=== PATIENT | female | born 1950 | race Caucasian/White ===

== ENCOUNTER → 2020-02-18 10:36 | Outpatient (BNVA) | payer MEDICARE, SELFPAY | PROVIDERS: PCP Family Medicine; Visit Provider Surgery | DX: Z01.818 Encounter for other preprocedural examination (principal) | CPT/HCPCS: 99212 ==

== ENCOUNTER → 2020-02-25 10:04 | Outpatient (BNV) | payer MEDICARE, SELFPAY | PROVIDERS: PCP Family Medicine; Visit Provider Internal Medicine | DX: Z85.3 Personal history of malignant neoplasm of breast (principal); M81.0 Age-related osteoporosis without current pathological fracture; Z17.0 Estrogen receptor positive status [ER+]; Z79.811 Long term (current) use of aromatase inhibitors | CPT/HCPCS: 99213; 99214; 99215; G2211 ==

== ENCOUNTER 2020-02-25 11:00 | Outpatient (REF) | payer MEDICARE, SELFPAY ==
--- NOTE | 2020-02-25 | MM_ITS ---
EXAMINATION: MM DIAGNOSTIC DIGITAL BREAST TOMOSYNTHESIS, LEFT CLINICAL INFORMATION: Short interval six-month follow-up probable benign early dystrophic calcifications in lumpectomy scar posterior upper outer left breast. Prior left lumpectomy for invasive ductal cancer 08/14/2016. COMPARISON: Mammography: 10/02/2019 (diagnostic, BI-RADS 3), 06/21/2018, 06/19/2017 TECHNIQUE: Digital breast tomosynthesis is performed in both the craniocaudal and mediolateral oblique views along with computer-aided detection (CAD). Synthesized 2D images are generated from the tomosynthesis. Additional magnification CC and magnification ML views are obtained. FINDINGS: The breasts are heterogeneously dense, which may obscure small masses (ACR BI-RADS breast composition Category c). There is scarring again seen posterior upper outer left breast with central BioZorb device and some benign peripheral calcifications for follow-up, likely early dystrophic. They will be reassessed again at time of annual bilateral mammography, due in 6 months. The remainder left breast is unremarkable. Results are provided to the patient at time of visit by the technologist. MM/MM tomosynthesis diagnostic LT IMPRESSION: No significant changes from prior study. Probable benign early dystrophic calcifications at lumpectomy site. ASSESSMENT: BI-RADS 3: Probably Benign RECOMMENDATION: Diagnostic mammography at time of bilateral annual exam, due in 6 months. This patient's information was entered into a reminder system with a target due date for their next mammogram.
--- NOTE | 2020-02-25 08:51 | MM_ITS ---
EXAMINATION: BONE DENSITOMETRY CLINICAL INDICATION: Other specified disorders of bone density and structure. COMPARISON: Previous BD dated 01/16/2017 and baseline BD dated 03/09/2009. TECHNIQUE: Using a katena DXA System (software version: 13.1) manufactured by [employer], dual-energy x-ray absorptiometry was performed of the lumbar spine and left hip. The images are of good technical quality. Summary results are attached. FINDINGS: AP SPINE L1-L2 (excluding L3 and L4): The data of L1-L4 has been changed to exclude the L3 and L4 vertebral bodies, because at these levels may cause overestimation of lumbar spine density. Current: BMD 0.983 g/cm2, Z-score -0.1, T-score -1.5, osteopenia, 2.1% decrease from previous, 4.4% increase from baseline (<5% change is not significant). Prior: BMD 1.004 g/cm2. Baseline: BMD 0.942 g/cm2. LEFT FEMUR, NECK: Current: BMD 0.701 g/cm2, Z-score -0.9, T-score -2.4, osteopenia. Prior: BMD 0.726 g/cm2. Baseline: BMD 0.741 g/cm2. LEFT FEMUR, TOTAL: Current: BMD 0.780 g/cm2, Z-score -0.5, T-score -1.8, osteopenia, 3.0% decrease from previous, 4.9% decrease from baseline (<5% change is not significant). Prior: BMD 0.804 g/cm2. Baseline: BMD 0.820 g/cm2. IDENTIFIED RISK FACTORS: Menopause, hysterectomy, bilateral oophorectomy, family history (parental hip fracture). HISTORY OF FRACTURE: None listed. MEDICATIONS: Calcium supplements or multivitamin, vitamin D, Fosamax. MM/XR DEXA axial skeleton IMPRESSION: 1. DIAGNOSIS: Osteopenia based on the lowest T-score value of -2.4 in the femoral neck applying World Health Organization criteria. 2. 10-YEAR FRACTURE RISK PREDICTION, FRAX: Major osteoporotic fracture (clinical spine, forearm, hip or shoulder) 13.2%. Hip fracture 3.6%. 3. Treatment Recommendations: NOF guidelines recommend consideration for treatment in postmenopausal women and men age 50 and older presenting with the following: -A hip or vertebral (clinical or morphometric) fracture. -T-score less than or equal to -2.5 at the femoral neck or spine after appropriate evaluation to exclude secondary causes. -Low bone mass at the hip or spine and a 10-year fracture probability by FRAX of greater than or equal to 3% for hip fracture or greater than or equal to 20% for major osteoporotic fracture based on the [place] adapted WHO algorithm. 4. Other Recommendations: All treatment decisions require clinical judgment and consideration of individual patient factors, including patient preferences, comorbidities, previous drug use, risk factors not captured in the FRAX model (e.g. frailty, falls, vitamin D deficiency, increased bone turnover, interval significant decline in bone density) and possible under or overestimation of fracture risk by FRAX. Additional medical evaluation for secondary cause of low bone mineral density may be appropriate. FUTURE SCAN RECOMMENDATION: People with diagnosed cases of osteoporosis or at high risk for fracture should have regular bone mineral density tests. For patients eligible for Medicare, routine testing is allowed once every 2 years. The testing frequency can be increased to one year for patients who have rapidly progressing disease, those who are receiving or discontinuing medical therapy to restore bone mass, or have additional risk factors.
--- NOTE | 2020-02-25 10:46 | P.PNHO_ITS ---
Medical Summary - Medical Summary Chief complaint: Follow-up Medical Summary: Diagnosis: Left breast infiltrating ductal carcinoma July 2016. Patient went for routine screening mammography in July 2016, this was read as BI-RADS 0 incomplete, additional imaging with targeted ultrasound of the left breast and axilla was recommended because of a spiculated mass 1 cm posterior upper outer quadrant of the left breast. Ultrasound revealed a 1 cm hypoechoic mass in the left breast, upper-outer quadrant. This was biopsied, pathology revealed invasive ductal carcinoma, moderately differentiated, ER positive VT positive, HER-2 -1+ by IHC. Tumor measured 0.85 cm in greatest dimension. On August 14 she underwent needle localization lumpectomy which revealed invasive ductal carcinoma measuring 1.1 cm, overall grade 1, mitotic rate 1, focal DCIS, solid type, intermediate nuclear grade, closest margin was 0.1-0.2 cm from the anterior resection margin. No lymphovascular invasion, 2 benign sentinel lymph nodes. Pathological stage: pT1c pN0. There is no family history of breast cancer in the immediate or first-degree relative, genetic screening has not been recommended. Completed adjuvant radiation therapy in October 2016, started on tamoxifen 20 mg once daily on November 09, 2016. Interval History Interval history: Patient is here in follow-up. She has been doing quite well overall. She was started on gabapentin by her neurologist because of tremors in her left hand as well as head tremors. She underwent her mammogram just today. She reports no problems pertaining to her breasts. No palpable breast masses, tenderness, swelling or nipple discharge. She has chronic left knee pain but no significant arthralgias. She denies any vasomotor symptoms. She has to travel to [facility] this week because of a family emergency. She denies any fever, chills, cough, shortness of breath, abdominal pain or change in bowel habits. Review of Systems - Constitutional Reports as per HPI, Reports no additional constitutional complaints - Cardiovascular Reports no additional cardiovascular complaints - Respiratory Reports no additional respiratory complaints - Integumentary/Breasts Skin/Breast: Reports no additional skin complaints - Neurologic Reports other [facility] Medical History: Medical History (Last Updated 02/18/20 @ 10:56 by Allan Hong MD) Cataracts, bilateral Colon cancer screening History of breast cancer Hyperlipidemia Hypertension Family History: Family History (Last Reviewed 02/18/20 @ 10:55 by Allan Hong MD) Maternal Uncle History of prostate cancer Maternal Aunt History of colon cancer Brother History of prostate cancer Surgical History: Surgical History (Last Reviewed 02/18/20 @ 10:55 by Allan Hong MD) History of hemorrhoidectomy History of hysterectomy History of lumpectomy of left breast Oncology Screenings - ECOG Performance Status ECOG Performance Status: 1 Home Medications and Allergies Home Medications Medication Instructions Recorded Confirmed Type alendronate 70 mg tablet 70 mg PO QWEEK 02/18/20 02/25/20 History amlodipine 5 mg tablet 5 mg PO DAILY 02/18/20 02/25/20 History aspirin 81 mg chewable tablet 1 tab PO DAILY 02/18/20 02/25/20 History cholecalciferol (vitamin D3) 25 25 mcg PO DAILY 02/18/20 02/25/20 History mcg (1,000 unit) tablet fluticasone propionate 50 1 spray INTRANASAL DAILY 02/18/20 02/25/20 History mcg/actuation nasal spray,suspension gabapentin 100 mg capsule 100 mg PO DAILY 02/18/20 02/25/20 History letrozole 2.5 mg tablet 2.5 mg PO DAILY 02/18/20 02/25/20 History lisinopril 10 mg tablet 10 mg PO DAILY 02/18/20 02/25/20 History loratadine 10 mg tablet 10 mg PO DAILY 02/18/20 02/25/20 History pravastatin 80 mg tablet 80 mg PO DAILY 02/18/20 02/25/20 History Allergies Allergy/AdvReac Type Severity Reaction Status Date / Time No Known Allergies Allergy Verified 02/18/20 10:50 [No Known Allergies*] Exam - Constitutional Present: no acute distress - Routine HEENT Exam Head: Present: normal inspection Eye: Present: EOMI - Routine Neck Exam Present: normal inspection - Routine Chest/Breast/Axilla Exam Breast: Absent: induration, mass, swelling Axillae: Absent: lymphadenopathy Comments: Left lumpectomy scar well healed, minimal induration along the scar. - Routine Respiratory Exam Present: CTAB - Routine Cardiovascular Exam Cardiovascular: Present: S1, S2 - Routine Abdominal Exam Present: normal bowel sounds, soft - Routine Extremities Exam Present: full ROM. Absent: pedal edema Data - Labs Labs: 02/25/20 MM tomosynthesis diagnostic LT [MM] Routine Progress Note: A/P (1) Breast cancer, left Status: Acute Assessment and plan: 1. This is a 68-year-old postmenopausal female diagnosed with left breast invasive ductal carcinoma, moderately differentiated overall grade 1, pathological stage: pT1c pN0. This is ER +, VT + HER-2 negative by IHC. She had lumpectomy with sentinel node biopsy on August 14, 2016. Completed adjuvant radiation therapy between 09/27/16 to 10/2016. On tamoxifen from November 2016 to june 2017. Tamoxifen discontinued secondary to worsening cataracts/blurry vision. Started on letrozole 2.5 mg once daily from August 07, 2017. She will be due for next bilateral mammography in June 2019. Because of new calcifications, repeat diagnostic left mammography has been scheduled for fall. She is doing well on letrozole, reports no side effects. She has mild knee pain secondary to osteoarthritis. 2. Bone density in 2017 :Osteopenia, she is on fosamax, calcium and vitamin D supplementation. She was unable to go for her repeat bone density. - Time Spent With Patient Total time spent is greater than 50% in coordination of care (as documented) at patient's floor/unit and/or counseling patient:
== END 2020-02-25 11:01 | disposition home or self-care (01) ==
LOC: HO.MAMMO 11:00
PROVIDERS: PCP Family Medicine; Visit Provider Internal Medicine
DX: R92.1 Mammographic calcification found on diagnostic imaging of breast (principal); Z85.3 Personal history of malignant neoplasm of breast; Z13.820 Encounter for screening for osteoporosis; Z78.0 Asymptomatic menopausal state; M85.80 Other specified disorders of bone density and structure, unspecified site; Z90.710 Acquired absence of both cervix and uterus; Z90.722 Acquired absence of ovaries, bilateral
CPT/HCPCS: 77061; 77065; 77080

== ENCOUNTER 2020-05-04 06:12 | Day surgery (SDC) | payer MEDICARE, SELFPAY ==
[2020-04-28 11:03] VITALS: BMI 28.0
--- NOTE | 2020-05-03 09:14 | P.CONAN_ITS ---
Documented by User: Lluvia Lake 05/03/20 09:15 HPI - Anesthesia Eval Consult details Narrative: 69yo F for Colonoscopy PMFSH Past Medical History Medical History Colon cancer screening History of breast cancer Hyperlipidemia Hypertension Osteopenia Family History Family History Maternal Uncle History of prostate cancer Maternal Aunt History of colon cancer Brother History of prostate cancer Surgical History Surgical History (Updated 05/04/20 @ 07:36 by Talia Finley) History of hemorrhoidectomy History of hysterectomy History of lumpectomy of left breast Hx of bilateral cataract extraction Hx of colonoscopy Social History Social History Alcohol intake: never Smoking Status: Never smoker Use of substances other than those prescribed or required for medical reasons: No Advance Directives: No Advance Directives Information Provided: No Advance Directives on File: No Recently lost weight without trying: No Meds Allergies Allergy/AdvReac Type Severity Reaction Status Date / Time No Known Allergies Allergy Verified 04/28/20 10:59 [No Known Allergies*] Home Medications Medication Instructions Recorded Confirmed Type alendronate 70 mg tablet 70 mg PO QWEEK 02/18/20 04/28/20 History amlodipine 5 mg tablet 5 mg PO DAILY 02/18/20 04/28/20 History aspirin 81 mg chewable tablet 1 tab PO DAILY 02/18/20 04/28/20 History cholecalciferol (vitamin D3) 25 25 mcg PO DAILY 02/18/20 04/28/20 History mcg (1,000 unit) tablet fluticasone propionate 50 1 spray INTRANASAL DAILY 02/18/20 04/28/20 History mcg/actuation nasal spray,suspension gabapentin 100 mg capsule 100 mg PO BEDTIME 02/18/20 04/28/20 History letrozole 2.5 mg tablet 2.5 mg PO DAILY 02/18/20 04/28/20 History lisinopril 10 mg tablet 10 mg PO DAILY 02/18/20 04/28/20 History loratadine 10 mg tablet 10 mg PO DAILY 02/18/20 04/28/20 History pravastatin 80 mg tablet 80 mg PO DAILY 02/18/20 04/28/20 History Exam Exam Date and Time: May 03, 2020 0914 Height,Weight and Vital Signs: Height 5 ft 3 in Weight 71.668 kg Pertinent Lab Results Pertinent Lab Results: Laboratory Tests 02/25/20 02/25/20 10:22 10:22 WBC 5.9 Hgb 14.1 Hct 43.3 Plt Count 279 Sodium 140 Potassium 3.8 Chloride 106 Carbon Dioxide 28 BUN 19 H Creatinine 0.75 Assessment and Plan Assessment Anesthesia Assessment: Chart Reviewed Documented by User: Talia Finley 05/04/20 07:36 [facility] Past Medical History Medical History Colon cancer screening History of breast cancer Hyperlipidemia Hypertension Osteopenia Family History Family History Maternal Uncle History of prostate cancer Maternal Aunt History of colon cancer Brother History of prostate cancer Family history of problems with anesthesia: No Surgical History Surgical History (Updated 05/04/20 @ 07:36 by Talia Finley) History of hemorrhoidectomy History of hysterectomy History of lumpectomy of left breast Hx of bilateral cataract extraction Hx of colonoscopy History of Problems with Anesthesia: No Social History Social History Alcohol intake: never Smoking Status: Never smoker Use of substances other than those prescribed or required for medical reasons: No Advance Directives: No Advance Directives Information Provided: No Advance Directives on File: No Recently lost weight without trying: No Meds Allergies Allergy/AdvReac Type Severity Reaction Status Date / Time No Known Allergies Allergy Verified 04/28/20 10:59 [No Known Allergies*] Home Medications Medication Instructions Recorded Confirmed Type alendronate 70 mg tablet 70 mg PO QWEEK 02/18/20 04/28/20 History amlodipine 5 mg tablet 5 mg PO DAILY 02/18/20 04/28/20 History aspirin 81 mg chewable tablet 1 tab PO DAILY 02/18/20 04/28/20 History cholecalciferol (vitamin D3) 25 25 mcg PO DAILY 02/18/20 04/28/20 History mcg (1,000 unit) tablet fluticasone propionate 50 1 spray INTRANASAL DAILY 02/18/20 04/28/20 History mcg/actuation nasal spray,suspension gabapentin 100 mg capsule 100 mg PO BEDTIME 02/18/20 04/28/20 History letrozole 2.5 mg tablet 2.5 mg PO DAILY 02/18/20 04/28/20 History lisinopril 10 mg tablet 10 mg PO DAILY 02/18/20 04/28/20 History loratadine 10 mg tablet 10 mg PO DAILY 02/18/20 04/28/20 History pravastatin 80 mg tablet 80 mg PO DAILY 02/18/20 04/28/20 History Exam Height,Weight and Vital Signs: Vital Signs Temp Pulse Resp BP Pulse Ox 05/04/20 06:37 97 F 83 18 154/69 H 99 Airway Mallampati Class: II TM Dist: >3cm Neck ROM: Full Partial: Upper Heart: RRR Lungs: CTAB Assessment and Plan Assessment Anesthesia Assessment: Anesthesia Plan Discussed and Chart Reviewed Final Anesthetic Review NPO: Yes ASA Class: II Final Preanesthetic Review: No Changes in Pt Med Stat, Meds/Allgs Chart Revi ewed, Consent Obtained/Reviewed and Anes Risks/Benef Reviewed Patient Risk: Low Procedure Risk: Low Assessment/Block/Sedation in SS: Assess/Block/Sedation-SS Anesthetic Plan Anesthetic Plan: MAC: Disposition: Standard PACU
[2020-05-04 06:37] VITALS: BP 154/69; PULSE 83; RESP 18; TEMP 36.1; O2SAT 99
[2020-05-04] MEDS: Lactated Ringers 1,000 ML 100 ML IVCONT (06:54)
--- NOTE | 2020-05-04 07:18 | P.HPSUR_ITS ---
Pre-Procedural Eval Section B Chief Complaint: Screening Details of Present Illness: for screening colonoscopy - no GI complaints Relevant Social History: None Present Medications: see Short Stay Collaborative assessment Medical History: Significant History (HTN, hyperlipidemia, hx of breast ca) History of Previous Operations: No relevant previous surgery Allergies: Allergies Allergy/AdvReac Type Severity Reaction Status Date / Time No Known Allergies Allergy Verified 04/28/20 10:59 [No Known Allergies*] Review of Systems Sugical H&P ROS: Negative: Constitution, Cardiovascular, Respiratory, Neurological, Psychiatric, Hem-Onc, Allergic/Immunologic, Gastrointestinal, Gen itourinary, Musculoskeletal, Integumentary, Endocrine and Eyes/Ears/Nose/Throat Exam Surgical H&P Exam: Normal: HEENT, Normal: Heart, Normal: Lungs, Normal: Extremities, Normal: Abdomen, Normal: Skin and Normal: Neurological Plan Diagnosis/Plan: Unchanged I have reviewed the history and physical and performed a pertinent physical examination on my patient. No changes have occurred unless specified.
--- NOTE | 2020-05-04 08:02 | PM.OP ---
Brief Operative Note Date of Service: 05/04/20 Pre-op diagnosis: colon ca screen Post-op diagnosis: other (normal findings) Procedure: colonoscopy Surgeon: Allan Hong MD Anesthesia: MAC Estimated blood loss (mL): 0 Pathology: none sent Condition: stable Disposition: PACU
[2020-05-04 08:03] VITALS: BP 79/56; PULSE 61; RESP 12; TEMP 36.6; O2SAT 96
[2020-05-04 08:10] VITALS: BP 94/44; PULSE 62; RESP 16; O2SAT 99
[2020-05-04 08:18] VITALS: BP 117/58; PULSE 66; RESP 18; O2SAT 97
--- NOTE | 2020-05-04 08:23 | OP_ITS ---
SURGEON: Allan Hong MD INDICATIONS: The patient is a 69-year-old female, referred for screening colonoscopy. She understood the technique of procedure. She was aware of the risks, benefits, and alternatives. PREOPERATIVE DIAGNOSIS: Colon cancer screening. POSTOPERATIVE DIAGNOSIS: Normal colonoscopy findings. PROCEDURE PERFORMED: Colonoscopy. ESTIMATED BLOOD LOSS: COMPLICATIONS: ANESTHESIA: ASSISTANTS: SPECIMENS: DESCRIPTION OF PROCEDURE: She was brought to the operating room, placed in left lateral decubitus position under monitored anesthesia care. A full digital rectal exam was done. There were no palpable anal canal lesions. The tip of the Olympus colonoscope was introduced gently through the anal orifice and advanced with insufflation all the way to the cecum. The cecum was intubated. The cecum was identified by visualization of the cecal valve as well as the appendiceal orifice. The cecal mucosa was unremarkable. The scope was gradually withdrawn with careful examination of the entire colonic mucosa being done with scope withdrawal. The patient had good bowel prep, so it was unlikely that any lesion might have been missed. The rectum was reached, and there were no lesions seen. The anal canal was unremarkable. The scope was then withdrawn completely with de-sufflation. The patient tolerated the procedure well. There were no complications noted. She falls at average risk for colon cancer. Her next colonoscopy may be in the next 10 years. MD ROXIE Vincent/RAGHU / [id number] MTDD
--- NOTE | 2020-05-04 08:45 | HO.POSTANES ---
Post Anesthesia Evaluation Post Anesthesia Evaluation Vital Signs: Vital Signs Temp Pulse Resp BP Pulse Ox 05/04/20 08:18 97.8 F 66 18 117/58 L 97 05/04/20 08:10 62 16 94/44 L 99 05/04/20 08:03 97.8 F 61 12 79/56 L 96 05/04/20 06:37 97 F 83 18 154/69 H 99 Anesthesia: Monitored Mental Status: Awake Pain Control: Satisfactory Nausea/Vomiting: None Hydration: Adequate Anesthesia-Related Issues: No Anes. Related Issues
== END 2020-05-04 09:05 ==
LOC: HO.SSS 06:15
PROVIDERS: PCP Family Medicine; Visit Provider Surgery
PROC: 0DJD8ZZ Inspection of Lower Intestinal Tract, Via Natural or Artificial Opening Endoscopic (ICD-10-PCS; CPT 45378; principal; 2020-05-04 07:30)
DX: Z12.11 Encounter for screening for malignant neoplasm of colon (principal); C50.912 Malignant neoplasm of unspecified site of left female breast; Z79.811 Long term (current) use of aromatase inhibitors; I10 Essential (primary) hypertension; M85.80 Other specified disorders of bone density and structure, unspecified site; E78.5 Hyperlipidemia, unspecified; Z79.82 Long term (current) use of aspirin; Z79.899 Other long term (current) drug therapy
CPT/HCPCS: G0121

== ENCOUNTER → 2020-05-07 08:39 | Outpatient (BNVA) | payer MEDICARE, SELFPAY | PROVIDERS: PCP Family Medicine; Visit Provider Surgery | DX: C50.912 Malignant neoplasm of unspecified site of left female breast (principal) | CPT/HCPCS: 99202 ==

== ENCOUNTER → 2020-05-17 08:36 | Outpatient (BNVA) | payer MEDICARE, SELFPAY | PROVIDERS: PCP Family Medicine; Visit Provider Surgery | DX: Z12.11 Encounter for screening for malignant neoplasm of colon (principal) | CPT/HCPCS: 99212 ==

== ENCOUNTER 2020-06-30 12:08 | Outpatient (REF) | payer MEDICARE, SELFPAY | END 2020-06-30 12:09 | disposition home or self-care (01) | LOC: HO.LAB 12:08 | PROVIDERS: Visit Provider Internal Medicine | DX: Z20.822 Contact with and (suspected) exposure to COVID-19 (principal) | CPT/HCPCS: 36415; C9803; U0003; U0005 ==

== ENCOUNTER 2020-08-24 12:22 | Outpatient (REF) | payer MEDICARE, SELFPAY ==
--- NOTE | ~2020-08-24 | MM_ITS ---
EXAMINATION: MM DIAGNOSTIC DIGITAL BREAST TOMOSYNTHESIS, BILATERAL CLINICAL INFORMATION: Due for yearly. Prior left lumpectomy for invasive ductal cancer 08/14/2016. Also follow-up probable benign relatively dystrophic calcifications in the lumpectomy scar. COMPARISON: Mammography: 02/25/2020, 10/02/2019 (diagnostic, BI-RADS 3), 06/21/2018, 06/19/2017, 07/19/2016, 07/11/2016. TECHNIQUE: Digital breast tomosynthesis is performed in both the craniocaudal and mediolateral oblique views along with computer-aided detection (CAD). Synthesized 2D images are generated from the tomosynthesis. Additional magnification left CC and magnification left ML views are obtained. FINDINGS: The breasts are heterogeneously dense, which may obscure small masses (ACR BI-RADS breast composition Category c). Parenchymal pattern is similar to prior exam. There is no interval mass or architectural abnormality or developing density. Right breast is unremarkable. The left breast has post therapy changes with left axillary clips, scar and BioZorb device posterior upper outer quadrant. There are some calcifications in the scar, likely early dystrophic. The original lesion in this area prior to surgery represented a mass rather than calcifications. Left calcifications in scar will be reassessed again at next bilateral annual mammography, due in 12 months. Results are provided to the patient at time of visit by the technologist. MM/MM tomosynthesis diagnostic BI IMPRESSION: 1. Left: Post therapy changes. Probable early dystrophic calcifications in the lumpectomy scar. 2. Right: No mammographic evidence of malignancy. ASSESSMENT: BI-RADS 3: Probably Benign RECOMMENDATION: Diagnostic mammography at time of next annual exam, due in 12 months. This patient's information was entered into a reminder system with a target due date for their next mammogram.
== END 2020-08-24 12:23 | disposition home or self-care (01) ==
LOC: HO.MAMMO 12:22
PROVIDERS: Visit Provider Internal Medicine
DX: Z85.3 Personal history of malignant neoplasm of breast (principal); Z98.890 Other specified postprocedural states
CPT/HCPCS: 77062; 77066

== ENCOUNTER 2020-09-02 15:06 | Outpatient (REF) | payer MEDICARE, SELFPAY ==
[2020-09-02 16:46] LABS: Blood Urea Nitrogen 17 mg/dL (9-16); Estimated Glomerular Filt Rate > 60
== END 2020-09-02 15:07 | disposition home or self-care (01) ==
LOC: HO.LAB 15:06
PROVIDERS: PCP Internal Medicine; Visit Provider Surgery
DX: G89.29 Other chronic pain (principal); R10.31 Right lower quadrant pain
CPT/HCPCS: 36415; 82565; 84520; 99212

== ENCOUNTER → 2020-09-13 14:15 | Outpatient (BNVA) | payer MEDICARE, SELFPAY | PROVIDERS: PCP Family Medicine; Visit Provider Internal Medicine Cardiovascular Disease | DX: R06.00 Dyspnea, unspecified (principal); R00.2 Palpitations; R94.31 Abnormal electrocardiogram [ECG] [EKG]; I10 Essential (primary) hypertension | CPT/HCPCS: 93005; 99202 ==

== ENCOUNTER 2020-09-29 09:23 | Outpatient (REF) | payer MEDICARE, SELFPAY ==
--- NOTE | ~2020-09-29 | CT_ITS ---
EXAMINATION: CT ABDOMEN AND PELVIS WITH CONTRAST CLINICAL INFORMATION: Right lower quadrant pain COMPARISON: None TECHNIQUE: Multidetector volumetric images were obtained from the superior aspect of the liver through the pubic symphysis following administration 85 mL of Omnipaque 350 intravenous contrast. Sagittal and coronal reformatted images were obtained on the technologist's workstation. Oral contrast: Yes This CT examination was performed using dose optimization techniques as appropriate, variously including the following: *Automated exposure control *Adjustment of mA and/or kV according to patient size (this includes techniques or standardized protocols for targeted exams where dose is matched to indication/reason for exam; i.e. extremities or head) *Use of iterative reconstruction technique DLP: 438 mGy-cm FINDINGS: LUNG BASES: The visualized lung bases are unremarkable. LIVER, GALLBLADDER, AND BILIARY TREE: There is a small calcification in the high right lobe of the liver axial image 14 series 8. The liver is slightly enlarged and low in attenuation suggestive of fatty infiltration.No gallstones are seen. The gallbladder is normal in size. The gallbladder wall appears upper normal in thickness measuring 3 mm. There is question of gallbladder wall enhancement. There is no biliary duct dilatation. PANCREAS: Unremarkable. SPLEEN: Unremarkable. ADRENAL GLANDS: Unremarkable. KIDNEYS AND URETERS: There are bilateral renal cysts, left greater than right. Largest cyst measures 3 x 3.8 cm in the left kidney. BLADDER: Not optimally distended. GASTROINTESTINAL TRACT: The small and large bowel are unremarkable. The appendix is unremarkable. The stomach is unremarkable. ABDOMINAL WALL: There are small bilateral inguinal hernias containing fat. LYMPH NODES: Normal. VASCULAR: Unremarkable. PELVIC VISCERA: Uterus appears to have been removed. No pelvic mass is seen. OSSEOUS STRUCTURES: Unremarkable. CT/CT abdomen pelvis w con IMPRESSION: Enlarged fatty liver. Question enhancing gallbladder wall. No gallstones seen. This could be further evaluated with ultrasound. Bilateral renal cysts. Normal appendix. Small bilateral inguinal hernias containing fat.
[2020-09-29] MEDS: iohexoL 350 MG/ML 100 ML INFUS..BTL IV (11:11)
== END 2020-09-29 09:24 | disposition home or self-care (01) ==
LOC: HO.CT 09:23
PROVIDERS: PCP Family Medicine; Visit Provider Surgery
DX: R10.31 Right lower quadrant pain (principal); G89.29 Other chronic pain
CPT/HCPCS: 74177; Q9967

== ENCOUNTER → 2020-10-04 10:08 | Outpatient (BNVA) | payer MEDICARE, SELFPAY | PROVIDERS: PCP Family Medicine; Referring Provider Family Medicine; Visit Provider Surgery | DX: R10.13 Epigastric pain (principal); G89.29 Other chronic pain | CPT/HCPCS: 99212 ==

== ENCOUNTER 2020-10-06 22:57 | Emergency (ER) | payer MEDICARE, SELFPAY ==
--- NOTE | ~2020-10-06 | XR_ITS ---
EXAMINATION: XR CHEST CLINICAL INFORMATION: Cough. COMPARISON: Chest x-ray July 24, 2017 TECHNIQUE: Frontal view of the chest was obtained. 12:11 AM FINDINGS: No significant abnormality is noted involving the heart, lungs, mediastinum, bony thorax or soft tissues. XR/XR chest 1V IMPRESSION: Unremarkable examination.
[2020-10-06 23:12] VITALS: BP 180/81; PULSE 92; RESP 16; TEMP 36.6; O2SAT 97; BMI 28.0
--- NOTE | 2020-10-06 23:17 | ECG_ITS ---
Test Reason : CHEST PAIN Blood Pressure : / mmHG Vent. Rate : 073 BPM Atrial Rate : 073 BPM P-R Int : 158 ms QRS Dur : 118 ms QT Int : 434 ms P-R-T Axes : 040 -15 -18 degrees QTc Int : 478 ms Poor data quality, interpretation may be adversely affected Normal sinus rhythm Left ventricular hypertrophy with Right bundle branch block QRS morphology Abnormal ECG When compared with ECG of 02-AUG-2016 10:38, Borderline criteria for Anterior infarct are no longer Present Borderline criteria for Anterolateral infarct are no longer Present Referred By: Generic ED Physician Electronically Signed By:BJORN SIMMONS MD
[2020-10-07] VITALS: BP 142/73; PULSE 74; RESP 16; TEMP 36.8; O2SAT 99
--- NOTE | 2020-10-07 00:19 | ED.GENADULT ---
HPI - General Adult General Chief complaint: General Medical Stated complaint: HBP Time Seen by Provider: 10/07/20 00:11 Source: patient and language interpreter Mode of arrival: ambulatory History of Present Illness HPI narrative: This is a 69-year-old female who presents with self endorsed preoccupation regarding the personal life of her son and concerns that she has regarding his new marriage as well as concerns regarding her upcoming Holter monitor for reported palpitations. She states that this evening she took her medication as scheduled at approximately 9:[address] and then on her way to her room she did not feel well . She states that she had some chest discomfort but denies any speech / visual/ auditory or unilateral weakness / numbness / tingling. She states she then took her blood pressure and noted that it was elevated and called her son to bring her into the emergency room. She otherwise denies any fever, chills, sore throat, cough, GI symptoms, or symptoms. Related Data Home Medications Medication Instructions Recorded Confirmed alendronate 70 mg tablet 70 mg PO QWEEK 02/18/20 10/04/20 amlodipine 5 mg tablet 5 mg PO DAILY 02/18/20 10/04/20 aspirin 81 mg chewable tablet 1 tab PO DAILY 02/18/20 10/04/20 cholecalciferol (vitamin D3) 25 25 mcg PO DAILY 02/18/20 10/04/20 mcg (1,000 unit) tablet fluticasone propionate 50 1 spray INTRANASAL DAILY 02/18/20 10/04/20 mcg/actuation nasal spray,suspension gabapentin 100 mg capsule 100 mg PO BEDTIME 02/18/20 10/04/20 letrozole 2.5 mg tablet 2.5 mg PO DAILY 02/18/20 10/04/20 lisinopril 10 mg tablet 10 mg PO DAILY 02/18/20 10/04/20 loratadine 10 mg tablet 10 mg PO DAILY 02/18/20 10/04/20 pravastatin 80 mg tablet 80 mg PO DAILY 02/18/20 10/04/20 Allergies Allergy/AdvReac Type Severity Reaction Status Date / Time No Known Allergies Allergy Verified 10/06/20 23:12 [No Known Allergies*] Review of Systems Review of Systems: Pertinent positives and negatives as stated in HPI 10 point review of systems is otherwise negative. FORMERLY [facility] Past Medical History Source: nursing notes reviewed Medical History Chronic RLQ pain Colon cancer screening History of breast cancer Hx of echocardiogram Hyperlipidemia Hypertension Osteopenia Surgical History History of hemorrhoidectomy History of hysterectomy History of lumpectomy of left breast Hx of bilateral cataract extraction Hx of colonoscopy Family History Family History Maternal Uncle History of prostate cancer Maternal Aunt History of colon cancer Brother History of prostate cancer Social History Social History Alcohol intake: former Advance Directives: No Advance Directives Information Provided: No Physical Exam Vital Signs: Vital Signs: Last Vital Signs Temp 98.2 F 10/07/20 00:00 Pulse 74 10/07/20 00:00 Resp 16 10/07/20 00:00 BP 142/73 H 10/07/20 00:00 Pulse Ox 99 10/07/20 00:00 Body Mass Index 28.0 VITAL SIGNS: Reviewed. GENERAL: Well developed, well nourished, in no acute distress. HEAD: Normocephalic/atraumatic, EYES: PERRLA, EOMI intact without pain, no nystagmus EARS: Ext canals without abnormality NOSE: Nares patent bilateral OROPHARYNX: no oral lesions noted, posterior pharynx clear NECK: Supple, no adenopathy LUNGS: Normal breath sounds. No adventitious sounds or accessory muscle use. SpO2<99> CARDIOVASCULAR: Regular rate and rhythm without noted murmurs, no JVD or lower extremity edema. ABDOMEN: Soft, non-tender, non-distended with bowel sounds. MUSCULOSKELETAL: No tenderness, deformities, or effusions noted on gross inspection. EXTREMITIES: No cyanosis, clubbing or edema. SKIN: Inspection of the skin reveals no rashes NEUROLOGIC: Alert and oriented x 4. Strength and sensation to light touch were grossly intact x 4 , no facial asymmetry, no pronator drift. Course Course Course Narrative: 69-year-old female with history and clinical presentation most consistent with stress and anxiety, but will rule out cardiopulmonary /infectious etiologies for patient's presenting symptoms. HEART Score: 4 review of all investigations negative for any acute findings, especially review of high sensitivity troponin that although is detectable is not elevated and there are no acute changes on review of the EKG. The history is inconsistent with ischemia and although patient does have a heart score of 4 this is primarily weighted towards patient's age and chronic EKG findings. She was informed of all results and discharged home in stable condition. Medical Decision Making Lab Data Result diagrams: 10/07/20 00:51 10/07/20 00:51 Labs: Lab Results 10/07/20 10/07/20 10/07/20 Range/Units 00:51 00:51 00:51 WBC 6.3 (4.8-10.8) X10*3/uL RBC 4.46 (4.20-5.50) X10*6/uL Hgb 14.0 (12.0-16.0) g/dl Hct 41.6 (37-47) % MCV 93.3 (80-98) fL MCH 31.4 (27.0-33.0) pg MCHC 33.7 (31.0-35.0) g/dl RDW 13.0 (11.0-16.0) % Plt Count 257 (160-400) X10*3/uL MPV 9.9 (9.4-12.3) fL Immature Gran % (Auto) 0.2 (0.0-0.4) % Neut % (Auto) 61.9 (45-73) % Lymph % (Auto) 25.1 (20-40) % [place] % (Auto) 8.8 (2-11) % Eos % (Auto) 3.4 (0-4) % Baso % (Auto) 0.6 (0-2) % Lymph # (Auto) 1.6 (1.2-4.9) X10*3/uL [place] # (Auto) 0.6 (0.1-1.2) X10*3/uL Eos # (Auto) 0.2 (0.0-0.4) X10*3/uL Baso # (Auto) 0.0 (0.0-0.2) X10*3/uL Abs Immat Gran (auto) 0.01 (0.00-0.03) X10*3/uL Absolute Neuts (auto) 3.9 (2.0-8.3) X10*3/uL Absolute Nucleated RBC 0.000 (0.0-0.012) X10*3/uL Nucleated RBC % (auto) 0.0 (0.0-0.2) /100WBC PT 11.6 (10.8-13.0) SEC INR 1.0 (0.9-1.1) Sodium 141 (135-145) mmol/L Potassium 4.1 (3.3-5.1) mmol/L Chloride 109 H (96-108) mmol/L Carbon Dioxide 24 (22-29) mmol/L Anion Gap 12 (12-20) BUN 23 H (9-16) mg/dL Creatinine 0.85 (0.5-1.4) mg/dL Estim Creat Clear Calc 59.3 Estimated GFR > 60 Random Glucose 109 (60-115) mg/dL Calcium 9.4 (8.4-10.2) mg/dL Total Bilirubin 0.2 (0.0-1.0) mg/dL AST 16 (5-31) U/L ALT 16 (0-31) U/L Alkaline Phosphatase 88 (39-117) U/L Troponin I High Sens (<3.5-17.0) ng/L Total Protein 6.9 (6.5-8.0) g/dL Albumin 4.3 (3.5-5.0) g/dL Urine Color Urine Appearance Urine pH (5.0-8.0) Ur Specific [place] (1.005-1.025) Urine Protein (NEG-TRACE) MG/DL Urine Glucose (UA) (NEG) MG/DL Urine Ketones (NEG) MG/DL Urine Blood (NEG) Urine Nitrite (NEG) Ur Leukocyte Esterase (NEG) Urine RBC (0) /HPF Urine WBC (0-4) /HPF Ur Squamous Epith Cells /LPF Urine Bacteria /LPF 10/07/20 10/07/20 Range/Units 00:51 03:08 WBC (4.8-10.8) X10*3/uL RBC (4.20-5.50) X10*6/uL Hgb (12.0-16.0) g/dl Hct (37-47) % MCV (80-98) fL MCH (27.0-33.0) pg MCHC (31.0-35.0) g/dl RDW (11.0-16.0) % Plt Count (160-400) X10*3/uL MPV (9.4-12.3) fL Immature Gran % (Auto) (0.0-0.4) % Neut % (Auto) (45-73) % Lymph % (Auto) (20-40) % [place] % (Auto) (2-11) % Eos % (Auto) (0-4) % Baso % (Auto) (0-2) % Lymph # (Auto) (1.2-4.9) X10*3/uL [place] # (Auto) (0.1-1.2) X10*3/uL Eos # (Auto) (0.0-0.4) X10*3/uL Baso # (Auto) (0.0-0.2) X10*3/uL Abs Immat Gran (auto) (0.00-0.03) X10*3/uL Absolute Neuts (auto) (2.0-8.3) X10*3/uL Absolute Nucleated RBC (0.0-0.012) X10*3/uL Nucleated RBC % (auto) (0.0-0.2) /100WBC PT (10.8-13.0) SEC INR (0.9-1.1) Sodium (135-145) mmol/L Potassium (3.3-5.1) mmol/L Chloride (96-108) mmol/L Carbon Dioxide (22-29) mmol/L Anion Gap (12-20) BUN (9-16) mg/dL Creatinine (0.5-1.4) mg/dL Estim Creat Clear Calc Estimated GFR Random Glucose (60-115) mg/dL Calcium (8.4-10.2) mg/dL Total Bilirubin (0.0-1.0) mg/dL AST (5-31) U/L ALT (0-31) U/L Alkaline Phosphatase (39-117) U/L Troponin I High Sens 3.7 (<3.5-17.0) ng/L Total Protein (6.5-8.0) g/dL Albumin (3.5-5.0) g/dL Urine Color YELLOW Urine Appearance CLEAR Urine pH 7.5 (5.0-8.0) Ur Specific [place] 1.020 (1.005-1.025) Urine Protein NEG (NEG-TRACE) MG/DL Urine Glucose (UA) NEG (NEG) MG/DL Urine Ketones NEG (NEG) MG/DL Urine Blood TRACE (NEG) Urine Nitrite NEG (NEG) Ur Leukocyte Esterase NEG (NEG) Urine RBC 5-9 H (0) /HPF Urine WBC 0-2 (0-4) /HPF Ur Squamous Epith Cells 1+ /LPF Urine Bacteria 1+ /LPF ECG Data Attestation: I personally reviewed and interpreted this ECG as follows: Prior ECG tracings: available for review ( 08/02/2016 no acute changes on comparison) Interpretation: normal sinus rhythm, HR - 73, no evidence of acute ischemia, LVH present, WV /QTC are within normal limits. Discharge Plan Discharge Clinical Impression: Atypical chest pain, Anxiety Patient Disposition: Home, Self-Care Instructions: Chest Pain (ED), Anxiety (ED) Additional Instructions: 1. Reanude todos los medicamentos caseros seg?n lo recetado. 2. Mike un seguimiento con welch proveedor de atenci?n primaria por la ma?jaden para casa reevaluaci?n y un tratamiento ambulatorio adicional. Regrese a la lisa de emergencias si sita s?ntomas empeoran de manera aguda. Prescriptions: No Action gabapentin 100 mg capsule 100 mg PO BEDTIME RF: 0 cholecalciferol (vitamin D3) 25 mcg (1,000 unit) tablet 25 mcg PO DAILY RF: 0 loratadine 10 mg tablet 10 mg PO DAILY RF: 0 letrozole 2.5 mg tablet 2.5 mg PO DAILY RF: 0 aspirin 81 mg tablet,chewable 1 tab PO DAILY RF: 0 lisinopril 10 mg tablet 10 mg PO DAILY RF: 0 pravastatin 80 mg tablet 80 mg PO DAILY RF: 0 amlodipine 5 mg tablet 5 mg PO DAILY RF: 0 fluticasone propionate 50 mcg/actuation spray,suspension 1 spray intranasal DAILY RF: 0 alendronate 70 mg tablet 70 mg PO QWEEK RF: 0 Referrals: Physician,Unknown [Primary Care Provider] - 2 days Print Language: Italian
[2020-10-07 00:55] LABS: MANUAL DIFF FLAG NO
[2020-10-07 00:56] LABS: Basophils Percent Auto 0.6 % (0-2); Eosinophils Absolute Auto 0.2 X10*3/uL (0.0-0.4); Eosinophils Percent Auto 3.4 % (0-4); Hematocrit 41.6 % (37-47); Imm Gran Abs Auto 0.01 X10*3/uL (0.00-0.03); Imm Gran Pct Auto 0.2 % (0.0-0.4); Lymphocytes Absolute Auto 1.6 X10*3/uL (1.2-4.9); Lymphocytes Percent Auto 25.1 % (20-40); Mean Corpuscular HGB Conc 33.7 g/dl (31.0-35.0); Mean Corpuscular Hemoglobin 31.4 pg (27.0-33.0); Mean Corpuscular Volume 93.3 fL (80-98); Mean Platelet Volume 9.9 fL (9.4-12.3); Monocytes Absolute Auto 0.6 X10*3/uL (0.1-1.2); Monocytes Percent Auto 8.8 % (2-11); Neutrophils Absolute Auto 3.9 X10*3/uL (2.0-8.3); Neutrophils Percent Auto 61.9 % (45-73); Platelet Count 257 X10*3/uL (160-400); Red Blood Count 4.46 X10*6/uL (4.20-5.50); White Blood Count 6.3 X10*3/uL (4.8-10.8)
[2020-10-07 01:03] LABS: Prothrombin Time 11.6 SEC (10.8-13.0)
[2020-10-07 01:20] LABS: Troponin-I High Sensitivity 3.7 ng/L (<3.5-17.0)
[2020-10-07 01:22] LABS: Alanine Aminotransferase 16 U/L (0-31); Albumin Level 4.3 g/dL (3.5-5.0); Alkaline Phosphatase 88 U/L (39-117); Anion Gap 12 (12-20); Aspartate Amino Transferase 16 U/L (5-31); Bilirubin Total 0.2 mg/dL (0.0-1.0); Blood Urea Nitrogen 23 mg/dL (9-16); Calcium 9.4 mg/dL (8.4-10.2); Carbon Dioxide 24 mmol/L (22-29); Chloride 109 mmol/L (96-108); Creatinine Clr Calc Pharmacy 59.3; Estimated Glomerular Filt Rate > 60; Glucose Random 109 mg/dL (60-115); Potassium 4.1 mmol/L (3.3-5.1); Sodium 141 mmol/L (135-145); Total Protein 6.9 g/dL (6.5-8.0)
[2020-10-07 03:13] LABS: Glucose Urine UA NEG (NEG); Leukocyte Esterase Urine NEG (NEG); Nitrite Urine NEG (NEG); PH 7.5 (5.0-8.0); Urine Blood TRACE (NEG); Urine Ketones NEG (NEG); Urine Protein NEG (NEG-TRACE)
[2020-10-07 03:14] LABS: Appearance Urine CLEAR; Color Urine YELLOW
[2020-10-07 03:19] LABS: Bacteria Urine 1+ /LPF; Squamous Epithelial Cell Urine 1+ /LPF; WBC Urine 0-2 /HPF (0-4)
== END 2020-10-07 03:58 | disposition home or self-care (01) ==
PROVIDERS: Emergency Provider Student in an Organized Health Care Education/Training Program
DX: F41.9 Anxiety disorder, unspecified (principal); R07.89 Other chest pain; I10 Essential (primary) hypertension; Z79.899 Other long term (current) drug therapy
CPT/HCPCS: 36415; 71045; 80053; 81001; 84484; 85025; 85610; 93005; 99283; 99284

== ENCOUNTER → 2020-10-22 09:13 | Outpatient (BNVA) | payer MEDICARE, SELFPAY | PROVIDERS: Visit Provider Surgery | DX: C50.912 Malignant neoplasm of unspecified site of left female breast (principal) | CPT/HCPCS: 99212 ==

== ENCOUNTER 2020-11-23 22:07 | Emergency (ER) | payer MEDICARE, SELFPAY ==
--- NOTE | ~2020-11-23 | XR_ITS ---
EXAMINATION: XR CHEST CLINICAL INFORMATION: Chest pain COMPARISON: 10/07/2020 TECHNIQUE: Frontal view of the chest was obtained. FINDINGS: The heart and pulmonary vessels appear normal. There is no evidence of CHF. The aorta is unfolded. No infiltrates, effusions or lung masses are seen. Surgical clips and calcifications noted in the axilla/left breast. XR/XR chest 1V IMPRESSION: No acute intrathoracic disease.
--- NOTE | 2020-11-23 22:13 | ECG_ITS ---
Test Reason : CHEST PAIN Blood Pressure : / mmHG Vent. Rate : 090 BPM Atrial Rate : 090 BPM P-R Int : 158 ms QRS Dur : 114 ms QT Int : 380 ms P-R-T Axes : 044 -15 -26 degrees QTc Int : 464 ms Normal sinus rhythm Incomplete right bundle branch block Minimal voltage criteria for LVH, may be normal variant Cannot rule out Anterior infarct , age undetermined Abnormal ECG When compared with ECG of 07-OCT-2020 00:10, Minimal criteria for Anterior infarct are now Present Referred By: Generic ED Physician Electronically Signed By:MURRAY MCKEE
[2020-11-23 23:01] VITALS: BP 147/78; PULSE 86; RESP 18; TEMP 37; O2SAT 100; BMI 28.3
[2020-11-23 23:38] LABS: MANUAL DIFF FLAG NO
[2020-11-23 23:45] LABS: Basophils Percent Auto 0.5 % (0-2); Eosinophils Absolute Auto 0.2 X10*3/uL (0.0-0.4); Eosinophils Percent Auto 2.8 % (0-4); Hematocrit 39.5 % (37-47); Hemoglobin 12.8 g/dl (12.0-16.0); Imm Gran Abs Auto 0.02 X10*3/uL (0.00-0.03); Imm Gran Pct Auto 0.3 % (0.0-0.4); Lymphocytes Absolute Auto 1.6 X10*3/uL (1.2-4.9); Lymphocytes Percent Auto 22.2 % (20-40); Mean Corpuscular HGB Conc 32.4 g/dl (31.0-35.0); Mean Corpuscular Hemoglobin 30.5 pg (27.0-33.0); Mean Corpuscular Volume 94.3 fL (80-98); Mean Platelet Volume 10.3 fL (9.4-12.3); Monocytes Absolute Auto 0.7 X10*3/uL (0.1-1.2); Monocytes Percent Auto 8.8 % (2-11); Neutrophils Absolute Auto 4.8 X10*3/uL (2.0-8.3); Neutrophils Percent Auto 65.4 % (45-73); Platelet Count 294 X10*3/uL (160-400); Red Blood Count 4.19 X10*6/uL (4.20-5.50); Red Cell Distribution Width 13.3 % (11.0-16.0); White Blood Count 7.4 X10*3/uL (4.8-10.8)
[2020-11-24 00:01] LABS: Anion Gap 13 (12-20); Blood Urea Nitrogen 16 mg/dL (9-16); Carbon Dioxide 23 mmol/L (22-29); Chloride 108 mmol/L (96-108); Creatinine Clr Calc Pharmacy 57.4; Estimated Glomerular Filt Rate > 60; Glucose Random 110 mg/dL (60-115); Sodium 140 mmol/L (135-145)
[2020-11-24 00:09] LABS: Troponin-I High Sensitivity 4.6 ng/L (<3.5-17.0)
[2020-11-24 00:25] LABS: Influenza A PCR NEGATIVE (Negative); Influenza B PCR NEGATIVE (Negative); Resp Syncy Virus RNA Qual PCR NEGATIVE (Negative); SARS COV2 PCR INHOUSE NEGATIVE (Negative)
--- NOTE | 2020-11-24 05:03 | ED_ITS ---
HPI - General Adult General Chief complaint: Dyspnea Stated complaint: CP Time Seen by Provider: 11/24/20 05:02 Source: patient and freelance interpreter/translator Mode of arrival: ambulatory History of Present Illness HPI narrative: This is a 70-year-old female who presents stating that after eating dinner she became bloated and had a lot of burping and that the bloating was pushing up onto her chest causing her to become short of breath. Patient states that she is mildly nauseous but has not vomited and is not having diarrhea. She states that Dr. Hong has been following her for these bloating like symptoms but told her that there were no acute findings and that she should take gas x. Patient states that this is not helped. She then describes left lower chest wall discomfort on palpation that she has had since she fell on October 26 and injured her left arm. Otherwise she denies any urinary symptoms or abdominal pain. Patient states she has had difficulty with having bowel movements since being discharged from the hospital. Related Data Home Medications Medication Instructions Recorded Confirmed alendronate 70 mg tablet 70 mg PO QWEEK 02/18/20 10/04/20 amlodipine 5 mg tablet 5 mg PO DAILY 02/18/20 10/04/20 aspirin 81 mg chewable tablet 1 tab PO DAILY 02/18/20 10/04/20 cholecalciferol (vitamin D3) 25 25 mcg PO DAILY 02/18/20 10/04/20 mcg (1,000 unit) tablet fluticasone propionate 50 1 spray INTRANASAL DAILY 02/18/20 10/04/20 mcg/actuation nasal spray,suspension gabapentin 100 mg capsule 100 mg PO BEDTIME 02/18/20 10/04/20 letrozole 2.5 mg tablet 2.5 mg PO DAILY 02/18/20 10/04/20 lisinopril 10 mg tablet 10 mg PO DAILY 02/18/20 10/04/20 loratadine 10 mg tablet 10 mg PO DAILY 02/18/20 10/04/20 pravastatin 80 mg tablet 80 mg PO DAILY 02/18/20 10/04/20 Allergies Allergy/AdvReac Type Severity Reaction Status Date / Time No Known Allergies Allergy Verified 11/23/20 23:01 [No Known Allergies*] Review of Systems Review of Systems: Pertinent positives and negatives as stated HPI 10 point review of systems is otherwise negative. PMFSH Past Medical History Source: nursing notes reviewed Medical History Chronic RLQ pain Colon cancer screening History of breast cancer Hx of echocardiogram Hyperlipidemia Hypertension Osteopenia Surgical History History of hemorrhoidectomy History of hysterectomy History of lumpectomy of left breast Hx of bilateral cataract extraction Hx of colonoscopy Family History Family History Maternal Uncle History of prostate cancer Maternal Aunt History of colon cancer Brother History of prostate cancer Social History Social History Alcohol intake: former Advance Directives: No Advance Directives Information Provided: No Physical Exam Vital Signs: Vital Signs: Last Vital Signs Temp 98.6 F 11/23/20 23:01 Pulse 79 11/24/20 05:09 Resp 16 11/24/20 05:09 BP 136/58 L 11/24/20 05:09 Pulse Ox 98 11/24/20 05:09 Body Mass Index 28.3 VITAL SIGNS: Reviewed. GENERAL: Well developed, well nourished, in no acute distress. HEAD: Normocephalic/atraumatic EYES: PERRLA, EOMI OROPHARYNX: no oral lesions noted, posterior pharynx clear LUNGS: Normal breath sounds. No adventitious sounds or accessory muscle use. SpO2<98> CARDIOVASCULAR: Regular rate and rhythm without noted murmurs, no JVD or lower extremity edema. ABDOMEN: Soft, non-tender, non-distended with bowel sounds. LEFT UPPER EXTREMITY: Well-healing incision with Steri-Strips in place, p alpable pulses, capillary refill less than 3 seconds, hand is warm and sensation is intact. SKIN: Inspection of the skin reveals no rashes, ulcerations, jaundice, pallor, or petechiae. NEUROLOGIC: Alert and oriented x 4. Strength and sensation to light touch were grossly intact x 4. Course Course Course Narrative: This is a 70-year-old female with history and clinical presentation most consistent with dyspepsia as well as some costochondritis/contusion symptoms the patient has had since her fall. Review of all investigations negative for acute findings which were discussed with her at bedside. Patient was provided with a lidocaine patch to the chest wall tenderness that she was experiencing and on re-evaluation states that she has had improvement of her symptoms. In addition, patient is clearly struggling with some constipation and will be given a bowel regimen. Medical Decision Making Lab Data Result diagrams: 11/23/20 22:59 11/23/20 22:59 Labs: Lab Results 11/23/20 11/23/20 11/23/20 Range/Units 22:59 22:59 22:59 WBC 7.4 (4.8-10.8) X10*3/uL RBC 4.19 L (4.20-5.50) X10*6/uL Hgb 12.8 (12.0-16.0) g/dl Hct 39.5 (37-47) % MCV 94.3 (80-98) fL MCH 30.5 (27.0-33.0) pg MCHC 32.4 (31.0-35.0) g/dl RDW 13.3 (11.0-16.0) % Plt Count 294 (160-400) X10*3/uL MPV 10.3 (9.4-12.3) fL Immature Gran % (Auto) 0.3 (0.0-0.4) % Neut % (Auto) 65.4 (45-73) % Lymph % (Auto) 22.2 (20-40) % [place] % (Auto) 8.8 (2-11) % Eos % (Auto) 2.8 (0-4) % Baso % (Auto) 0.5 (0-2) % Lymph # (Auto) 1.6 (1.2-4.9) X10*3/uL [place] # (Auto) 0.7 (0.1-1.2) X10*3/uL Eos # (Auto) 0.2 (0.0-0.4) X10*3/uL Baso # (Auto) 0.0 (0.0-0.2) X10*3/uL Abs Immat Gran (auto) 0.02 (0.00-0.03) X10*3/uL Absolute Neuts (auto) 4.8 (2.0-8.3) X10*3/uL Absolute Nucleated RBC 0.000 (0.0-0.012) X10*3/uL Nucleated RBC % (auto) 0.0 (0.0-0.2) /100WBC Sodium 140 (135-145) mmol/L Potassium 4.0 (3.3-5.1) mmol/L Chloride 108 (96-108) mmol/L Carbon Dioxide 23 (22-29) mmol/L Anion Gap 13 (12-20) BUN 16 (9-16) mg/dL Creatinine 0.87 (0.5-1.4) mg/dL Estim Creat Clear Calc 57.4 Estimated GFR > 60 Random Glucose 110 (60-115) mg/dL Calcium 9.0 (8.4-10.2) mg/dL Troponin I High Sens 4.6 (<3.5-17.0) ng/L Urine Color Urine Appearance Urine pH (5.0-8.0) Ur Specific [place] (1.005-1.025) Urine Protein (NEG-TRACE) MG/DL Urine Glucose (UA) (NEG) MG/DL Urine Ketones (NEG) MG/DL Urine Blood (NEG) Urine Nitrite (NEG) Ur Leukocyte Esterase (NEG) Urine RBC (0) /HPF Urine WBC (0-4) /HPF Ur Squamous Epith Cells /LPF Urine Bacteria /LPF Urine Mucus /LPF Coronavirus (PCR) (Negative) Influenza Type A (PCR) (Negative) Influenza Type B (PCR) (Negative) RSV RNA Qual (PCR) (Negative) 11/23/20 11/24/20 11/24/20 Range/Units 23:02 05:15 05:15 WBC (4.8-10.8) X10*3/uL RBC (4.20-5.50) X10*6/uL Hgb (12.0-16.0) g/dl Hct (37-47) % MCV (80-98) fL MCH (27.0-33.0) pg MCHC (31.0-35.0) g/dl RDW (11.0-16.0) % Plt Count (160-400) X10*3/uL MPV (9.4-12.3) fL Immature Gran % (Auto) (0.0-0.4) % Neut % (Auto) (45-73) % Lymph % (Auto) (20-40) % [place] % (Auto) (2-11) % Eos % (Auto) (0-4) % Baso % (Auto) (0-2) % Lymph # (Auto) (1.2-4.9) X10*3/uL [place] # (Auto) (0.1-1.2) X10*3/uL Eos # (Auto) (0.0-0.4) X10*3/uL Baso # (Auto) (0.0-0.2) X10*3/uL Abs Immat Gran (auto) (0.00-0.03) X10*3/uL Absolute Neuts (auto) (2.0-8.3) X10*3/uL Absolute Nucleated RBC (0.0-0.012) X10*3/uL Nucleated RBC % (auto) (0.0-0.2) /100WBC Sodium (135-145) mmol/L Potassium (3.3-5.1) mmol/L Chloride (96-108) mmol/L Carbon Dioxide (22-29) mmol/L Anion Gap (12-20) BUN (9-16) mg/dL Creatinine (0.5-1.4) mg/dL Estim Creat Clear Calc Estimated GFR Random Glucose (60-115) mg/dL Calcium (8.4-10.2) mg/dL Troponin I High Sens 4.5 (<3.5-17.0) ng/L Urine Color YELLOW Urine Appearance CLEAR Urine pH 6.0 (5.0-8.0) Ur Specific [place] 1.020 (1.005-1.025) Urine Protein NEG (NEG-TRACE) MG/DL Urine Glucose (UA) NEG (NEG) MG/DL Urine Ketones NEG (NEG) MG/DL Urine Blood 1+ H (NEG) Urine Nitrite NEG (NEG) Ur Leukocyte Esterase NEG (NEG) Urine RBC 5-9 H (0) /HPF Urine WBC 1-4 (0-4) /HPF Ur Squamous Epith Cells 1+ /LPF Urine Bacteria 2+ /LPF Urine Mucus 2+ /LPF Coronavirus (PCR) NEGATIVE (Negative) Influenza Type A (PCR) NEGATIVE (Negative) Influenza Type B (PCR) NEGATIVE (Negative) RSV RNA Qual (PCR) NEGATIVE (Negative) Discharge Plan Discharge Clinical Impression: Constipation, Anterior chest wall pain Patient Disposition: Home, Self-Care Instructions: Constipation (ED), High Fiber Diet (ED), Gas and Bloating (ED), Chest Wall Pain (ED) Additional Instructions: 1. Reanude todos los medicamentos caseros seg?n lo prescrito. 2. Tylenol 1000 mg, por v?a oral, cada 6 horas seg?n sea necesario para contr olar el dolor. No exceda los 4000 mg en 24 horas. 3. Parche de lidoca?na, estos est?n disponibles sin receta y deben aplicarse en el ?shasta de m?xima sensibilidad jacki se indica en el empaque exterior. 3. Mike un seguimiento con welch proveedor de atenci?n primaria esta ma?jaden para casa reevaluaci?n y un tratamiento ambulatorio adicional. 4. Recomiende comenzar a ammon Mira[employer] de venta agus todos los d?as, as? jacki aumentar la ingesta de agua para ayudar a mejorar sita evacuaciones intestinales. Regrese a la lisa de emergencias si sita s?ntomas empeoran de manera aguda. Prescriptions: No Action gabapentin 100 mg capsule 100 mg PO BEDTIME RF: 0 cholecalciferol (vitamin D3) 25 mcg (1,000 unit) tablet 25 mcg PO DAILY RF: 0 loratadine 10 mg tablet 10 mg PO DAILY RF: 0 letrozole 2.5 mg tablet 2.5 mg PO DAILY RF: 0 aspirin 81 mg tablet,chewable 1 tab PO DAILY RF: 0 lisinopril 10 mg tablet 10 mg PO DAILY RF: 0 pravastatin 80 mg tablet 80 mg PO DAILY RF: 0 amlodipine 5 mg tablet 5 mg PO DAILY RF: 0 fluticasone propionate 50 mcg/actuation spray,suspension 1 spray intranasal DAILY RF: 0 alendronate 70 mg tablet 70 mg PO QWEEK RF: 0 Referrals: Krysten Rose MD [Primary Care Provider] - 2 days Print Language: Sammarinese
[2020-11-24 05:09] VITALS: BP 136/58; PULSE 79; RESP 16; O2SAT 98
[2020-11-24 05:22] LABS: Glucose Urine UA NEG (NEG); Leukocyte Esterase Urine NEG (NEG); Nitrite Urine NEG (NEG); UACC Culture Trigger NO; Urine Blood 1+ (NEG); Urine Ketones NEG (NEG); Urine Protein NEG (NEG-TRACE)
[2020-11-24 05:28] LABS: Appearance Urine CLEAR; Color Urine YELLOW
[2020-11-24 05:36] LABS: Bacteria Urine 2+ /LPF; Mucus Urine 2+ /LPF; Squamous Epithelial Cell Urine 1+ /LPF
[2020-11-24 06:07] LABS: Troponin-I High Sensitivity 4.5 ng/L (<3.5-17.0)
[2020-11-24 06:36] VITALS: BP 111/56; PULSE 66; RESP 16; TEMP 36.4; O2SAT 99
[2020-11-24] MEDS: Lidocaine 4 % Patch ADH..PATCH 1 PATCH TRANSDERMA (06:40)
== END 2020-11-24 07:00 | disposition home or self-care (01) ==
PROVIDERS: Emergency Provider Student in an Organized Health Care Education/Training Program; PCP Family Medicine
DX: K59.00 Constipation, unspecified (principal); R07.89 Other chest pain; Z20.822 Contact with and (suspected) exposure to COVID-19; I10 Essential (primary) hypertension; E78.5 Hyperlipidemia, unspecified; Z85.3 Personal history of malignant neoplasm of breast
CPT/HCPCS: 0241U; 36415; 71045; 80048; 81001; 84484; 85025; 93005; 99284

== ENCOUNTER 2021-01-12 09:27 | Outpatient (REF) | payer MEDICARE, SELFPAY ==
--- NOTE | ~2021-01-12 | US_ITS ---
EXAMINATION: US THYROID CLINICAL INFORMATION: Left thyroid nodule. COMPARISON: None TECHNIQUE: Linear transducer grayscale and color Doppler examination with attention to the region of the thyroid. FINDINGS: SIZE: Measurements of the thyroid lobes and nodules are given in sagittal, anteroposterior and transverse dimensions respectively. Right Thyroid Lobe: 4.4 x 1.7 x 1.8 cm, volume 7.2 mL. Parenchyma: The gland echotexture is homogeneous. Thyroid vascularity is normal. Left Thyroid Lobe: 4.1 x 1.6 x 1.2 cm, volume 4.2 mL. Parenchyma: The gland echotexture is homogeneous. Thyroid vascularity is normal. Isthmus: 0.6 cm in maximum AP dimension. Estimated total number of nodules greater than or equal to 1 cm: 3. Cyber Engineer nodules are described as follows: 1. Location: Right mid pole. Size: 1.1 x 0.8 x 1.2 cm, volume 0.5 mL. Nodule characteristics: Composition: Solid/almost completely solid (2). Echogenicity: Isoechoic (1). Shape: Not taller than wide (0). Margins: Smooth (0). Echogenic Foci: None (0). ACR TI-RADS total points: 3 ACR TI-RADS category: 3 2. Location: Right mid pole. Size: 0.7 x 0.4 x 0.5 cm, volume 0.08 mL. Nodule characteristics: Composition: Solid/almost completely solid (2). Echogenicity: Isoechoic (1). Shape: Not taller than wide (0). Margins: Smooth (0). Echogenic Foci: None (0). ACR TI-RADS total points: 3 ACR TI-RADS category: 3 3. Location: Right lower pole. Size: 1.2 x 1.2 x 1.4 cm, volume 1.0 mL. Nodule characteristics: Composition: Solid (2). Echogenicity: Hypoechoic (2). Shape: Not taller than wide (0). Margins: Smooth (0). Echogenic Foci: None (0). ACR TI-RADS total points: 4 ACR TI-RADS category: 4 4. Location: Left mid pole. Size: 0.6 x 0.5 x 0.8 cm, volume 0.1 mL. Nodule characteristics: Composition: Solid (2). Echogenicity: Hyperechoic (1). Shape: Not taller than wide (0). Margins: Smooth (0). Echogenic Foci: None (0). ACR TI-RADS total points: 3 ACR TI-RADS category: 3 5. Location: Left lower pole. Size: 1.1 x 0.8 x 1.0 cm, volume 0.5 mL. Nodule characteristics: Composition: Solid (2). Echogenicity: Hyperechoic (1). Shape: Not taller than wide (0). Margins: Smooth (0). Echogenic Foci: None (0). ACR TI-RADS total points: 3 ACR TI-RADS category: 3 NODES: No lymphadenopathy is seen in the tissue surrounding the thyroid gland. US/US thyroid IMPRESSION: Bilateral thyroid nodules. Ultrasound follow-up 1, 2, 3 and 5 years as described below recommended. ACR TI-RADS RECOMMENDATION REFERENCE: Ultrasound-guided fine-needle aspiration, followup ultrasound, no further follow up. * TR1 (0 point) and TR 2 (2 points): No FNA or follow up * TR3 (3 points): FNA if more than or equal to 2.5 cm in maximum dimension, followup ultrasound in 1, 3 and 5 years if 1.5 to 2.4 cm in maximum dimension. * TR4 (4-6 points): FNA if more than or equal to 1.5 cm in maximum dimension, followup ultrasound in 1, 2, 3 and 5 years if 1 to 1.4 cm in maximum dimension. * TR5 (more than or equal to 7 points): FNA if more than or equal to 1 cm in maximum dimension, followup ultrasound every year for 5 years if 0.5 to 0.9 cm in maximum dimension. * TR3, TR4 or TR5 nodules that are below the size threshold for follow up receive no follow up.
== END 2021-01-12 09:28 | disposition home or self-care (01) ==
LOC: HO.US 09:27
PROVIDERS: PCP Family Medicine; Visit Provider Family Medicine
DX: E04.1 Nontoxic single thyroid nodule (principal); Z85.3 Personal history of malignant neoplasm of breast
CPT/HCPCS: 76536

== ENCOUNTER → 2021-04-26 09:16 | Outpatient (BNVA) | payer MEDICARE, SELFPAY | PROVIDERS: PCP Family Medicine; Referring Provider Family Medicine; Visit Provider Surgery | DX: C50.912 Malignant neoplasm of unspecified site of left female breast (principal); Z79.811 Long term (current) use of aromatase inhibitors; Z17.0 Estrogen receptor positive status [ER+] | CPT/HCPCS: 99212 ==

== ENCOUNTER → 2021-07-20 10:02 | Outpatient (BNVA) | payer MEDICARE, SELFPAY | PROVIDERS: PCP Family Medicine; Referring Provider Family Medicine; Visit Provider Internal Medicine Cardiovascular Disease | DX: Z01.810 Encounter for preprocedural cardiovascular examination (principal); R06.02 Shortness of breath; R94.31 Abnormal electrocardiogram [ECG] [EKG] | CPT/HCPCS: 99212 ==

== ENCOUNTER → 2021-07-22 13:40 | Outpatient (REF) | payer OTHER, SELFPAY ==
--- NOTE | 2021-07-22 13:46 | CA_ITS ---
Transthoracic Echocardiogram Patient (Last, First, Middle): Charlene Zamora M Gender: Female Date of : 1950 Age: 70 Procedure Date: 07/22/2021 Procedure Type: Transthoracic Echocardiogram Location: OP Height: 170.18 cm Weight: 77.11 kg BSA: 1.89 m2 Heart Rate: bpm BP: 116 / 60 mmHg Actuarial Director: Referring MD: Graham Mathews MD Symptoms: Z01.810 - Encounter for preprocedural cardiovascular exam... Study Quality: Fair ECG Rhythm: Sinus Conclusions: - Normal left ventricular size and systolic function. There is mildly increased left ventricular wall thickness. The visually estimated ejection fraction is between 55-60%. - Normal right ventricular cavity size and systolic function. - There is mild to moderate aortic valve regurgitation. Findings Left Ventricle Normal left ventricular size and systolic function. There is mildly increased left ventricular wall thickness. The visually estimated ejection fraction is between 55-60%. There is no evidence of regional wall motion abnormalities. Abnormal diastolic function is noted. Spectral Doppler is indicative of an impaired relaxation filling pattern. E/E prime ratio is between 8 and 15 consistent with indeterminate filling pressures. Right Ventricle Normal right ventricular cavity size and systolic function. Atria The left atrium is normal in size. Aortic Valve There is a normal trileaflet aortic valve. There is no aortic valve stenosis. There is mild to moderate aortic valve regurgitation. Mitral Valve The mitral valve appears normal. There is trace mitral valve regurgitation. There is no mitral valve stenosis. Pulmonic Valve The pulmonic valve is likely normal. Tricuspid Valve Normal tricuspid valve structure and function. There is trace tricuspid valve regurgitation. Normal right atrial pressure. There is no evidence of pulmonary hypertension. Great Vessels All visible segments of the aorta are normal in size. The visualized portions of the pulmonary artery and branches are normal. Venous The inferior vena cava is normal in size and collapses greater than 50% with inspiration. Pericardium/Pleural There is no evidence of pericardial effusion. Prior Study Comparison No prior study available for comparison. Measurements 2D Linear Measurements IVSd: 1.25 0.6-0.9/0.6-1.0 cm LVIDd: 4.51 3.9-5.3/4.2-5.9 cm LVIDd Index: 2.39 2.4-3.2/2.2-3.1 cm/m2 LVIDs: 2.96 2.0-3.6 cm LVPWd: 1.23 0.7-1.1 cm Ao Root: 2.90 2.1-3.5 cm LA Diam: 3.40 2.7-3.8/3.0-4.0 cm LAIDs Index: 1.80 1.5-2.3 cm/m2 LV Mass: 259.79 67-162/88-224 g LV Mass Index: 137.46 43-95/49-115 g/m2 LVOT Diam: 2.00 3.0+(-)1.3 cm Mitral Valve MV Pk E: 0.50 MV PK A: 0.78 MV Decel Time: 220.00 E/A: 0.60 E'Lateral: 5.22 E'Medial: 5.22 E/E' Med: 9.60 E/E' Lat: 9.60 PHT: 64.00 MVA PHT: 3.44 Decel [place]: 2.28 Aortic Valve AoV Pk Toni: 1.56 AoV Mn Toni: 1.11 AoV VTI: 0.40 AoV Pk Grad: 10.00 Aov Mn Grad: 6.00 ANTWAN Cont.VTI: 1.66 AI Pk Toni: 4.48 AI [place]: 2.91 LVOT LVOT Pk Toni: 0.93 LVOT Mn Toni: 0.58 LVOT VTI: 0.21 LVOT Pk Grad: 3.00 LVOT Mn Grad: 2.00 LVOT Diam: 2.00 LVOT Area: 3.14 Diastolic Function MV Pk E: 0.50 MV Pk A: 0.78 E/A: 0.60 E'Medial: 5.22 E/E' Med: 9.60 E' Laterial: 5.22 E/E' Lat: 9.60 Right Ventricle TAPSE (mm): 23.00 TVS' Toni: 12.00 Tricuspid Valve TR Pk Toni: 2.14 TR Pk Grad: 18.00 RA Press: 3.00 RVSP: 21.00 Great Vessels Aorta Ao Root-2D: 2.90 2.0-3.7 cm Ao Asc: 3.10 2.1-3.4 cm Pulmonary Valve PV Pk Toni: 0.73 Peak PV Grad: 2.00 Updated in Other Vendor System with Status of Final Michael Faustin MD electronically signed on 07/24/2021 12:57:34 PM with status of Final
== END ==
LOC: HO.CARD 13:40
PROVIDERS: PCP Family Medicine; Visit Provider Internal Medicine Cardiovascular Disease
DX: Z01.810 Encounter for preprocedural cardiovascular examination (principal)
CPT/HCPCS: 93306

== ENCOUNTER → 2021-08-01 07:47 | Outpatient (REF) | payer MEDICARE, SELFPAY ==
--- NOTE | ~2021-08-01 | NM_ITS ---
Myocardial perfusion study Indication: Chest pain to evaluate for myocardial ischemia Technique: The patient was brought in for a Lexiscan perfusion study on 08/01/2021. Patient performed low-level exercise and was injected 0.4 mg of Lexiscan intravenously. Within a minute of injection, 25 mCi of sestamibi was given intravenously. Images were obtained using the SPECT gamma camera interlaced with the gating device. Images were obtained in supine position. Resting perfusion study was performed on 08/02/2021. Patient was administered 25 mCi of sestamibi intravenously at rest. Images were then obtained in supine position. Images obtained with and without CT attenuation. Total DLP 122 mGy-cm. Images were processed with the software and compared side to side in short axis, horizontal long axis and vertical long axis views. Findings: The stress perfusion study showed non attenuated images show small area of apex of the LV myocardium. Remainder of the LV myocardium is normally perfused. Attenuation corrected images show mildly reduced uptake in the distal anterior and apex of the LV myocardium. Remainder of the LV myocardium is normally perfused. The gated study shows normal LV systolic function with calculated LVEF of 71%. LV cavity is normal in size. The gated study shows normal systolic wall thickening and contraction of segments. Resting study shows no change in perfusion pattern compared to stress perfusion study. Gating at rest reveals normal systolic wall motion with ejection fraction at 72%. The findings are consistent with no reversible defect suggestive of ischemia. Fixed apical defect with normal wall motion most consistent with soft tissue artifact. NM/NM cardiolite stress test Impression: 1. Myocardial perfusion imaging study shows likely normal myocardial perfusion 2. Gated LVEF is 71% 3. Transient ischemic dilatation not present EKG is nondiagnostic for ischemia
--- NOTE | 2021-08-01 07:53 | CA_ITS ---
Acquisition Time: 2021-08-01 08:41:26 Total Exercise Time: 00:02:00 Test Indications: Dyspnea Medications: SEE H Protocol: LEXISCAN Max HR: 098 BPM 65% of Pred: 150 BPM Max BP: 126/070 mmHG Max Work Load: 1.0 METS Pharmacological stress test with Lexiscan injection, while sitting and kicking her legs, with report of chest tightness post injection which resolved quickly, without arrythmia, with normotensive response to injection, with nondiagnostic EKG for ischemia. Nuclear images pending. Test reviewed with Dr Garzon. Referred By: Graham Mathews Overread By: VIKA EVANS
== END ==
LOC: HO.CARD 07:47
PROVIDERS: PCP Family Medicine; Visit Provider Internal Medicine Cardiovascular Disease
DX: Z01.810 Encounter for preprocedural cardiovascular examination (principal); R07.9 Chest pain, unspecified; R06.00 Dyspnea, unspecified
CPT/HCPCS: 78452; 93017; A9500; J0280; J2785

== ENCOUNTER 2021-08-17 12:09 | Outpatient (REF) | payer OTHER, SELFPAY ==
--- NOTE | ~2021-08-17 | MM_ITS ---
EXAMINATION: MM DIAGNOSTIC DIGITAL BREAST TOMOSYNTHESIS, BILATERAL CLINICAL INFORMATION: Due for yearly. Left lumpectomy for invasive ductal cancer 08/14/2016. Follow-up probable benign dystrophic calcifications in the lumpectomy scar (original lesion mass rather than calcification). COMPARISON: Mammography: 08/24/2020, 02/25/2020, 10/02/2019 (BI-RADS 3), 06/21/2018 (BI-RADS 2), 06/19/2017. TECHNIQUE: Digital breast tomosynthesis is performed in both the craniocaudal and mediolateral oblique views along with computer-aided detection (CAD). Synthesized 2D images are generated from the tomosynthesis. Additional magnification left CC and magnification left ML views are provided. FINDINGS: The breasts are heterogeneously dense, which may obscure small masses (ACR BI-RADS breast composition Category c). Post therapy changes left breast are again seen with mild reduced breast size, stable scarring posterior upper outer quadrant, BioZorb device, and axillary clips. The calcifications in the biopsy cavity are stable from prior diagnostic studies and now considered to be benign. The remainder of the breasts show no significant changes from prior exams. There is no interval mass or developing density or architectural abnormality. No abnormal calcifications. Skin contours are smooth. MM/MM tomosynthesis diagnostic BI IMPRESSION: -No mammographic evidence of malignancy. -Post therapy changes left breast. Calcifications lumpectomy site are now considered to be benign. ASSESSMENT: BI-RADS 2: Benign RECOMMENDATION: Routine annual mammography screening. This patient's information was entered into a reminder system with a target due date for their next mammogram.
== END 2021-08-17 12:10 | disposition home or self-care (01) ==
LOC: HO.MAMMO 12:09
PROVIDERS: PCP Family Medicine; Visit Provider Internal Medicine
DX: R92.1 Mammographic calcification found on diagnostic imaging of breast (principal); Z85.3 Personal history of malignant neoplasm of breast
CPT/HCPCS: 77062; 77066

== ENCOUNTER → 2021-12-01 12:28 | Outpatient (BNVA) | payer OTHER, SELFPAY | PROVIDERS: PCP Family Medicine; Visit Provider Surgery | DX: Z85.3 Personal history of malignant neoplasm of breast (principal); Z92.3 Personal history of irradiation | CPT/HCPCS: 99212 ==

== ENCOUNTER → 2022-03-22 08:36 | Outpatient (BNVA) | payer OTHER, SELFPAY | PROVIDERS: PCP Family Medicine; Referring Provider Family Medicine; Visit Provider Internal Medicine Cardiovascular Disease | DX: I11.9 Hypertensive heart disease without heart failure (principal) | CPT/HCPCS: 99212 ==

== ENCOUNTER 2022-06-23 09:58 | Outpatient (REF) | payer OTHER, SELFPAY ==
--- NOTE | ~2022-06-23 | MM_ITS ---
EXAMINATION: BONE DENSITOMETRY CLINICAL INDICATION: Osteopenia. COMPARISON: Previous BD dated 01/25/2020 and baseline BD dated 03/09/2009. TECHNIQUE: Using a [employer] DXA System (software version: 13.1) manufactured by [employer], dual-energy x-ray absorptiometry was performed of the lumbar spine and left hip. The images are of good technical quality. Summary results are attached. FINDINGS: AP SPINE L1-L2 (excluding L3 and L4): The data of L1-L4 has been changed to exclude the L3 and L4 vertebral bodies, because degenerative sclerosis at these levels may cause overestimation of lumbar spine density. Current: BMD 0.965 g/cm2, Z-score 0.0, T-score -1.7, osteopenia, 1.8% decrease from previous, 2.4% increase from baseline (<5% change is not significant). Prior: BMD 0.983 g/cm2. Baseline: BMD 0.942 g/cm2. LEFT FEMUR, NECK: Current: BMD 0.692 g/cm2, Z-score -0.7, T-score -2.5, osteoporosis. Prior: BMD 0.701 g/cm2. Baseline: BMD 0.741 g/cm2. LEFT FEMUR, TOTAL: Current: BMD 0.755 g/cm2, Z-score -0.5, T-score -2.0, osteopenia, 3.2% decrease from previous, 7.9% decrease from baseline (<5% change is not significant). Prior: BMD 0.780 g/cm2. Baseline: BMD 0.820 g/cm2. IDENTIFIED RISK FACTORS: Menopause, hysterectomy, family history (parent hip fracture), bilateral oophorectomy. HISTORY OF FRACTURE: Elbow. MEDICATIONS: Calcium, vitamin D, bisphosphonate. MM/XR DEXA axial skeleton IMPRESSION: 1. DIAGNOSIS: Osteoporosis based on the lowest T-score value of -2.5 in the femoral neck applying World Health Organization criteria. 2. 10-YEAR FRACTURE RISK PREDICTION, FRAX: According to the guidelines, FRAX calculation should only be performed on patients in the osteopenia bone density category. Therefore, FRAX was not performed on this patient. 3. Treatment Recommendations: NOF guidelines recommend consideration for treatment in postmenopausal women and men age 50 and older presenting with the following: -A hip or vertebral (clinical or morphometric) fracture. -T-score less than or equal to -2.5 at the femoral neck or spine after appropriate evaluation to exclude secondary causes. -Low bone mass at the hip or spine and a 10-year fracture probability by FRAX of greater than or equal to 3% for hip fracture or greater than or equal to 20% for major osteoporotic fracture based on the [place] adapted WHO algorithm. 4. Other Recommendations: All treatment decisions require clinical judgment and consideration of individual patient factors, including patient preferences, comorbidities, previous drug use, risk factors not captured in the FRAX model (e.g. frailty, falls, vitamin D deficiency, increased bone turnover, interval significant decline in bone density) and possible under or overestimation of fracture risk by FRAX. Additional medical evaluation for secondary cause of low bone mineral density may be appropriate. FUTURE SCAN RECOMMENDATION: People with diagnosed cases of osteoporosis or at high risk for fracture should have regular bone mineral density tests. For patients eligible for Medicare, routine testing is allowed once every 2 years. The testing frequency can be increased to one year for patients who have rapidly progressing disease, those who are receiving or discontinuing medical therapy to restore bone mass, or have additional risk factors.
== END 2022-06-23 09:59 | disposition home or self-care (01) ==
LOC: HO.MAMMO 09:58
PROVIDERS: PCP Family Medicine; Visit Provider Internal Medicine
DX: Z13.820 Encounter for screening for osteoporosis (principal); M85.80 Other specified disorders of bone density and structure, unspecified site; Z78.0 Asymptomatic menopausal state
CPT/HCPCS: 77080

== ENCOUNTER 2022-07-03 12:37 | Emergency (ER) | payer OTHER, SELFPAY ==
--- NOTE | 2022-07-03 | ECG_ITS ---
Test Reason : CHEST PRESSURE Blood Pressure : / mmHG Vent. Rate : 092 BPM Atrial Rate : 092 BPM P-R Int : 154 ms QRS Dur : 108 ms QT Int : 372 ms P-R-T Axes : 038 -25 -18 degrees QTc Int : 460 ms Normal sinus rhythm Incomplete right bundle branch block Minimal voltage criteria for LVH, may be normal variant ( R in aVL ) Possible Lateral infarct (cited on or before 02-AUG-2016) Abnormal ECG When compared with ECG of 23-NOV-2020 22:27, Questionable change in initial forces of Anterolateral leads Referred By: Malika Fernandez Electronically Signed By:UBALDO ZAMARRIPA
--- NOTE | ~2022-07-03 | XR_ITS ---
EXAMINATION: XR CHEST CLINICAL INFORMATION: Chest pain COMPARISON: 11/23/2020 TECHNIQUE: 2 views of the chest were obtained. FINDINGS: Lungs are well expanded. Chronic linear opacity of minimal scar in lateral right upper lobe. No acute pulmonary findings. No edema, pleural effusion or pneumothorax. Cardiac silhouette is normal in size. There is tortuosity of the descending thoracic aorta. Surgical clips in left axillary region. Bones appear to be diffusely osteopenic. Mild discovertebral degenerative changes of the thoracic spine. XR/XR chest 2V IMPRESSION: No acute pulmonary disease.
[2022-07-03 12:52] VITALS: BP 104/76; BP 126/64; PULSE 97; RESP 13; TEMP 36.8; O2SAT 98; BMI 27.8
[2022-07-03 13:19] LABS: MANUAL DIFF FLAG NO
[2022-07-03 13:21] LABS: Basophils Absolute Auto 0.1 X10*3/uL (0.0-0.2); Basophils Percent Auto 0.8 % (0-2); Eosinophils Absolute Auto 0.1 X10*3/uL (0.0-0.4); Eosinophils Percent Auto 1.1 % (0-4); Hematocrit 44.1 % (37.0-47.0); Hemoglobin 14.9 g/dl (12.0-16.0); Imm Gran Abs Auto 0.02 X10*3/uL (0.00-0.03); Imm Gran Pct Auto 0.3 % (0.0-0.4); Lymphocytes Absolute Auto 1.1 X10*3/uL (1.2-4.9); Lymphocytes Percent Auto 15.5 % (20-40); Mean Corpuscular HGB Conc 33.8 g/dl (31.0-35.0); Mean Corpuscular Hemoglobin 30.5 pg (27.0-33.0); Mean Corpuscular Volume 90.4 fL (80.0-98.0); Mean Platelet Volume 9.7 fL (9.4-12.3); Monocytes Absolute Auto 0.6 X10*3/uL (0.1-1.2); Monocytes Percent Auto 7.8 % (2-11); Neutrophils Absolute Auto 5.4 x10*3/uL (2.0-8.3); Neutrophils Percent Auto 74.5 % (45-73); Platelet Count 247 X10*3/uL (160-400); Red Blood Count 4.88 X10*6/uL (4.20-5.50); Red Cell Distribution Width 12.8 % (11.0-16.0); White Blood Count 7.3 X10*3/uL (4.8-10.8)
--- NOTE | 2022-07-03 13:33 | ED.CHESTPAIN ---
HPI - Chest Pain General Chief Complaint: Chest Pain Stated Complaint: CHEST PAIN FROM MD OFFICE Time Seen by Provider: 07/03/22 12:55 Source: patient and vision mixer Mode of arrival: EMS History of Present Illness HPI narrative: 71-year-old female who reports having left-sided chest discomfort upon awakening this morning that worsen with deep inspiration as well as movement. She denies any associated nausea, diaphoresis, dizziness, or shortness of breath. She denies any recent sore throat or new cough. Patient denies any change with position and states that the pain has completely resolved at the time of my interview. Related Data Home Medications Medication Instructions Recorded Confirmed alendronate 70 mg tablet 70 mg PO QWEEK 02/18/20 06/19/22 cholecalciferol (vitamin D3) 25 25 mcg PO DAILY 02/18/20 06/19/22 mcg (1,000 unit) tablet fluticasone propionate 50 1 spray intranasal DAILY 02/18/20 06/19/22 mcg/actuation nasal spray,suspension gabapentin 100 mg capsule 200 mg PO BEDTIME 02/18/20 06/19/22 lisinopril 10 mg tablet 10 mg PO DAILY 02/18/20 06/19/22 loratadine 10 mg tablet 10 mg PO DAILY 02/18/20 06/19/22 pravastatin 80 mg tablet 80 mg PO DAILY 02/18/20 06/19/22 aspirin 81 mg chewable tablet 81 mg PO DAILY 03/22/22 06/19/22 vitamin B12 500 mcg-folic acid 400 1 tab PO DAILY 03/22/22 06/19/22 mcg tablet Previous Rx's Medication Instructions Recorded letrozole 2.5 mg tablet 2.5 mg PO DAILY #90 tabs 08/24/21 amlodipine 10 mg tablet 10 mg PO DAILY #30 tabs 03/22/22 Allergies Allergy/AdvReac Type Severity Reaction Status Date / Time No Known Allergies Allergy Verified 07/03/22 13:08 [No Known Allergies*] Review of Systems Review of Systems: Pertinent positives and negatives as stated in HPI PMFSH Past Medical History Source: nursing notes reviewed Medical History Arm fracture, left Chronic RLQ pain Colon cancer screening History of breast cancer History of left tennis elbow Hx of echocardiogram Hyperlipidemia Hypertension Osteopenia Surgical History History of hemorrhoidectomy History of hysterectomy History of lumpectomy of left breast Hx of bilateral cataract extraction Hx of colonoscopy Family History Family History Maternal Uncle History of prostate cancer Maternal Aunt History of colon cancer Brother History of prostate cancer Social History Social History Household Members: Family and Children Housing: House Are you a primary ambulatory care nurse to a significant other at home: No Do you presently have visiting nurse or other home services: Yes Alcohol intake: former Patient Tobacco Use Status: Never used Tobacco Advance Directives: No Advance Directives Information Provided: Yes service: No Current occupational status: disabled Physical Exam Vital Signs: Vital Signs: Last Vital Signs Temp 98.2 F 07/03/22 12:52 Pulse 97 07/03/22 12:52 Resp 13 07/03/22 12:52 BP 126/64 07/03/22 12:52 Pulse Ox 98 07/03/22 12:52 O2 Del Method Room Air 07/03/22 12:52 BMI result Body Mass Index 27.8 VITAL SIGNS: Reviewed. GENERAL: Well developed, well nourished, in no acute distress. HEAD: Normocephalic/atraumatic EYES: PERRLA, EOMI EARS: Ext canals without abnormality OROPHARYNX: no oral lesions noted, posterior pharynx clear and non-erythematous without noted tonsillar enlargement/erythema/exudates NECK: Supple, no adenopathy LUNGS: Normal breath sounds. No adventitious sounds or accessory muscle use. SpO2<98> CARDIOVASCULAR: Regular rate and rhythm without noted murmurs, no JVD or lower extremity edema. ABDOMEN: Soft, non-tender, non-distended with bowel sounds. MUSCULOSKELETAL: No tenderness, deformities, or effusions noted on gross inspection. EXTREMITIES: No cyanosis, clubbing or edema. SKIN: Inspection of the skin reveals no rashes NEUROLOGIC: Alert and oriented x 4. Strength and sensation to light touch were grossly intact x 4. Medical Decision Making Medical Decision Making MDM Narrative: 71-year-old female with atypical chest pain similarly respiratory and movement associated. Low clinical suspicion for cardiopulmonary disease. I reviewed all investigations to my interpretation is this patient has atypical chest pain most likely attributable to being COVID-19 positive. All results and findings were discussed with her and her family at bedside. Differential Diagnosis Please see the discussion above Lab Data Please see the discussion above 07/03/22 13:14 07/03/22 13:14 Labs: Lab Results 07/03/22 07/03/22 07/03/22 Range/Units 13:14 13:14 13:14 WBC 7.3 (4.8-10.8) X10*3/uL RBC 4.88 (4.20-5.50) X10*6/uL Hgb 14.9 (12.0-16.0) g/dl Hct 44.1 (37.0-47.0) % MCV 90.4 (80.0-98.0) fL MCH 30.5 (27.0-33.0) pg MCHC 33.8 (31.0-35.0) g/dl RDW 12.8 (11.0-16.0) % Plt Count 247 (160-400) X10*3/uL MPV 9.7 (9.4-12.3) fL Immature Gran % (Auto) 0.3 (0.0-0.4) % Neut % (Auto) 74.5 H (45-73) % Lymph % (Auto) 15.5 L (20-40) % [place] % (Auto) 7.8 (2-11) % Eos % (Auto) 1.1 (0-4) % Baso % (Auto) 0.8 (0-2) % Lymph # (Auto) 1.1 L (1.2-4.9) X10*3/uL [place] # (Auto) 0.6 (0.1-1.2) X10*3/uL Eos # (Auto) 0.1 (0.0-0.4) X10*3/uL Baso # (Auto) 0.1 (0.0-0.2) X10*3/uL Abs Immat Gran (auto) 0.02 (0.00-0.03) X10*3/uL Absolute Neuts (auto) 5.4 (2.0-8.3) x10*3/uL Absolute Nucleated RBC 0.000 (0.0-0.012) X10*3/uL Nucleated RBC % (auto) 0.0 (0.0-0.2) /100WBC PT 11.0 (10.0-13.1) SEC INR 1.0 (0.9-1.1) Sodium 141 (135-145) mmol/L Potassium 4.1 (3.3-5.1) mmol/L Chloride 106 (96-108) mmol/L Carbon Dioxide 26 (22-29) mmol/L Anion Gap 13 (12-20) BUN 17 H (9-16) mg/dL Creatinine 0.78 (0.5-1.4) mg/dL Estim Creat Clear Calc 60.2 Estimated GFR > 60 Random Glucose 101 (60-115) mg/dL Calcium 9.6 (8.4-10.2) mg/dL Total Bilirubin 0.4 (0.0-1.0) mg/dL AST 24 (5-31) U/L ALT 21 (0-31) U/L Alkaline Phosphatase 66 (39-117) U/L Troponin I High Sens (<3.5-17.0) ng/L Total Protein 6.9 (6.5-8.0) g/dL Albumin 4.3 (3.5-5.0) g/dL COVID-19 ([facility]) (Negative) COVID-19 Clin Com 07/03/22 07/03/22 Range/Units 13:14 13:14 WBC (4.8-10.8) X10*3/uL RBC (4.20-5.50) X10*6/uL Hgb (12.0-16.0) g/dl Hct (37.0-47.0) % MCV (80.0-98.0) fL MCH (27.0-33.0) pg MCHC (31.0-35.0) g/dl RDW (11.0-16.0) % Plt Count (160-400) X10*3/uL MPV (9.4-12.3) fL Immature Gran % (Auto) (0.0-0.4) % Neut % (Auto) (45-73) % Lymph % (Auto) (20-40) % [place] % (Auto) (2-11) % Eos % (Auto) (0-4) % Baso % (Auto) (0-2) % Lymph # (Auto) (1.2-4.9) X10*3/uL [place] # (Auto) (0.1-1.2) X10*3/uL Eos # (Auto) (0.0-0.4) X10*3/uL Baso # (Auto) (0.0-0.2) X10*3/uL Abs Immat Gran (auto) (0.00-0.03) X10*3/uL Absolute Neuts (auto) (2.0-8.3) x10*3/uL Absolute Nucleated RBC (0.0-0.012) X10*3/uL Nucleated RBC % (auto) (0.0-0.2) /100WBC PT (10.0-13.1) SEC INR (0.9-1.1) Sodium (135-145) mmol/L Potassium (3.3-5.1) mmol/L Chloride (96-108) mmol/L Carbon Dioxide (22-29) mmol/L Anion Gap (12-20) BUN (9-16) mg/dL Creatinine (0.5-1.4) mg/dL Estim Creat Clear Calc Estimated GFR Random Glucose (60-115) mg/dL Calcium (8.4-10.2) mg/dL Total Bilirubin (0.0-1.0) mg/dL AST (5-31) U/L ALT (0-31) U/L Alkaline Phosphatase (39-117) U/L Troponin I High Sens < 3.5 (<3.5-17.0) ng/L Total Protein (6.5-8.0) g/dL Albumin (3.5-5.0) g/dL COVID-19 ([facility]) Positive A (Negative) COVID-19 Clin Com See Note Independent Interpretation I performed an independent interpretation of an: EKG Interpretation: Normal sinus rhythm, HR-92, incomplete right bundle branch block (at baseline), no STEMI, CT/QTC are within normal limits. Radiology Impression Radiologist Impression: My interpretation is in agreement with radiology's impression of the imaging study. External Record Review External record reviewed: Prior outpatient labs Chronic Conditions Patient?s care impacted by: Hypertension Discharge Plan Discharge Clinical Impression: Atypical chest pain, Lab test positive for detection of COVID-19 virus, Viral syndrome Patient Disposition: Home, Self-Care Instructions: Viral Syndrome (ED), COVID-19 (Coronavirus Disease 2019) (ED), Chest Pain (ED) Additional Instructions: 1. Reanudar todos los medicamentos caseros seg?n lo prescrito. 2. Le colindres diagnosticado COVID-19 y debe aislarse paige los pr?ximos 5 d?as. 3. Recomendar Tylenol/ibuprofen de venta agus seg?n sea necesario para los s?ntomas que incluyen temperatura superior a 100.4. 4. Recomendar el seguimiento con welch proveedor de atenci?n primaria a citlalli?s de casa jonn de telemedicina en los pr?ximos 1 o 2 d?as. Regrese a la lisa de emergencias si los s?ntomas empeoran. 1. Resume all home medications as prescribed. 2. You have been diagnosed with COVID-19 and must isolate for the next 5 days. 3. Recommend [id number] Tylenol/ibuprofen as needed for symptoms to include temperature greater than 100.4. 4. Recommend follow-up with your primary care provider via telemedicine appointment in the next 1-2 days. Return to the ER for any worsening symptoms. Prescriptions: No Action letrozole 2.5 mg Tablet 2.5 mg PO DAILY Qty: 90 4RF vitamin [id number] acid 500-400 mcg tablet 1 tab PO DAILY Rx Instructions: administer with a meal gabapentin 100 mg capsule 200 mg PO BEDTIME cholecalciferol (vitamin D3) 25 mcg (1,000 unit) tablet 25 mcg PO DAILY loratadine 10 mg tablet 10 mg PO DAILY lisinopril 10 mg tablet 10 mg PO DAILY pravastatin 80 mg tablet 80 mg PO DAILY fluticasone propionate 50 mcg/actuation spray,suspension 1 spray intranasal DAILY alendronate 70 mg tablet 70 mg PO QWEEK aspirin 81 mg tablet,chewable 81 mg PO DAILY amlodipine 10 mg tablet 10 mg PO DAILY Qty: 30 5RF Referrals: Krysten Rose MD [Primary Care Provider] - Print Language: Irish
[2022-07-03 13:45] LABS: Alanine Aminotransferase 21 U/L (0-31); Albumin Level 4.3 g/dL (3.5-5.0); Alkaline Phosphatase 66 U/L (39-117); Anion Gap 13 (12-20); Aspartate Amino Transferase 24 U/L (5-31); Bilirubin Total 0.4 mg/dL (0.0-1.0); Blood Urea Nitrogen 17 mg/dL (9-16); Calcium 9.6 mg/dL (8.4-10.2); Carbon Dioxide 26 mmol/L (22-29); Chloride 106 mmol/L (96-108); Creatinine Clr Calc Pharmacy 60.2; Estimated Glomerular Filt Rate > 60; Glucose Random 101 mg/dL (60-115); Potassium 4.1 mmol/L (3.3-5.1); Sodium 141 mmol/L (135-145); Total Protein 6.9 g/dL (6.5-8.0)
[2022-07-03 13:49] LABS: Troponin-I High Sensitivity < 3.5 ng/L (<3.5-17.0)
[2022-07-03 13:53] LABS: COVID-19 Test Positive (Negative); IDNOW Serial# BCCEAD1C
--- NOTE | 2022-07-03 14:51 | PC.NURSE ---
patient resting comfortably. denies CP at this time. call randolph within reach. will CTM
[2022-07-03 15:38] VITALS: PULSE 73; RESP 15; O2SAT 96
== END 2022-07-03 15:56 | disposition home or self-care (01) ==
PROVIDERS: Emergency Provider Student in an Organized Health Care Education/Training Program; PCP Family Medicine
DX: U07.1 COVID-19 (principal); R07.89 Other chest pain; Z79.899 Other long term (current) drug therapy
CPT/HCPCS: 71046; 80053; 84484; 85025; 85610; 87635; 93005; 99283; 99284

== ENCOUNTER 2022-07-04 20:42 | Emergency (ER) | payer OTHER, SELFPAY ==
--- NOTE | ~2022-07-04 | XR_ITS ---
EXAMINATION: XR SOFT TISSUE NECK CLINICAL INDICATION: Throat pain feeling like there is FB COMPARISON: None available. TECHNIQUE: 2 views of the soft tissue neck were obtained. FINDINGS: Soft tissue films of the neck demonstrate a normal larynx, pharynx and upper trachea. No soft tissue swelling or opaque foreign body is demonstrated. Degenerative change of the cervical spine with multilevel facet joint arthrosis. Lung apices are normally aerated. XR/XR soft tissue neck IMPRESSION: Unremarkable examination.
[2022-07-04 20:47] VITALS: PULSE 92; RESP 18; TEMP 37.5; O2SAT 98; BMI 29.5
--- NOTE | 2022-07-04 20:49 | ED.URI ---
HPI - URI/Sore Throat General Chief Complaint: General Medical <MICHEAL Quinn - Last Filed: 07/04/22 20:51> Stated Complaint: has covid/ cant swallow <MICHEAL Quinn - Last Filed: 07/04/22 20:51> Time Seen by Provider: 07/05/22 00:29 <MICHEAL Quinn Last Filed: 07/04/22 20:51> Source: patient and family <MICHEAL Grier Last Filed: 07/05/22 00:58> Mode of arrival: ambulatory <MICHEAL Grier Last Filed: 07/05/22 00:58> Limitations: no limitations <MICHEAL Grier Last Filed: 07/05/22 00:58> History of Present Illness HPI Narrative: 71-year-old female presents for evaluation of sore throat, patient is known COVID positive since yesterday. Patient tells me that today she felt like she had something in her throat and had difficulty swallowing, this lasted a few hours and then resolved, patient says she is feeling better now however wanted to be evaluated. She tells me she does not know if she is just anxious but she felt like she was having difficulty swallowing. She tells me she feels much better now however wanted to get evaluated. Denies fevers, chills, chest pain, shortness of breath, nausea, vomiting, headache, vision changes, dizziness and weakness. <MICHEAL Grier Last Filed: 07/05/22 00:58> Related Data Home Medications: Home Medications Medication Instructions Recorded Confirmed alendronate 70 mg tablet 70 mg PO QWEEK 02/18/20 06/19/22 cholecalciferol (vitamin D3) 25 25 mcg PO DAILY 02/18/20 06/19/22 mcg (1,000 unit) tablet fluticasone propionate 50 1 spray intranasal DAILY 02/18/20 06/19/22 mcg/actuation nasal spray,suspension gabapentin 100 mg capsule 200 mg PO BEDTIME 02/18/20 06/19/22 lisinopril 10 mg tablet 10 mg PO DAILY 02/18/20 06/19/22 loratadine 10 mg tablet 10 mg PO DAILY 02/18/20 06/19/22 pravastatin 80 mg tablet 80 mg PO DAILY 02/18/20 06/19/22 aspirin 81 mg chewable tablet 81 mg PO DAILY 03/22/22 06/19/22 vitamin B12 500 mcg-folic acid 400 1 tab PO DAILY 03/22/22 06/19/22 mcg tablet Previous Rx's Medication Instructions Recorded letrozole 2.5 mg tablet 2.5 mg PO DAILY #90 tabs 08/24/21 amlodipine 10 mg tablet 10 mg PO DAILY #30 tabs 03/22/22 prednisone 20 mg tablet 40 mg PO DAILY 5 days #10 tabs 07/05/22 <MICHEAL Quinn - Last Filed: 07/04/22 20:51> Allergies/Adverse Reactions: Allergies Allergy/AdvReac Type Severity Reaction Status Date / Time No Known Allergies Allergy Verified 07/03/22 13:08 [No Known Allergies*] <MICHEAL Quinn Last Filed: 07/04/22 20:51> Review of Systems Review of Systems: Constitutional : No Weight loss, No Fever, No Chills, No Fatigue, No Malaise ENT/Mouth : + sore throat, No Rhinorrhea Eyes: No Eye Pain, No Swelling, No Redness Cardiovascular : No Chest Pain, No SOB, No Dyspnea on Exertion, No Orthopnea, No Edema, No Palpitations Respiratory : No Cough, No Sputum, No Wheezing Gastrointestinal : No Nausea, No Vomiting, No Diarrhea, No Constipation, No abdominal Pain, No Hematochezia, No Melena Genitourinary : No Dysuria, No Urinary Frequency, No Hematuria, Musculoskeletal : No joint pain, No Myalgias, No Joint Swelling Skin : No Skin Lesions, No rash Neuro : No Weakness, No Numbness, No Dizziness, No Headache Psych : No Anxiety/Panic, No Depression All other systems reviewed and are negative <MICHEAL Grier Last Filed: 07/05/22 00:58> Yes all other systems are reviewed and are negative <MICHEAL Grier Last Filed: 07/05/22 00:58> [facility] Past Medical History Attestation statement: The following information was validated with the patient. <MICHEAL Grier Last Filed: 07/05/22 00:58> Source: old records reviewed and nursing notes reviewed <MICHEAL Grier - Last Filed: 07/05/22 00:58> Medical History: Medical History Arm fracture, left Chronic RLQ pain Colon cancer screening History of breast cancer History of left tennis elbow Hx of echocardiogram Hyperlipidemia Hypertension Osteopenia <MICHEAL Quinn - Last Filed: 07/04/22 20:51> Surgical History: Surgical History History of hemorrhoidectomy History of hysterectomy History of lumpectomy of left breast Hx of bilateral cataract extraction Hx of colonoscopy <MICHEAL Quinn - Last Filed: 07/04/22 20:51> Family History Family History: Family History Maternal Uncle History of prostate cancer Maternal Aunt History of colon cancer Brother History of prostate cancer <MICHEAL Quinn - Last Filed: 07/04/22 20:51> Social History Social History: Social History Household Members: Family and Children Housing: House Are you a primary customer care voice consultant to a significant other at home: No Do you presently have visiting nurse or other home services: Yes Alcohol intake: former Patient Tobacco Use Status: Never used Tobacco Advance Directives: No Advance Directives Information Provided: No service: No Current occupational status: disabled <MICHEAL Quinn - Last Filed: 07/04/22 20:51> Physical Exam Vital Signs: Vital Signs: Last Vital Signs Temp 99.5 F 07/04/22 20:47 Pulse 92 07/04/22 20:47 Resp 18 07/04/22 20:47 Pulse Ox 98 07/04/22 20:47 O2 Del Method Room Air 07/04/22 20:47 BMI result Body Mass Index 29.5 <MICHEAL Quinn - Last Filed: 07/04/22 20:51> Vital Signs: Last Vital Signs Temp 99.5 F 07/04/22 20:47 Pulse 92 07/04/22 20:47 Resp 18 07/04/22 20:47 Pulse Ox 98 07/04/22 20:47 O2 Del Method Room Air 07/04/22 20:47 BMI result Body Mass Index 29.5 vss <MICHEAL Grier - Last Filed: 07/05/22 00:58> Appearance: Alert.? Oriented X3.? No acute distress.? Head: Normocephalic, atraumatic, no step-offs or deformities Eyes: Pupils equal, round and reactive to light.? ENT: Pharynx with erythema to posterior pharynx, no abscess visualized, no exudates, uvula midline. Patient is speaking in full sentences controlling secretions well no palpable lymphadenopathy..? Neck: Normal inspection.? Neck supple.? CVS: Normal heart rate and rhythm.? Pulses normal.? Respiratory: No respiratory distress.? Breath sounds normal.? Abdomen: Soft and nontender.? Skin: Skin warm and dry.? Normal skin color.? Normal skin turgor.? Extremities: No lower extremity edema.? No calf ttp. 5/5 strength to bilateral upper and lower extremities Neuro: Oriented X 3.? No motor deficit.? No sensory deficit. CN 2-12 intact <MICHEAL Grier - Last Filed: 07/05/22 00:58> Course Course Course Narrative: RME-20:50pm - 71yoF who is Lao-speaking who has a past medical history of chronic right lower quadrant abdominal pain, hyperlipidemia, hypertension osteopenia who is presenting to the ER with complaints of throat pain to the right side of the throat that started a few hours prior to arrival feels like she can not swallow properly. Reports that she was seen here yesterday and diagnosed with COVID. Denies any other symptoms related to this. Plan: Will obtain rapid strep swab and soft tissue neck x-ray ordered at this time patient to be seen in [facility]. <MICHEAL Quinn - Last Filed: 07/04/22 20:51> Medical Decision Making Medical Decision Making [facility] Narrative: 0055 71-year-old female presents with sore throat known COVID positive tested positive yesterday, she got anxious today because she had difficulty swallowing however that has resolved she just wanted to get checked out. Physical exam with slight erythema to posterior pharynx. No exudates or abscesses. Speaking in full sentences controlling secretions well. 98% on room air. Comfortable appearing. Likely sore throat secondary to viral illness. I do not suspect bacterial pharyngitis, peritonsillar abscess, epiglottitis. Plan x-rays and viral testing ordered from triage. <MICHEAL Grier - Last Filed: 07/05/22 00:58> Differential Diagnosis Differential Diagnoses: The differential diagnosis associated with the presentation includes <MICHEAL Grier - Last Filed: 07/05/22 00:58> Likely sore throat secondary to viral illness. I do not suspect bacterial pharyngitis, peritonsillar abscess, epiglottitis. <MICHEAL Grier - Last Filed: 07/05/22 00:58> Admission/Observation Consideration of admission/observation: Escalation of care including admission/observation considered <MICHEAL Grier - Last Filed: 07/05/22 00:58> Not indicated <MICHEAL Grier - Last Filed: 07/05/22 00:58> Lab Data MDM Lab Attestation statement: I reviewed the patient's lab results. <MICHEAL Grier - Last Filed: 07/05/22 00:58> Labs: Lab Results 07/04/22 Range/Units 20:53 S. pyogenes GrpA HUMZA Negative (Negative) <MICHEAL Quinn - Last Filed: 07/04/22 20:51> Lab Results 07/04/22 Range/Units 20:53 S. pyogenes GrpA HUMZA Negative (Negative) <MICHEAL Grier - Last Filed: 07/05/22 00:58> Independent Interpretation I performed an independent interpretation of an: Plain X-Ray (XR/XR soft tissue neck IMPRESSION: Unremarkable examination.) <MICHEAL Grier - Last Filed: 07/05/22 00:58> Radiology Impression Discussion of test interpretation with radiology: I have reviewed the radiologist's reading. <MICHEAL Grier - Last Filed: 07/05/22 00:58> Core Measures AMI core measures followed: Yes <MICHEAL Grier - Last Filed: 07/05/22 00:58> Measure exclusions: not indicated <MICHEAL Grier - Last Filed: 07/05/22 00:58> Critical Care Time Critical Care Time Critical Care Time: No <MICHEAL Grier Last Filed: 07/05/22 00:58> Discharge Plan Discharge Clinical Impression: COVID-19, Sore throat <MICHEAL Quinn Last Filed: 07/04/22 20:51> Patient Disposition: Home, Self-Care <MICHEAL Quinn Last Filed: 07/04/22 20:51> Instructions: Pharyngitis (ED) <MICHEAL Quinn Last Filed: 07/04/22 20:51> Additional Instructions: Take your medications as prescribed. If you were prescribed antibiotics today, it is important that you take your medication to their entirety, do not skip any doses, do not finish them early. Follow-up with your primary care provider this week. Return to the emergency department with new or worsening symptoms. Such as fevers, chills, chest pain, shortness of breath, nausea, vomiting, dizziness, headache, vision changes, lethargy In case of emergency call 911 <MICHEAL Quinn Last Filed: 07/04/22 20:51> Prescriptions: New prednisone 20 mg tablet 40 mg PO DAILY 5 Days Qty: 10 0RF No Action letrozole 2.5 mg Tablet 2.5 mg PO DAILY Qty: 90 4RF vitamin [id number] acid 500-400 mcg tablet 1 tab PO DAILY Rx Instructions: administer with a meal gabapentin 100 mg capsule 200 mg PO BEDTIME cholecalciferol (vitamin D3) 25 mcg (1,000 unit) tablet 25 mcg PO DAILY loratadine 10 mg tablet 10 mg PO DAILY lisinopril 10 mg tablet 10 mg PO DAILY pravastatin 80 mg tablet 80 mg PO DAILY fluticasone propionate 50 mcg/actuation spray,suspension 1 spray intranasal DAILY alendronate 70 mg tablet 70 mg PO QWEEK aspirin 81 mg tablet,chewable 81 mg PO DAILY amlodipine 10 mg tablet 10 mg PO DAILY Qty: 30 5RF <MICHEAL Quinn Last Filed: 07/04/22 20:51> Referrals: Krysten Rose MD [Primary Care Provider] - 2 days <MICHEAL Quinn Last Filed: 07/04/22 20:51>
[2022-07-04 21:10] LABS: IDNOW Serial# 08D9AD1C; Strep A Nucleic Acid Negative (Negative)
[2022-07-05] MEDS: predniSONE 20 MG TABLET PO (01:19)
== END 2022-07-05 01:41 | disposition home or self-care (01) ==
PROVIDERS: Physician Assistant Medical; Emergency Provider Internal Medicine; PCP Family Medicine
DX: U07.1 COVID-19 (principal); J02.9 Acute pharyngitis, unspecified; I10 Essential (primary) hypertension; E78.5 Hyperlipidemia, unspecified; F41.9 Anxiety disorder, unspecified; Z79.82 Long term (current) use of aspirin; Z79.899 Other long term (current) drug therapy; Z79.02 Long term (current) use of antithrombotics/antiplatelets
CPT/HCPCS: 36415; 70360; 87651; 99282; 99283

== ENCOUNTER 2022-08-22 19:30 | Emergency (ER) | payer OTHER, SELFPAY ==
[2022-08-22 20:02] VITALS: BP 142/81; PULSE 103; RESP 18; TEMP 36.9; O2SAT 98; BMI 25.2
--- NOTE | 2022-08-22 20:04 | ED.GENADULT ---
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 Patient states that she was sweeping pollen off of her deck on sunday and noticed her eyes were itchy. Denies any eyeball pain or vision changes. She was seen by her primary care physician who prescribed her dry eye drops which she has been using without relief. Admits to having some crusting and some discharge to her bilateral eyes. She is prescribed flonase but has not been taking this. No fevers or chills. Otherwise is feeling well. MD complaint: BL eye redness, itchiness. Onset (ago): day(s) Quality: burning Pain Consistency: constant Relieving factors: none Exacerbating factors: none Associated symptoms: denies other symptoms Treatments prior to arrival: none Related Data Home Medications Medication Instructions Recorded Confirmed alendronate 70 mg tablet 70 mg PO QWEEK 02/18/20 06/19/22 cholecalciferol (vitamin D3) 25 25 mcg PO DAILY 02/18/20 06/19/22 mcg (1,000 unit) tablet fluticasone propionate 50 1 spray intranasal DAILY 02/18/20 06/19/22 mcg/actuation nasal spray,suspension gabapentin 100 mg capsule 200 mg PO BEDTIME 02/18/20 06/19/22 lisinopril 10 mg tablet 10 mg PO DAILY 02/18/20 06/19/22 loratadine 10 mg tablet 10 mg PO DAILY 02/18/20 06/19/22 pravastatin 80 mg tablet 80 mg PO DAILY 02/18/20 06/19/22 aspirin 81 mg chewable tablet 81 mg PO DAILY 03/22/22 06/19/22 vitamin B12 500 mcg-folic acid 400 1 tab PO DAILY 03/22/22 06/19/22 mcg tablet Previous Rx's Medication Instructions Recorded letrozole 2.5 mg tablet 2.5 mg PO DAILY #90 tabs 08/24/21 amlodipine 10 mg tablet 10 mg PO DAILY #30 tabs 03/22/22 prednisone 20 mg tablet 40 mg PO DAILY 5 days #10 tabs 07/05/22 fluticasone propionate 50 1 spray intranasal DAILY #16 grams 08/22/22 mcg/actuation nasal spray,suspension loratadine 10 mg tablet (Claritin) 10 mg PO DAILY #60 tabs 08/22/22 olopatadine 0.2 % eye drops 1 drp ophthalmic (eye) DAILY #2.5 08/22/22 mL Allergies Allergy/AdvReac Type Severity Reaction Status Date / Time No Known Allergies Allergy Verified 07/03/22 13:08 [No Known Allergies*] Review of Systems Review of Systems: Constitutional: No Weight loss, No Fever, No Chills ENT/Mouth: No Ear Pain, No Nasal Congestion, No Sinus Pain, No Hoarseness, No sore throat, No Rhinorrhea, No Swallowing Difficulty Cardiovascular: No Chest Pain, No SOB Respiratory: No Cough, No Sputum, No Wheezing Gastrointestinal: No Nausea, No Vomiting, No Diarrhea, No Constipation, No Abdominal pain Genitourinary: No Dysuria, No Urinary Frequency, No Hematuria, No Urinary Incontinence/retention, No Urgency, No Flank Pain Musculoskeletal: No joint pain, No Myalgias, No Joint Swelling Skin: No Skin Lesions, No rash Neuro: No Weakness, No Numbness, No Paresthesias Yes all other systems are reviewed and are negative Constitutional: Constitutional: Reports as per [facility] Past Medical History Attestation statement: The following information was validated with the patient. Medical History Arm fracture, left Chronic RLQ pain Colon cancer screening History of breast cancer History of left tennis elbow Hx of echocardiogram Hyperlipidemia Hypertension Osteopenia Surgical History History of hemorrhoidectomy History of hysterectomy History of lumpectomy of left breast Hx of bilateral cataract extraction Hx of colonoscopy Family History Family History Maternal Uncle History of prostate cancer Maternal Aunt History of colon cancer Brother History of prostate cancer Social History Social History Household Members: Family and Children Housing: House Are you a primary care coordination manager to a significant other at home: No Do you presently have visiting nurse or other home services: Yes Alcohol intake: former Patient Tobacco Use Status: Never used Tobacco service: No Current occupational status: disabled Physical Exam ED Vital Signs: Vital Signs - 24 hr 08/22/22 20:02 Temperature 98.4 F Pulse Rate 103 H Respiratory Rate 18 Blood Pressure 142/81 H Pulse Oximetry 98 Oxygen Delivery Method Room Air BMI result Body Mass Index 25.2 Const General: cooperative, comfortable and no acute distress Orientation/consciousness: patient oriented x3 Limitations: no limitations HENMT Head: Yes normal to inspection, Yes normocephalic and Yes atraumatic Ears: hearing grossly normal bilaterally and TM's normal bilaterally General nose exam: Normal external nose present Face and sinus: Yes normal facial exam Mouth: Normal oral and palatal mucosa present, oropharynx normal and moist mucous membranes Throat: Yes posterior oropharynx normal Eyes Other: Bilateral conjunctiva injection noted bilaterally with no crusting or eye discharge. No eyelid edema. General: appearance normal, both eyes and all related structures Eyelids: Yes eyelids normal Sclerae: sclerae normal Pupils: Equal, round and reactive pupils present EOM: EOMs intact bilaterally Neck Neck: Yes normal visual inspection, Yes full ROM and Yes no lymphadenopathy Lymphatic: no lymphadenopathy noted Chest Chest palpation & inspection: normal inspection of the chest Resp Effort & Inspection: normal respiratory effort and able to speak in complete sentences Cardio Rate: regular rate Rhythm: regular rhythm GI Inspection: Yes normal to inspection Skin General skin exam: no rashes or lesions noted Trauma: no lacerations or abrasions Wounds: no wounds Neuro General: patient oriented x3 and moves all extremities Cranial nerves: Yes Equal, round and reactive pupils present Extrem General: Yes normal to inspection Right upper extremity: normal to inspection Left upper extremity: normal to inspection Right lower extremity: normal to inspection Left lower extremity: normal to inspection Course Course Course Narrative: This is an RME: Additional HPI, ROS, PE not included below will be deferred to primary provider. [id number]-female, hx of HLD and HTN presenting to the emergency department with complaints of ?pink eye in BL eyes. Reports burning sensation in her eyes. Medical Decision Making Medical Decision Making MDM Narrative: 71-year-old Amharic-speaking female presenting for evaluation of bilateral, itchiness and burning since after sweeping pollen after deck. she was seen by her primary care lubricating eyedrops which she has been using without relief. She is prescribed Flonase but has not taking this. On examination patient's conjunctiva is injected. crusting or discharge from the eye, eyelids are normal. no changes in vision. Vital signs within normal limits. Patient's symptoms likely due to allergic conjunctivitis. patient stable for discharge. Differential Diagnosis Differential Diagnoses: The differential diagnosis associated with the presentation includes Bacterial conjunctivitis, allergic conjunctivitis, Allergic rhinitis periorbital cellulitis -less likely. Admission/Observation Consideration of admission/observation: Escalation of care including admission/observation considered External Record Review External record reviewed: Inpatient record, Office record, Outpatient record, Prior outpatient labs, Prior outpatient radiology, Primary care record and Outside ED record Discharge Plan Discharge Clinical Impression: Acute allergic conjunctivitis of both eyes Patient Disposition: Home, Self-Care Instructions: Allergies (ED) Additional Instructions: Your symptoms are all due to allergies. Please use all prescribed medications as directed. If any new or worsening symptoms occur, including changes in vision, please return for re-evaluation. Follow up with your primary care physician. Todos sita s?ntomas se deben a alergias. Utilice todos los medicamentos recetados seg?n las indicaciones. Si se presentan s?ntomas nuevos o que empeoran, incluidos cambios en la visi?n, regrese para casa nueva evaluaci?n. Prescriptions: New olopatadine 0.2 % drops 1 drp ophthalmic (eye) DAILY Qty: 2.5 0RF fluticasone propionate 50 mcg/actuation spray,suspension 1 spray intranasal DAILY Qty: 16 0RF Rx Instructions: administer into each nostril loratadine [Claritin] 10 mg tablet 10 mg PO DAILY Qty: 60 0RF No Action letrozole 2.5 mg Tablet 2.5 mg PO DAILY Qty: 90 4RF vitamin [id number] acid 500-400 mcg tablet 1 tab PO DAILY Rx Instructions: administer with a meal prednisone 20 mg tablet 40 mg PO DAILY 5 Days Qty: 10 0RF gabapentin 100 mg capsule 200 mg PO BEDTIME cholecalciferol (vitamin D3) 25 mcg (1,000 unit) tablet 25 mcg PO DAILY loratadine 10 mg tablet 10 mg PO DAILY lisinopril 10 mg tablet 10 mg PO DAILY pravastatin 80 mg tablet 80 mg PO DAILY fluticasone propionate 50 mcg/actuation spray,suspension 1 spray intranasal DAILY alendronate 70 mg tablet 70 mg PO QWEEK aspirin 81 mg tablet,chewable 81 mg PO DAILY amlodipine 10 mg tablet 10 mg PO DAILY Qty: 30 5RF
== END 2022-08-22 20:39 | disposition home or self-care (01) ==
PROVIDERS: Emergency Provider Emergency Medicine; PCP Family Medicine
DX: H10.13 Acute atopic conjunctivitis, bilateral (principal); I10 Essential (primary) hypertension; E78.5 Hyperlipidemia, unspecified; Z79.02 Long term (current) use of antithrombotics/antiplatelets; Z79.82 Long term (current) use of aspirin; Z79.899 Other long term (current) drug therapy
CPT/HCPCS: 99282; 99283

== ENCOUNTER 2022-08-31 11:20 | Outpatient (REF) | payer OTHER, SELFPAY ==
--- NOTE | ~2022-08-31 | MM_ITS ---
EXAMINATION: MM SCREENING DIGITAL BREAST TOMOSYNTHESIS, BILATERAL CLINICAL INFORMATION: Due for yearly. Left IDC status post lumpectomy 08/14/2016. COMPARISON: Mammography: 08/17/2021, 08/24/2020, 02/25/2020, 10/02/2019, 06/21/2018, 06/19/2017, 07/11/2016, 06/08/2015. TECHNIQUE: Digital breast tomosynthesis is performed in both the craniocaudal and mediolateral oblique views along with computer-aided detection (CAD). Synthesized 2D images are generated from the tomosynthesis. Additional bilateral MLO views after washing axilla are provided. FINDINGS: The breasts are heterogeneously dense, which may obscure small masses (ACR BI-RADS breast composition Category c). The left breast has post therapy changes with old scarring and collapsed BioZorb device with benign dystrophic calcifications in the scar. Neither breast shows interval mass or architectural abnormality or developing density. No abnormal calcifications. There deodorant artifact bilateral axilla, substantially reduced on the repeat views after washing. No significant changes. MM/MM tomosynthesis screening BI IMPRESSION: No mammographic evidence of malignancy. ASSESSMENT: BI-RADS 2: Benign RECOMMENDATION: Routine annual mammography screening. This patient's information was entered into a reminder system with a target due date for their next mammogram.
== END 2022-08-31 11:21 | disposition home or self-care (01) ==
LOC: HO.MAMMO 11:20
PROVIDERS: PCP Family Medicine; Visit Provider Family Medicine
DX: Z12.31 Encounter for screening mammogram for malignant neoplasm of breast (principal)
CPT/HCPCS: 77063; 77067

== ENCOUNTER 2022-11-27 08:12 | Outpatient (REF) | payer OTHER, SELFPAY ==
[2022-11-27 11:38] LABS: MANUAL DIFF FLAG NO
[2022-11-27 12:06] LABS: Basophils Absolute Auto 0.1 X10*3/uL (0.0-0.2); Eosinophils Absolute Auto 0.2 X10*3/uL (0.0-0.4); Eosinophils Percent Auto 4.4 % (0-4); Hematocrit 44.8 % (37.0-47.0); Hemoglobin 14.7 g/dl (12.0-16.0); Lymphocytes Absolute Auto 1.8 X10*3/uL (1.2-4.9); Lymphocytes Percent Auto 35.2 % (20-40); Mean Corpuscular HGB Conc 32.8 g/dl (31.0-35.0); Mean Corpuscular Hemoglobin 30.5 pg (27.0-33.0); Mean Corpuscular Volume 92.9 fL (80.0-98.0); Mean Platelet Volume 10.5 fL (9.4-12.3); Monocytes Absolute Auto 0.5 X10*3/uL (0.1-1.2); Neutrophils Absolute Auto 2.5 x10*3/uL (2.0-8.3); Neutrophils Percent Auto 50.4 % (45-73); Platelet Count 287 X10*3/uL (160-400); Red Blood Count 4.82 X10*6/uL (4.20-5.50); Red Cell Distribution Width 13.4 % (11.0-16.0)
[2022-11-27 12:35] LABS: Alanine Aminotransferase 17 U/L (0-31); Albumin Level 4.3 g/dL (3.5-5.0); Alkaline Phosphatase 69 U/L (39-117); Anion Gap 11 (12-20); Aspartate Amino Transferase 18 U/L (5-31); Bilirubin Total 0.4 mg/dL (0.0-1.0); Blood Urea Nitrogen 14 mg/dL (9-16); Calcium 9.5 mg/dL (8.4-10.2); Carbon Dioxide 24 mmol/L (22-29); Chloride 110 mmol/L (96-108); Estimated Glomerular Filt Rate > 60; Glucose Random 76 mg/dL (60-115); Potassium 3.7 mmol/L (3.3-5.1); Sodium 141 mmol/L (135-145); TSH reflex Free T4 2.11 uIU/mL (0.32-4.0); Total Protein 7.2 g/dL (6.5-8.0)
== END 2022-11-27 08:13 | disposition home or self-care (01) ==
LOC: HO.HHCL 08:12
PROVIDERS: Visit Provider Family Medicine
DX: R63.4 Abnormal weight loss (principal)
CPT/HCPCS: 36415; 80053; 84134; 84443; 85025

== ENCOUNTER 2022-11-28 13:34 | Outpatient (REF) | payer OTHER, SELFPAY ==
--- NOTE | ~2022-11-28 | XR_ITS ---
EXAMINATION: XR KNEE, LEFT CLINICAL INFORMATION: Left knee pain for 6 months patient states she feels a popping when she is walking COMPARISON: None available. TECHNIQUE: AP, AP axial, lateral and 2 sunrise views of the left knee. FINDINGS: Moderate joint effusion. Mild medial joint space narrowing. Minimal marginal osteophytes. XR/XR knee LT 4V IMPRESSION: Mild degenerative changes.
== END 2022-11-28 13:35 | disposition home or self-care (01) ==
LOC: HO.HHCX 13:34
PROVIDERS: Visit Provider Family Medicine
DX: M25.562 Pain in left knee (principal)
CPT/HCPCS: 73564

== ENCOUNTER 2022-11-29 11:25 | Outpatient (REF) | payer OTHER, SELFPAY | END 2022-11-29 11:26 | disposition home or self-care (01) | LOC: HO.HHCLNP 11:25 | PROVIDERS: Visit Provider Family Medicine | DX: R63.4 Abnormal weight loss (principal) | CPT/HCPCS: 87338 ==

== ENCOUNTER 2022-11-30 09:58 | Outpatient (AMB) | payer OTHER, SELFPAY ==
--- NOTE | 2022-11-30 10:09 | A.OFFVIS_ITS ---
Intake Vital Signs 11/30/22 10:19 Height 5 ft 3 in Weight 140 lb BMI 24.8 BP 170/78 H Blood Pressure Location Lt brachial Position Sitting Intake Visit Reasons: yearly breast exam Intake Note: Patient is seen in office for yearly breast exam. Patient c/o: denies any concerns at the time of visit Energy Systems Laboratory Director Required: Yes Energy Systems Laboratory Director Language: Chief Projectionist Name: Jane MOORE Information Interpreted: non-clinical & clinical Javascript Front End Developer: Javascript Front End Developer Present Allergies No Known Allergies [No Known Allergies*] Allergy (Verified 11/30/22 10:19) Medication List - Last Reconciled 11/30/22 by Getachew Aguayo MD alendronate 70 mg PO QWEEK amlodipine 10 mg PO DAILY 90 days aspirin 81 mg PO DAILY cholecalciferol (vitamin D3) 25 mcg PO DAILY fluticasone propionate 50 mcg/actuation 1 spray intranasal DAILY fluticasone propionate 50 mcg/actuation 1 spray intranasal DAILY lisinopril 10 mg PO DAILY loratadine (Claritin) 10 mg PO DAILY loratadine 10 mg PO DAILY olopatadine 0.2% 1 drp ophthalmic (eye) DAILY pravastatin 80 mg PO DAILY prednisone 40 mg (2 x 20 mg) PO DAILY 5 days vitamin G80-sxumv acid 500-400 mcg 1 tab PO DAILY HPI HPI Comments History of Present Illness Details Charlene Zamora is a 72-year-old female patient of Dr. Augustin, and previous patient of Dr. Sanchez, noted to have a spiculated mass measuring 1 cm in the posterior upper outer quadrant left breast noted on a screening digital mammogram on 07/11/16. She underwent a core biopsy, followed by a left partial mastectomy with left sentinel node biopsy on 08/14/16. 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 Margins were clear of invasive carcinoma as well as DCIS. Lymphovascular invasion was not identified. 2 sentinel nodes were benign. Patient completed adjuvant radiation therapy between 09/27/16-10/26/16 (Dr. Ko, [facility]). [place] [facility] [place] reports the tamoxifen led to worsening cataracts, therefore she was switched to letrozole. She subsequently underwent bilateral cataract surgery. She denies any new symptoms. She reports problems with high blood pressure. Her last mammogram on 08/31/2022 no mammographic evidence of malignancy, post therapy changes of the left breast. Annual screening mammography is recommended (BI-RADS 2). She denies any new breast symptoms or new concerns. [facility] Medical History Arm fracture, left Chronic RLQ pain Colon cancer screening History of breast cancer History of left tennis elbow Hx of echocardiogram Hyperlipidemia Hypertension Osteopenia Surgical History History of hemorrhoidectomy History of hysterectomy History of lumpectomy of left breast Hx of bilateral cataract extraction Hx of colonoscopy Family History Maternal Uncle History of prostate cancer Maternal Aunt History of colon cancer Brother History of prostate cancer Social History Household Members: Family and Children Housing: House Are you a primary care process manager to a significant other at home: No Do you presently have visiting nurse or other home services: Yes Alcohol intake: former Patient Tobacco Use Status: Never used Tobacco service: No Current occupational status: disabled Review of Systems Const Denies anorexia, Denies malaise, Denies night sweats and Denies poor appetite Card Denies chest pain, Denies irregular heart rhythm and Denies dyspnea Resp Denies hemoptysis, Denies excessive phlegm production and Denies dyspnea GI Denies abdominal pain, Denies hematochezia, Denies GI cramping and Denies heartburn Denies nipple discharge Skin/Breast Denies breast skin changes, Denies breast pain, Denies breast mass, Denies change in breast shape, Denies change in pigmentation and Denies nipple discharge Psych Reports no additional complaints Physical Exam Const General: cooperative, healthy appearing, comfortable and no acute distress HEENT Head: Yes normocephalic and Yes atraumatic Ears: hearing grossly normal bilaterally Neck Neck: Yes normal visual inspection and Yes no JVD Chest Other: Well-healed incision in the upper outer quadrant of the left breast with no palpable mass, skin change, nipple discharge, nipple retraction, enlarged lymph node, or tenderness. Right breast reveals soft breast tissue with no skin change, nipple discharge, palpable mass, or enlarged lymph nodes. Chest/axillae images: 1. Incision left breast upper outer quadrant Resp Effort & Inspection: normal respiratory effort Skin Other: Warm and dry, no rash Extrem General: Yes no clubbing, cyanosis or edema Assessment & Plan Assessment & Plan (1) Breast cancer, left: Code(s): C50.912 - Malignant neoplasm of unspecified site of left female breast Plan: Patient returns for follow-up examination following left breast invasive ductal carcinoma nearly 5 years post treatment. Patient is doing well with no evidence of recurrence disease. Her most recent mammogram dated 08/31/2022 revealed post therapy changes in the left breast. No mammographic evidence of malignancy (BI- RADS 2: Benign). Routine annual mammography was recommended. Patient may return in 1 year for follow-up examination if she desires to continue surgical follow-up. Coding Level of Care Code Est Pt Level 3 (63547) Diagnoses Breast cancer, left C50.912
[2022-11-30 10:19] VITALS: BP 170/78; BMI 24.8
== END 2022-11-30 10:27 | disposition home or self-care (01) ==
PROVIDERS: Visit Provider Surgery
DX: Z85.3 Personal history of malignant neoplasm of breast (principal)
CPT/HCPCS: 99213

== ENCOUNTER → 2022-11-30 09:58 | Outpatient (BNVA) | payer OTHER, SELFPAY | PROVIDERS: Visit Provider Surgery | DX: Z85.3 Personal history of malignant neoplasm of breast (principal) | CPT/HCPCS: 99212 ==

== ENCOUNTER 2023-01-26 10:00 | Outpatient (RCR) | payer OTHER, SELFPAY | END 2023-02-02 16:06 | disposition home or self-care (01) | LOC: HO.PT 10:00 | PROVIDERS: PCP Family Medicine; Visit Provider Family Medicine | DX: M25.561 Pain in right knee (principal); M25.562 Pain in left knee; G89.29 Other chronic pain | CPT/HCPCS: 97110; 97140; 97161; 97530 ==

== ENCOUNTER 2023-02-23 09:51 | Outpatient (AMB) | payer OTHER, SELFPAY ==
[2023-02-23 10:05] VITALS: BP 136/78; PULSE 95; BMI 25.0
--- NOTE | 2023-02-23 10:05 | MHC.OFFVIS ---
Intake Vital Signs 02/23/23 10:05 Height 5 ft 3 in Weight 141 lb 1.533 oz BMI 25.0 BP 136/78 Blood Pressure Location Lt brachial Position Sitting Pulse 95 Intake Visit Reasons: 1 year followup Intake Note: 1 year follow-up with ekg feeling good Surgical Instruments Inspector Required: Yes Surgical Instruments Inspector Name: Bryan hall Allergies No Known Allergies [No Known Allergies*] Allergy (Verified 11/30/22 10:19) Medication List - Last Reconciled 02/23/23 by Graham Mathews MD alendronate 70 mg PO QWEEK amlodipine 10 mg PO DAILY 90 days aspirin 81 mg PO DAILY cholecalciferol (vitamin D3) 25 mcg PO DAILY fluticasone propionate 50 mcg/actuation 1 spray intranasal DAILY lisinopril 10 mg PO DAILY loratadine (Claritin) 10 mg PO DAILY olopatadine 0.2% 1 drp ophthalmic (eye) DAILY pravastatin 80 mg PO DAILY vitamin G62-dhals acid 500-400 mcg 1 tab PO DAILY HPI HPI Comments History of Present Illness Details Charlene comes for follow-up. She has no new cardiac symptoms to report. Goals for walk. History was obtained with help of reverberatory furnace operator. She says she has and a intense blood pressure monitoring program with her primary care physician. Recently amlodipine was increased to 10 mg because of elevated blood pressure. Today the blood pressure is well optimized. She denies any worsening shortness of breath, orthopnea, PND. No lightheadedness, syncope. No exertional chest pain. [facility] Medical History History of left tennis elbow Arm fracture, left Chronic RLQ pain Hx of echocardiogram Osteopenia Colon cancer screening Hyperlipidemia Hypertension History of breast cancer Surgical History Hx of colonoscopy Hx of bilateral cataract extraction History of hemorrhoidectomy History of hysterectomy History of lumpectomy of left breast Family History Maternal Uncle History of prostate cancer Maternal Aunt History of colon cancer Brother History of prostate cancer Social History Household Members: Family and Children Housing: House Are you a primary customer care specialist to a significant other at home: No Do you presently have visiting nurse or other home services: Yes Alcohol intake: former Patient Tobacco Use Status: Never used Tobacco service: No Current occupational status: disabled Review of Systems Const Denies chills, Denies fatigue, Denies fever(s), Denies frequent falls, Denies weakness, Denies weight gain and Denies weight loss ENT Denies dizziness Card Denies chest pain, Denies leg edema, Denies lightheadedness, Denies palpitations, Denies dyspnea, Denies dyspnea on exertion, Denies orthopnea and Denies other (loss of consciousness) Resp Denies cough, Denies dyspnea and Denies dyspnea on exertion GI Denies hematochezia and Denies change in stool character Musc Denies abnormal gait, Denies muscle weakness, Denies numbness, Denies radiating pain into limb and Denies tingling Neuro Denies Abnormal speech present, Denies abnormal gait, Denies dizziness, Denies frequent falls, Denies numbness, Denies tingling and Denies weakness Endo Denies fatigue and Denies palpitations Physical Exam Vital Signs: Last Vital Signs Pulse 95 02/23/23 10:05 BP 136/78 02/23/23 10:05 BMI result Body Mass Index 25.0 Const General: cooperative, comfortable, no acute distress, alert, awake and anxious Nutritional Appearance: overweight Orientation/consciousness: patient oriented x3 Limitations: no limitations Neck Neck: Yes trachea midline, Yes supple and Yes no JVD Resp Effort & Inspection: normal respiratory effort Auscultation: clear to auscultation bilaterally Cardio Jugular venous distension: no JVD Palpation: normal PMI Rate: regular rate Rhythm: regular rhythm Heart sounds: S1 normal heart sound present and S2 normal heart sound present GI Auscultation: normal bowel sounds Skin General skin exam: no rashes or lesions noted Neuro General: patient oriented x3 and no focal motor deficits Speech: No Abnormal speech present Extrem General: Yes no clubbing, cyanosis or edema Psych Appearance: grossly normal Office Procedures EKG Details: EKG shows normal sinus rhythm with left axis deviation with voltage criteria for LVH with nonspecific ST T wave changes [id number], Complete Assessment & Plan Assessment & Plan (1) Hypertensive heart disease: Code(s): I11.9 - Hypertensive heart disease without heart failure Plan: Hypertensive heart disease with well-controlled blood pressure on current medications. Discussed with help of reverberatory furnace operator the importance of blood pressure monitoring to treat and prevent further LV remodeling and avoid development of heart failure. Blood pressure is well optimized. Low-salt diet was discussed. Advised to continue monitor blood pressure at home maintain a log. Goal blood pressure less than 130/84. Encouraged to continue to participate in physical activity as tolerated. Will follow up in the clinic in 1 year's time on patient's request. Coding Level of Care Code Est Pt Level 3 (68167) Diagnoses Hypertensive heart disease I11.9 CPT Codes EKG - CPT: 12181-[id number], Complete ([id number])
== END 2023-02-23 10:25 | disposition home or self-care (01) ==
PROVIDERS: PCP Family Medicine; Visit Provider Internal Medicine Cardiovascular Disease
DX: I11.9 Hypertensive heart disease without heart failure (principal)
CPT/HCPCS: 93010; 99213

== ENCOUNTER → 2023-02-23 09:51 | Outpatient (BNVA) | payer OTHER, SELFPAY | PROVIDERS: PCP Family Medicine; Visit Provider Internal Medicine Cardiovascular Disease | DX: I11.9 Hypertensive heart disease without heart failure (principal) | CPT/HCPCS: 93005; 99212 ==

== ENCOUNTER 2023-03-07 09:23 | Outpatient (REF) | payer OTHER, SELFPAY ==
[2023-03-07 11:54] LABS: Estimated Average Glucose 103 mg/dL; Hemoglobin A1c % 5.2 % (<6.0)
[2023-03-07 12:08] LABS: Cholesterol 168 mg/dL (<200); HDL Cholesterol 58 mg/dL (>40); LDL Cholesterol Calculated 90 mg/dL (<100); Triglycerides 104 mg/dL (<150)
[2023-03-07 12:15] LABS: Alanine Aminotransferase 13 U/L (0-31); Albumin Level 4.4 g/dL (3.5-5.0); Alkaline Phosphatase 69 U/L (39-117); Anion Gap 11 (12-20); Aspartate Amino Transferase 20 U/L (5-31); Bilirubin Total 0.5 mg/dL (0.0-1.0); Blood Urea Nitrogen 16 mg/dL (9-16); Calcium 9.1 mg/dL (8.4-10.2); Carbon Dioxide 25 mmol/L (22-29); Chloride 107 mmol/L (96-108); Estimated Glomerular Filt Rate > 60; Glucose Random 90 mg/dL (60-115); Potassium 3.5 mmol/L (3.3-5.1); Sodium 139 mmol/L (135-145); Total Protein 7.5 g/dL (6.5-8.0)
[2023-03-07 13:38] LABS: Reflex LDLD? No
== END 2023-03-07 09:24 | disposition home or self-care (01) ==
LOC: HO.HHCL 09:23
PROVIDERS: Visit Provider Family Medicine
DX: I10 Essential (primary) hypertension (principal); R73.01 Impaired fasting glucose
CPT/HCPCS: 36415; 80053; 80061; 83036

== ENCOUNTER 2023-06-14 14:27 | Outpatient (AMB) | payer OTHER, SELFPAY ==
[2023-06-14 14:45] VITALS: BP 120/60; BMI 23.9
--- NOTE | 2023-06-14 14:45 | A.OFFVIS_ITS ---
Intake Vital Signs 06/14/23 14:45 Height 5 ft 3 in Weight 134 lb 14.766 oz BMI 23.9 BP 120/60 Blood Pressure Location Lt brachial Position Sitting Intake Visit Reasons: Follow up/Abnormal EKG(NS) Natural Resource Officer Required: Yes Natural Resource Officer Language: Analog Design Engineer Name: isabel taylor [id number] Allergies No Known Allergies [No Known Allergies*] Allergy (Verified 06/14/23 14:48) Medication List - Last Reconciled 06/14/23 by Lynn Cid NP-C amlodipine 10 mg PO DAILY 90 days aspirin 81 mg PO DAILY cholecalciferol (vitamin D3) 25 mcg PO DAILY fluticasone propionate 50 mcg/actuation 1 spray intranasal DAILY lisinopril 10 mg PO DAILY loratadine (Claritin) 10 mg PO DAILY olopatadine 0.2% 1 drp ophthalmic (eye) DAILY pravastatin 80 mg PO DAILY vitamin B67-xkfgc acid 500-400 mcg 1 tab PO DAILY HPI Follow up/Abnormal EKG(NS) HPI Details Charlene is a 72-year-old female with past medical history of hypertension, hyperlipidemia who was recently [place] vacation [place] a [place] and developed abdominal discomfort, acute cholecystitis requiring laparoscopic cholecystectomy. EKG at that time shows T-wave inversions across precordium which is different from prior EKGs. Today she reports that during her hospital admission she does not know of any cardiac complications. The records we have received are in [place]. She denies having issues with chest discomfort at rest or with activity. No shortness of breath, heart palpitations, lightheadedness, presyncope, syncope, PND, orthopnea or edema. She says she is still recovering from the abdominal surgery and has been doing only light activities. She takes her medications as directed. Certified home performance laborer used. [facility] Medical History History of left tennis elbow Arm fracture, left Chronic RLQ pain Hx of echocardiogram Osteopenia Colon cancer screening Hyperlipidemia Hypertension History of breast cancer Surgical History Hx of colonoscopy Hx of bilateral cataract extraction History of hemorrhoidectomy History of hysterectomy History of lumpectomy of left breast Family History Maternal Uncle History of prostate cancer Maternal Aunt History of colon cancer Brother History of prostate cancer Social History Household Members: Family and Children Housing: House Are you a primary spiritual care coordinator to a significant other at home: No Do you presently have visiting nurse or other home services: Yes Alcohol intake: former Patient Tobacco Use Status: Never used Tobacco service: No Current occupational status: disabled Review of Systems Const All systems reviewed & are unremarkable except as noted in HPI and below ENT Reports dizziness Card Denies chest pain, Denies chest pain at rest, Denies chest pain with activity, Reports rapid heart rate, Denies pedal edema, Denies edema, Denies leg edema, Denies lightheadedness, Denies palpitations, Denies dyspnea, Denies dyspnea on exertion and Denies orthopnea Resp Denies cough, Denies dyspnea and Denies dyspnea on exertion GI Denies hematochezia and Denies change in stool character Musc Denies abnormal gait, Denies limited range of motion, Denies muscle cramps, Denies muscle weakness, Denies numbness, Denies radiating pain into limb, Denies stiffness and Denies tingling Neuro Denies abnormal gait, Reports dizziness, Denies numbness and Denies tingling Endo Denies palpitations Physical Exam Vital Signs: Last Vital Signs BP 120/60 06/14/23 14:45 BMI result Body Mass Index 23.9 Const General: cooperative, healthy appearing, comfortable and no acute distress Orientation/consciousness: patient oriented x3 Neck Neck: Yes normal visual inspection Resp Effort & Inspection: normal respiratory effort Auscultation: clear to auscultation bilaterally, no crackles, no rales, no rhonchi and no wheezes Cardio Jugular venous distension: no JVD Rate: regular rate Rhythm: regular rhythm Heart sounds: S1 normal heart sound present, S2 normal heart sound present, no murmurs and no rubs Neuro General: patient oriented x3 Extrem General: Yes normal to inspection, No no pedal edema and No calf tenderness Psych Appearance: grossly normal Mental Status: mental status grossly normal Speech and movement: Normal speech and movement present Office Procedures EKG Details: Today, read by me, normal sinus rhythm, voltage criteria for LVH, low-voltage QRS precordial leads, ST abnormality lead 3 and AVF, QTC 441 milliseconds, rate 77 [id number], Complete Assessment & Plan Assessment & Plan (1) Abnormal EKG: Code(s): R94.31 - Abnormal electrocardiogram [ECG] [EKG] Plan: No known history of CAD. Cardiac risk factors of hypertension, hyperlipidemia. Recent hospitalization and surgery, laparoscopic cholecystectomy while on vacation. ? [facility]. EKG included in her records shows T-wave inversions across precordium, different from prior EKG. She denies any known cardiac complications during her hospital admission. She has no chest discomfort. She has been doing only light physical activity. EKG done today showing sinus rhythm, incomplete right bundle branch block, low-voltage QRS, nonspecific T- wave abnormalities, rate 77. This EKG showing T-wave inversions requires further evaluation. Will order nuclear stress test for further evaluation of ischemia. A prior nuclear stress test 08/02/2021 was normal. Last echo in our system 09/21/2021 showed EF 55-60%, [id number] AR. Signs and symptoms of angina reviewed with her. Cardiology follow-up 2 months, sooner if needed. (2) Hypertension: Code(s): I10 - Essential (primary) hypertension Plan: Well controlled at this time. No med changes made. Continue amlodipine, lisinopril. (3) Hyperlipidemia: Code(s): E78.5 - Hyperlipidemia, unspecified Plan: [place] LDL goal less than 100 and patient with no known CAD or diabetes. Labs done 03/07/2023 shows LDL 90. Continue pravastatin 80 mg daily Plan Time spent on chart review, documentation, interview and assessment Orders: Orders CA lexiscan stress w monique Today E78.5 - Hyperlipidemia, unspecified, I10 - Essential (primary) hypertension, R94.31 - Abnormal electrocardiogram [ECG] [EKG] NM cardiolite stress test Today E78.5 - Hyperlipidemia, unspecified, I10 - Essential (primary) hypertension, R94.31 - Abnormal electrocardiogram [ECG] [ EKG] Coding Level of Care Code Est Pt Level 4 (20101) Diagnoses Abnormal EKG R94.31 Hypertension I10 Hyperlipidemia E78.5 CPT Codes EKG - CPT: [id number], Complete ([id number]) Time Spent (min) 28
== END 2023-06-14 15:33 | disposition home or self-care (01) ==
PROVIDERS: PCP Family Medicine; Visit Provider Nurse Practitioner Family
DX: R94.31 Abnormal electrocardiogram [ECG] [EKG] (principal); I10 Essential (primary) hypertension; E78.5 Hyperlipidemia, unspecified
CPT/HCPCS: 93010; 99214

== ENCOUNTER → 2023-06-14 14:27 | Outpatient (BNVA) | payer OTHER, SELFPAY | PROVIDERS: PCP Family Medicine; Visit Provider Nurse Practitioner Family | DX: R94.31 Abnormal electrocardiogram [ECG] [EKG] (principal); I10 Essential (primary) hypertension; E78.5 Hyperlipidemia, unspecified | CPT/HCPCS: 93005; 99212 ==

== ENCOUNTER 2023-06-22 09:41 | Outpatient (AMB) | payer OTHER, SELFPAY ==
--- NOTE | 2023-06-22 09:59 | MHC.OFFVIS ---
Intake Vital Signs 06/22/23 10:01 Height 5 ft 3 in Weight 132 lb 11.492 oz BMI 23.5 BP 124/59 L Blood Pressure Location Rt brachial Position Sitting Pulse 81 Intake Visit Reasons: dysphagia Intake Note: New patient in office today for evaluation and management of dysphagia. CC: Patient c/o feeling something in her throat and chocking sometimes with foods. Onset about one year ago per PT. She states she once went to the ER because she was feeling her throat swelling and closing up. Patient reports she underwent cholecystectomy in April 17 in [facility]. She reports having nausea sometimes and feeling that everything she eats has the same taste. [employer] Required: Yes [employer] Name: curly Allergies No Known Allergies [No Known Allergies*] Allergy (Verified 06/22/23 10:02) HPI dysphagia HPI Details 72-year-old female here for initial evaluation dysphagia. She is referred by Alessia Porter of [facility]. PMX Hypertension High cholesterol Right bundle branch block Impaired fasting glucose Essential tremor Osteoporosis Chronic pain in the left knee History of fracture of the left elbow History of breast cancer Bilateral cataracts Chronic right lower quadrant pain * SURGICAL HISTORY Breast lumpectomy -left Cholecystectomy Colonoscopy-2009 Hysterectomy Hemorrhoidectomy * ALLERGIES: NKDA * [facility] LABS: Laboratory Tests 02/26/23 02/26/23 03/07/23 09:53 09:53 09:25 WBC 4.7 L Hgb 14.9 Hct 44.7 Plt Count 281 Estimated GFR > 60 Total Bilirubin 0.5 AST 20 ALT 13 Alkaline Phosphata se 69 TODAY'S VISIT Malagasy #Grdtr translates per pt request. Onset of 1 year ago with a feeling like her throat was closing. This coincided with a dx of COVID. She says that this is not as frequent but still happens occasionally. She indicates that she has trouble in the lingual phase very early in the throat and it happens with both liquids and solids. NO globus sensation, but she even has trouble swallowing her saliva. She will occasionally choke. No other relevant sx including no regurgitation or HB. She has intermittent nausea, no CIC or diarrhea. ROV after barium swallow The only major event around the time of the onset of the sx was emergency cholecystectomy in [facility] [place]. 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 However, will start with a barium swallow and progress to EGD just in case she has silent regurg causing a globus sensation. This is possible she could have developed bile reflux after her cholecystectomy. I would like her to start a trial of famotidine to see if this helps the symptoms at all. She denies any respiratory disease and she is hypertensive heart disease that she says is well controlled. There are no prior problems with anesthesia or sedation. There are no infectious disease problems. There is no known family history of esophageal or stomach cancer. Return office visit after the barium swallow as this is most likely going to occur 1st but of course I will also see her after the endoscopy. [facility] Medical History Preoperative cardiovascular examination Abnormal EKG Colon cancer screening History of breast cancer History of left tennis elbow Arm fracture, left Chronic RLQ pain Hx of echocardiogram Osteopenia Hyperlipidemia Hypertension Surgical History Hx of colonoscopy Hx of bilateral cataract extraction History of hemorrhoidectomy History of hysterectomy History of lumpectomy of left breast Family History Maternal Uncle History of prostate cancer Maternal Aunt History of colon cancer Brother History of prostate cancer Social History Household Members: Family and Children Housing: House Are you a primary memory care director to a significant other at home: No Do you presently have visiting nurse or other home services: Yes Alcohol intake: former Patient Tobacco Use Status: Never used Tobacco service: No Current occupational status: disabled Review of Systems Const Denies fatigue, Denies fever(s), Denies night sweats, Denies poor appetite and Denies weight loss ENT Reports Normal hearing present, Denies dental pain, Reports dysphagia, Denies hearing loss, Denies mouth pain, Denies odynophagia, Denies throat swelling, Denies tongue swelling and Reports other (Dentition adequate) Card Reports no additional complaints Resp Reports no additional complaints GI Details: Denies abdominal pain, Denies melena, Denies bloating, Denies hematochezia, Denies constipation, Denies GI cramping, Reports dysphagia, Denies excessive flatus, Denies early satiety, Denies heartburn, Denies diarrhea, Reports nausea, Denies odynophagia, Denies vomiting and Denies hematemesis Skin/Breast Denies pruritus, Denies lesions, Denies rash and Denies jaundice Neuro Reports Normal hearing present and Denies Abnormal speech present Endo Denies fatigue Aller/Immun Denies throat swelling and Denies tongue swelling Physical Exam Vital Signs: Last Vital Signs Pulse 81 06/22/23 10:01 BP 124/59 L 06/22/23 10:01 BMI result Body Mass Index 23.5 Const General: cooperative, no acute distress, well developed and well groomed Nutritional Appearance: average body habitus and well nourished Orientation/consciousness: oriented to person, oriented to place and oriented to time Limitations: language barrier HEENT Head: Yes normocephalic and Yes atraumatic Eyes General: appearance normal, both eyes and all related structures Pupils: Equal, round and reactive pupils present Neck Neck: Yes normal visual inspection and Yes no lymphadenopathy Thyroid: Thyroid normal Resp Effort & Inspection: normal respiratory effort and able to speak in complete sentences Auscultation: clear to auscultation bilaterally Cardio Rate: regular rate Rhythm: regular rhythm Heart sounds: Normal, physiologic split S2 sound present Peripheral pulses: radial pulses present and posterior tibial pulses present GI Inspection: No distended and No Abdominal panniculus present Palpation (GI): Soft to palpation, nontender, no guarding, not rigid and No hepatosplenomegaly present Percussion: Yes normal to percussion Auscultation: normal bowel sounds Rectal Exam - Female: deferred Abdomen image: 1. surgical scars Skin General skin exam: no rashes or lesions noted, turgor normal, skin not dry, no jaundice, No spider nevi and no striae Rashes: no rashes Nails: normal Neuro General: oriented to person, oriented to place and oriented to time Cranial nerves: Yes Equal, round and reactive pupils present and Yes Normal hearing present Speech: No Abnormal speech present Extrem General: Yes normal to inspection, No clubbing, No cyanosis and No edema Psych Appearance: grossly normal and well kempt Mental Status: mental status grossly normal Speech and movement: Normal speech and movement present Affect: normal affect Attitude: cooperative Thought process: Normal thought process present and not confabulating Thought content: Normal thought content present Insight: Limited insight present (Psych) Judgement: Limited judgement present (Psych) Assessment & Plan Assessment & Plan (1) Oropharyngeal dysphagia: Code(s): R13.12 - Dysphagia, oropharyngeal phase Plan Malagasy #Grdtr translates per pt request. Onset of 1 year ago with a feeling like her throat was closing. This coincided with a dx of COVID. She says that this is not as frequent but still happens occasionally. She indicates that she has trouble in the lingual phase very early in the throat and it happens with both liquids and solids. NO globus sensation, but she even has trouble swallowing her saliva. She will occasionally choke. No other relevant sx including no regurgitation or HB. She has intermittent nausea, no CIC or diarrhea. ROV after barium swallow The only major event around the time of the onset of the sx was emergency cholecystectomy in [facility] [place]. 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 However, will start with a barium swallow and progress to EGD just in case she has silent regurg causing a globus sensation. This is possible she could have developed bile reflux after her cholecystectomy. I would like her to start a trial of famotidine to see if this helps the symptoms at all. She denies any respiratory disease and she is hypertensive heart disease that she says is well controlled. There are no prior problems with anesthesia or sedation. There are no infectious disease problems. There is no known family history of esophageal or stomach cancer. Return office visit after the barium swallow as this is most likely going to occur 1st but of course I will also see her after the endoscopy. Orders: Orders FL barium swallow modified 06/22/23 R13.12 - Dysphagia, oropharyngeal phase EGD with Evans - GI Use Only 06/22/23 Medications: New famotidine (Pepcid) 40 mg PO BEDTIME 30 tabs 6RF R13.12 - Dysphagia, oropharyngeal phase Coding Level of Care Code New Pt Level 3 (52918) Diagnoses Oropharyngeal dysphagia R13.12
[2023-06-22 10:01] VITALS: BP 124/59; PULSE 81; BMI 23.5
== END 2023-06-22 10:50 | disposition home or self-care (01) ==
PROVIDERS: PCP Family Medicine; Visit Provider Nurse Practitioner
DX: R13.12 Dysphagia, oropharyngeal phase (principal)
CPT/HCPCS: 99203

== ENCOUNTER → 2023-06-22 09:41 | Outpatient (BNVA) | payer OTHER, SELFPAY | PROVIDERS: PCP Family Medicine; Visit Provider Nurse Practitioner | DX: R13.12 Dysphagia, oropharyngeal phase (principal) | CPT/HCPCS: 99202 ==

== ENCOUNTER → 2023-08-07 08:41 | Outpatient (REF) | payer OTHER, SELFPAY ==
--- NOTE | ~2023-08-07 | NM_ITS ---
Myocardial perfusion study Indication: Abnormal EKG to evaluate for myocardial ischemia Technique: The patient was brought in for a Lexiscan perfusion study on 08/07/2023. Patient performed low-level exercise and was injected 0.4 mg of Lexiscan intravenously. Within a minute of injection, 25 mCi of sestamibi was given intravenously. Images were obtained using the SPECT gamma camera interlaced with the gating device. Images were obtained in supine position. Resting perfusion study was performed on 08/08/2019. Patient was administered 25 mCi of sestamibi intravenously at rest. Images were then obtained in supine position. Images obtained with and without CT attenuation. Total DLP 87 mGy-cm. Images were processed with the software and compared side to side in short axis, horizontal long axis and vertical long axis views. Findings: The stress perfusion study showed non attenuated images show moderately reduced uptake in the apex of the LV myocardium,. Remainder of the LV myocardium shows normal uptake. Attenuated corrected images show mildly reduced uptake in the mid distal anterior lateral and apical wall of the LV myocardium.. The gated study shows normal LV systolic function with calculated LVEF of 70%. LV cavity is normal in size. The gated study shows normal systolic wall thickening and contraction of segments. Resting study shows nontender images show normal uptake of radiotracer in all segments of LV myocardium. Attenuation corrected normal uptake of radiotracer myocardium. Gating at rest reveals normal systolic wall motion with ejection fraction at 64%. The findings are consistent with mild intensity reversible defect in the mid anterior, apical anterior, apical and anterolateral wall suggestive wall ischemia in the LAD territory. NM/NM cardiolite stress test Impression: 1. Myocardial perfusion imaging study shows mild intensity moderate-sized defect in the mid to distal anterior, anterolateral and apical wall suggestive of ischemia in LAD territory. 2. Gated LVEF is 70% 3. Transient ischemic dilatation not present EKG is nondiagnostic for ischemia
--- NOTE | 2023-08-07 08:44 | CA_ITS ---
Acquisition Time: 2023-08-07 09:00:06 Total Exercise Time: 00:02:00 Test Indications: Abnormal ECG Medications: AMLODIPINE ASA FLONASE LISINIPRIL LORATADINE PRAVASTATIN Protocol: LEXISCAN Max HR: 093 BPM 62% of Pred: 148 BPM Max BP: 120/070 mmHG Max Work Load: 1.0 METS Pharmacological stress test with Lexiscan injection while sitting and kicking her legs, without anginal symptoms, without arrhythmias, with normotensive response to injection, with nondiagnoisitic EKGs. Nuclear images pending. Test reviewed with Dr. Garzon. Referred By: Lynn Cid Overread By: Loida Zaragoza
== END ==
LOC: HO.CARD 08:41
PROVIDERS: PCP Family Medicine; Visit Provider Nurse Practitioner Family
DX: R94.31 Abnormal electrocardiogram [ECG] [EKG] (principal); I10 Essential (primary) hypertension; E78.5 Hyperlipidemia, unspecified
CPT/HCPCS: 78452; 93017; A9500; J2785

== ENCOUNTER → 2023-08-07 08:44 | Outpatient (BNV) | payer OTHER, SELFPAY | PROVIDERS: PCP Family Medicine; Visit Provider Nurse Practitioner | DX: R94.31 Abnormal electrocardiogram [ECG] [EKG] (principal) | CPT/HCPCS: 78452; 93016; 93018 ==

== ENCOUNTER 2023-08-13 09:32 | Outpatient (AMB) | payer OTHER, SELFPAY ==
[2023-08-13 09:58] VITALS: BP 120/60; PULSE 67; BMI 24.1
--- NOTE | 2023-08-13 09:58 | MHC.OFFVIS ---
Vital Signs 08/13/23 09:58 Height 5 ft 3 in Weight 136 lb 3.931 oz BMI 24.1 BP 120/60 Blood Pressure Location Rt brachial Position Sitting Pulse 67 Pulse Source Pulse Oximeter Intake Visit Reasons: f/up stress test Plumbing Service Technician Required: No Quality Lab Technician: Quality Lab Technician Present Allergies No Known Allergies [No Known Allergies*] Allergy (Verified 08/13/23 10:02) Medication List - Last Reconciled 08/13/23 by JESSY Cuevas amlodipine 10 mg PO DAILY 90 days aspirin 81 mg PO DAILY cholecalciferol (vitamin D3) 25 mcg PO DAILY cyanocobalamin (vitamin B-12) 1,000 mcg PO DAILY famotidine (Pepcid) 40 mg PO BEDTIME fluticasone propionate 50 mcg/actuation 1 spray intranasal DAILY lisinopril 10 mg PO DAILY loratadine (Claritin) 10 mg PO DAILY PRN olopatadine 0.2% 1 drp ophthalmic (eye) DAILY pravastatin 80 mg PO DAILY HPI HPI f/up stress test: Details: Charlene is a 72-year-old female with past medical history of hypertension, hyperlipidemia who was recently on vacation in [facility], last April, and developed abdominal discomfort, acute cholecystitis requiring laparoscopic cholecystectomy. EKG at that time shows T-wave inversions across precordium which is different from prior EKGs. On last visit nuclear stress test was ordered and she now presents for follow-up Today she reports that she has been doing well since her last visit. She did take another trip to [facility] with a friend and tolerated it well. During her vacation she did lots of walking with no anginal sounding symptoms. She has not had any chest discomfort at rest or with activities. No shortness of breath, palpitations, lightheadedness, presyncope, syncope, PND, orthopnea or edema. She takes her medications as directed. Granddaughter assisting with translation at their request. Permit signed. [facility] Medical History Preoperative cardiovascular examination Abnormal EKG Colon cancer screening History of breast cancer History of left tennis elbow Arm fracture, left Chronic RLQ pain Hx of echocardiogram Osteopenia Hyperlipidemia Hypertension Surgical History Hx of colonoscopy Hx of bilateral cataract extraction History of hemorrhoidectomy History of hysterectomy History of lumpectomy of left breast Family History Maternal Uncle History of prostate cancer Maternal Aunt History of colon cancer Brother History of prostate cancer Social History Household Members: Family and Children Housing: House Are you a primary home care coordinator to a significant other at home: No Do you presently have visiting nurse or other home services: Yes Alcohol intake: former Patient Tobacco Use Status: Never used Tobacco service: No Current occupational status: disabled Review of Systems Const All systems reviewed & are unremarkable except as noted in HPI and below ENT Denies dizziness Card Denies chest pain, Denies chest pain at rest, Denies chest pain with activity, Denies rapid heart rate, Denies pedal edema, Denies edema, Denies leg edema, Denies lightheadedness, Denies palpitations, Denies dyspnea, Denies dyspnea on exertion and Denies orthopnea Resp Denies cough, Denies dyspnea and Denies dyspnea on exertion GI Denies hematochezia and Denies change in stool character Musc Denies abnormal gait, Denies limited range of motion, Denies muscle cramps, Denies muscle weakness, Denies numbness, Denies radiating pain into limb, Denies stiffness and Denies tingling Neuro Denies abnormal gait, Denies dizziness, Denies numbness and Denies tingling Endo Denies palpitations Physical Exam Vital Signs: Last Vital Signs Pulse 67 08/13/23 09:58 BP 120/60 08/13/23 09:58 BMI result Body Mass Index 24.1 Const General: cooperative, healthy appearing, comfortable and no acute distress Orientation/consciousness: patient oriented x3 Neck Neck: Yes normal visual inspection and Yes no JVD Resp Effort & Inspection: normal respiratory effort Auscultation: clear to auscultation bilaterally, no crackles, no rales, no rhonchi and no wheezes Cardio Jugular venous distension: no JVD Rate: regular rate Rhythm: regular rhythm Heart sounds: S1 normal heart sound present, S2 normal heart sound present, no murmurs and no rubs Neuro General: patient oriented x3 Extrem General: Yes normal to inspection and No no pedal edema Psych Appearance: grossly normal Mental Status: mental status grossly normal Speech and movement: Normal speech and movement present Assessment & Plan Assessment & Plan (1) Abnormal EKG: Code(s): R94.31 - Abnormal electrocardiogram [ECG] [EKG] Category: Medical Plan: Patient had abdominal surgery in [facility] April 2023. EKG at that time showed T-wave inversions across the precordium which is different from prior EKG. An echocardiogram done there does show EF 68%. This patient has no known history of CAD. Cardiac risk factors of hypertension, hyperlipidemia. On last visit her EKG showed sinus rhythm, incomplete right bundle branch block, low-voltage QRS, nonspecific T-wave abnormalities, rate 77. A nuclear stress test was done here on 08/08/2023 showing mild intensity, moderate size defect in the mid to distal anterior and anterior lateral and apical wall, LAD territory. She denies any anginal sounding symptoms and reports good activity tolerance. She recently traveled back to [facility] and did lots of walking which she says she tolerated well. Since she has no symptoms, Will order a CTA of the coronary arteries for further evaluation. She develops chest discomfort then she will require cardiac catheterization. This was reviewed with her in detail. Will have her continue on aspirin, pravastatin, amlodipine, lisinopril. Blood pressure currently well controlled. Signs and symptoms of angina reviewed with her. Cardiology follow-up once CTA results are available, sooner if needed. (2) Hypertension: Code(s): I10 - Essential (primary) hypertension Category: Medical Plan: Well controlled at this time. No med changes made. Continue amlodipine, lisinopril. (3) Hyperlipidemia: Code(s): E78.5 - Hyperlipidemia, unspecified Category: Medical Plan: [facility] LDL goal less than 100 and patient with no known CAD or diabetes. Labs done 03/07/2023 shows LDL 90. Updated lipid profile should be done.- labs normally followed by her PCP. Continue pravastatin 80 mg daily (4) Abnormal nuclear stress test: Code(s): R94.39 - Abnormal result of other cardiovascular function study Category: Medical Plan: As above Plan Time spent on chart review, documentation, interview and assessment Orders: Orders CT Cardiac Coronary Angio Today E78.5 - Hyperlipidemia, unspecified, I10 - Essential (primary) hypertension, I45.10 - Unspecified right bundle-branch block, R94.39 - Abnormal result of other cardiovascular function study Basic Metabolic Panel Today R94.39 - Abnormal result of other cardiovascular function study Coding Level of Care Code Est Pt Level 3 (92349) Diagnoses Abnormal EKG R94.31 Hypertension I10 Hyperlipidemia E78.5 Abnormal nuclear stress test R94.39 Time Spent (min) 24
== END 2023-08-13 10:32 | disposition home or self-care (01) ==
PROVIDERS: PCP Family Medicine; Visit Provider Nurse Practitioner Family
DX: R94.31 Abnormal electrocardiogram [ECG] [EKG] (principal); I10 Essential (primary) hypertension; E78.5 Hyperlipidemia, unspecified; R94.39 Abnormal result of other cardiovascular function study
CPT/HCPCS: 99213

== ENCOUNTER → 2023-08-13 09:32 | Outpatient (BNVA) | payer OTHER, SELFPAY | PROVIDERS: PCP Family Medicine; Visit Provider Nurse Practitioner Family | DX: R94.31 Abnormal electrocardiogram [ECG] [EKG] (principal); R94.39 Abnormal result of other cardiovascular function study; I10 Essential (primary) hypertension; E78.5 Hyperlipidemia, unspecified | CPT/HCPCS: 99212 ==

== ENCOUNTER 2023-08-14 15:06 | Outpatient (REF) | payer OTHER, SELFPAY ==
[2023-08-14 16:46] LABS: Estimated Average Glucose 103 mg/dL; Hemoglobin A1c % 5.2 % (<6.0)
[2023-08-14 17:24] LABS: Alanine Aminotransferase 19 U/L (0-31); Albumin Level 4.5 g/dL (3.5-5.0); Alkaline Phosphatase 65 U/L (39-117); Anion Gap 13 (12-20); Aspartate Amino Transferase 15 U/L (5-31); Bilirubin Total 0.3 mg/dL (0.0-1.0); Blood Urea Nitrogen 16 mg/dL (9-16); Calcium 9.9 mg/dL (8.4-10.2); Carbon Dioxide 23 mmol/L (22-29); Chloride 107 mmol/L (96-108); Cholesterol 183 mg/dL (<200); Estimated Glomerular Filt Rate > 60; Glucose Random 92 mg/dL (60-115); HDL Cholesterol 55 mg/dL (>40); LDL Cholesterol Calculated 89 mg/dL (<100); Potassium 4.2 mmol/L (3.3-5.1); Sodium 139 mmol/L (135-145); Total Protein 7.5 g/dL (6.5-8.0); Triglycerides 197 mg/dL (<150)
[2023-08-14 17:41] LABS: TSH reflex Free T4 1.45 uIU/mL (0.32-4.0)
[2023-08-14 19:44] LABS: Reflex LDLD? No
== END 2023-08-14 15:07 | disposition home or self-care (01) ==
LOC: HO.HHCL 15:06
PROVIDERS: Visit Provider Family Medicine
DX: R63.4 Abnormal weight loss (principal); I10 Essential (primary) hypertension; R94.31 Abnormal electrocardiogram [ECG] [EKG]
CPT/HCPCS: 36415; 80053; 80061; 83036; 84443

== ENCOUNTER 2023-09-07 10:36 | Outpatient (REF) | payer OTHER, SELFPAY ==
--- NOTE | ~2023-09-07 | MM_ITS ---
EXAMINATION: MM SCREENING DIGITAL BREAST TOMOSYNTHESIS, BILATERAL CLINICAL INFORMATION: Screening. Asymptomatic. The patient has a history of prior left breast cancer surgery in the upper outer quadrant. COMPARISON: Mammography: This study is compared with prior exams dating back to 2019. TECHNIQUE: Digital breast tomosynthesis is performed in both the craniocaudal and mediolateral oblique views along with computer-aided detection (CAD). Synthesized 2D images are generated from the tomosynthesis. FINDINGS: The breasts are heterogeneously dense, which may obscure small masses (ACR BI-RADS breast composition Category c). There are no significant masses, abnormal calcifications, or other abnormalities. There are postsurgical changes in the upper-outer quadrant of the left breast. There is also some mild postsurgical change in the left axilla. MM/MM tomosynthesis screening BI IMPRESSION: No mammographic evidence of malignancy. ASSESSMENT: BI-RADS BI-RADS 2 - Benign Findings RECOMMENDATION: Routine annual mammography screening. 1 year F/U This examination should not preclude the clinical evaluation of a suspicious palpable abnormality. This patient's information was entered into a reminder system with a target due date for their next mammogram.
== END 2023-09-07 10:37 | disposition home or self-care (01) ==
LOC: HO.MAMMO 10:36
PROVIDERS: PCP Family Medicine; Visit Provider Family Medicine
DX: Z12.31 Encounter for screening mammogram for malignant neoplasm of breast (principal)
CPT/HCPCS: 77063; 77067

== ENCOUNTER → 2023-09-07 10:45 | Outpatient (BNV) | payer OTHER, SELFPAY | PROVIDERS: PCP Family Medicine; Visit Provider Radiology Diagnostic Radiology | DX: Z12.31 Encounter for screening mammogram for malignant neoplasm of breast (principal) | CPT/HCPCS: 77063; 77067 ==

== ENCOUNTER 2023-10-19 10:10 | Outpatient (AMB) | payer OTHER, SELFPAY ==
--- NOTE | 2023-10-19 10:32 | A.OFFVIS_ITS ---
Vital Signs 10/19/23 10:33 Height 5 ft 3 in Weight 132 lb 4.438 oz BMI 23.4 BP 130/72 Blood Pressure Location Lt brachial Position Sitting Pulse 85 Intake Visit Reasons: f/up Intake Note: Follow-up CTA results states very nervous Manager Corporate Communications Required: Yes Manager Corporate Communications Name: [facility] [place] Allergies No Known Allergies [No Known Allergies*] Allergy (Verified 09/05/23 09:06) Medication List - Last Reconciled 10/19/23 by Graham Mathews MD amlodipine 10 mg PO DAILY 90 days aspirin 81 mg PO DAILY cholecalciferol (vitamin D3) 25 mcg PO DAILY cyanocobalamin (vitamin B-12) 1,000 mcg PO DAILY famotidine (Pepcid) 40 mg PO BEDTIME fluticasone propionate 50 mcg/actuation 1 spray intranasal DAILY lisinopril 10 mg PO DAILY loratadine (Claritin) 10 mg PO DAILY PRN olopatadine 0.2% 1 drp ophthalmic (eye) DAILY HPI Comments Details: Charlene comes for follow-up. As you aware she recently underwent coronary CTA for abnormal myocardial perfusion imaging which showed nonobstructive lesion in the LAD at 25% plaque. She is still very concerned about it. History was obtained with help of manager of regulatory affairs. Patient says that she gets still palpitations intermittently and then she gets anxious and a blood pressure is high. She also has other noncardiac complaints. She is taking all her medications. [facility] Medical History Preoperative cardiovascular examination Abnormal EKG Colon cancer screening History of breast cancer History of left tennis elbow Arm fracture, left Chronic RLQ pain Hx of echocardiogram Osteopenia Hyperlipidemia Hypertension Surgical History Hx of colonoscopy Hx of bilateral cataract extraction History of hemorrhoidectomy History of hysterectomy History of lumpectomy of left breast Family History Maternal Uncle History of prostate cancer Maternal Aunt History of colon cancer Brother History of prostate cancer Social History Household Members: Family and Children Housing: House Are you a primary career portals teacher to a significant other at home: No Do you presently have visiting nurse or other home services: Yes Alcohol intake: former Patient Tobacco Use Status: Never used Tobacco service: No Current occupational status: disabled Review of Systems Const Denies chills, Denies fatigue, Denies fever(s), Denies frequent falls, Denies weakness, Denies weight gain and Denies weight loss ENT Denies dizziness Card Denies chest pain, Denies leg edema, Denies lightheadedness, Denies pal pitations, Denies dyspnea, Denies dyspnea on exertion, Denies orthopnea and Denies other (loss of consciousness) Resp Denies cough, Denies dyspnea and Denies dyspnea on exertion GI Denies hematochezia and Denies change in stool character Musc Denies abnormal gait, Denies muscle weakness, Denies numbness, Denies radiating pain into limb and Denies tingling Neuro Denies abnormal gait, Denies dizziness, Denies frequent falls, Denies numbness, Denies tingling and Denies weakness Endo Denies fatigue and Denies palpitations Physical Exam Vital Signs: Last Vital Signs Pulse 85 10/19/23 10:33 BP 130/72 10/19/23 10:33 BMI result Body Mass Index 23.4 Const General: cooperative, healthy appearing, comfortable and no acute distress Orientation/consciousness: patient oriented x3 Neck Neck: Yes normal visual inspection and Yes no JVD Resp Effort & Inspection: normal respiratory effort Auscultation: clear to auscultation bilaterally, no crackles, no rales, no rhonchi and no wheezes Cardio Jugular venous distension: no JVD Rate: regular rate Rhythm: regular rhythm Heart sounds: S1 normal heart sound present, S2 normal heart sound present, no murmurs and no rubs Neuro General: patient oriented x3 Extrem General: Yes normal to inspection and No no pedal edema Psych Appearance: grossly normal Mental Status: mental status grossly normal Speech and movement: Normal speech and movement present Assessment & Plan Assessment & Plan (1) CAD (coronary artery disease): Code(s): I25.10 - Atherosclerotic heart disease of [place] coronary artery without angina pectoris Plan: Coronary artery disease which is mild with nonobstructive plaque in the LAD, consistent with false-positive myocardial perfusion imaging. This is not a cause of her chest pain. Other cause of chest pain need to be ruled out. Her main issue right now with significant anxiety. This needs to be treated and I have directed her to you for further treatment options. Continue aspirin therapy. Continue aggressive blood pressure control which is currently well optimized. Consider statin therapy to target goal LDL less than 70 mg/dL. No further cardiac workup is indicated. Stress mitigation strategies was discussed. Will follow up in the clinic if need be. Thank you for allowing me to partake in the care Coding Level of Care Code Est Pt Level 3 (00937) Diagnoses CAD (coronary artery disease) I25.10
[2023-10-19 10:33] VITALS: BP 130/72; PULSE 85; BMI 23.4
== END 2023-10-19 10:58 | disposition home or self-care (01) ==
PROVIDERS: PCP Registered Nurse; Visit Provider Internal Medicine Cardiovascular Disease
DX: I25.10 Atherosclerotic heart disease of native coronary artery without angina pectoris (principal)
CPT/HCPCS: 99213

== ENCOUNTER → 2023-10-19 10:10 | Outpatient (BNVA) | payer OTHER, SELFPAY | PROVIDERS: PCP Registered Nurse; Visit Provider Internal Medicine Cardiovascular Disease | DX: I25.10 Atherosclerotic heart disease of native coronary artery without angina pectoris (principal) | CPT/HCPCS: 99212 ==

== ENCOUNTER 2023-11-07 14:22 | Outpatient (REF) | payer OTHER, SELFPAY ==
--- NOTE | ~2023-11-07 | FL_ITS ---
EXAMINATION: Modified Barium Swallows CLINICAL INFORMATION: Dysphagia. COMPARISON: None. TECHNIQUE: Modified barium swallow was performed under lateral fluoroscopy with patient in standing position. Barium mixed with solids and liquids of different consistencies was administered by the speech pathologist. Examination was recorded in the fluoroscopy suite. FINDINGS: No laryngeal penetration or aspiration was observed during this examination. FLUOROSCOPY TIME: 1.0 minutes Number of Spot Images: N/A DOSE AREA PRODUCT: 464.8 uGy-m2 (microgray-meter squared) FL/FL barium swallow modified IMPRESSION: No laryngeal penetration or aspiration was observed during this examination. Refer to the speech therapy report for further clarification This procedure was performed by Marcus Fontana PA-C, and supervised by Dr. Zaragoza
--- NOTE | 2023-11-12 15:33 | MHC.SL.IMP ---
Date of Plan of Treatment: 11/07/23 Onset of Symptoms/Illness: 06/22/23 Date Treatment Started: 11/07/23 Admitting Diagnosis: Dysphagia Primary Speech & Language Diagnosis: R13.12 Oropharyngeal Phase Dysphagia Reason for Today's Visit: 82087 Modified Barium Swallow Study Pre-evaluation Dietary Consistencies: Regular Pre-evaluation Liquid Consistency: Thin Pre-evaluation Medication Administration: Whole with Liquid Medical History: Modified Barium Swallow Study Fluoroscopic Evaluation of Swallowing Function CPT Code 87109 Evaluation Year: 2023 Reason for Study: Pt reporting difficulty swallowing. Referring Physician: Dipika WILHELM Evaluating Clinician: Loni Burnham MA, CCC-AUTOMATIC VULCANIZING LEAD OPERATOR Study Number: 1 Patient Name: Charlene Zamora Status: Outpatient, Ambulatory Age: 73 Gender: Female Medical History Medical History Preoperative cardiovascular examination Abnormal EKG Colon cancer screening History of breast cancer History of left tennis elbow Arm fracture, left Chronic RLQ pain Hx of echocardiogram Osteopenia Hyperlipidemia Hypertension Surgical History Hx of colonoscopy Hx of bilateral cataract extraction History of hemorrhoidectomy History of hysterectomy History of lumpectomy of left breast Current (pre-evaluation) Intake/Diet: Route: PO Diet Grade: Regular Liquid Consistencies: Thin Pre-Study Functional Oral Intake Scale (FOIS): 7- Total oral intake with no restrictions Pain: None reported at time of study SUBJECTIVE: Patient is a 73 year old female with history of breast cancer, osteopenia, hyperlipidemia, and hypertension. Patient was referred by the Gastroenterology office for a modified barium swallow study (MBSS) to evaluate for dysphagia. Patient reports feeling like her throat is ?closing? or like there is in an obstruction in her throat when she swallows. She also reports having reflux at night when laying down, coughing on liquids, and not being able to taste many foods. Patient says she has an easier time swallowing softer foods. She denies odynophagia. Oral Motor Exam Facial Symmetry: Symmetrical Mouth Occlusion: Normal Oral-Facial Teeth Characteristics: Dental Appliance Tongue Size: Normal Is patient able to manage secretions?: Yes Food and Liquid Trials: Oral Impairment: Lip Closure: 0=No labial escape Oral Impairment: Tongue Control During Bolus Hold: Did not test Oral Impairment: Bolus Preparation/Mastication: 0=Timely and efficient chewing and mashing Oral Impairment: Bolus Transport/Lingual Motion: 0=Brisk tongue motion Oral Impairment: Oral Residue: 1=Trace residue lining oral structures Oral Impairment:Initiation of Pharyngeal Swallow: 0=Bolus head at posterior angle of ramus (first hyoid excursion) Pharyngeal Impairment: Soft Palate Elevation: 0=No bolus between soft palate (SP)/pharyngeal wall (PW) Pharyngeal Impairment: Laryngeal Elevation: 0=Complete superior movement of thyroid cartilage (see description) Pharyngeal Impairment: Anterior Hyoid Excursion: 0=Complete anterior movement Pharyngeal Impairment: Epiglottic Movement: 0=Complete inversion Pharyngeal Impairment: Laryngeal Vestibular Closure:: 0=Complete: no air/contrast in laryngeal vestibule Pharyngeal Impairment: Pharyngeal Stripping Wave: 0=Present: complete Pharyngeal Impairment: Pharyngeal Contraction: Did not test Pharyngeal Impairment: Pharyngoesophageal Segment Openin=Complete distension and complete duration: no obstruction of flow Pharyngeal Impairment: Tongue Base (TB) Retraction: 1=Trace column of contrast/air between TB and posterior PW Pharyngeal Impairment: Pharyngeal Residue: 1=Trace residue within or on pharyngeal structures Pharyngeal Impairment: Esophageal Clearance Upright Position: Did not test Impressions and Recommendations Clinical Observations: OBJECTIVE: Time-out: performed at 15:00 Evaluation Start: 14:30; Stop: 14:35 Patient Positioning: Standing Viewing Planes: LATERAL ONLY Contrast: MBSImP? Standardized Protocol using commercially prepared, standardized Barium viscosities, including: Varibar? THIN LIQUID (40% w/v, <15 cps) , 1/2 Shortbread Cookie (1 x1 x.25 ) MBSImP ID: [id number] MBSImP Results: Lip closure for intraoral bolus containment resulted in no labial escape. Tongue control during bolus hold could not be assessed due to logistical reasons not related to physiologic impairment. Bolus preparation and mastication resulted in timely and efficient chewing and mashing. Bolus transport/lingual motion was with brisk tongue motion. Oral residue was a trace, lining oral structures. Initiation of the pharyngeal swallow occurred as the bolus head reached the posterior angle of the mandibular ramus. Soft palate elevation resulted in no bolus between the soft palate and the pharyngeal wall. Laryngeal elevation demonstrated complete superior movement of the thyroid cartilage with complete approximation of the arytenoids to the epiglottic petiole. Anterior hyoid excursion demonstrated complete anterior movement. Epiglottic movement resulted in complete inversion. Laryngeal vestibular closure was complete, as indicated by no air or contrast within the laryngeal vestibule at the height of the swallow. Pharyngeal stripping wave was present and complete. Pharyngeal contraction could not be determined due to logistical reasons not related to physiologic impairment. Pharyngoesophageal segment opening was completely distended for complete duration with no obstruction of bolus flow. Tongue base retraction allowed a trace column of contrast or air between the retracted tongue base and the posterior pharyngeal wall. Pharyngeal residue was a trace within or on pharyngeal structures. Esophageal clearance in the upright position could not be assessed due to logistical reasons not related to physiologic impairment. Oral Impairment Score: 0 (absence of score, component 2) Pharyngeal Impairment Score: 0 (absence of score, component 13) Esophageal Impairment Score: --- (absence of score, component 17) Laryngeal Penetration and Aspiration: Neither penetration nor aspiration was observed in today's study with Cookie, Thin. ASSESSMENT: Clinician Assessment: This exam was conducted by the radiologist and the speech pathologist. Patient was standing for lateral view and was able to feed herself without difficulty. She consumed puree (applesauce), regular solid (Rody Doone), and thin consistencies (via cup sips). Patient maintained good lip closure with no anterior loss of bolus. Mastication was timely and efficient. Brisk lingual transport. Timely swallow trigger. No evidence of nasopharyngeal reflux. Complete laryngeal elevation and complete epiglottic inversion. No evidence of aspiration or penetration during this exam. Trace lingual residue and vallecular pooling cleared with subsequent swallows. Liquid Intake Recommendation: Thin Liquid Intake Strategies: Unrestricted Dietary Recommendations: Regular Medication Administration: Whole with Liquid Please contact the pharmacy regarding appropriate crushable or liquid drug formulations that are available whenever modified delivery is recommended. Compensatory Strategies Recommended: Sitting Upright (90 deg), Alternate Liquids/Solids, Rate of Ingestion Change Supervision during eating and or drinking: None Needed Recommendation for Speech Therapy: NA:Typical Evaluation Text Comment: Intake Recommendations: Route: PO Diet Grade: Regular Liquid Consistencies: Thin Post-Study Functional Oral Intake Scale (FOIS): 7- Total oral intake with no restrictions Good oral and pharyngeal clearance. No evidence of aspiration or penetration during this exam. Further ST intervention is not warranted at this time, as patient?s exam was unremarkable, with no difficulties noted in the oral and pharyngeal stages of swallow. Suggested Referrals: The patient might benefit from a referral to: Gastroenterology Indication for Referral: Recommend continue workup with G.I. Therapy Recommendations: Therapy will be discontinued Clinician - Supplemental, Miscellaneous Communication: It is important to note MBSS objective studies are snapshots in time and Patient function might vary with factors such as time of day or concomitant medical conditions. For this reason, the final treatment plan for this patient should rest with their medical care team. Additional recommendations should be considered with the totality of the Patient in mind. Thank for the opportunity to participate in the care of this patient. If you have any questions about the content of this report, please contact the [facility] at [facility]. Education: Education regarding findings from today's study and plans for therapy were provided to Patient only through Verbal Instruction. Understanding was expressed by the Patient only. Application Development Director Clinician/Clinical Fellow: No Supervisory Statement: N/A Speech Language Pathologist: Loni Burnham M.A., CCC-AUTOMATIC VULCANIZING LEAD OPERATOR
== END 2023-11-07 14:23 | disposition home or self-care (01) ==
LOC: HO.XRAY 14:22
PROVIDERS: PCP Registered Nurse; Visit Provider Nurse Practitioner
DX: R13.12 Dysphagia, oropharyngeal phase (principal)
CPT/HCPCS: 74230; 92611

== ENCOUNTER → 2023-11-07 14:30 | Outpatient (BNV) | payer OTHER, SELFPAY | PROVIDERS: PCP Registered Nurse; Visit Provider Physician Assistant Surgical | DX: R13.12 Dysphagia, oropharyngeal phase (principal) | CPT/HCPCS: 74230 ==

== ENCOUNTER 2023-11-29 13:01 | Outpatient (AMB) | payer OTHER, SELFPAY ==
--- NOTE | 2023-11-29 13:26 | A.OFFVIS_ITS ---
Vital Signs 11/29/23 13:36 Height 5 ft 3 in Weight 135 lb BMI 23.9 BP 152/72 H Blood Pressure Location Rt brachial Position Sitting Pulse 89 Intake Visit Reasons: Barium Swallow Follow up Intake Note: Charlene presents to in office visit today in follow up of barium swallow. CC: Patient c/o of walking up very early in the morning with a very dry mouth and acid reflux. She states that she began to take Ensure because she was not eating well. She is unsure if this is related to a rash she is having with itching all over her body. Patient reports that sometimes she gets nauseous and vomiting. She recently had Covid and still does not have taste. Service Dispatcher Required: Yes Accompanied by: Self / Same As Patient Allergies No Known Allergies [No Known Allergies*] Allergy (Verified 12/13/23 14:05) HPI HPI Barium Swallow Follow up: Details: Assessment & Plan (1) Oropharyngeal dysphagia: Code(s): R13.12 - Dysphagia, oropharyngeal phase Plan Czech #Grdtr translates per pt request. Onset of 1 year ago with a feeling like her throat was closing. This coincided with a dx of COVID. She says that this is not as frequent but still happens occasionally. She indicates that she has trouble in the lingual phase very early in the throat and it happens with both liquids and solids. NO globus sensation, but she even has trouble swallowing her saliva. She will occasionally choke. No other relevant sx including no regurgitation or HB. She has intermittent nausea, no CIC or diarrhea. ROV after barium swallow The only major event around the time of the onset of the sx was emergency cholecystectomy in [facility]. 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 However, will start with a barium swallow and progress to EGD just in case she has silent regurg causing a globus sensation. This is possible she could have developed bile reflux after her cholecystectomy. I would like her to start a trial of famotidine to see if this helps the symptoms at all. She denies any respiratory disease and she is hypertensive heart disease that she says is well controlled. There are no prior problems with anesthesia or sedation. There are no infectious disease problems. There is no known family history of esophageal or stomach cancer. Return office visit after the barium swallow as this is most likely going to occur 1st but of course I will also see her after the endoscopy. Orders: Orders FL barium swallow modified 06/22/23 R13.12 - Dysphagia, oropharyngeal phase EGD with [facility] - GI Use Only 06/22/23 Medications: New famotidine (Pepcid) 40 mg PO BEDTIME 30 tabs 6RF R13.12 - Dysphagia, or opharyngeal phase MODIFIED BARIUM SWALLOW 11/12/23 FINDINGS: No laryngeal penetration or aspiration was observed during this examination. FLUOROSCOPY TIME: 1.0 minutes Number of Spot Images: N/A DOSE AREA PRODUCT: 464.8 uGy-m2 (microgray-meter squared) FL/FL barium swallow modified IMPRESSION: No laryngeal penetration or aspiration was observed during this examination. SPEECH THERAPY REPORT ASSESSMENT: Clinician Assessment: This exam was conducted by the radiologist and the speech pathologist. Patient was standing for lateral view and was able to feed herself without difficulty. She consumed puree (applesauce), regular solid (Rody Doone), and thin consistencies (via cup sips). Patient maintained good lip closure with no anterior loss of bolus. Mastication was timely and efficient. Brisk lingual transport. Timely swallow trigger. No evidence of nasopharyngeal reflux. Complete laryngeal elevation and complete epiglottic inversion. No evidence of aspiration or penetration during this exam. Trace lingual residue and vallecular pooling cleared with subsequent swallows. Liquid Intake Recommendation: Thin Liquid Intake Strategies: Unrestricted Dietary Recommendations: Regular Medication Administration: Whole with Liquid Please contact the pharmacy regarding appropriate crushable or liquid drug formulations that are available whenever modified delivery is recommended. Compensatory Strategies Recommended: Sitting Upright (90 deg), Alternate Liquid s/Solids, Rate of Ingestion Change Supervision during eating and or drinking: None Needed Recommendation for Speech Therapy: NA:Typical EvaluationText Comment: Intake Recommendations: Route: PO Diet Grade: Regular Liquid Consistencies: Thin Post-Study Functional Oral Intake Scale (FOIS): 7- Total oral intake with no restrictions Good oral and pharyngeal clearance. No evidence of aspiration or penetration during this exam. Further ST intervention is not warranted at this time, as patient?s exam was unremarkable, with no difficulties noted in the oral and pharyngeal stages of swallow. EGD Not yet scheduled BIOPSY TODAY'S VISIT Czech #Kimbrely Moran she is noting that she feels stomach contents regurg when she sleeps, and this will make her mouth dry and she will wake up because it scares me. We discuss putting blocks under the HOB to prevent aspiration. We review the Mod barium swallow and there was no cause found for her reported early phase dysphagia with solids and liquids. She still has the EGD upcoming. She has also noted that she has no sense of taste recently, and since all of this seems to have happened since she had COVID, this may be part of this syndrome and may take time to come back - of course, there is much about post covid problems we still do not know about. She says she is losing weight r/t her lack of appetite. We discuss using and eating schedule or even something like Ensure to offset this since she can not depend on her appetite to drive her. She says she was using Ensure, but then she started developing rashes and she thought that it was r/t the Ensure. She has discreet raised itchy spots around her lower waist area. We discuss possible latex allergy since this seems to run in the area the waist band would follow and no where else on the body. She could try changing to something like Boost. Also, she could ask her PCP to refer her to an health concierge for further testing. ROV after EGD. [facility] Medical History COVID-19 Preoperative cardiovascular examination Abnormal EKG Colon cancer screening History of breast cancer History of left tennis elbow Arm fracture, left Chronic RLQ pain Hx of echocardiogram Osteopenia Hyperlipidemia Hypertension Surgical History Hx of colonoscopy Hx of bilateral cataract extraction History of hemorrhoidectomy History of hysterectomy History of lumpectomy of left breast Family History Maternal Uncle History of prostate cancer Maternal Aunt History of colon cancer Brother History of prostate cancer Social History Household Members: Family and Children Housing: House Are you a primary caregiver services home to a significant other at home: No Do you presently have visiting nurse or other home services: Yes Alcohol intake: former Patient Tobacco Use Status: Never used Tobacco service: No Current occupational status: disabled Review of Systems Const Denies fatigue, Denies fever(s), Denies night sweats, Denies poor appetite and Denies weight loss ENT Reports Normal hearing present, Denies dental pain, Reports dysphagia, Denies hearing loss, Denies mouth pain, Denies odynophagia, Denies throat swelling, Denies tongue swelling and Reports other (Dentition adequate) Card Reports no additional complaints Resp Reports no additional complaints GI Details: Regurgitation of stomach contents Denies abdominal pain, Denies melena, Denies bloating, Denies hematochezia, Denies constipation, Denies GI cramping, Reports dysphagia, Denies excessive flatus, Denies early satiety, Denies heartburn, Denies diarrhea, Denies nausea, Denies odynophagia, Denies vomiting and Denies hematemesis Skin/Breast Denies pruritus, Denies lesions, Denies rash and Denies jaundice Neuro Reports Normal hearing present and Denies Abnormal speech present Endo Denies fatigue Aller/Immun Denies throat swelling and Denies tongue swelling Physical Exam Vital Signs: Last Vital Signs Pulse 89 11/29/23 13:36 BP 152/72 H 11/29/23 13:36 BMI result Body Mass Index 23.9 Const General: cooperative, no acute distress, well developed and well groomed Nutritional Appearance: average body habitus and well nourished Orientation/consciousness: oriented to person, oriented to place and oriented to time Limitations: language barrier HEENT Head: Yes normocephalic and Yes atraumatic Eyes General: appearance normal, both eyes and all related structures Pupils: Equal, round and reactive pupils present Neck Neck: Yes normal visual inspection and Yes no lymphadenopathy Thyroid: Thyroid normal Resp Effort & Inspection: normal respiratory effort and able to speak in complete sentences Auscultation: clear to auscultation bilaterally Cardio Rate: regular rate Rhythm: regular rhythm Heart sounds: Normal, physiologic split S2 sound present Peripheral pulses: radial pulses present and posterior tibial pulses present GI Inspection: No distended and No Abdominal panniculus present Palpation (GI): Soft to palpation, nontender, no guarding, not rigid and No hepatosplenomegaly present Percussion: Yes normal to percussion Auscultation: normal bowel sounds Rectal Exam - Female: deferred Skin General skin exam: turgor normal, skin not dry, no jaundice, No spider nevi and no striae Rashes: rashes noted (very discreet raised red bumps about 12 apart around waist - itchty) Nails: normal Neuro General: oriented to person, oriented to place and oriented to time Cranial nerves: Yes Equal, round and reactive pupils present and Yes Normal hearing present Speech: No Abnormal speech present Extrem General: Yes normal to inspection, No clubbing, No cyanosis and No edema Psych Appearance: grossly normal and well kempt Mental Status: mental status grossly normal Speech and movement: Normal speech and movement present Affect: normal affect Attitude: cooperative Thought process: Normal thought process present and not confabulating Thought content: Normal thought content present Insight: Limited insight present (Psych) Judgement: Limited judgement present (Psych) Assessment & Plan Assessment & Plan (1) Oropharyngeal dysphagia: Code(s): R13.12 - Dysphagia, oropharyngeal phase Category: Medical (2) GERD (gastroesophageal reflux disease): Code(s): K21.9 - Gastro-esophageal reflux disease without esophagitis Category: Medical Plan Czech #Kimberly Live she is noting that she feels stomach contents regurg when she sleeps, and this will make her mouth dry and she will wake up because it scares me. We discuss putting blocks under the HOB to prevent aspiration. We review the Mod barium swallow and there was no cause found for her reported early phase dysphagia with solids and liquids. She still has the EGD upcoming. She has also noted that she has no sense of taste recently, and since all of this seems to have happened since she had COVID, this may be part of this syndrome and may take time to come back - of course, there is much about post covid problems we still do not know about. She says she is losing weight r/t her lack of appetite. We discuss using and eating schedule or even something like Ensure to offset this since she can not depend on her appetite to drive her. She says she was using Ensure, but then she started developing rashes and she thought that it was r/t the Ensure. She has discreet raised itchy spots around her lower waist area. We discuss possible latex allergy since this seems to run in the area the waist band would follow and no where else on the body. She could try changing to something like Boost. Also, she could ask her PCP to refer her to an health concierge for further testing. ROV after EGD. Coding Level of Care Code Est Pt Level 3 (10701) Diagnoses Oropharyngeal dysphagia R13.12 GERD (gastroesophageal reflux disease) K21.9
[2023-11-29 13:36] VITALS: BP 152/72; PULSE 89; BMI 23.9
== END 2023-11-29 14:38 | disposition home or self-care (01) ==
PROVIDERS: PCP Registered Nurse; Visit Provider Nurse Practitioner
DX: R13.12 Dysphagia, oropharyngeal phase (principal); K21.9 Gastro-esophageal reflux disease without esophagitis
CPT/HCPCS: 99213

== ENCOUNTER → 2023-11-29 13:01 | Outpatient (BNVA) | payer OTHER, SELFPAY | PROVIDERS: PCP Registered Nurse; Visit Provider Nurse Practitioner | DX: K21.9 Gastro-esophageal reflux disease without esophagitis (principal); R13.12 Dysphagia, oropharyngeal phase | CPT/HCPCS: 99212 ==

== ENCOUNTER 2023-12-13 14:00 | Outpatient (AMB) | payer OTHER, SELFPAY ==
--- NOTE | 2023-12-13 14:04 | A.OFFVIS_ITS ---
Vital Signs 3 12/13/23 14:12 Height 5 ft 3 in Weight 133 lb BMI 23.6 BP 149/80 H Blood Pressure Location Lt brachial Position Sitting Pulse 114 H Intake Visit Reasons: yearly breast exam Intake Note: Patient is seen in office for yearly breast exam. Patient c/o: no concerns or changes mm:09/07/23 Director Of Restaurants Required: No Accompanied by: Self / Same As Patient Allergies No Known Allergies [No Known Allergies*] Allergy (Verified 12/13/23 14:05) HPI Comments Details: Charlene Zamora is a 73-year-old female patient of Dr. Augustin, and previous patient of Dr. Sanchez, noted to have a spiculated mass measuring 1 cm in the posterior upper outer quadrant left breast noted on a screening digital mammogram on 07/11/16. She underwent a core biopsy, followed by a left partial mastectomy with left sentinel node biopsy on 08/14/16. 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 Margins were clear of invasive carcinoma as well as DCIS. Lymphovascular invasion was not identified. 2 sentinel nodes were benign. Patient completed adjuvant radiation therapy between 09/27/16-10/26/16 (Dr. Ko, [facility]). Patient was [place] [facility] [place] She reports the tamoxifen led to worsening cataracts, therefore she was switched to letrozole. She subsequently underwent bilateral cataract surgery. She denies any new symptoms. She reports problems with high blood pressure. Her last mammogram on no mammographic evidence of malignancy, post therapy changes of the left breast. Annual screening mammography is recommended (BI-RADS 2). She denies any new breast symptoms or new concerns. [facility] Medical History COVID-19 Preoperative cardiovascular examination Abnormal EKG Colon cancer screening History of breast cancer History of left tennis elbow Arm fracture, left Chronic RLQ pain Hx of echocardiogram Osteopenia Hyperlipidemia Hypertension Surgical History Hx of colonoscopy Hx of bilateral cataract extraction History of hemorrhoidectomy History of hysterectomy History of lumpectomy of left breast Family History Maternal Uncle History of prostate cancer Maternal Aunt History of colon cancer Brother History of prostate cancer Social History Household Members: Family and Children Housing: House Are you a primary home care administrator to a significant other at home: No Do you presently have visiting nurse or other home services: Yes Alcohol intake: former Patient Tobacco Use Status: Never used Tobacco service: No Current occupational status: disabled Review of Systems Const Denies anorexia, Denies malaise, Denies night sweats and Denies poor appetite Card Denies chest pain, Denies irregular heart rhythm and Denies dyspnea Resp Denies hemoptysis, Denies excessive phlegm production and Denies dyspnea GI Denies abdominal pain, Denies hematochezia, Denies GI cramping and Denies heartburn Denies nipple discharge Skin/Breast Denies breast skin changes, Denies breast pain, Denies breast mass, Denies change in breast shape, Denies change in pigmentation and Denies nipple discharge Psych Reports no additional complaints Physical Exam Const General: cooperative, healthy appearing, comfortable and no acute distress HEENT Head: Yes normocephalic and Yes atraumatic Ears: hearing grossly normal bilaterally Neck Neck: Yes normal visual inspection and Yes no JVD Chest Other: Well-healed incision in the upper outer quadrant of the left breast with no palpable mass, skin change, nipple discharge, nipple retraction, enlarged lymph node, or tenderness. Right breast reveals soft breast tissue with no skin change, nipple discharge, palpable mass, or enlarged lymph nodes. Resp Effort & Inspection: normal respiratory effort Skin Other: Warm and dry, no rash Extrem General: Yes no clubbing, cyanosis or edema Assessment & Plan Assessment & Plan (1) Breast cancer, left: Code(s): C50.912 - Malignant neoplasm of unspecified site of left female breast Category: Medical Qualifiers: Breast location: upper outer quadrant of breast Patient sex: female Plan: Patient returns for follow-up examination following left breast invasive ductal carcinoma nearly 5 years post treatment. Patient is doing well with no evidence of recurrence disease. Her most recent mammogram dated 09/07/2023 revealed post therapy changes in the left breast. No mammographic evidence of malignancy (BI- RADS 2: Benign). Routine annual mammography was recommended. Patient may return in 1 year for follow-up examination if she desires to continue surgical follow-up. Coding Level of Care Code Est Pt Level 3 (36038) Diagnoses Breast cancer, left C50.912 Breast location: upper outer quadrant of breast Patient sex: female
[2023-12-13 14:12] VITALS: BP 149/80; PULSE 114; BMI 23.6
== END 2023-12-13 14:21 | disposition home or self-care (01) ==
PROVIDERS: PCP Registered Nurse; Visit Provider Surgery
DX: C50.912 Malignant neoplasm of unspecified site of left female breast (principal)
CPT/HCPCS: 99213

== ENCOUNTER → 2023-12-13 14:00 | Outpatient (BNVA) | payer OTHER, SELFPAY | PROVIDERS: PCP Registered Nurse; Visit Provider Surgery | DX: C50.412 Malignant neoplasm of upper-outer quadrant of left female breast (principal); Z90.12 Acquired absence of left breast and nipple; Z17.0 Estrogen receptor positive status [ER+]; Z92.3 Personal history of irradiation | CPT/HCPCS: 99212 ==

== ENCOUNTER 2024-02-20 12:15 | Outpatient (AMB) | payer OTHER, SELFPAY ==
--- NOTE | 2024-02-20 12:45 | A.OFFVIS_ITS ---
Vital Signs 02/20/24 12:46 Height 5 ft 3 in Weight 138 lb 14.259 oz BMI 24.6 BP 134/86 Blood Pressure Location Lt brachial Position Sitting Intake Visit Reasons: r/s 02/21/24 1 yr followup w/ekg Intake Note: 1 year follow-up with ekg feeling good Drive In Theater Attendant Required: Yes Drive In Theater Attendant Services: Drive In Theater Attendant Present Drive In Theater Attendant Name: kalpana Rivera Allergies No Known Allergies [No Known Allergies*] Allergy (Verified 12/13/23 14:05) Medication List - Last Reconciled 02/20/24 by Graham Mathews MD amlodipine 10 mg PO DAILY 90 days aspirin 81 mg PO DAILY benzonatate 200 mg PO TID PRN cholecalciferol (vitamin D3) 25 mcg PO DAILY cyanocobalamin (vitamin B-12) 1,000 mcg PO DAILY famotidine 40 mg PO BEDTIME fluticasone propionate 50 mcg/actuation 1 spray intranasal DAILY hydrocortisone 2.5% appl topical lisinopril 10 mg PO DAILY loratadine (Claritin) 10 mg PO DAILY PRN olopatadine 0.2% 1 drp ophthalmic (eye) DAILY rosuvastatin 20 mg PO BEDTIME HPI Comments Details: Charlene comes for follow-up. History was obtained with help of painter helper spray. She underwent a cardiac catheterization which showed mild CAD. She has no exertional chest pain or shortness of breath taking all her medications. She occasionally has symptoms of palpitations. Workup in the past has shown no significant arrhythmias. [facility] Medical History COVID-19 Preoperative cardiovascular examination Abnormal EKG Colon cancer screening History of breast cancer History of left tennis elbow Arm fracture, left Chronic RLQ pain Hx of echocardiogram Osteopenia Hyperlipidemia Hypertension Surgical History Hx of colonoscopy Hx of bilateral cataract extraction History of hemorrhoidectomy History of hysterectomy History of lumpectomy of left breast Family History Maternal Uncle History of prostate cancer Maternal Aunt History of colon cancer Brother History of prostate cancer Social History Household Members: Family and Children Housing: House Are you a primary childcare teacher to a significant other at home: No Do you presently have visiting nurse or other home services: Yes Alcohol intake: former Patient Tobacco Use Status: Never used Tobacco service: No Current occupational status: disabled Review of Systems Const Denies chills, Denies fatigue, Denies fever(s), Denies frequent falls, Denies weakness, Denies weight gain and Denies weight loss ENT Denies dizziness Card Denies chest pain, Denies leg edema, Denies lightheadedness, Denies palpitations, Denies dyspnea, Denies dyspnea on exertion, Denies orthopnea and Denies other (loss of consciousness) Resp Denies cough, Denies dyspnea and Denies dyspnea on exertion GI Denies hematochezia and Denies change in stool character Musc Denies abnormal gait, Denies muscle weakness, Denies numbness, Denies radiating pain into limb and Denies tingling Neuro Denies abnormal gait, Denies dizziness, Denies frequent falls, Denies numbness, Denies tingling and Denies weakness Endo Denies fatigue and Denies palpitations Physical Exam Vital Signs: Last Vital Signs BP 134/86 02/20/24 12:46 BMI result Body Mass Index 24.6 Const General: cooperative, healthy appearing, comfortable and no acute distress Orientation/consciousness: patient oriented x3 Neck Neck: Yes normal visual inspection and Yes no JVD Resp Effort & Inspection: normal respiratory effort Auscultation: clear to auscultation bilaterally, no crackles, no rales, no rhonchi and no wheezes Cardio Jugular venous distension: no JVD Rate: regular rate Rhythm: regular rhythm Heart sounds: S1 normal heart sound present, S2 normal heart sound present, no murmurs and no rubs Neuro General: patient oriented x3 Extrem General: Yes normal to inspection and No no pedal edema Psych Appearance: grossly normal Mental Status: mental status grossly normal Speech and movement: Normal speech and movement present Assessment & Plan Assessment & Plan (1) CAD (coronary artery disease): Code(s): I25.10 - Atherosclerotic heart disease of [place] coronary artery without angina pectoris Plan: Nonobstructive CAD in this elderly woman by recent cardiac catheterization. Continue aggressive medical therapy. Low-dose aspirin therapy recommended. Continue aggressive blood pressure control which is currently well optimized. Continue statin therapy. Target goal LDL less than 70 mg/dL. No further card iac workup is indicated at this point time. Follow-up through your office. Importance of aggressive blood pressure control was discussed. Target goal blood pressure less than 130/84. Encouraged to increase activity level as tolerated. (2) Palpitations: Code(s): R00.2 - Palpitations Category: Medical Plan: Palpitation with prior workup is in normal limits. Recommend her to have a smart phone based EKG sensor that can detect any arrhythmias on her own. This was discussed with her. She will look into it. Avoidance of stimulants was discussed. Stress mitigation strategies were discussed. Follow up in the clinic if need be. Thank you for allowing me to partake in his care Coding Level of Care Code Est Pt Level 3 (84399) Complex EM visit Add On G2211 Diagnoses CAD (coronary artery disease) I25.10 Palpitations R00.2
[2024-02-20 12:46] VITALS: BP 134/86; BMI 24.6
== END 2024-02-20 13:21 | disposition home or self-care (01) ==
PROVIDERS: PCP Registered Nurse; Visit Provider Internal Medicine Cardiovascular Disease
DX: I25.10 Atherosclerotic heart disease of native coronary artery without angina pectoris (principal); R00.2 Palpitations
CPT/HCPCS: 99213; G2211

== ENCOUNTER → 2024-02-20 12:15 | Outpatient (BNVA) | payer OTHER, SELFPAY | PROVIDERS: PCP Registered Nurse; Visit Provider Internal Medicine Cardiovascular Disease | DX: I25.10 Atherosclerotic heart disease of native coronary artery without angina pectoris (principal); R00.2 Palpitations | CPT/HCPCS: 99212 ==

== ENCOUNTER 2024-04-07 12:37 | Outpatient (REF) | payer OTHER, SELFPAY ==
[2024-04-07 13:16] LABS: MANUAL DIFF FLAG NO
[2024-04-07 13:23] LABS: Basophils Absolute Auto 0.1 X10*3/uL (0.0-0.2); Basophils Percent Auto 0.8 % (0-2); Eosinophils Absolute Auto 0.2 X10*3/uL (0.0-0.4); Eosinophils Percent Auto 2.3 % (0-4); Hemoglobin 14.4 g/dl (12.0-16.0); Imm Gran Abs Auto 0.01 X10*3/uL (0.00-0.03); Imm Gran Pct Auto 0.2 % (0.0-0.4); Lymphocytes Absolute Auto 1.3 X10*3/uL (1.2-4.9); Lymphocytes Percent Auto 19.3 % (20-40); Mean Corpuscular HGB Conc 33.5 g/dl (31.0-35.0); Mean Corpuscular Volume 92.5 fL (80.0-98.0); Mean Platelet Volume 10.4 fL (9.4-12.3); Monocytes Absolute Auto 0.5 X10*3/uL (0.1-1.2); Monocytes Percent Auto 7.1 % (2-11); Neutrophils Absolute Auto 4.6 x10*3/uL (2.0-8.3); Neutrophils Percent Auto 70.3 % (45-73); Platelet Count 247 X10*3/uL (160-400); Red Blood Count 4.65 X10*6/uL (4.20-5.50); Red Cell Distribution Width 12.4 % (11.0-16.0); White Blood Count 6.6 X10*3/uL (4.8-10.8)
[2024-04-07 13:41] LABS: Rheumatoid Factor < 13.0 IU/mL (<15.0)
[2024-04-07 13:51] LABS: Alanine Aminotransferase 20 U/L (0-31); Albumin Level 4.3 g/dL (3.5-5.0); Alkaline Phosphatase 50 U/L (39-117); Anion Gap 11 (12-20); Aspartate Amino Transferase 23 U/L (5-31); Bilirubin Total 0.3 mg/dL (0.0-1.0); Blood Urea Nitrogen 15 mg/dL (9-16); C Reactive Protein < 0.10 mg/dL (< or = 0.50); Calcium 9.9 mg/dL (8.4-10.2); Carbon Dioxide 26 mmol/L (22-29); Chloride 110 mmol/L (96-108); Estimated Glomerular Filt Rate > 60; Glucose Random 92 mg/dL (60-115); Potassium 3.8 mmol/L (3.3-5.1); Sodium 143 mmol/L (135-145); Total Protein 7.1 g/dL (6.5-8.0)
[2024-04-07 14:00] LABS: Erythrocyte Sedimentation Rate 4 MM/HR (0-20)
[2024-04-10 12:13] LABS: Anti Nuclear Antibody Screen NEGATIVE (NEGATIVE)
[2024-04-10 20:33] LABS: Antibody to SS-A Antigen <1.0 NEG AI (<1.0 NEG); Antibody to SS-B Antigen <1.0 NEG AI (<1.0 NEG)
== END 2024-04-07 12:38 | disposition home or self-care (01) ==
LOC: HO.HHCL 12:37
PROVIDERS: Visit Provider Family Medicine
DX: K14.8 Other diseases of tongue (principal); L85.3 Xerosis cutis; R68.2 Dry mouth, unspecified
CPT/HCPCS: 36415; 80053; 85025; 85652; 86038; 86140; 86235; 86431

== ENCOUNTER 2024-04-28 11:15 | Day surgery (SDC) | payer OTHER, SELFPAY ==
--- NOTE | 2024-04-28 12:28 | MHC.SHP ---
Pre-Procedural Eval Section A - 24 Hr Update-Section A only Date of Service: 04/28/24 The patient is an INPATIENT: No The patient has been examined within 24 hours of the surgical procedure. The History & Physical has been completed within 30 days and I have reviewed it.: No Section B - Complete if H&P > 30 days Chief Complaint: Dysphagia, oropharyngeal phase,gerd, Relevant Family History (Specify if Yes): Yes Relevant Social History: None Present Medications: see Short Stay Collaborative assessment Medical History: Significant History (Colon cancer screening History of breast cancer History of left tennis elbow Arm fracture, left Chronic RLQ pain Hx of echocardiogram Osteopenia Hyperlipidemia Hypertension) History of Previous Operations: Relevant previous surgery/procedure and date(s) (Hx of colonoscopy Hx of bilateral cataract extraction History of hemorrhoidectomy History of hysterectomy History of lumpectomy of left breas) Allergies: Allergies Allergy/AdvReac Type Severity Reaction Status Date / Time No Known Allergies Allergy Verified 04/28/24 12:16 [No Known Allergies*] Review of Systems Sugical H&P ROS: Negative: Constitution, Cardiovascular and Respiratory and Yes, Specify: Gastrointestinal (dysphagia) Exam Surgical H&P Exam: Normal: Heart, Normal: Lungs, Normal: Extremities and Normal: Abdomen Plan Diagnosis/Plan: Unchanged I have reviewed the history and physical and performed a pertinent physical examination on my patient. No changes have occurred unless specified. Time Spent With Patient Time: Total time managing care of this patient today ____ minutes.
[2024-04-28 12:34] VITALS: BP 136/66; PULSE 76; RESP 15; TEMP 36.5; O2SAT 100; BMI 24.3
--- NOTE | 2024-04-28 12:44 | HO.ANESPROP2 ---
HPI - Anesthesia Eval Consult details Narrative: [facility] Active Problems Active Problems: All Active Problems GERD (gastroesophageal reflux disease) (Acute) Abnormal nuclear stress test (Acute) Oropharyngeal dysphagia (Acute) Chronic pain of left knee (Acute) Osteoporosis (Acute) Essential tremor (Acute) Impaired fasting glucose (Acute) Right bundle branch block (Acute) Hypertensive heart disease (Acute) Palpitations (Acute) Exertional dyspnea (Acute) Breast cancer, left (Chronic) Cataracts, bilateral (Acute) Chronic RLQ pain (Acute) Hyperlipidemia (Acute) Hypertension (Acute) Past Medical History Medical History (Updated 04/28/24 @ 12:30 by Makayal Glynn, RN) CAD (coronary artery disease) GERD (gastroesophageal reflux disease) COVID-19 History of left tennis elbow Preoperative cardiovascular examination Arm fracture, left Abnormal EKG Chronic RLQ pain Hx of echocardiogram Osteopenia Colon cancer screening Hyperlipidemia Hypertension History of breast cancer Family History Family History Maternal Uncle History of prostate cancer Maternal Aunt History of colon cancer Brother History of prostate cancer Family history of problems with anesthesia: No Surgical History Surgical History Hx of colonoscopy Hx of bilateral cataract extraction History of hemorrhoidectomy History of hysterectomy History of lumpectomy of left breast History of Problems with Anesthesia: No Social History Social History Household Members: Family and Children Housing: House Are you a primary patient care associate to a significant other at home: No Do you presently have visiting nurse or other home services: Yes Alcohol intake: former Patient Tobacco Use Status: Never used Tobacco Use of substances other than those prescribed or required for medical reasons: No Are you DNR?: No Advance Directives: No Advance Directives Information Provided: Yes service: No Current occupational status: disabled Meds Allergies Allergy/AdvReac Type Severity Reaction Status Date / Time No Known Allergies Allergy Verified 04/28/24 12:16 [No Known Allergies*] Home Medications ?Medication ?Instructions ?Recorded ?Confirmed ?Last Taken ?Type cholecalciferol (vitamin D3) 25 25 mcg PO DAILY 02/18/20 04/28/24 Unknown History mcg (1,000 unit) tablet lisinopril 10 mg tablet 10 mg PO DAILY 02/18/20 04/28/24 05/04/20 History aspirin 81 mg chewable tablet 81 mg PO DAILY 03/22/22 04/28/24 Unknown History cyanocobalamin (vitamin B-12) 1,000 mcg PO DAILY 06/22/23 04/28/24 Unknown History 1,000 mcg tablet benzonatate 200 mg capsule 200 mg PO TID PRN cough 11/29/23 04/28/24 Unknown History hydrocortisone 2.5 % topical cream 2.5 appl topical DAILY 11/29/23 04/28/24 Unknown History rosuvastatin 20 mg tablet 20 mg PO BEDTIME 11/29/23 04/28/24 Unknown History Exam Height,Weight and Vital Signs: Height 5 ft 3 in Weight 62.142 kg Last Vital Signs Temp 97.7 F 04/28/24 12:34 Pulse 76 04/28/24 12:34 Resp 15 04/28/24 12:34 BP 136/66 04/28/24 12:34 Pulse Ox 100 04/28/24 12:34 O2 Del Method Room Air 04/28/24 12:34 Airway Mallampati Class: II TM Dist: <=3cm Neck ROM: Full Loose/Missing/Broken Teeth: Yes and Lower Heart: see above. echo OK. Cardiolite perfusion suggested LAD region ischemia Lungs: ok Assessment and Plan Assessment Anesthesia Assessment: Anesthesia Plan Discussed and Chart Reviewed Final Anesthetic Review Family History of Problems with Anesthesia: No History of Problems with Anesthesia: No NPO: Yes ASA Class: III and IV Final Preanesthetic Review: No Changes in Pt Med Stat, Meds/Allgs Chart Reviewed, Consent Obtained/Reviewed and Anes Risks/Benef Reviewed Patient Risk: High Procedure Risk: Intermediate Anesthetic Plan Anesthetic Plan: Agree w/ Assess. and Plan and TIVA Disposition: Standard PACU
[2024-04-28] MEDS: Lactated Ringers 1,000 ML 50 ML IVCONT (12:52)
--- NOTE | 2024-04-28 13:36 | W.PM.OPN ---
Operative Note Operative Note Date of Service: 04/28/24 Narrative: FLEXIBLE TRANSORAL UPPER GASTROINTESTINAL ENDOSCOPY WITH BIOPSIES AND ESOPHAGEAL BALLOON DILATION Pre-op diagnosis: GERD, Dysphagia Post-op diagnosis: GERD, dysphagia, Gastritis, Endoscopist:? Antoinette Bryant MD Anesthesia:?MAC UPPER ENDOSCOPY Consent: Indications for the procedure and potential complications of bleeding, perforation, reaction to medications and missed diagnosis were discussed with the patient and informed consent was obtained. Instrument: Olympus GIF H 190 mid size upper endoscope Monitoring: Vital signs and clinical assessment, continuous EKG monitoring, Pulse oximetry, Carbon Dioxide monitoring and blood pressure monitoring were done throughout the procedure. Procedure: The patient was placed in the left lateral decubitis position and pre-procedure medications were administered and a bite block was placed. The endoscope was inserted into the mouth and advanced under direct vision to the third part of duodenum. A careful inspection was made as the upper endoscope was withdrawn including a retroflexed examination of the proximal stomach; Findings and interventions are described below. Findings: Larynx: Normal Esophagus: GE junction at 35 cms. Mildly tortuous esophagus without stricture or ring. Empiric balloon dilation of UES was performed with an 18 mm (54 F0 CRE balloon x 60 seconds and balloon dilation of the lower esophageal sphincter was performed with a 20 mm (60 F) CRE balloon x 60 seconds No heme was noted post dilation. Stomach: Moderate diffuse gastric erythema - biopsies were obtained from the antrum. Grade 2 flap valve on retroflexed examination of the cardia. Duodenum: Normal bulb and descending duodenum Intervention: Biopsies as noted above Impression and Post Procedure Diagnosis: Endoscopy Findings: ESOPHAGUS: Mildly tortuous esophagus without stricture or ring. Empiric balloon dilation of upper and lower esophageal sphincters was performed. STOMACH: Diffuse gastritis DUODENUM: Normal Plan: Pt has a FU appointment on 05/08/24 with Dipika Lozada NP. Above findings were reviewed with the patient and relevant handouts were given and the discharge area. BIOPSIES SHOWED: Stomach, antrum, biopsy: Antral-type mucosa with mild chronic inactive inflammation; no Helicobacter organisms seen
[2024-04-28 13:38] VITALS: BP 85/42; PULSE 70; RESP 17; TEMP 36.3; O2SAT 94
[2024-04-28 13:53] VITALS: BP 118/51; PULSE 69; RESP 16; O2SAT 96
[2024-04-28 14:09] VITALS: BP 119/56; PULSE 63; RESP 16; TEMP 36.3; O2SAT 97
== END 2024-04-28 14:25 | disposition home or self-care (01) ==
PROVIDERS: PCP Family Medicine; Visit Provider Internal Medicine Gastroenterology
PROC: 0DJ08ZZ Inspection of Upper Intestinal Tract, Via Natural or Artificial Opening Endoscopic (ICD-10-PCS; CPT 43235; principal; 2024-04-28 13:00)
DX: R13.12 Dysphagia, oropharyngeal phase (principal); K21.9 Gastro-esophageal reflux disease without esophagitis; K22.89 Other specified disease of esophagus; R10.31 Right lower quadrant pain; K29.50 Unspecified chronic gastritis without bleeding; I25.10 Atherosclerotic heart disease of native coronary artery without angina pectoris; I10 Essential (primary) hypertension; E78.5 Hyperlipidemia, unspecified; Z85.3 Personal history of malignant neoplasm of breast; M85.80 Other specified disorders of bone density and structure, unspecified site; Z79.82 Long term (current) use of aspirin; Z79.899 Other long term (current) drug therapy; Z98.890 Other specified postprocedural states
CPT/HCPCS: 43249; 43239; 88305; 88313; 88342; C1726; J2003; J2704; J3010

== ENCOUNTER → 2024-04-28 11:15 | Outpatient (BNV) | payer OTHER, SELFPAY | PROVIDERS: PCP Family Medicine; Visit Provider Internal Medicine Gastroenterology | DX: K21.9 Gastro-esophageal reflux disease without esophagitis (principal); R13.10 Dysphagia, unspecified; K29.70 Gastritis, unspecified, without bleeding | CPT/HCPCS: 43239; 43249 ==

== ENCOUNTER → 2024-05-02 13:24 | Outpatient (BNVA) | payer OTHER, SELFPAY | PROVIDERS: PCP Family Medicine; Visit Provider Nurse Practitioner Family | DX: K21.9 Gastro-esophageal reflux disease without esophagitis (principal); R10.31 Right lower quadrant pain; R14.0 Abdominal distension (gaseous); G89.29 Other chronic pain | CPT/HCPCS: 99212 ==

== ENCOUNTER 2024-05-14 11:02 | Outpatient (REF) | payer OTHER, SELFPAY ==
[2024-05-14 11:21] LABS: Appearance Urine Clear; Color Urine Yellow; Glucose Urine UA Negative (Negative); Leukocyte Esterase Urine Large (3+) (Negative); Nitrite Urine Negative (Negative); Specific Gravity - Urine <= 1.005 (1.005-1.025); UMIC TRIGGER UACC YES; Urine Blood Moderate (2+) (Negative); Urine Ketones Negative (Negative); Urine Protein Negative (Neg-Trace)
[2024-05-14 11:40] LABS: Bacteria Urine None Seen (None Seen); Hyaline Casts Urine 0-2 /LPF (0-2); RBC Urine 0-2 /HPF (0-2); Squamous Epithelial Cell Urine 0-2 /HPF (0-2); UACC Culture Trigger YES
--- OUTSIDE RECORDS SUMMARY | 2024-05-14 12:22 | XMS_ITS | Encounter Summary ---
Author Organization [employer] Address [address] [facility] [address] [place] [address] Care Team Providers Care Hair Colorist Name Role Phone Krysten Rose MD Primary Care Provider Rolly Mosley PharmD Unavailable [phone] Getachew Aguayo MD Unavailable [phone] Tatiana Pineda MD Unavailable [phone] July Unavailable Graham Mathews MD Unavailable Encounter Details Date Type Department Care Team (Late st Contact Info) Description 04/04/2022 Abstract [facility] [address] [place], [place] [phone] Krysten Rose MD [address] [place], [place] [phone] Social History Tobacco Use Types Packs/Day Years Used Date Smoking Tobacco: Never Assessed Comments Unknown Sex and Gender Information Value Date Recorded Sex Assigned at Female 02/06/2022 10:20 AM EDT Legal Sex Female 10:20 AM EDT Gender Identity Female 02/06/2022 10:20 AM EDT Sexual Orientation Straight 02/06/2022 10 :20 AM EDT documented as of this encounter Miscellaneous Notes * Assessment & Plan Note - Krysten Rose MD - 04/04/2022 6:39 AM ESTAssociated Problem(s): Thyroid nodule -incidental finding on CT scan -Thyroid US on 01/12/21 showed bilateral thyroid nodules. Largest nodule on the right side was 1.4 cm. -No further follow-up is indicated per guideline * Assessment & Plan Note - Kyrsten Rose MD - 04/04/2022 6:34 AM ESTAssociated Problem(s): Essential tremor Dx Benign essential tremor with titubation. Seen by [facility] neurologist, last visit on 08/10/20 Continue Gabapentin 100mg QHS * Assessment & Plan Note - Krysten Rose MD - 04/04/2022 6:32 AM ESTAssociated Problem(s): Breast cancer (CMS/HCC) - Current breast surgeon: Dr. Aguayo, seen on 10/22/20 - Previous breast surgeon: Dr. Andrade - Oncologist: [facility] Dr. Pineda and Dr. Ochoa, last seen on 02/15/21 - Plan was to treat with tamoxifen 2 years, followed by 5 years of aromatase inhibitor. - Tamoxifen was discontinued because it can worsen cataract. She started letrozole since July 2017. Continue current treatment plan. - On 06/25/17 she was seen by radiation oncologist, Dr. Garcia. She was recommended to apply cornstarch at the irritated / inflamed area. - s/p lumpectomy and sentinel node biopsy on 08/14/16 - s/p radiation therapy in September and October 2016. - Unilateral diagnostic mammo of L breast completed on 03/26/20 that showed BI- RADS 3. She is recommended to have 6 month follow up mammo and she is due for bilateral diagnostic mammography in August 2020 documented in this encounter Plan of Treatment Upcoming Encounters Date Type Department Care Team (Late st Contact Info) Description 06/23/2024 11:00 AM EDT Office Visit [facility] [address] [place] [address] Krysten Rose MD [address] [place], [place] [phone] 08/22/2024 3:00 PM EDT Office Visit [facility] [address] [place] [address] Gabriela Elliott [address] [place] [address] documented as of this encounter Visit Diagnoses Not on filedocumented in this encounter Care Teams Hair Colorist Relationship Specialty Start Date End Date Krysten Rose MD [address] [place] [address] PCP - General Family Medicine 02/16/11 Rolly Mosley, EusebioD [address] [place] [address] Pharmacist Internal Medicine 08/11/22 Getachew Aguayo MD [address] [place] [address] General Surgery 04/06/24 Tatiana Pineda MD [address] [place] [address] Hematology and Oncology 04/06/[address] [place] [address] Gastroenterology 04/06/24 Graham Mathews MD [address] [place] [address] Cardiology 04/06/24 documented as of this encounter
--- OUTSIDE RECORDS SUMMARY | 2024-05-14 12:22 | XMS_ITS | Encounter Summary ---
Author Organization [employer] Address [address] [facility] 7[address] [place] [address] Care Team Providers Care Multicultural Internship Name Role Phone Krysten Rose MD Primary Care Provider [phone] Rolly Mosley PharmD Unavailable [phone] Getachew Aguayo MD Unavailable [phone] Tatiana Pineda MD Unavailable [phone] July Unavailable Graham Mathews MD Unavailable Reason for Visit * Reason Comments UTI Encounter Details Date Type Department Care Team (Late st Contact Info) Description 05/13/2024 3:00 PM EST Office Visit [facility] [address] [place], [place] [phone] Kimberly Cali MD [address] [place], [place] [phone] UTI symptoms Social History Tobacco Use Types Packs/Day Years Used Date Smoking Tobacco: Never Passive Smoke Exposure: Never Smokeless Tobacco: Never Alcohol Use Standard Drinks/Week Comments Never 0 (1 standard drink = 0.6 oz pur e alcohol) Depression Answer Date Recorded Patient Health Questionnaire-9 Score 24 11/24/2023 Patient Health Questionnaire-9 Score 24 11/24/2023 Last PHQ-9: Questionnaire Data Not on file 0 11/24/2023 Housing Stability Answer Date Recorded What is your housing situation today? I have erin hill 08/06/[address] you li ve. Do you have problems with any of the following? Water leaks 08/06/2023 Food Insecurity Answer Date Recorded Within the past 12 months, y ou worried that your food would run out before you got money to buy more: Never True 02/01/2023 Within the past 12 months,th e food you bought just didn't last and you didn't have enough money to get more: Never True Transportation Answer Date Recorded In the past 12 months, has l ack of transportation kept you from medical appts, meetings, work or from getting things needed for daily living? No 02/01/2023 Utilities Answer Date Recorded In the past 12 months, has t he [employer], gas, oil or water company threatened to shut off services in your home? No 02/01/2023 Depression Answer Date Recorded Patient Health Questionnaire-2 Score 6 11/24/2023 Comments Unknown Sex and Gender Information Value Date Recorded Sex Assigned at Female 02/06/2022 10:20 AM EDT Legal Sex Female 10:20 AM EDT Gender Identity Female 02/06/2022 10:20 AM EDT Sexual Orientation Straight 02/06/2022 10 :20 AM EDT documented as of this encounter Last Filed Vital Signs Vital Sign Reading Time Taken Comments Blood Pressure 142/83 05/13/2024 3:31 PM EST Pulse 97 05/13/2024 3:31 PM EST Temperature 36.6 ??C (97.9 ??F) 05/13/2024 3:31 PM ES T Respiratory Rate 16 05/13/2024 3:31 PM EST Oxygen Saturation 98% 05/13/2024 3:31 PM EST Inhaled Oxygen Concentration - - Weight 63.5 kg (140 lb) 05/13/2024 3:31 PM EST Height - - Body Mass Index 25.22 08/24/2023 9:11 AM EDT documented in this encounter Progress Notes * Kimberly Cali MD - 05/13/2024 3:00 PM EST Subjective Charlene Zamora is a 73 y.o. female here for evaluation of dysuria and frequency beginning 1 day ago. Other associated symptoms include: none. Fever has been absent. Symptoms which are not present include: abdominal pain, back pain, chills, hematuria, vaginal discharge, and vaginal itching. UTI history: none. Antibiotic use within past three months: .SJBABXUSE: none The following portions of the chart were reviewed this encounter and updated as appropriate: Review of Systems Pertinent items are noted in HPI Objective BP (!) 142/83 (BP Location: Left arm, Patient Position: Sitting, BP Cuff Size: Adult) Pulse 97 Temp 97.9 ??F (36.6 ??C) (Temporal) Resp 16 Wt 140 lb (63.5 kg) SpO2 98% BMI 25.22 kg/m?? Physical Exam Constitutional: Appearance: Normal appearance. Cardiovascular: Rate and Rhythm: Normal rate and regular rhythm. Heart sounds: Normal heart sounds. Pulmonary: Effort: Pulmonary effort is normal. Breath sounds: Normal breath sounds. Abdominal: Tenderness: There is no abdominal tenderness. Comments: No CVA tenderness No suprapubic pain Musculoskeletal: Cervical back: Normal range of motion and neck supple. Neurological: General: No focal deficit present. Mental Status: She is alert. Psychiatric: Behavior: Behavior normal. Office Visit on 05/13/2024 Component Date Value Color, UA 05/13/2024 Yellow Clarity, UA 05/13/2024 Clear Glucose, UA 05/13/2024 Negative Bilirubin, UA 05/13/2024 Negative Ketones, UA 05/13/2024 Negative Spec Grav, UA 05/13/2024 1.010 Blood, UA 05/13/2024 Positive (A) pH, UA 05/13/2024 6.0 Protein, UA 05/13/2024 Negative Urobilinogen, UA 05/13/2024 0.2 Leukocytes, UA 05/13/2024 Moderate (A) Nitrite, UA 05/13/2024 Negative Appearance, UA 05/13/2024 kelley Chang was seen today for uti. Diagnoses and all orders for this visit: UTI symptoms - POCT urinalysis dipstick manually resulted - sulfamethoxazole-trimethoprim (Bactrim DS) 800-160 MG tablet; Take 1 tablet by mouth 2 times daily for 3 days. - Urinalysis, Complete, with Reflex to Culture; Future Problem List Items Addressed This Visit UTI symptoms -Urinalysis and urine culture sent to the lab -Empiric antibiotics started : Bactrum BID x 3 days started 05/13/24 -Potential adverse effects of the medication reviewed -Discussed strategies to prevent future infections: Increase fluids. Urinate after sex. Avoid bladder irritants. -Report fever, chills, worsening symptoms or abdominal/flank pain -Advised to seek medical attention if no improvement or worsening of symptoms -ER precautions reviewed. Relevant Medications sulfamethoxazole-trimethoprim (Bactrim DS) 800-160 MG tablet Other Relevant Orders POCT urinalysis dipstick manually resulted (Completed) Urinalysis, Complete, with Reflex to Culture Likely acute UTI based on history, exam and urine dip. No clinical evidence of acute abdomen or pyelonephritis. Denies antibiotic use in the past 90 days. Allergies reviewed. -Urinalysis and urine culture sent to the lab -Empiric antibiotics started -Potential adverse effects of the medication reviewed -Discussed strategies to prevent future infections: Increase fluids. Urinate after sex. Avoid bladder irritants. -Report fever, chills, worsening symptoms or abdominal/flank pain -Advised to seek medical attention if no improvement or worsening of symptoms -ER precautions reviewed. documented in this encounter Miscellaneous Notes * Assessment & Plan Note - Kimberly Cali MD - 05/13/2024 3:46 PM EST Associated Problem(s): UTI symptoms -Urinalysis and urine culture sent to the lab -Empiric antibiotics started : Bactrum BID x 3 days started 05/13/24 -Potential adverse effects of the medication reviewed -Discussed strategies to prevent future infections: Increase fluids. Urinate after sex. Avoid bladder irritants. -Report fever, chills, worsening symptoms or abdominal/flank pain -Advised to seek medical attention if no improvement or worsening of symptoms -ER precautions reviewed. documented in this encounter Plan of Treatment Upcoming Encounters Date Type Department Care Team (Late st Contact Info) Description 06/23/2024 11:00 AM EDT Office Visit [facility] [address] [place] [address] Krysten Rose MD [address] [place] [address] 08/22/2024 3:00 PM EDT Office Visit [facility] [address] [place] [address] [place] [address] documented as of this encounter Goals Goal Patient Goal Type Associated Problems Recent Progress Patient-Stated? Author Blood Pressure < 150/90 Blood Pressure 142/83(2024 3:31 PM EST) Rolly Sol, PharmD Note: Per JNC-8 Age greater than 60 y/o without CKD or DM documented as of this encounter Procedures Procedure Name Priority Date/Time Associated Diagnosis Comments URINALYSIS, COMPLETE, WITH REFLEX TO CULTURE Routine 05/14/2024 12:00 AM EST UTI symptoms POCT URINALYSIS DIPSTICK Routine 05/13/2024 3:37 PM EST UTI symptoms documented in this encounter Results * (ABNORMAL) Urinalysis, Complete, with Reflex to Culture (05/14/2024 12:00 AM EST) Color Urine Yellow [facility] Appearance Urine Clear [facility] PH 6.0 5.0 - 9.0 [facility] Glucose Urine UA Negative Negative mg/dL [facility] Urine Blood Moderate (2+)(A) Negative [facility] Specific [place] - Urine <=1.005 1.005 - 1.025 [facility] Urine Protein Negative Neg-Trace mg/dL [facility] Urine Ketones Negative Negative mg/dL [facility] Nitrite Urine Negative Negative [facility] Leukocyte Esterase Urine Large (3+)(A) Negative [facility] RBC Urine 0-2 0 - 2 /HPF [facility] Urine WBC 6-10 0 - 5 /HPF [facility] Urine Squamous Epithelial Cell 0-2 0 - 2 /HPF [facility] Urine Bacteria None Seen None Seen [facility] Hyaline Casts, Urine 0-2 0 - 2 /LPF [facility] Urine 05/14/2024 05/14/2024 Narrative [facility] - 05/14/2024 11:41 AM EST Urine, Clean Catch Kimberly Cali MD LAB URINE ORDERABLES Final Result [facility] [address] [place] [address] [phone] * (ABNORMAL) POCT urinalysis dipstick manually resulted (05/13/2024 3:37 PM EST) Color, UA Yellow Clarity, UA Clear Glucose, UA Negative Bilirubin, UA Negative Ketones, UA Negative Spec Grav, UA 1.010 Blood, UA Positive(A) Negative, None Detected pH, UA 6.0 Protein, UA Negative Urobilinogen, UA 0.2 Leukocytes, UA Moderate(A) Negative, Rare, Trace Nitrite, UA Negative Negative, None Detected Appearance, UA ok Urine 05/13/2024 3:37 PM EST Kimberly Cali MD POINT OF CARE TEST ENTER/E DIT ORDERABLES Final Result documented in this encounter Visit Diagnoses Diagnosis UTI symptoms documented in this encounter Additional Health Concerns Assessment Noted Time PHQ-9 Depression Total Score: 24 024 6:22 PM EDT documented as of this encounter Care Teams Multicultural Internship Relationship Specialty Start Date End Date Krysten Rose MD [address] [place] [address] PCP - General Family Medicine 02/16/11 Rolly Mosley, EusebioD [address] [place] [address] Pharmacist Internal Medicine 08/11/22 Getachew Aguayo MD [address] [place] [address] Drive 3rd [place] [address] General Surgery 04/06/24 Tatiana Pineda MD [address] [place] [address] Hematology and Oncology 04/06/24LozadaJuly [address] [place] [address] Gastroenterology 04/06/24 Graham Mathews MD [address] [place] [address] Cardiology 04/06/24 documented as of this encounter
--- OUTSIDE RECORDS SUMMARY | 2024-05-14 12:22 | XMS_ITS | Encounter Summary ---
Author Organization [employer] Address [address] [facility] 7t [place] [address] Care Team Providers Care Email Marketing Specialist Name Role Phone Krysten Rose MD Primary Care Provider [phone] Rolly Mosley PharmD Unavailable [phone] Getachew Aguayo MD Unavailable [phone] Tatiana Pineda MD Unavailable [phone] July Unavailable Graham Mathews MD Unavailable Encounter Details Date Type Department Care Team (Late st Contact Info) Description 02/27/[address] [facility] [address] [place], [place] [phone] Krysten Rose MD [address] [place], [place] [phone] Social History Tobacco Use Types Packs/Day Years Used Date Smoking Tobacco: Never Passive Smoke Exposure: Never Smokeless Tobacco: Never Alcohol Use Standard Drinks/Week Comments Never 0 (1 standard drink = 0.6 oz pur e alcohol) Depression Answer Date Recorded Patient Health Questionnaire-9 Score 5 07/17/2022 Housing Stability Answer Date Recorded What is your housing situation today? I have erin hill 02/01/[address] you li ve. Do you have problems with any of the following? None of the above 02/01/2023 Food Insecurity Answer Date Recorded Within the [...] the past 12 months, has t he electric, gas, oil or water company threatened to shut off services in your home? No 02/01/2023 Depression Answer Date Recorded Patient Health Questionnaire-2 Score 1 07/17/2022 Comments Unknown Sex and Gender Information Value Date Recorded Sex Assigned at Female 02/06/2022 10:20 AM EDT Legal Sex Female 10:20 AM EDT Gender Identity Female 02/06/2022 10:20 AM EDT Sexual Orientation Straight 02/06/2022 10 :20 AM EDT documented as of this encounter Plan of Treatment Upcoming Encounters Date Type Department Care Team (Late st Contact Info) Description 06/23/2024 11:00 AM EDT Office Visit [facility] [address] [place] [address] Krysten Rose MD [address] [place] [address] 08/22/2024 3:00 PM EDT Office Visit [facility] [address] [place] [address] Earl, Gabriela [address] [place] [address] documented as of this encounter Goals Goal Patient Goal Type Associated Problems Recent Progress Patient-Stated? Author Blood Pressure < 150/90 Blood Pressure 142/83(2024 3:31 PM EST) Rolly Sol, PharmD Note: Per JNC-8 Age greater than 60 y/o without CKD or DM documented as of this encounter Procedures Procedure Name Priority Date/Time Associated Diagnosis Comments COLONOSCOPY Routine 05/04/2020 documented in this encounter Results * Colonoscopy (05/04/2020) Colonoscopy Normal Normal Allan Hong MD HEALTH MAINTENANCE Final Res ult documented in this encounter Visit Diagnoses Not on filedocumented in this encounter Additional Health Concerns Assessment Noted Time PHQ-9 Depression Total Score: 5 07/18/19 23 10:12 AM EDT documented as of this encounter Care Teams Email Marketing Specialist Relationship Specialty Start Date End Date Krysten Rose MD [address] [place] [address] PCP - General Family Medicine 02/16/11 Rolly Mosley, EusebioD [address] [place] [address] Pharmacist Internal Medicine 08/11/22 Getachew Aguayo MD [address] [place] [address] General Surgery 04/06/24 Tatiana Pineda MD [address] [place] [address] Hematology and Oncology 04/06/24July [address] [place] [address] Gastroenterology 04/06/24 Graham Mathews MD [address] [place] [address] Cardiology 04/06/24 documented as of this encounter
--- OUTSIDE RECORDS SUMMARY | 2024-05-14 12:22 | XMS_ITS | Encounter Summary ---
Author Organization [employer] Address [address] [facility] 7t [place] [address] Care Team Providers Care Door To Door Salesperson Name Role Phone Krysten Rose MD Primary Care Provider [phone] Rolly Mosley PharmD Unavailable [phone] Getachew Aguayo MD Unavailable [phone] Tatiana Pineda MD Unavailable [phone] July Unavailable Graham Mathews MD Unavailable Encounter Details Date Type Department Care Team (Late st Contact Info) Description 10/03/2022 Abstract [facility] ADULT D[facility]AL [address] [place], [place] [phone] Bruno Sam, CORRINE [address] [place], [place] [phone] Social History Tobacco Use Types Packs/Day Years Used Date Smoking Tobacco: Never Passive Smoke Exposure: Never Smokeless Tobacco: Never Alcohol Use Standard Drinks/Week Comments Never 0 (1 standard drink = 0.6 oz pur e alcohol) Depression Answer Date Recorded Patient Health Questionnaire-9 Score 5 07/17/2022 Depression Answer Date Recorded Patient Health Questionnaire-2 Score 1 07/17/2022 Comments Unknown Sex and Gender Information Value Date Recorded Sex Assigned at Female 02/06/2022 10:20 AM EDT Legal Sex Female 10:20 AM EDT Gender Identity Female 02/06/2022 10:20 AM EDT Sexual Orientation Straight 02/06/2022 10 :20 AM EDT COVID-19 Exposure Response Date Recorded In the last 10 days, have yo u been in contact with someone who was confirmed or suspected to have Coronavirus/COVID-19? No / Unsure 10/02/2022 1:10 PM EDT documented as of this encounter Plan of Treatment Upcoming Encounters Date Type Department Care Team (Late st Contact Info) Description 06/23/2024 11:00 AM EDT Office Visit [facility] [address] [place] [address] Krysten Rose MD [address] [place] [address] 08/22/2024 3:00 PM EDT Office Visit [facility] [address] [place] [address] Cezar Elliottaris [address] [place] [address] documented as of this encounter Goals Goal Patient Goal Type Associated Problems Recent Progress Patient-Stated? Author Blood Pressure < 150/90 Blood Pressure 142/83(2024 3:31 PM EST) No Rolly Mosley, PharmD Note: Per JNC-8 Age greater than 60 y/o without CKD or DM documented as of this encounter Visit Diagnoses Not on filedocumented in this encounter Additional Health Concerns Assessment Noted Time PHQ-9 Depression Total Score: 5 07/18/19 23 10:12 AM EDT documented as of this encounter Care Teams Door To Door Salesperson Relationship Specialty Start Date End Date Krysten Rose MD [address] [place] [address] PCP - General Family Medicine 02/16/11 Rolly Mosley, PharmD [address] [place] [address] Pharmacist Internal Medicine 08/11/22 Getachew Aguayo MD [address] [place] [address] Drive 3rd [place] [address] General Surgery 04/06/24 Tatiana Pineda MD [address] [place] [address] Hematology and Oncology 04/06/24July [address] [place] [address] Gastroenterology 04/06/24 Graham Mathews MD [address] [place] [address] Cardiology 04/06/24 documented as of this encounter
--- OUTSIDE RECORDS SUMMARY | 2024-05-14 12:22 | XMS_ITS | Encounter Summary ---
Author Organization [employer] Address [address] [facility] 7t [place] [address] Care Team Providers Care Filament Shaper Name Role Phone Krysten Rose MD Primary Care Provider [phone] Rolly Mosley PharmD Unavailable [phone] Getachew Aguayo MD Unavailable [phone] Tatiana Pineda MD Unavailable [phone] July Unavailable Graham Mathews MD Unavailable Reason for Visit * Reason Comments Scaling And Root Planing SRP UR, LR quad Encounter Details Date Type Department Care Team (Late st Contact Info) Description 05/02/2024 11:00 AM EST Office Visit [facility] ADULT D[facility]AL [address] [place], [place] [phone] Cezar Elliottaris [address] [place], [place] [phone] Dental calculus (Primary Dx); Periodontal disease Social History Tobacco Use Types Packs/Day Years [...] your housing situation today? I have erin sing 08/06/[address] you li [...] the past 12 months, has t he [employer], gas, oil or water [employer] threatened to shut off services in your [...] Sign Reading Time Taken Comments Blood Pressure 126/68 05/02/2024 11:02 AM EST Pulse - - Temperature - - Respiratory Rate - - Oxygen Saturation - - Inhaled Oxygen Concentration - - Weight - - Height - - Body Mass Index - - documented in this encounter Progress Notes * Gabriela Elliott - 05/02/2024 11:00 AM EST Patient ID: Charlene Zamora is a 73 y.o. female. Time Out: Timeout Date: 05/02/24, Timeout Time: 1104 (SRP UR, LR quads) Location: [facility] Tooth: UR and LR Procedure: Scaling and Root Planing and Polished all teeth Verified the above with patient, senior court office assistant, and provider. Confirmed via patient's chart, intraorally and by radiographs. Stand Up Forklift Operator: not applicable Medical Hx: Vitals: Blood pressure 126/68. Medications, Med Hx reviewed with patient and updated in chart. Treatment Provided Dental procedures in this visit D4342 - PERIODONTAL SCALING AND ROOT PLANING - 1 TO 3 TEETH PER QUADRANT UR (Completed) Service provider: Gabriela Elliott Billing provider: Bruno Sam DMD D4342 - PERIODONTAL SCALING AND ROOT PLANING - 1 TO 3 TEETH PER QUADRANT LR (Completed) Service provider: Gabriela Elliott Billing provider: Bruno Sam DMD D1330 - ORAL HYGIENE INSTRUCTIONS (Completed) Service provider: Gabriela Elliott Billing provider: Bruno Sam DMD D9450 - ADJUNCTIVE GENERAL SERVICES - PROFESSIONAL VISITS - CASE PRESENTATION, SUBSEQUENT TO DETAILED AND EXTENSIVE TREATMENT PLANNING (Completed) Service provider: Gabriela Elliott Billing provider: Bruno Sam DMD Topical: 20% Benzocaine per Pt's request. Pt tolerated procedure with topical anesthesia. Oral Cancer Screening: geographic tongue Head/Neck Exam: No Lesions Instruments Used: Ultrasonic Scalers, Hand Scalers, and Prophy angle Fluoride: N/A Calculus: Light, Moderate, and Subgingival Plaque: Light, Moderate, and Generalized Stain: discolored on mandibular teeth Bleeding: Light and Moderate Gingiva: pink [place]: Good Oral hygiene instructions provided to patient including brushing technique and flossing. Recommendations: Eighty Eight two times daily, modified lobato technique, Floss daily, Electric toothbrush, Soft bristle toothbrush, Eighty Eight Tongue, Anti-sensitivity toothpaste Recall Frequency:in August 2024 [place]: August 2024 for P. Exam [place], x-rays and Perio chart, fluoride [place]. Hygienist: Gabriela Elliott RDH documented in this encounter Plan of Treatment Upcoming Encounters Date Type Department Care Team (Late st Contact Info) Description 06/23/2024 11:00 AM EDT Office Visit [facility] MEDICINE [address] [place] [address] Krysten Rose MD [address] [place] [address] 08/22/2024 3:00 PM EDT Office Visit [facility] ADULT DENTAL [address] [place] [address] Gabriela Elliott [address] [place] [address] Scheduled Orders Name Type Priority Associated Diagnoses Orde r Schedule INTRAORAL - PERIAPICAL EACH ADDITIONAL RADIOGRAPHIC IMAGE Dental Routine 1 Occurrences starting 05/02/2024 INTRAORAL - PERIAPICAL EACH ADDITIONAL RADIOGRAPHIC IMAGE Dental Routine 1 Occurrences starting 05/02/2024 PROPHYLAXIS - ADULT Dental Routine 1 Occ urrences starting 05/02/2024 ADJUNCTIVE GENERAL SERVICES - PROFESSIONAL VISITS - CASE PRESENTATION, SUBSEQUENT TO DETAILED AND EXTENSIVE TREATMENT PLANNING Dental Routine 1 Occurrence s starting 05/02/2024 ORAL HYGIENE INSTRUCTIONS Dental Routine 1 Occurrences starting 05/02/2024 TOPICAL APPLICATION OF FLUORIDE VARNISH Dental Routine 1 Occurrences s tarting 05/02/2024 documented as of this encounter Goals Goal Patient Goal Type Associated Problems Recent Progress Patient-Stated? Author Blood Pressure < 150/90 Blood Pressure 142/83(2024 3:31 PM EST) No Rolly Mosley, PharmD Note: Per JNC-8 Age greater than 60 y/o without CKD or DM documented as of this encounter Procedures Procedure Name Priority Date/Time Associated Diagnosis Comments LR PERIODONTAL SCALING AND ROOT PLANING - 1 TO 3 TEETH PER QUADRANT Routine 05/02/2024 11:00 AM EST Dental calculus Periodontal disease UR PERIODONTAL SCALING AND ROOT PLANING - 1 TO 3 TEETH PER QUADRANT Routine 05/02/2024 11:00 AM EST Dental calculus Periodontal disease ORAL HYGIENE INSTRUCTIONS Routine 05/02/2024 11:00 AM EST Dental calculus Periodontal disease ADJUNCTIVE GENERAL SERVICES - PROFESSIONAL VISITS - CASE PRESENTATION, SUBSEQUENT TO DETAILED AND EXTENSIVE TREATMENT PLANNING Routine 05/02/2024 11:00 AM EST Dental calculus Periodontal disease documented in this encounter Visit Diagnoses Diagnosis Dental calculus- Primary Accretions on teeth Periodontal disease Unspecified gingival and periodontal disease documented in this encounter Additional Health Concerns Assessment Noted Time PHQ-9 Depression Total Score: 24 11/23/ 024 6:22 PM EDT documented as of this encounter Care Teams Filament Shaper Relationship Specialty Start Date End Date Krysten Rose MD [address] [place] [address] PCP - General Family Medicine 02/16/11 Rolly Mosley, PharmD [address] [place] [address] Pharmacist Internal Medicine 08/11/22 eGtachew Aguayo MD [address] [place] [address] General Surgery 04/06/24 Tatiana Pineda MD [address] [place] [address] Hematology and Oncology 04/06/24July [address] [place] [address] Gastroenterology 04/06/24 Graham Mathews MD [address] [place] [address] Cardiology 04/06/24 documented as of this encounter
--- OUTSIDE RECORDS SUMMARY | 2024-05-14 12:22 | XMS_ITS | Encounter Summary ---
Author Organization [employer] Address [address] [facility] 7t [place] [address] Care Team Providers Care Steam Crane Operator Name Role Phone Krysten Rose MD Primary Care Provider [phone] Rolly Mosley PharmD Unavailable [phone] Getachew Aguayo MD Unavailable [phone] Tatiana Pineda MD Unavailable [phone] July Unavailable Graham Mathews MD Unavailable Encounter Details Date Type Department Care Team (Late st Contact Info) Description 04/14/2024 Telephone [facility] MEDICINE [address] [place], [place] [phone] Krysten Rose MD [address] [place], [place] [phone] Social History Tobacco Use Types Packs/Day Years [...] as of this encounter Miscellaneous Notes * Telephone Encounter - Melba Hayden - 04/14/2024 10:35 AM EST Normal stable lab letter sent on 04/14/2024 documented in this encounter Plan of Treatment Upcoming Encounters Date Type Department Care Team (Late st Contact Info) Description 06/23/2024 11:00 AM EDT Office Visit [facility] MEDICINE [address] [place] [address] Krysten Rose MD [address] [place] [address] 08/22/2024 3:00 PM EDT Office Visit [facility] ADULT DENTAL [address] [place], [place] [phone] Gabriela Elliott [address] [place] [address] documented as of this encounter Goals Goal [...] documented as of this encounter Care Teams Steam Crane Operator Relationship Specialty Start Date End Date Krysten Rose MD [address] [place] [address] PCP - General Family Medicine 02/16/11 Rolly Mosley, PharmD [address] [place] [address] Pharmacist Internal Medicine 08/11/22 Getachew Aguayo MD [address] [place] [address] General Surgery 04/06/24 Tatiana Pineda MD [address] [place] [address] Hematology and Oncology 04/06/[address] [place] [address] Gastroenterology 04/06/24 Graham Mathews MD [address] [place] [address] Cardiology 04/06/24 documented as of this encounter
--- OUTSIDE RECORDS SUMMARY | 2024-05-14 12:22 | XMS_ITS | Encounter Summary ---
Author Organization [employer] Address [address] [facility] 7t [place] [address] Care Team Providers Care Retail Business Development Manager Name Role Phone Krysten Rose MD Primary Care Provider [phone] Rolly Mosley PharmD Unavailable [phone] Getachew Aguayo MD Unavailable [phone] Tatiana Pineda MD Unavailable [phone] July Unavailable Graham Mathews MD Unavailable Encounter Details Date Type Department Care Team (Late st Contact Info) Description 06/07/2023 Orders Only [facility] MEDICINE [address] [place], [place] [phone] Krysten Rose MD [address] [place], [place] [phone] Abnormal EKG (Primary Dx) Social History Tobacco Use Types Packs/Day Years [...] Description 06/23/2024 11:00 AM EDT Office Visit [facility] MEDICINE [address] [place] [address] Krysten Rose MD [address] [place] [address] 08/22/2024 3:00 PM EDT Office Visit [facility] ADULT DENTAL [address] [place] [address] Gabriela Elliott [address] [place] [address] Scheduled Orders Name Type Priority Associated Diagnoses Orde r Schedule ECG 12 lead ECG Routine Abnormal EKG Ordered: 06/07/2023 documented as of this encounter Goals Goal Patient Goal Type Associated Problems Recent Progress Patient-Stated? Author Blood Pressure < 150/90 Blood Pressure 142/83(2024 3:31 PM EST) Rolly Sol, PharmD Note: Per JNC-8 Age greater than 60 y/o without CKD or DM documented as of this encounter Visit Diagnoses Diagnosis Abnormal EKG- Primary Nonspecific abnormal electrocardiogram (ECG) (EKG) documented in this encounter Additional Health Concerns Assessment Noted Time PHQ-9 Depression Total Score: 5 07/18/19 10:12 AM EDT documented as of this encounter Care Teams Retail Business Development Manager Relationship Specialty Start Date End Date Krysten Rose MD [address] [place] [address] PCP - General Family Medicine 02/16/11 Rolly Mosley, EusebioD [address] [place] [address] Pharmacist Internal Medicine 08/11/22 Getachew Aguayo MD [address] [place] [address] General Surgery 04/06/24 Tatiana Pineda MD [address] [place] [address] Hematology and Oncology 04/06/24 Neville Dipika [address] [place] [address] Gastroenterology 04/06/24 Graham Mathews MD [address] [place] [address] Cardiology 04/06/24 documented as of this encounter
--- OUTSIDE RECORDS SUMMARY | 2024-05-14 12:22 | XMS_ITS | Encounter Summary ---
Author Organization [employer] Address [address] [facility] 7t [place] [address] Care Team Providers Care Internet Designer Name Role Phone Krysten Rose MD Primary Care Provider [phone] Rolly Mosley PharmD Unavailable [phone] Getachew Aguayo MD Unavailable [phone] Tatiana Pineda MD Unavailable [phone] July Unavailable Graham Mathews MD Unavailable Encounter Details Date Type Department Care Team (Latest Contact Info) Description 12/03/2020 Abstract [facility] Dental, Provider, DDS Social History Tobacco Use Types Packs/Day Years [...] Description 06/23/2024 11:00 AM EDT Office Visit [facility] MED[facility] [address] [place], [place] [phone] Krysten Rose MD [address] [place], [place] [phone] 08/22/2024 3:00 PM EDT Office Visit [facility] ADULT DENTAL [address] [place], [place] [phone] Gabriela Elliott [address] [place] [address] documented as of this encounter Visit Diagnoses Not on filedocumented in this encounter Care Teams Internet Designer Relationship Specialty Start Date End Date Krysten Rose MD [address] [place] [address] PCP - General Family Medicine 02/16/11 Rolly Mosley, EusebioD [address] [place] [address] Pharmacist Internal Medicine 08/11/22 Getachew Aguayo MD [address] [place] [address] General Surgery 04/06/24 Tatiana Pineda MD [address] [place] [address] Hematology and Oncology 04/06/24LozadaJuly [address] [place] [address] Gastroenterology 04/06/24 Graham Mathews MD [address] [place] [address] Cardiology 04/06/24 documented as of this encounter
--- OUTSIDE RECORDS SUMMARY | 2024-05-14 12:22 | XMS_ITS | Clinical Summary ---
Author Organization [employer] Address [address] [facility] [facility] [address] [place] [address] Care Team Providers Care Bingo Clerk Name Role Phone Krysten Rose MD Primary Care Provider [phone] Rolly Mosley PharmD Unavailable [phone] Getachew Aguayo MD Unavailable [phone] Tatiana Pineda MD Unavailable [phone] July Unavailable Graham Mathews MD Unavailable Allergies No known active allergies Medications biotin 5 MG capsule Buys OTC Active omega-3 (fish oil) 300 MG capsule Buys OTC Active Blood Pressure Monitor kit Check blood pressure once daily and as needed 1 kit 3 Active fluticasone (Flonase) 50 MCG/ACT nasal spray spray 1 spray by intranasal route every day in each nostril 48 g 3 3 Active cyanocobalamin (Vitamin B-12) 1000 MCG tablet TAKE 1 TABLET BY MOUTH EVERY DAY ON AN EMPTY STOMACH 3 Active amLODIPine (Norvasc) 10 MG tablet TAKE 1 TABLET BY MOUTH EVERY DAY 3 Active rosuvastatin (Crestor) 20 MG tablet Take 1 tablet (20 mg) by mouth Once per day. 90 tablet 3 4 Active lisinopril 10 MG tablet TAKE 1 TABLET BY MOUTH EVERY MORNING 90 tablet 3 4 Active Aspirin Low Dose 81 MG chewable tablet TAKE 1 TABLET BY MOUTH EVERY MORNING (masticar) 90 tablet 3 4 Active Vitamin D High Potency 25 MCG (1000 UT) capsule TAKE 1 CAPSULE BY MOUTH EVERY MORNING 90 capsule 3 4 Active azelaic acid (Finacea) 15 % gel Apply topically to face daily at bedtime 4 Active famotidine (Pepcid) 40 MG tablet Take 40 mg by mouth at bedtime. 4 Active loratadine (Claritin) 10 MG tablet TAKE 1 TABLET BY MOUTH EVERY DAY 90 tablet 3 4 Active hydrocortisone 2.5 % cream Apply topically 2 times daily. 28 g 4 Active Acetaminophen Extra Strength 500 MG tablet TAKE 1 TO 2 TABLETS BY MOUTH EVERY 8 HOURS NEEDED FOR PAIN OR FEVER 90 tablet 4 Active omeprazole (PriLOSEC) [address] capsule Take 1 capsule (20 mg) by mouth before breakfast. Do not crush or chew. 30 capsule 11 4 04/07/20 25 Active ipratropium (Atrovent) 0.06 % nasal spray Administer 1 spray into each nostril if needed in the morning and at bedtime for rhinitis. 15 mL 12 4 Active Multiple Vitamin (Multi-Vitamin) tablet Take 1 tablet by mouth Once per day. 90 tablet 3 5 Active sulfamethoxazol e-trimethoprim (Bactrim DS) 800-160 MG tabletIndicatio ns:Urinary Tract Infection Take 1 tablet by mouth 2 times daily for 3 days. 6 tablet 5 05/16/19 25 Active Active Problems Problem Noted Date Diagnosed Date UTI symptoms 05/13/2024 Assessment & Plan (05/13/2024 3:46 PM EST): -Urinalysis and urine culture sent to the lab -Empiric antibiotics started : Bactrum BID x 3 days started 05/13/24 -Potential adverse effects of the medication reviewed -Discussed strategies to prevent future infections: Increase fluids. Urinate after sex. Avoid bladder irritants. -Report fever, chills, worsening symptoms or abdominal/flank pain -Advised to seek medical attention if no improvement or worsening of symptoms -ER precautions reviewed. Dry mouth 04/07/2024 Assessment & Plan (04/07/2024 2:36 PM EST): - Pt reports waking up with dry mouth CAD (coronary artery disease) 04/06/2024 Dental calculus 02/21/2024 Periodontal disease 02/21/2024 Gingival bleeding 02/21/2024 Anxiety 11/20/2023 Assessment & Plan (04/07/2024 2:36 PM EST): - Pt went to [facility] recently to relieve some stress Assessment & Plan (11/20/2023 12:42 PM EDT): - GAD7: 21 - patient states that she has therapist, patient was advised to continue - patient is not interested in medication at this time Long COVID 11/20/2023 Assessment & Plan (11/20/2023 1:14 PM EDT): - possible diagnosis - patient had atypical chest pain, cough, neurological abnormality, and loss of taste and smell - will monitor at this time - consider further evaluation by natural resource economist - recommended to discuss with her sprigger for eye twitching GERD (gastroesophageal reflux disease) Assessment & Plan (11/20/2023 12:48 PM EDT): - following with [facility] - continue famotidine - will check with GI for next appt Weight loss 11/20/2023 Assessment & Plan (04/07/2024 2:33 PM EST): - encouraged to increase caloric intake Assessment & Plan (11/20/2023 1:16 PM EDT): - encouraged to increase caloric intake Poor appetite 11/20/2023 Assessment & Plan (04/07/2024 2:34 PM EST): - pt contributes her lack of appetite to her loss of taste - will check if she can have nutritional supplements Assessment & Plan (11/20/2023 1:16 PM EDT): - most likely due to anxiety - will check if she can have nutritional supplements Rash 11/20/2023 Assessment & Plan (04/07/2024 2:35 PM EST): - Developed a rash after taking Ensure which resolved upon discontinuation. Assessment & Plan (11/20/2023 1:15 PM EDT): - most likely an insect bite - avoid irritation - apply topical steroid cream Cough 11/20/2023 Assessment & Plan (11/20/2023 1:10 PM EDT): - possibly due to long COVID - lung exam was benign - will prescribe benzonatate Abnormal nuclear stress test 08/15/2023 Assessment & Plan (10/09/2023 11:58 AM EDT): - Following with [facility], last seen on 08/13/23 - Nuclear stress test on 08/07/2023 demonstrated mild intensity, moderate size defect in the mid to distal anterior and anterior lateral and apical wall, LAD territory. - Given fairly good exercise tolerance, CTA was ordered and completed on 09/12/23. Coronary angio demonstrated scattered mild calcifications in the proximal segment of LAD, less than 25% stenosis - If symptomatic, plan for cardiac cath. Pt was sent from [facility] to [facility] ED on 08/24/23 due to cardiac symptoms for consideration of cardiac cath, but was not deemed necessary at that time. Pt experiencing stress/anxiety as cardiac cath has not yet been completed, and would like assistance with scheduling. RN left message for [facility] regarding timeline above, plan for them to call us back or give call directly to pt to schedule. - Strict ED precautions reviewed - Plan to continue amlodipine, lisinopril, aspirin, and pravastatin. Assessment & Plan (08/15/2023 7:12 PM EDT): - Following with [facility], last seen on 08/13/23 - Asymptomatic, but ordered due to abnormal EKG - Nuclear stress test on 08/08/2023 showed mild intensity, moderate size defect in the mid to distal anterior and anterior lateral and apical wall, LAD territory. - Since patient is asymptomatic, a CTA was ordered. If she becomes symptomatic, then she will require cardiac catheterization. She was recommended to continue amlodipine, lisinopril, aspirin, and pravastatin. Facial rash 08/15/2023 Assessment & Plan (08/15/2023 7:15 PM EDT): - likely rosacea - following with director transition; will obtain records Hx of cholecystectomy 05/10/2023 Assessment & Plan (05/10/2023 6:46 PM EST): Pt s/p cholecystectomy , w no complications Feeling well Abnormal EKG 05/10/2023 Assessment & Plan (08/15/2023 7:14 PM EDT): - incidental finding while undergoing pre-op for lap cholecystectomy in [facility] in April 2023 - EKG showed T-wave inversions across the precordium in [facility] in April 2023, an incidental finding while undergoing pre-op for laparoscopic cholecystectomy, which is different from prior EKG - EKG at [facility] office in June 2023 showed sinus rhythm, incomplete right bundle branch block, low-voltage QRS, nonspecific T-wave abnormalities, rate 77 - patient was further evaluated by a nuclear stress test on 08/08/23 Assessment & Plan (05/10/2023 6:50 PM EST): As part of preop workup had EKG reported as abnormal.Pt had TTE showing aortic insufficiency grade 1,valvular sclerosis LVH ,EF 68% ,diastolic dysf grade 1 Pt is asymptomatic Tried to do today EKG to compare w recent EKG obtained from cardiology office done at her last apt but not able to perform -tried MA multiple times to do but not reading -Cards records today -last seen 02/2023 seen for HTN w no changes and EKG done then NSR,left axis deviation,LVH criteria ,non specific TW abnormalities -advised pt to f up w her catalyst manufacturing operator ot will need to return to clinic to repeat EKG --pt states will see her catalyst manufacturing operator -alarm signs and symptoms discussed Oropharyngeal dysphagia 05/10/2023 Assessment & Plan (10/09/2023 11:58 AM EDT): - Pt evaluated by [facility] in June 2023 - Plan for barium swallow proceeded by EGD. Pt reports she has not been contacted to schedule either from [facility], and having difficulties communicating with office. - RN contacted [facility] office and LVM to help coordinate care Assessment & Plan (05/10/2023 6:52 PM EST): -Pt reports 4 weeks of difficulty swallowing no odinophagia juts at beginning of swallowing for solids and liquids for the past 4 weeks,denies any mass sensation ,normal neck exam -referred to GI today for EGD History of COVID-19 12/23/2022 Assessment & Plan (12/23/2022 4:27 PM EDT): - June 2022 - did not receive Paxlovid Chronic pain of left knee 12/23/2022 Assessment & Plan (03/23/2023 1:04 PM EST): - X-ray in Nov 2021 showed mild degenerative change - pt completed PT - APAP prn Assessment & Plan (12/23/2022 4:48 PM EDT): - likely OA - check X-ray - refer to PT - APAP prn Allergic conjunctivitis of both eyes 08/21/2022 Assessment & Plan (08/21/2022 1:38 PM EDT): Wash and clean eyes with baby shampoo, use ketotifen eye drops X 1w + Loratadine x 7d. If sxs do not improve, can us benadryl 25 mg at bedtime for severe itchiness. Call her ophtalmology clinic for an urgent visit if sxs do not improve within 3d, for further evaluation Dental plaque 08/10/2022 Atypical chest pain 07/31/2022 Assessment & Plan (07/31/2022 5:05 AM EDT): - Evaluated by [facility] service in Mar 2021 and 2021 -[facility]UNTER in 2014 showed occasional PAC -EKG showed intraventricular conduction delay / RBBB in the past -Normal TTE and stress test in July 2021 -Given reassurance -ASA was discontinued -lifestyle modifications -optimize risk factor management Osteoporosis 07/17/2022 Assessment & Plan (04/06/2024 12:15 PM EST): - 06/23/22 DEXA -2.5 in femoral neck - alendronate since 2009, interruption while she was recovering from left arm fracture in 8556-0041, then restarted and discontinued in Feb 2023 due to no improvement in T-score on DEXA in 2022 - Oncologist, Dr. Pineda started her on RANKL inhibitor with denosumab (Prolia) 60 mg every 6 month. She has on this medication since March 2023. Last administration on 03/05/24 Assessment & Plan (11/20/2023 12:40 PM EDT): - 06/23/22 DEXA -2.5 in femoral neck - alendronate since 2009, interruption while she was recovering from left arm fracture in 8427-2011, then restarted - Oncologist, Dr. Pineda started her on RANKL inhibitor with denosumab/Prolia 60 mg every 6 month. She is on this medication since March 2023. Assessment & Plan (08/14/2023 2:41 PM EDT): - 06/23/22 DEXA -2.5 in femoral neck - alendronate since 2009, interruption while she was recovering from left arm fracture in 1662-8701, then restarted - OncologistDr. Pineda will start her on RANKL inhibitor with denosumab/Prolia 60 mg every 6 month. Assessment & Plan (03/23/2023 1:03 PM EST): - 06/23/22 DEXA -2.5 in femoral neck - alendronate since 2009, interruption while she was recovering from left arm fracture in 7844-3584, then restarted - OncologistDr. Pineda will start her on RANKL inhibitor with denosumab/Prolia 60 mg every 6 month. Assessment & Plan (12/23/2022 4:45 PM EDT): - 06/23/22 DEXA -2.5 in femoral neck - currently on alendronate - oncologist is planning to change to another medication Assessment & Plan (07/31/2022 4:55 AM EDT): - 06/23/22 DEXA -2.5 in femoral neck - currently on Fosamax - oncologist is planning to change to another medication Essential tremor 04/04/2022 Assessment & Plan (04/07/2024 2:32 PM EST): - Dx Benign essential tremor with titubation. - Seen by [facility] neurologist, last visit in August 2022 - Previously tried gabapentin, but pt developed leg swelling after increasing its dose. Gabapentin was discontinued - Pt was safely discharged from neurology clinic Assessment & Plan (11/20/2023 12:36 PM EDT): - Dx Benign essential tremor with titubation. - Seen by [facility] neurologist, last visit in August 2022 - Previously tried gabapentin, but pt developed leg swelling after increasing its dose. Gabapentin was discontinued - Pt was safely discharged from neurology clinic Assessment & Plan (08/14/2023 2:41 PM EDT): - Dx Benign essential tremor with titubation. - Seen by [facility] neurologist, last visit in August 2022 - Previously tried gabapentin, but pt developed leg swelling after increasing its dose. Gabapentin was discontinued - Pt was safely discharged from neurology clinic Assessment & Plan (03/23/2023 1:07 PM EST): - Dx Benign essential tremor with titubation. - Seen by [facility] neurologist, last visit in August 2022 - Previously tried gabapentin, but pt developed leg swelling after increasing its dose. Gabapentin was discontinued - Pt was safely discharged from neurology clinic Assessment & Plan (11/28/2022 1:34 PM EDT): - Dx Benign essential tremor with titubation. - Seen by [facility] neurologist, last visit in August 2022 - Previously tried gabapentin, but pt developed leg swelling after increasing its dose. Gabapentin was discontinued - Pt was safely discharged from neurology clinic Assessment & Plan (07/31/2022 4:54 AM EDT): - Dx Benign essential tremor with titubation. - Seen by [facility] neurologist, last visit in May 2022 - Continue Gabapentin 100mg QHS Assessment & Plan (04/04/2022 6:34 AM EST): Dx Benign essential tremor with titubation. Seen by [facility] neurologist, last visit on 08/10/20 Continue Gabapentin 100mg QHS Thyroid nodule 04/04/2022 Assessment & Plan (04/04/2022 6:39 AM EST): -incidental finding on CT scan -Thyroid US on 01/12/21 showed bilateral thyroid nodules. Largest nodule on the right side was 1.4 cm. -No further follow-up is indicated per guideline Closed fracture of left elbow 04/04/2022 Overview (04/04/2022): -Injured on 10/26/20 -Followed by [facility] provider, last sen in Feb 2022 -s/p ORIF on 10/28/20, s/p hardware removal and revision of ORIF on 08/23/21 -pt is slowly recovering (interrupted PT due to her trip to [facility]) -Pt restarted PT and still receiving PT -Continue following recommendations from orthopedists Impaired fasting glucose 12/21/2016 Breast cancer 12/21/2016 Assessment & Plan (04/06/2024 12:13 PM EST): - Left breast infiltrating ductal carcinoma Dx 2017 - s/p lumpectomy and sentinel node biopsy on 08/14/16 - s/p radiation therapy in September and October 2016. - Breast surgeon: [facility], Dr. Aguayo, seen in Dec 2023. Initial surgeon was Dr. Andrade, who has retired. - Oncologist: [facility] Dr. Pineda, last seen in Feb 2024. - Radiation oncologist: Dr. Garcia - Plan was to treat with tamoxifen 2 years, followed by 5 years of aromatase inhibitor. - Tamoxifen was discontinued in 2017 because it could worsen cataract. - Completed aromatase inhibitor, letrozole, July 2017 - August 2022 - Breast cancer index did not reveal a benefit from extended hormonal / AI therapy. - Most recent mammo on 09/07/23 BI-RADS 2 - continue following recommendation per oncologist Assessment & Plan (11/20/2023 12:41 PM EDT): - Left breast infiltrating ductal carcinoma Dx 2017 - s/p lumpectomy and sentinel node biopsy on 08/14/16 - s/p radiation therapy in September and October 2016. - Current breast surgeon: Dr. Aguayo, seen in Nov 2022 - Previous breast surgeon: Dr. Andrade - Oncologist: [facility] Dr. Pineda and Dr. Ochoa, last seen in August 2023 - Radiation oncologist: Dr. Garcia - Plan was to treat with tamoxifen 2 years, followed by 5 years of aromatase inhibitor. - Tamoxifen was discontinued in 2018 because it can worsen cataract. - Completed aromatase inhibitor, letrozole, July 2017 - August 2022 - Most recent mammo on 09/07/23 BI-RADS 2 - continue following recommendation per oncologist Assessment & Plan (08/14/2023 2:42 PM EDT): - Left breast infiltrating ductal carcinoma Dx 2017 - s/p lumpectomy and sentinel node biopsy on 08/14/16 - s/p radiation therapy in September and October 2016. - Current breast surgeon: Dr. Aguayo, seen in Nov 2022 - Previous breast surgeon: Dr. Andrade - Oncologist: [facility] Dr. Pineda and Dr. Ochoa, last seen in Feb 2023 - Radiation oncologist: Dr. Garcia - Plan was to treat with tamoxifen 2 years, followed by 5 years of aromatase inhibitor. - Tamoxifen was discontinued in 2018 because it can worsen cataract. - Completed aromatase inhibitor, letrozole, July 2017 - August 2022 - Most recent mammo on 08/31/22 BI-RADS 2 - continue following recommendation per oncologist Assessment & Plan (03/23/2023 1:07 PM EST): - Left breast infiltrating ductal carcinoma Dx 2017 - s/p lumpectomy and sentinel node biopsy on 08/14/16 - s/p radiation therapy in September and October 2016. - Current breast surgeon: Dr. Aguayo, seen in Nov 2022 - Previous breast surgeon: Dr. Andrade - Oncologist: [facility] Dr. Pineda and Dr. Ochoa, last seen in Feb 2023 - Radiation oncologist: Dr. Garcia - Plan was to treat with tamoxifen 2 years, followed by 5 years of aromatase inhibitor. - Tamoxifen was discontinued in 2017 because it can worsen cataract. - Completed aromatase inhibitor, letrozole, July 2017 - August 2022 - Most recent mammo on 08/31/22 BI-RADS 2 - continue following recommendation per oncologist Assessment & Plan (11/28/2022 1:29 PM EDT): - Left breast infiltrating ductal carcinoma Dx 2017 - s/p lumpectomy and sentinel node biopsy on 08/14/16 - s/p radiation therapy in September and October 2016. - Current breast surgeon: Dr. Aguayo, seen on 10/22/20 - Previous breast surgeon: Dr. Andrade - Oncologist: [facility] Dr. Pineda and Dr. Ochoa, last seen in September 2022 - Radiation oncologist: Dr. Garcia - Plan was to treat with tamoxifen 2 years, followed by 5 years of aromatase inhibitor. - Tamoxifen was discontinued because it can worsen cataract. She started letrozole since July 2017. Continue current treatment plan. - Most recent mammo on 08/31/22 BI-RADS 2 Assessment & Plan (07/31/2022 5:00 AM EDT): - Current breast surgeon: Dr. Aguayo, seen on 10/22/20 - Previous breast surgeon: Dr. Andrade - Oncologist: [facility] Dr. Pineda and Dr. Ochoa, last seen on 06/19/22 - Plan was to treat with tamoxifen [...] therapy in September and October 2016. - Most recent mammo on 08/17/21 BI-RADS 2 Assessment & Plan (04/04/2022 6:32 AM EST): - Current breast surgeon: Dr. Aguayo, seen on 10/22/20 - Previous breast surgeon: Dr. Andrade - Oncologist: [facility] Dr. Pineda and Dr. Ochoa, last seen [...] for bilateral diagnostic mammography in August 2020 Right bundle branch block 08/07/2016 Dyslipidemia 03/29/2015 Assessment & Plan (08/15/2023 6:38 PM EDT): - last lipid profile in Jan 2022 - moderate intensity statin is recommended - currently on pravastatin 80 mg at bedtime - since her recent stress test was abnormal, agreed to intensify statin therapy - start rosuvastatin 20 mg at bedtime - continue lifestyle modifications - check LFT and lipid profile 4 wks after starting rosuvastatin Assessment & Plan (03/23/2023 1:04 PM EST): - last lipid profile in Jan 2022 - moderate intensity statin is recommended - currently on pravastatin 80 mg at bedtime - continue current medications and lifestyle modifications - annual lab with LFT Assessment & Plan (12/23/2022 4:47 PM EDT): - last lipid profile in Jan 2022 - moderate intensity statin is recommended - currently on pravastatin 80 mg at bedtime - continue current medications and lifestyle modifications - annual lab with LFT Assessment & Plan (07/31/2022 5:03 AM EDT): - last lipid profile in Jan 2022 - moderate intensity statin is recommended - currently on pravastatin 80 mg at bedtime - continue current medications and lifestyle modifications - annual lab with LFT Hypertension 03/29/2015 Assessment & Plan (04/07/2024 2:33 PM EST): - Goal BP < 140/90 per JNC-8, < 130/80 per ACC/AHA guideline - BP is at goal today - Continue working on lifestyle modifications. - Continue current medications: amlodipine 10 mg daily; lisinopril 10 mg daily - Continue checking home BP Assessment & Plan (11/20/2023 12:36 PM EDT): - Goal BP < 140/90 per JNC-8, < 130/80 per ACC/AHA guideline - BP is at goal today - Continue working on lifestyle modifications. - Continue current medications: amlodipine 10 mg daily; lisinopril 10 mg daily - Continue checking home BP - Seen by catalyst manufacturing operator again in Mar 2022, and given reassurance. Next follow-up in Mar 2023. - Follow up in 3-6 mo or sooner prn Assessment & Plan (08/14/2023 2:41 PM EDT): - Goal BP < 140/90 per JNC-8, < 130/80 per ACC/AHA guideline - BP is at goal today - Continue working on lifestyle modifications. - Continue current medications: amlodipine 10 mg daily; lisinopril 10 mg daily - Continue checking home BP - Seen by catalyst manufacturing operator again in Mar 2022, and given reassurance. Next follow-up in Mar 2023. - Follow up in 3-6 mo or sooner prn Assessment & Plan (03/23/2023 12:59 PM EST): - Goal BP < 140/90 per JNC-8, < 130/80 per ACC/AHA guideline - BP is at goal today - Continue working on lifestyle modifications. - Continue current medications: amlodipine 10 mg daily; lisinopril 10 mg daily - Continue checking home BP - Seen by catalyst manufacturing operator again in Mar 2022, and given reassurance. Next follow-up in Mar 2023. - Follow up in 3-6 mo or sooner prn Assessment & Plan (12/23/2022 4:30 PM EDT): - Goal BP < 140/90 per JNC-8, < 130/80 per ACC/AHA guideline - BP is at goal today - Continue working on lifestyle modifications. - Continue current medications: amlodipine 10 mg daily; lisinopril 10 mg daily - Continue checking home BP - Seen by catalyst manufacturing operator again in Mar 2022, and given reassurance. Next follow-up in Mar 2023. - Follow up in 3-6 mo or sooner prn Assessment & Plan (07/31/2022 4:53 AM EDT): - Goal BP < 140/90 per JNC-8, BP is at goal today - Continue working on lifestyle modifications. - Continue current medications: amlodipine 10 mg daily; lisinopril 10 mg daily - Continue checking home BP; pt states she does not have a BP monitor although it was prescribed previously. Her also should have a BP monitor. - Seen by catalyst manufacturing operator again in Mar 2022, and given reassurance Resolved Problems Problem Noted Date Diagnosed Date Resolved Date Osteopenia 02/21/2017 11/28/2022 Assessment & Plan (07/31/2022 4:56 AM EDT): -Pt has been on Fosamax since 2009, had a break -Most Recent DEXA on 06/29/22: T Score -2.5. Oncologist plan to change medication Helicobacter pylori gastroin testinal tract infection 07/28/2014 04/04/2022 Encounters Date Type Department Care Team Description 05/13/2024 3:00 PM EST Office Visit [facility] [address] [place] [address] Kimberly Cali MD UTI symptoms 05/02/2024 11:00 AM EST Office Visit [facility] [address] [place] [id number] Gabriela Elliott Dental calculus (Primary Dx); Periodontal disease 04/28/2024 Orders Only GENERIC EXTERNAL DATA DEPARTMENT Provider, Generic External Data 04/14/2024 Telephone [facility] [address] [place] [address] Krysten Rose MD 04/07/2024 11:15 AM EST Office Visit [facility] [address] [place] [address] Krysten Rose MD Malignant neoplasm of left breast in female, estrogen receptor positive, unspecified site of breast (CMS/HCC) (Primary Dx); Essential tremor; Primary hypertension; Osteoporosis, unspecified osteoporosis type, unspecified pathological fracture presence; Coronary artery disease involving [place] coronary artery of [place] heart without angina pectoris; Rash; Poor appetite; Weight loss; Encounter for immunization; Tongue lesion; Dry skin; Dry mouth; Anxiety; Dietary counseling; Exercise counseling; Overweight 04/07/2024 Travel 04/03/2024 9:00 AM EST Office Visit [facility] [address] [place] [phone] Gabriela Elliott Periodontal disease (Primary Dx); Dental calculus 04/03/[address] [address] Elena Henson [place] chart prep 02/27/2024 Refill [facility] [address] [place] [address] Krysten Rose MD 02/21/2024 8:00 AM EST Office Visit [facility] [address] [place] [phone] Gabriela Elliott Dental calculus (Primary Dx); Periodontal disease; Gingival bleeding from Last 3 Months Immunizations Name Administration Dates Next Due Hep A, Adult 01/06/2019,01/31/2018 Hep B, adult 04/07/2024,01/06/2019,01/31/2018 Influenza High-dose Quadriva lent Preservative Free 02/21/2023,01/12/2022,02/27/2020 Influenza Injectable Quadriv alant Preservative Free IIV4 MDCK 02/22/2021 Influenza injectable quadriv alent IIV4 with preservative 12/27/2015,01/05/2015 Influenza injectable quadriv alent preservative free 01/06/2019,02/20/2017 Influenza, High Dose Seasona l, Preservative Free 04/07/2024,01/31/2018 Influenza, IIV3, injectable 01/08/2014, 1,12/17/2009 Influenza, Split (incl. seamus fied surface antigen) 01/03/2013,04/12/2012 Moderna Covid-19 Vaccine 12+ 06/08/2020 Pfizer Covid-19 Vaccine 12+ 02/21/2023, Pneumococcal Conjugate PCV 13 12/27/2015 Pneumococcal Polysaccharide PPSV23 02/21/2017 RSV Bivalent 03/07/2023 TD (adult), 2 Lf tetanus tox oid, preservative free, adsorbed 03/17/2021 Tdap 12/17/2009 Zoster, Recombinant 09/07/2023,03/07/2023 Zoster, live 07/28/2014 Social History Tobacco Use Types Packs/Day Years Used Date Smoking Tobacco: Never Passive Smoke Exposure: Never Smokeless Tobacco: Never Tobacco Cessation:Counseling Given: Not Answered Alcohol Use Standard Drinks/Week Comments Never 0 [...] Orientation Straight 02/06/2022 10 :20 AM EDT Last Filed Vital Signs Vital Sign Reading Time Taken Comments Blood Pressure 142/83 05/13/2024 3:31 PM EST Pulse 97 05/13/2024 3:31 PM EST Temperature 36.6 ??C (97.9 ??F) 05/13/2024 3:31 PM ES T Respiratory Rate 16 05/13/2024 3:31 PM EST Oxygen Saturation 98% 05/13/2024 3:31 PM EST Inhaled Oxygen Concentration - - Weight 63.5 kg (140 lb) 05/13/2024 3:31 PM EST Height 158.7 cm (5' 2.47 ) 08/24/2023 9:11 AM ED T Body Mass Index 25.22 08/24/2023 9:11 AM EDT Plan of Treatment Upcoming Encounters Date Type Department Care Team (Late st Contact Info) Description 06/23/2024 11:00 AM EDT Office Visit [facility] [address] [place] [address] Krysten Rose MD [address] [place] [address] 08/22/2024 3:00 PM EDT Office Visit [facility] [address] [place] [address] Gabriela Elliott [address] [place] [address] Health Maintenance Due Date Last Done Comments CT Colonography 1950 FIT DNA/Cologuard 1950 FIT 1950 FOBT 1950 Sigmoidoscopy 1950 COVID-19 Vaccine ( season) 2023 02/21/2023, 01/01/2022, 01/28/2021, Additional history exists Depression Monitoring (PHQ-9) 05/26/2024 11/24/2023, 11/24/2023 SDOH Screening 08/05/2024 08/06/2023 Dental Oral Exam 08/21/2024 02/21/2024, 08/10/2022 Dental Prophylaxis 08/21/2024 02/21/2024, 08/10/2022 Depression Screening 11/23/2024 11/24/2023, 11/24/19 Dental X-Ray: Bitewings 02/21/2025 02/21/2024, 08/10 Alcohol/Substance Use Screening 04/07/2025 04/07/2024 Tobacco Screening 05/02/2025 05/02/2024 Dental X-Ray: Full Mouth 02/21/2027 02/21/2024, 11/07 Lipid Panel 08/13/2028 08/14/2023, 02/08, 01/17/2022, Additional history exists Colonoscopy 05/04/2030 05/04/2020 Colorectal Cancer Screening 05/04/2030 DTaP/Tdap/Td Vaccines (3 - Td or Tdap) 03/17/2031 03/17/2021, 12/17/2009 Pneumococcal Vaccine: 50+ Years Completed 02/21/2017, 12/27/2015 Hepatitis A Vaccines Aged Out 01/06/2019, 02/01/20 18 No longer eligible based on patient's age to complete this topic Hepatitis C Screening Completed 01/17/2022, 021 RSV Patients and Patients Aged 60 years or older Completed 03/07/2023 Zoster Vaccines Completed 09/07/2023, 02/08, 07/28/2014 Hepatitis B Vaccines Completed 04/07/2024, 01/06/2019, 01/31/2018 Influenza Vaccine Completed 04/07/2024, , 01/12/2022, Additional history exists HIB Vaccines Aged Out No longer eligi ble based on patient's age to complete this topic HPV Vaccines Aged Out No longer eligi ble based on patient's age to complete this topic IPV Vaccines Aged Out No longer eligi ble based on patient's age to complete this topic Meningococcal Vaccine Aged Out No estrella dawood eligible based on patient's age to complete this topic RSV under 20 months Aged Out No longe r eligible based on patient's age to complete this topic Rotavirus Vaccines Aged Out No longer eligible based on patient's age to complete this topic Goals Goal Patient Goal Type Associated Problems Recent Progress Patient-Stated? Author Blood Pressure < 150/90 Blood Pressure 142/83(2024 3:31 PM EST) Rolly Sol, PharmD Note: Per JNC-8 Age greater than 60 y/o without CKD or DM Procedures Procedure Name Priority Date/Time Associated Diagnosis Comments URINALYSIS, COMPLETE, WITH REFLEX TO CULTURE Routine 05/14/2024 12:00 AM EST UTI symptoms POCT URINALYSIS DIPSTICK Routine 05/13/2024 3:37 PM EST UTI symptoms ADJUNCTIVE GENERAL SERVICES - PROFESSIONAL VISITS - CASE PRESENTATION, SUBSEQUENT TO DETAILED AND EXTENSIVE TREATMENT PLANNING Routine 05/02/2024 11:00 AM EST Dental calculus Periodontal disease ORAL HYGIENE INSTRUCTIONS Routine 05/02/2024 11:00 AM EST Dental calculus Periodontal disease LR PERIODONTAL SCALING AND ROOT PLANING - 1 TO 3 TEETH PER QUADRANT Routine 05/02/2024 11:00 AM EST Dental calculus Periodontal disease UR PERIODONTAL SCALING AND ROOT PLANING - 1 TO 3 TEETH PER QUADRANT Routine 05/02/2024 11:00 AM EST Dental calculus Periodontal disease HEMATOXYLIN AND EOSIN STAIN Routine 04/28/2024 1:27 PM EST RHEUMATOID FACTOR Routine 04/07/2024 12: 39 PM EST Tongue lesion Dry skin Dry mouth SJOGREN'S ANTIBODIES (SS-A,SS-B) Routine 04/07/2024 12:39 PM EST Tongue lesion Dry skin Dry mouth RASHID SCREEN, IFA, W/REFL TITER AND PATTERN Routine 04/07/2024 12:39 PM EST Tongue lesion Dry skin Dry mouth SED RATE BY MODIFIED WESTERGREN Routine 04/07/2024 12:39 PM EST Tongue lesion Dry skin Dry mouth C-REACTIVE PROTEIN Routine 04/07/2024 12 :39 PM EST Tongue lesion Dry skin Dry mouth COMPREHENSIVE METABOLIC PANEL Routine 04/07/2024 12:39 PM EST Tongue lesion Dry skin Dry mouth CBC WITH AUTO DIFFERENTIAL Routine 04/07/2024 12:39 PM EST Tongue lesion Dry skin Dry mouth LL PERIODONTAL SCALING AND ROOT PLANING - 1 TO 3 TEETH PER QUADRANT Routine 04/03/2024 9:00 AM EST Periodontal disease Dental calculus ADJUNCTIVE GENERAL SERVICES - PROFESSIONAL VISITS - CASE PRESENTATION, SUBSEQUENT TO DETAILED AND EXTENSIVE TREATMENT PLANNING Routine 04/03/2024 9:00 AM EST Periodontal disease Dental calculus ORAL HYGIENE INSTRUCTIONS Routine 04/03/2024 9:00 AM EST Periodontal disease Dental calculus UL PERIODONTAL SCALING AND ROOT PLANING - 1 TO 3 TEETH PER QUADRANT Routine 04/03/2024 9:00 AM EST Periodontal disease Dental calculus PERIODIC ORAL EVALUATION - ESTABLISHED PATIENT Routine 02/21/2024 8:00 AM EST DIAGNOSTIC - DIAGNOSTIC IMAGING - INTRAORAL - COMPREHENSIVE SERIES OF RADIOGRAPHIC IMAGES Routine 02/21/2024 8:00 AM EST Dental calculus Periodontal disease Gingival bleeding ADJUNCTIVE GENERAL SERVICES - PROFESSIONAL VISITS - CASE PRESENTATION, SUBSEQUENT TO DETAILED AND EXTENSIVE TREATMENT PLANNING Routine 02/21/2024 8:00 AM EST Dental calculus Periodontal disease Gingival bleeding ORAL HYGIENE INSTRUCTIONS Routine 02/21/2024 8:00 AM EST Dental calculus Periodontal disease Gingival bleeding PROPHYLAXIS - ADULT Routine 02/21/2024 8 :00 AM EST Dental calculus Periodontal disease Gingival bleeding LIPID PANEL WITH REFLEX TO DIRECT LDL Routine 08/14/2023 3:08 PM EDT Primary hypertension Abnormal EKG ZZZ HISTORICAL HEPATITIS C AB W/REFL TO HCV RNA, QN, PCR Routine 01/17/2022 8:19 AM EDT HM COLONOSCOPY Routine 05/04/2020 from Last 3 Months or Most Recently Relevant to Health Maintenance Results * (ABNORMAL) Urinalysis, Complete, with Reflex to Culture (05/14/2024 12:00 AM EST) Color Urine Yellow [facility] Appearance Urine Clear [facility] PH 6.0 5.0 - 9.0 [facility] Glucose Urine UA Negative Negative mg/dL [facility] Urine Blood Moderate (2+)(A) Negative [facility] Specific [place] - Urine <=1.005 1.005 - 1.025 [facility] Urine Protein Negative Neg-Trace mg/dL [facility] Urine Ketones Negative Negative mg/dL [facility] Nitrite Urine Negative Negative [facility] Leukocyte Esterase Urine Large (3+)(A) Negative [facility] RBC Urine 0-2 0 - 2 /HPF [facility] Urine WBC 6-10 0 - 5 /HPF [facility] Urine Squamous Epithelial Cell 0-2 0 - 2 /HPF [facility] Urine Bacteria None Seen None Seen [facility] Hyaline Casts, Urine 0-2 0 - 2 /LPF [facility] Urine 05/14/2024 05/14/2024 Narrative [facility] - 05/14/2024 11:41 AM EST Urine, Clean Catch Kimberly Cali MD LAB URINE ORDERABLES Final Result [facility] [address] [place] [phone] * (ABNORMAL) POCT urinalysis dipstick manually resulted [...] CARE TEST ENTER/E DIT ORDERABLES Final Result * Hematoxylin and Eosin Stain (04/28/2024 1:27 PM EST) 04/28/2024 1:27 PM EST 04/28/2024 2:08 PM EST [facility] - 04/30/2024 3:00 PM EST ----- ------- Name: Charlene Zamora ? Age/Sex: 73/F ? : 1950 Unit#: [id number] ?? Attend Dr: Antoinette Bryant MD ?Re04/28/24 ?Status: DEP SDC ? Location: HO.SSS ?Disch: ? ----- ------- SPEC : [id number] ?RECD: 04/28/24-9513 ? STATUS: ??SOUT ? REQ NUM: [id number] ? MAN: 04/28/24-4660 ? SUBM DR: Antoinette Bryant MD ? ENTERED: ??04/28/24-1413 ?SP TYPE: Surgical ? OTHR DR: Krysten Rose MD ? ORDERED: ??HE Stain/3, Gross Micro L4, IHC, Special st. 2, H. pylori, AB/PAS ? Diagnosis ?? Stomach, antrum, biopsy: ??Antral-type mucosa with mild chronic inactive inflammation; no ?? Helicobacter organisms seen. ?Clinical History Pre-Op Dx: ??Dysphagia Post-Op Dx: GERD, dysphasia and gastritis ?Microscopic Description Microscopic sections examined. ??No metaplastic changes are seen, supported by AB/PAS stains; no Helicobacter organisms are seen, supported by H. pylori immunostain. ? Material Received ?? Antrum bx ? Gross Description Received in formalin labeled ?antrum bx's? are 2 ko-pink irregular tissue fragments measuring 0.2 and 0.35 cm, submitted in toto in a cassette labeled A. ??CEDS Special studies ordered and performed: Immunostain for H. pylori; AB/PAS stains Copies To: ?? Antoinette Bryant MD ?? [facility] ?? [address] ?? [place] [address] ?? [phone] ?? Krysten Rose MD ?? [facility] ?? [address] ?? [place] [address] ?? [phone] ----- ------- Signed (signature on file) Edy Pelletier MD 04/30/24 1500 ? ----- ------- ? END OF REPORT ? us Generic External Data Provider LAB BLOOD ORDERAB LES Final Result Performing Organization Address [facility] de Phone Number [facility] [address] [place] [phone] * Sjogren's Antibodies (SS-A,SS-B) (04/07/2024 12:39 PM EST) Pathologist [facility] Sjogren's Antibody (SS-A) <1.0 NEG <1.0 NEG [facility] Sjogren's Antibody (SS-B) <1.0 NEG <1.0 NEG [facility] Comment:THIS TEST WAS PERFOR MED AT:[facility] [address] [phone] SMITH MD 04/07/2024 12:3 9 PM EST 04/07/2024 1:11 PM EST us Krysten Rose MD LAB BLOOD ORDERABLES Final Resul t Performing Organization Address [facility] de Phone Number [facility] [address] [place] [phone] * (ABNORMAL) CBC auto differential (04/07/2024 12:39 PM EST) White Blood Count 6.6 4.8 - 10.8 X10*3/uL [facility] Red Blood Count 4.65 4.20 - 5.50 X10*6/uL [facility] Hemoglobin 14.4 12.0 - 16.0 g/dl [facility] Hematocrit 43.0 37.0 - 47.0 % [facility] Mean Corpuscular Volume 92.5 80.0 - 98.0 fL [facility] Mean Corpuscular Hemoglobin 31.0 27.0 - 33.0 pg [facility] Mean Corpuscular HGB Conc 33.5 31.0 - 35.0 g/dl [facility] Red Cell Distribution Width 12.4 11.0 - 16.0 % [facility] Platelet Count 247 160 - 400 X10*3/uL [facility] Mean Platelet Volume 10.4 9.4 - 12.3 fL [facility] Neutrophils Percent Auto 70.3 45 - 73 % [facility] Imm Gran Pct Auto 0.2 0.0 - 0.4 % [facility] Lymphocytes Percent Auto 19.3(L) 20 - 40 % [facility] Monocytes Percent Auto 7.1 2 - 11 % [facility] Eosinophils Percent Auto 2.3 0 - 4 % [facility] Basophils Percent Auto 0.8 0 - 2 % [facility] NRBC Pct Auto 0.0 0.0 - 0.2 /100WBC [facility] Neutrophils Absolute Auto 4.6 2.0 - 8.3 x10*3/uL [facility] Imm Gran Abs Auto 0.01 0.00 - 0.03 X10*3/uL [facility] Lymphocytes Absolute Auto 1.3 1.2 - 4.9 X10*3/uL [facility] Monocytes Absolute Auto 0.5 0.1 - 1.2 X10*3/uL [facility] Eosinophils Absolute Auto 0.2 0.0 - 0.4 X10*3/uL [facility] Basophils Absolute Auto 0.1 0.0 - 0.2 X10*3/uL [facility] NRBC Abs Auto 0.000 0.0 - 0.012 X10*3/uL [facility] Blood Venous blood specimen / Unknown 04/07/2024 12:39 PM EST 04/07/2024 1:11 PM EST us Krysten Rose MD LAB BLOOD ORDERABLES Final Resul t [facility] [address] [place] [phone] * Sed Rate by Modified Westergren (04/07/2024 12:39 PM EST) Erythrocyte Sedimentation Rate 4 0 - 20 MM/HR [facility] Comment:Patients with polycy themia and many hemoglobin abnormalitiesmay have depressed sed rates whereas patients with anemiamay have elevated sed rates. Blood Venous blood specimen / Unknown 04/07/2024 12:39 PM EST 04/07/2024 1:11 PM EST us Krysten Rose MD LAB BLOOD ORDERABLES Final Resul t [facility] [address] [place] [phone] * Rheumatoid Factor (04/07/2024 12:39 PM EST) Rheumatoid Factor <13.0 <15.0 IU/mL [facility] Blood Venous blood specimen / Unknown 04/07/2024 12:39 PM EST 04/07/2024 1:11 PM EST us Krysten Rose MD LAB BLOOD ORDERABLES Final Resul t Performing Organization Address City/[facility]/ZIP Co de Phone Number [facility] [address] [place] [phone] * C-reactive Protein (04/07/2024 12:39 PM EST) C Reactive Protein <0.10 < or = 0.50 mg/dL [facility] Blood Venous blood specimen / Unknown 04/07/2024 12:39 PM EST 04/07/2024 1:11 PM EST Krysten oRse MD LAB BLOOD ORDERABLES Final Resul t [facility] [address] [place] [phone] * RASHID Screen,IFA, with Reflex to Titer and Pattern (04/07/2024 12:39 PM EST) Anti Nuclear Antibody Screen NEGATIVE NEGATIVE [facility] Comment:RASHID IFA is a first l ine screen for detecting thepresence of up to approximately 150 autoantibodies invarious autoimmune diseases. A negative RASHID IFA resultsuggests an RASHID-associated autoimmune disease is notpresent at this time, but is not definitive. If thereis high clinical suspicion for Sjogren's syndrome,testing for anti-SS-A/Ro antibody should be considered.Anti-Yulia-1 antibody should be considered for clinicallysuspected inflammatory myopathies.AC-0: NegativeInternational Consensus on RASHID Patterns(https://doi.org/10.1515/xxll-1751-6819)For additional information, please refer tohttp://education.Motorator/faq/QIJ047(This link is being provided for informational/educational purposes only.)THIS TEST WAS PERFORMED AT:[facility] [place] [phone] SMITH MD RASHID Titer TNP [facility] RASHID Pattern TNP [facility] RASHID TITER 2 (REF LAB) TNP [facility] RASHID Pattern 2 TNP [facility] RASHID TITER 3 [facility] PATTERN 3 [facility] Blood Venous blood specimen / Unknown 04/07/2024 12:39 PM EST 04/07/2024 1:11 PM EST Krysten Rose MD LAB BLOOD ORDERABLES Final Resul t Performing Organization Address [facility]/ZIP Co de Phone Number [facility] [address] [place] [phone] * (ABNORMAL) Comprehensive Metabolic Panel (04/07/2024 12:39 PM EST) Sodium 143 135 - 145 mmol/L [facility] Potassium 3.8 3.3 - 5.1 mmol/L [facility] Chloride 110(H) 96 - 108 mmol/L [facility] Carbon Dioxide 26 22 - 29 mmol/L [facility] Anion Gap 11(L) 12 - 20 [facility] Urea Nitrogen (BUN) 15 9 - 16 mg/dL [facility] Creatinine, Serum 0.80 0.5 - 1.4 mg/dL [facility] Estimated Glomerular Filt Rate >60 [facility] Comment:Chronic Kidney Disea se: Estimated GFR < 60 mL/min/1.15v9Pckkar Kidney Disease: Estimated GFR < 15 mL/min/1.73m2 Glucose 92 60 - 115 mg/dL [facility] Calcium 9.9 8.4 - 10.2 mg/dL [facility] Bilirubin, Total 0.3 0.0 - 1.0 mg/dL [facility] Aspartate Amino Transferase 23 5 - 31 U/L [facility] Alanine Aminotransferase 20 0 - 31 U/L [facility] Total Protein 7.1 6.5 - 8.0 g/dL [facility] Albumin Level 4.3 3.5 - 5.0 g/dL [facility] Alkaline Phosphatase 50 39 - 117 U/L [facility] Blood Venous blood specimen / Unknown 04/07/2024 12:39 PM EST 04/07/2024 1:11 PM EST us Krysten Rose MD LAB BLOOD ORDERABLES Final Resul t Performing Organization Address [facility]/ZIP Co de Phone Number [facility] [address] [place] [phone] * (ABNORMAL) Lipid Panel with Reflex to Direct LDL (08/14/2023 3:08 PM EDT) Triglycerides 197(H) <150 mg/dL [facility] Comment:Desirable Triglyceri de: less than 150 mg/dLBorderline High Triglyceride 150-199 mg/dLHigh Triglyceride: 200-499 mg/dLVery High Triglyceride: greater than or equal to 5OO mg/dL Cholesterol 183 <200 mg/dL [facility] Comment:Desirable Cholestero l: less than 200 mg/dLBorderline High Cholesterol: 200-239 mg/dLHigh Cholesterol: greater than 239 mg/dL LDL Cholesterol Calculated 89 <100 mg/dL [facility] Comment:Desirable LDL: less than 100 mg/dLNear Optimal/Above Optimal LDL: 110- 129 mg/dLBorderline High LDL: 130-159 mg/dLHigh LDL: 160-189 mg/dLVery High LDL: greater than or equal to 190 mg/dL HDL Cholesterol 55 >40 mg/dL [facility] Comment:Desirable HDL: great er than 40 mg/dL Note: This HDL assay may give artificially low results in patients with liver disease. Blood 08/14/2023 3:08 PM EDT 08/14/2023 4:11 PM EDT us Krysten Rose MD LAB BLOOD ORDERABLES Final Resul t [facility] [address] [place] [phone] * HEPATITIS C AB W/REFL TO HCV RNA, QN, PCR (01/17/2022 8:19 AM EDT) HEPATITIS C ANTIBODY NON-REACTI VE NON-REACT PEGGY [facility] INDEX 0.07 <1.00 [facility] Comment: ?? HCV antibody was non-reactive. There is no laboratory ?? evidence of HCV infection. ?? In most cases, no further action is required. However, if recent HCV exposure is suspected, a test for HCV RNA (test code 29215) is suggested. ?? For additional information please refer to http://education.questdiagnostics.com/faq/QFT01r3 (This link is being provided for informational/ educational purposes only.) ?? 01/17/2022 8:19 AM EDT Krysten Rose MD HISTORICAL/NON ORDERABLE LABS Fi nal Result [facility] * Hm Colonoscopy (05/04/2020) Colonoscopy Normal Normal Allan Hong MD HEALTH MAINTENANCE Final Res ult from Last 3 Months or Most Recently Relevant to Health Maintenance Insurance - [facility] - [facility] Care Teams Bingo Clerk Relationship Specialty Start Date End Date Krysten Rose MD [address] [place] [phone] PCP - General Family Medicine 02/16/11 Rolly Mosley, PharmD [address] [place] [phone] Pharmacist Internal Medicine 08/11/22 Getachew Aguayo MD [address] [place] [phone] General Surgery 04/06/24 Tatiana Pineda MD [address] [place] [phone] Hematology and Oncology 04/06/24LozadaJuly [address] [place] [phone] Gastroenterology 04/06/24 Graham Mathews MD [address] [place] [phone] Cardiology 04/06/24
--- OUTSIDE RECORDS SUMMARY | 2024-05-14 12:22 | XMS_ITS | Encounter Summary ---
Author Organization [employer] Address [address] [facility] 7t [place] [address] Care Team Providers Care Database Reporting Consultant Name Role Phone Krysten Rose MD Primary Care Provider [phone] Rolly Mosley PharmD Unavailable [phone] Getachew Aguayo MD Unavailable [phone] Tatiana Pineda MD Unavailable [phone] July Unavailable Graham Mathews MD Unavailable Encounter Details Date Type Department Care Team (Late st Contact Info) Description 04/28/2024 Orders Only GENERIC EXTERNAL DATA DEPARTMENT Provider, Generic External Data Social History Tobacco Use Types Packs/Day Years [...] enough money to get more: Never True 10/ Transportation Answer Date Recorded In the past [...] Description 06/23/2024 11:00 AM EDT Office Visit [facility] [address] [place] [address] Krysten Rose MD [address] [place] [address] 08/22/2024 3:00 PM EDT Office Visit [facility] ADULT DENTAL [address] [place] [address] Cezar Elliottaris [address] [place] [address] documented as of this encounter Goals Goal Patient Goal Type Associated Problems Recent Progress Patient-Stated? Author Blood Pressure < 150/90 Blood Pressure 142/83(2024 3:31 PM EST) Rolly Sol, PharmD Note: Per JNC-8 Age greater than 60 y/o without CKD or DM documented as of this encounter Procedures Procedure Name Priority Date/Time Associated Diagnosis Comments HEMATOXYLIN AND EOSIN STAIN Routine 04/28/2024 1:27 PM EST documented in this encounter Results * Hematoxylin and Eosin Stain (04/28/2024 1:27 PM EST) 04/28/2024 1:27 PM EST 04/28/2024 2:08 PM EST Narrative [facility] - 04/30/2024 3:00 PM EST ----- ------- Name: Charlene Zamora ? Age/Sex: 73/F ? : 1950 Unit#: [id number] ?? Attend Dr: Antoinette Bryant MD ?Re04/28/24 ?Status: DEP SDC ? Location: HO.SSS ?Disch: ? ----- ------- SPEC : [id number] ?RECD: 04/28/24-6 ? STATUS: ??SOUT ? REQ NUM: [id number] ? MAN: 04/28/24-7 ? SUBM DR: Antoinette Bryant MD ? ENTERED: ??04/28/24-1414 ?SP TYPE: Surgical ? OTHR DR: Krysten [...] Copies To: ?? Antoinette Bryant MD ?? [facility] ?? [address] ?? [place] [address] ?? [phone] ?? Krysten Rose MD ?? [facility] ?? [address] [facility] ?? [place] [address] ?? [phone] ----- ------- Signed (signature on file) Edy Pelletier MD 04/30/24 1500 ? ----- ------- ? END OF REPORT ? us Generic External Data Provider LAB BLOOD ORDERAB LES Final Result [facility] [address] [place] [address] [phone] documented in this encounter Visit Diagnoses Not on filedocumented in this encounter Additional Health Concerns Assessment Noted Time PHQ-9 Depression Total Score: 24 024 6:22 PM EDT documented as of this encounter Care Teams Database Reporting Consultant Relationship Specialty Start Date End Date Krysten Rose MD [address] [place] [address] PCP - General Family Medicine 02/16/11 Rolly Mosley, EusebioD [address] [place] [address] Pharmacist Internal Medicine 08/11/22 Getachew Aguayo MD [address] [place] [address] General Surgery 04/06/24 Tatiana Pineda MD [address] [place] [address] Hematology and Oncology 04/06/[address] [place] [address] Gastroenterology 04/06/24 Graham Mathews MD [address]rd [place] [address] Cardiology 04/06/24 documented as of this encounter
--- OUTSIDE RECORDS SUMMARY | 2024-05-14 12:22 | XMS_ITS | Encounter Summary ---
Author Organization [employer] Address [address] [facility] 7t [place] [address] Care Team Providers Care Court Manager Name Role Phone Krysten Rose MD Primary Care Provider [phone] Rolly Mosley PharmD Unavailable [phone] Getachew Aguayo MD Unavailable [phone] Tatiana Pineda MD Unavailable [phone] July Unavailable Graham Mathews MD Unavailable Encounter Details Date Type Department Care Team (Late st Contact Info) Description 11/30/2022 Orders Only [facility] [address] [place], [place] [phone] Krysten Rose MD [address] [place], [place] [phone] Chronic pain of left knee (Primary Dx); Chronic pain of right knee Social History Tobacco Use Types Packs/Day Years [...] Description 06/23/2024 11:00 AM EDT Office Visit [facility] [address] [place] [address] Krysten Rose MD [address] [place] [address] 08/22/2024 3:00 PM EDT Office Visit [facility] ADULT DENTAL [address] [place] [address] Earl, Gabriela [address] [place] [address] documented as of this encounter Goals Goal Patient Goal Type Associated Problems Recent Progress Patient-Stated? Author Blood Pressure < 150/90 Blood Pressure 142/83(2024 3:31 PM EST) No Rolly Mosley, Michelle Note: Per JNC-8 Age greater than 60 y/o without CKD or DM documented as of this encounter Visit Diagnoses Diagnosis Chronic pain of left knee- Primary Chronic pain of right knee documented in this encounter Additional Health Concerns Assessment Noted Time PHQ-9 Depression Total Score: 5 07/18/19 23 10:12 AM EDT documented as of this encounter Care Teams Court Manager Relationship Specialty Start Date End Date Krysten Rose MD [address] [place] [address] PCP - General Family Medicine 02/16/11 Rolly Mosley, PharmD [address] [place] [address] Pharmacist Internal Medicine 08/11/22 Getachew Aguayo MD [address] [place] [address] 3rd [place] [address] General Surgery 04/06/24 Tatiana Pineda MD [address] [place] [address] Hematology and Oncology 04/06/24 Dipika Lozada [address] [facility] 3rd [place] [address] Gastroenterology 04/06/24 Graham Mathews MD [address] [place] [address] Cardiology 04/06/24 documented as of this encounter
== END 2024-05-14 11:03 | disposition home or self-care (01) ==
LOC: HO.HHCLNP 11:02
PROVIDERS: Visit Provider Family Medicine
DX: R39.9 Unspecified symptoms and signs involving the genitourinary system (principal)
CPT/HCPCS: 81001; 87086

== ENCOUNTER 2024-07-15 11:31 | Outpatient (AMB) | payer OTHER, SELFPAY ==
--- NOTE | 2024-07-15 11:32 | MHC.OFFVIS ---
Vital Signs 07/15/24 11:33 Height 5 ft 3 in Weight 134 lb 14.766 oz BMI 23.9 BP 126/68 Blood Pressure Location Rt brachial Position Sitting Pulse 92 Pulse Source Pulse Oximeter Pulse Oximetry (%) 99 Oxygen Delivery Method Room Air Intake Visit Reasons: 3 mo f/u Intake Note: ESTABLISHED PATIENT for mgmt of GERD. Pt prev est with July. Chief Complaint; C/O episode N+V, diarrhea while out of country in [facility]. Pt states that it has since resolved, however, now she is dealing with constipation and one episode of rectal bleeding (mild to moderate). Pt does report that reflux has improved however. Pt also reports recent kidney stone. Wrapper Caser Required: Yes Wrapper Caser Services: Wrapper Caser Present Wrapper Caser Name: Antonia [id number] + [facility] Information Interpreted: non-clinical & clinical Accompanied by: Self / Same As Patient Allergies No Known Allergies [No Known Allergies*] Allergy (Verified 07/15/24 11:32) HPI HPI 3 mo f/u: Details: LAST VISIT: GERD (gastroesophageal reflux disease) Chronic RLQ pain Postprandial abdominal bloating Plan Stop omeprazole and famotidine. Patient will start pantoprazole in the morning, may take sucralfate at bedtime. Avoid dietary triggers and late night snacking. Staying upright for minimum 3 hours after meals discussed with patient. Low FODMAP diet discussed with her. List of food recommended as well as list of food to avoid given to patient. Patient will follow-up in July. Patient will be out of the country visiting her daughter for 2 months. She is leaving in May. Patient is agreeable to current plan of care and verbalizes understanding of instructions. She was given the opportunity to ask questions and all questions answered. ? Thank you for allowing me to participate in her care Medications New pantoprazole take one tablet half an hour before breakfast 40 mg PO DAILY 30 tabs 2RF K21.9 sucralfate 10 mL PO BEDTIME 400 mL 3RF K21.9 Discontinued famotidine Discontinued Reason: Doctor's Order 40 mg PO BEDTIME 30 tabs 6RF R13.12 TODAY'S VISIT: Patient is here today for follow-up. Patient reports that she was visiting family and friends in [facility] back in May and noticed that she had blood in her urine and then she was unable to void. Patient had abdominal pain as well as back pain. Patient went to ED in [facility] on May 23. Patient has discharge with her, diagnosed with dysuria, hematuria and kidney stone. Recommendation was made for patient to see urology. Her symptoms since past. However patient currently is dealing with constipation. In beginning of June she started with diarrhea couple episodes of blood in her stool that went away. Currently patient is unable to have a bowel movement. Patient reports that she has to strain. Patient never was constipated in the past. She is due to go for colonoscopy. Last colonoscopy was done by Dr. Hong in March of 2010. Patient had normal colonoscopy and good prep. [facility] Medical History CAD (coronary artery disease) GERD (gastroesophageal reflux disease) COVID-19 History of left tennis elbow Preoperative cardiovascular examination Arm fracture, left Abnormal EKG Chronic RLQ pain Hx of echocardiogram Osteopenia Colon cancer screening Hyperlipidemia Hypertension History of breast cancer Surgical History History of esophagogastroduodenoscopy (EGD) Hx of colonoscopy Hx of bilateral cataract extraction History of hemorrhoidectomy History of hysterectomy History of lumpectomy of left breast Family History Maternal Uncle History of prostate cancer Maternal Aunt History of colon cancer Brother History of prostate cancer Social History Household Members: Family and Children Housing: House Are you a primary continuum of care manager to a significant other at home: No Do you presently have visiting nurse or other home services: Yes Alcohol intake: former Patient Tobacco Use Status: Never used Tobacco service: No Current occupational status: disabled Review of Systems Const Denies weight gain and Denies weight loss ENT Reports no additional complaints, Denies dysphagia and Denies odynophagia Card Reports no additional complaints Resp Reports no additional complaints GI Denies abdominal pain, Denies belching, Denies melena, Reports bloating, Denies change in bowel habits, Reports constipation, Denies dysphagia, Denies excessive flatus, Denies dyspepsia, Denies heartburn, Denies diarrhea, Denies loose stools, Denies nausea, Denies odynophagia and Denies vomiting Reports no additional complaints Musc Reports no additional complaints Neuro Reports no additional complaints Psych Reports no additional complaints Endo Reports no additional complaints Physical Exam Const General: healthy appearing, no acute distress and well developed Nutritional Appearance: well nourished Orientation/consciousness: patient oriented x3 Resp Effort & Inspection: normal respiratory effort, able to speak in complete sentences, no tracheal deviation and symmetric chest movement Auscultation: clear to auscultation bilaterally Cardio Rate: regular rate GI Inspection: Yes normal to inspection and No distended Palpation (GI): Soft to palpation, not firm, nontender and No hepatosplenomegaly present Auscultation: normal bowel sounds General: Yes no CVA tenderness Back/Spine/Pelvis Back: no CVA tenderness Skin General skin exam: elasticity normal, turgor normal and dry skin Neuro General: patient oriented x3 Psych Appearance: grossly normal Mental Status: mental status grossly normal Assessment & Plan Assessment & Plan (1) Blood in urine: Code(s): R31.9 - Hematuria, unspecified Category: Medical Qualifiers: Hematuria type: unspecified type Qualified Code(s): R31.9 - Hematuria, unspecified (2) Kidney stone: Code(s): N20.0 - Calculus of kidney Category: Medical (3) GERD (gastroesophageal reflux disease): Code(s): K21.9 - Gastro-esophageal reflux disease without esophagitis Category: Medical Qualifiers: Esophagitis presence: without esophagitis Qualified Code(s): K21.9 - Gastro-esophageal reflux disease without esophagitis (4) Chronic RLQ pain: Code(s): R10.31 - Right lower quadrant pain; G89.29 - Other chronic pain Category: Medical (5) Postprandial abdominal bloating: Code(s): R14.0 - Abdominal distension (gaseous) (6) Constipation: Code(s): K59.00 - Constipation, unspecified Qualifiers: Constipation type: slow transit constipation Qualified Code(s): K59.01 - Slow transit constipation Plan Continue pantoprazole in the morning and sucralfate at bedtime. Avoid dietary triggers and late night snacking. Patient is constipated currently it could be related to sucralfate. Patient can start taking senna to help her with bowel movements as needed. Increase fluid intake and activity to promote better bowel motility. Referral to urology per ED recommendations. Follow-up in 4-5 weeks to discuss going for colonoscopy. Last colonoscopy in March of 2010. Couple episode of blood in her stool in the past few months. Patient is agreeable to this plan and verbalizes understanding of instructions. She was given the opportunity to ask questions and all questions answered. Thank you for allowing me to participate in her care Orders: Referrals Urology Referral N20.0 - Calculus of kidney, R30.0 - Dysuria, R31.9 - Hematuria, unspecified Medications: New sennosides (Natural Senna Laxative) 17.2 mg (2 x 8.6 mg) PO BEDTIME 60 tabs 3RF constipation K59.00 - Constipation, unspecified Coding Level of Care Code Est Pt Level 4 (98912) Complex EM visit Add On G2211 Diagnoses Hematuria, unspecified type R31.9 Hematuria type: unspecified type Kidney stone N20.0 Gastroesophageal reflux disease without esophagitis K21.9 Esophagitis presence: without esophagitis Chronic RLQ pain R10.31; G89.29 Postprandial abdominal bloating R14.0 Slow transit constipation K59.01 Constipation type: slow transit constipation Time Spent (min) 35 Comment 20 minutes spent with patient and additional 15 minutes spent reviewing her records
[2024-07-15 11:33] VITALS: BP 126/68; PULSE 92; O2SAT 99; BMI 23.9
== END 2024-07-15 12:10 | disposition home or self-care (01) ==
PROVIDERS: PCP Family Medicine; Visit Provider Nurse Practitioner Family
DX: R31.9 Hematuria, unspecified (principal); N20.0 Calculus of kidney; K21.9 Gastro-esophageal reflux disease without esophagitis; R10.31 Right lower quadrant pain; G89.29 Other chronic pain; R14.0 Abdominal distension (gaseous); K59.01 Slow transit constipation
CPT/HCPCS: 99214; G2211

== ENCOUNTER → 2024-07-15 11:31 | Outpatient (BNVA) | payer OTHER, SELFPAY | PROVIDERS: PCP Family Medicine; Visit Provider Nurse Practitioner Family | DX: K21.9 Gastro-esophageal reflux disease without esophagitis (principal); K59.01 Slow transit constipation; R31.9 Hematuria, unspecified; R10.31 Right lower quadrant pain; R14.0 Abdominal distension (gaseous); N20.0 Calculus of kidney; G89.29 Other chronic pain | CPT/HCPCS: 99212 ==

== ENCOUNTER 2024-07-31 11:56 | Outpatient (AMB) | payer OTHER, SELFPAY ==
[2024-07-31 12:34] VITALS: BP 110/70; PULSE 72; BMI 25.0
--- NOTE | 2024-07-31 12:34 | A.OFFVIS_ITS ---
Vital Signs 07/31/24 12:34 Height 5 ft 3 in Weight 141 lb 1.533 oz BMI 25.0 BP 110/70 Blood Pressure Location Rt brachial Position Sitting Pulse 72 Intake Visit Reasons: 6m follow up Intake Note: 6 month follow-up feeling ok Machine Loader Required: Yes Machine Loader Name: kalpana Wright Allergies No Known Allergies [No Known Allergies*] Allergy (Verified 07/15/24 11:32) Medication List - Last Reconciled 07/31/24 by Graham Mathews MD amlodipine 10 mg PO DAILY 90 days aspirin 81 mg PO DAILY cholecalciferol (vitamin D3) (Vitamin D3) 25 mcg PO QAM cyanocobalamin (vitamin B-12) 1,000 mcg PO DAILY fluticasone propionate 50 mcg/actuation 1 spray intranasal DAILY hydrocortisone 2.5% 2.5 appl topical DAILY ipratropium bromide intranasal lisinopril 10 mg PO DAILY loratadine (Claritin) 10 mg PO DAILY PRN multivitamin 1 tab PO QAM olopatadine 0.2% 1 drp ophthalmic (eye) DAILY pantoprazole 40 mg PO DAILY rosuvastatin 20 mg PO BEDTIME sennosides (Natural Senna Laxative) 17.2 mg (2 x 8.6 mg) PO BEDTIME sucralfate 10 mL PO BEDTIME HPI Comments Details: Charlene comes for follow-up. History obtained with help of registered dietician. Had another episode of what she felt like palpitation in the chest and ended up going to urgent care where no abnormality was found. She was advised to be referred back to Cardiology. In the past she has had extensive workup and there has been no arrhythmias detected. We discussed about pursuing to obtain a smart phone based EKG device which she has not been able to do. A blood pressure is generally well controlled otherwise. She denies any exertional chest pain or shortness of breath. No lightheadedness, syncope. [facility] Medical History (Updated 07/31/24 @ 12:54 by Graham Mathews MD) Abnormal nuclear stress test Dysuria Kidney stone Blood in urine CAD (coronary artery disease) GERD (gastroesophageal reflux disease) COVID-19 History of left tennis elbow Preoperative cardiovascular examination Arm fracture, left Abnormal EKG Chronic RLQ pain Hx of echocardiogram Osteopenia Colon cancer screening Hyperlipidemia Hypertension History of breast cancer Surgical History History of esophagogastroduodenoscopy (EGD) Hx of colonoscopy Hx of bilateral cataract extraction History of hemorrhoidectomy History of hysterectomy History of lumpectomy of left breast Family History Maternal Uncle History of prostate cancer Maternal Aunt History of colon cancer Brother History of prostate cancer Social History Household Members: Family and Children Housing: House Are you a primary outdoor emergency care technician to a significant other at home: No Do you presently have visiting nurse or other home services: Yes Alcohol intake: former Patient Tobacco Use Status: Never used Tobacco service: No Current occupational status: disabled Review of Systems Const Denies chills, Denies fatigue, Denies fever(s), Denies frequent falls, Denies weakness, Denies weight gain and Denies weight loss ENT Denies dizziness Card Denies chest pain, Denies leg edema, Denies lightheadedness, Denies palpitations, Denies dyspnea, Denies dyspnea on exertion, Denies orthopnea and Denies other (loss of consciousness) Resp Denies cough, Denies dyspnea and Denies dyspnea on exertion GI Denies hematochezia and Denies change in stool character Musc Denies abnormal gait, Denies muscle weakness, Denies numbness, Denies radiating pain into limb and Denies tingling Neuro Denies abnormal gait, Denies dizziness, Denies frequent falls, Denies numbness, Denies tingling and Denies weakness Endo Denies fatigue and Denies palpitations Physical Exam Vital Signs: Last Vital Signs Pulse 72 07/31/24 12:34 BP 110/70 07/31/24 12:34 BMI result Body Mass Index 25.0 Const General: cooperative, healthy appearing, comfortable and no acute distress Orientation/consciousness: patient oriented x3 Neck Neck: Yes normal visual inspection and Yes no JVD Resp Effort & Inspection: normal respiratory effort Auscultation: clear to auscultation bilaterally, no crackles, no rales, no rhonchi and no wheezes Cardio Jugular venous distension: no JVD Rate: regular rate Rhythm: regular rhythm Heart sounds: S1 normal heart sound present, S2 normal heart sound present, no murmurs and no rubs Neuro General: patient oriented x3 Extrem General: Yes normal to inspection and No no pedal edema Psych Appearance: grossly normal Mental Status: mental status grossly normal Speech and movement: Normal speech and movement present Assessment & Plan Assessment & Plan (1) Hypertensive heart disease: Code(s): I11.9 - Hypertensive heart disease without heart failure Category: Medical Plan: Hypertensive heart disease with mild LVH without signs or symptoms of heart failure. Continue aggressive control blood pressure which is currently well optimized. Importance of good blood pressure control was discussed. Low-salt diet was discussed. Stress mitigation strategies was discussed. Follow-up echocardiogram in 1 year's time. No other interventions required at this point time. (2) CAD (coronary artery disease): Comment: mild per cardic cath, no stent needed Code(s): I25.10 - Atherosclerotic heart disease of seminole coronary artery without angina pectoris Category: Medical Plan: Nonobstructive CAD by cardiac catheterization with false-positive myocardial perfusion imaging testing in the past. Continue low-dose aspirin therapy. Continue aggressive blood pressure treatment as above. Continue statin therapy with target goal LDL less than 70 mg/dL. Maintain activity level as tolerated. (3) Palpitations: Code(s): R00.2 - Palpitations Category: Medical Plan: Symptoms of palpitation without any obvious etiology despite extensive workup. At this point time no further workup is indicated. Discussed about pursuing smart phone based EKG device off were own to help us with diagnose. She will think about it. Most likely related to anxiety. Stress mitigation strategies were discussed. Avoidance of stimulants was discussed. Follow up in the clinic in 1 year's time, sooner p.r.n.. Thank you for allowing me to partake in her care Orders: Orders CA echo transthoracic complete 1 Year I11.9 - Hypertensive heart disease without heart failure Coding Level of Care Code Est Pt Level 4 (87808) Complex EM visit Add On G2211 Diagnoses Hypertensive heart disease I11.9 CAD (coronary artery disease) I25.10 Palpitations R00.2
--- OUTSIDE RECORDS SUMMARY | 2024-07-31 14:19 | XMS_ITS | Encounter Summary ---
Author Organization [employer] Address [address] [facility] 7t [place] [address] Care Team Providers Care Blueprint Trimmer Name Role Phone Krysten Rose MD Primary Care Provider [phone] Rolly Mosley PharmD Unavailable [phone] Getachew Aguayo MD Unavailable Tatiana Pineda MD Unavailable [phone] July Unavailable Graham Mathews MD Unavailable Encounter Details Date Type Department Care Team (Late st Contact Info) Description 10/03/2022 Abstract [facility] ADULT DENTAL [address] [place], [place] [phone] Bruno Sam, CORRINE [address] [place] [address] Social History Tobacco Use Types Packs/Day Years [...] Care Team (Late st Contact Info) Description 08/26/2024 11:00 AM EDT Office Visit [facility] ADULT DENTAL [address] [place] [address] Cezar Elliottaris [address] [place] [address] 09/04/2024 11:00 AM EDT Office Visit [facility] MED[facility]INE [address] [place] [address] Krysten Rose MD [address] [place] [address] documented as of this encounter Goals Goal Patient Goal Type Associated Problems Recent Progress Patient-Stated? Author Blood Pressure < 150/90 Blood Pressure 137/76(2024 10:34 AM EDT) No Rolly Mosley, PharmD Note: Per JNC-8 Age greater than 60 y/o without CKD or DM documented as of this encounter Visit Diagnoses Not on filedocumented in this encounter Additional Health Concerns Assessment Noted Time PHQ-9 Depression Total Score: 5 07/18/19 23 10:12 AM EDT documented as of this encounter Care Teams Blueprint Trimmer Relationship Specialty Start Date End Date Krysten Rose MD [address] [place] [address] PCP - General Family Medicine 02/16/11 Rolly Mosley, PharmD [address] [place] [address] Pharmacist Internal Medicine 08/11/22 Getachew Aguayo MD [address] [place] [address] Drive 3rd [place] [address] General Surgery 04/06/24 Tatiana Pineda MD [address] [place] [address] Hematology and Oncology 04/06/24July [address] [place] [address] Gastroenterology 04/06/24 Graham Mathews MD [address] [place] [address] Cardiology 04/06/24 documented as of this encounter
--- OUTSIDE RECORDS SUMMARY | 2024-07-31 14:19 | XMS_ITS | Encounter Summary ---
Author Organization [employer] Address [address] [facility] 7t [place] [address] Care Team Providers Care Drying Frame Operator Name Role Phone Krysten Rose MD Primary Care Provider [phone] Rolly Mosley PharmD Unavailable [phone] Getachew Aguayo MD Unavailable [phone] Tatiana Pineda MD Unavailable [phone] July Unavailable Graham Mathews MD Unavailable Encounter Details Date Type Department Care Team (Late st Contact Info) Description 02/27/2023 Abstract [facility] MEDICINE [address] [place], [place] [phone] Krysten Rose MD [address] [place], [place] [phone] Social History Tobacco Use Types Packs/Day Years [...] Description 08/26/2024 11:00 AM EDT Office Visit [facility] ADULT DENTAL [address] [place] [address] Earl, Gabriela [address] [place] [address] 09/04/2024 11:00 AM EDT Office Visit [facility] MEDICINE [address] [place] [address] Krysten Rose MD [address] [place] [address] documented as of this encounter Goals Goal [...] documented as of this encounter Care Teams Drying Frame Operator Relationship Specialty Start Date End Date Krysten Rose MD [address] [place] [address] PCP - General Family Medicine 02/16/11 Rolly Mosley, EusebioD [address] [place] [address] Pharmacist Internal Medicine 08/11/22 Getachew Aguayo MD [address] [place] [address] General Surgery 04/06/24 Tatiana Pineda MD [address] [place] [address] Hematology and Oncology 04/06/24July [address] [place] [address] Gastroenterology 04/06/24 Graham Mathews MD [address] [place] [address] Cardiology 04/06/24 documented as of this encounter
--- OUTSIDE RECORDS SUMMARY | 2024-07-31 14:19 | XMS_ITS | Encounter Summary ---
Author Organization [employer] Address [address] [facility] 7t [place] [address] Care Team Providers Care Middle School Music Teacher Name Role Phone Krysten Rose MD Primary Care Provider [phone] Rolly Mosley PharmD Unavailable [phone] Getachew Aguayo MD Unavailable [phone] Tatiana Pineda MD Unavailable [phone] July Unavailable Graham Mathews MD Unavailable Encounter Details Date Type Department Care Team (Late st Contact Info) Description 04/04/2022 Abstract [facility] MEDICINE [address] [place], [place] [phone] Krysten Rose MD [address] [place], [place] [phone] Social History Tobacco Use Types Packs/Day Years [...] guideline * Assessment & Plan Note - Krysten Rose MD - 04/04/2022 6:34 AM ESTAssociated Problem(s): Essential tremor Dx Benign essential tremor with titubation. Seen by [facility] neurologist, last visit on 08/10/20 Continue Gabapentin 100mg QHS * Assessment & Plan Note - Krysten Rose MD - 04/04/2022 6:32 AM ESTAssociated Problem(s): Breast cancer (CMS/HCC) - Current breast surgeon: Dr. Aguayo, seen on 10/22/20 - Previous breast surgeon: Dr. Andrade - Oncologist: [facility] Dr. Pineda and Dr. Ochoa, last seen [...] Description 08/26/2024 11:00 AM EDT Office Visit [facility] ADULT DENTAL [address] [place] [address] Earl, Gabriela [address] [place] [address] 09/04/2024 11:00 AM EDT Office Visit [facility] MEDICINE [address] [place] [address] Krysten Rose MD [address] [facility] [place] [address] documented as of this encounter Visit Diagnoses Not on filedocumented in this encounter Care Teams Middle [employer] Music Teacher Relationship Specialty Start Date End Date Krysten Rose MD [facility] [place] [address] PCP - General Family Medicine 02/16/11 Rolly Mosley, EusebioD [address] [place] [address] Pharmacist Internal Medicine 08/11/22 Getachew Aguayo MD [address] [place] [address] General Surgery 04/06/24 Tatiana Pineda MD [address] [place] [address] Hematology and Oncology 04/06/[address] [place] [address] Gastroenterology 04/06/24 Graham Mathews MD [address] [place] [address] Cardiology 04/06/24 documented as of this encounter
--- OUTSIDE RECORDS SUMMARY | 2024-07-31 14:19 | XMS_ITS | Encounter Summary ---
Author Organization [employer] Address 75 [facility] 7t [place] [address] Care Team Providers Care Pharmaceutical Service Representative Name Role Phone Krysten Rose MD Primary Care Provider [phone] Rolly Mosley PharmD Unavailable [phone] Getachew Aguayo MD Unavailable Tatiana Pineda MD Unavailable [phone] July Unavailable Graham Mathews MD Unavailable Encounter Details Date Type Department Care Team (Late st Contact Info) Description 06/07/2023 Orders Only [facility] MEDICINE [address] [place], [place] [phone] Krysten Rose MD [address] [place], [place] [phone] Abnormal EKG (Primary Dx) Social History Tobacco [...] Description 08/26/2024 11:00 AM EDT Office Visit [facility] ADULT DENTAL [address] [place] [address] Earl, Gabriela [address] [place] [address] 09/04/2024 11:00 AM EDT Office Visit [facility] MEDICINE [address] [place] [address] Krysten Rose MD [address] [place] [address] Scheduled Orders Name Type Priority Associated Diagnoses Orde r Schedule ECG 12 lead ECG Routine Abnormal EKG Ordered: 06/07/2023 documented as of this encounter Goals Goal Patient Goal Type Associated Problems Recent Progress Patient-Stated? Author Blood Pressure < 150/90 Blood Pressure 137/76(2024 10:34 AM EDT) Rolly Sol, PharmD Note: Per JNC-8 Age greater than 60 y/o without CKD or DM documented as of this encounter Visit Diagnoses Diagnosis Abnormal EKG- Primary Nonspecific abnormal electrocardiogram (ECG) (EKG) documented in this encounter Additional Health Concerns Assessment Noted Time PHQ-9 Depression Total Score: 5 07/18/19 10:12 AM EDT documented as of this encounter Care Teams Pharmaceutical Service Representative Relationship Specialty Start Date End Date Krysten Rose MD [address] [place] [address] PCP - General Family Medicine 02/16/11 Rolly Mosley, EusebioD [address] [place] [address] Pharmacist Internal Medicine 08/11/22 Getachew Aguayo MD [address] [place] [address] General Surgery 04/06/24 Tatiana Pineda MD [address] [place] [address] Hematology and Oncology 04/06/24 Dipika Lozada [address] [place] [address] Gastroenterology 04/06/24 Graham Mathews MD [address] [place] [address] Cardiology 04/06/24 documented as of this encounter
--- OUTSIDE RECORDS SUMMARY | 2024-07-31 14:19 | XMS_ITS | Encounter Summary ---
Author Organization [employer] Address [address] [facility] 7t [place] [address] Care Team Providers Care Switching Operator Name Role Phone Krysten Rose MD Primary Care Provider [phone] Rolly Mosley PharmD Unavailable [phone] Getachew Aguayo MD Unavailable [phone] Tatiana Pineda MD Unavailable [phone] July Unavailable Graham Mathews MD Unavailable Encounter Details Date Type Department Care Team (Latest Contact Info) Description 12/03/[address] [facility] CONVERSIONS Dental, Provider, DDS Social History [...] Description 08/26/2024 11:00 AM EDT Office Visit [facility] ADULT DENTAL [address] [place], [place] [phone] Cezar Elliottaris [address] [place], [place] [phone] 09/04/2024 11:00 AM EDT Office Visit [facility] MEDICINE [address] [place], [place] [phone] Krysten Rose MD [address] [place] [address] documented as of this encounter Visit Diagnoses Not on filedocumented in this encounter Care Teams Switching Operator Relationship Specialty Start Date End Date Krysten Rose MD [address] [place] [address] PCP - General Family Medicine 02/16/11 Rolly Mosley, EusebioD [address] [place] [address] Pharmacist Internal Medicine 08/11/22 Getachew Aguayo MD [address] [place] [address] General Surgery 04/06/24 Tatiana Pineda MD [address] [place] [address] Hematology and Oncology 04/06/[address] [place] [address] Gastroenterology 04/06/24 Graham Mathews MD [address] [place] [address] Cardiology 04/06/24 documented as of this encounter
--- OUTSIDE RECORDS SUMMARY | 2024-07-31 14:19 | XMS_ITS | Encounter Summary ---
Author Organization [employer] Address 75 [facility] 7t [place] [address] Care Team Providers Care Brick And Block Mason Name Role Phone Krysten Rose MD Primary Care Provider Rolly Mosley PharmD Unavailable [phone] Getachew Aguayo MD Unavailable [phone] Tatiana Pineda MD Unavailable [phone] July Unavailable Graham Mathews MD Unavailable Encounter Details Date Type Department Care Team (Late st Contact Info) Description 11/30/[address] [facility] MEDICINE [address] [place], [place] [phone] Krysten Rose MD [address] [place], [place] [phone] Chronic pain of left knee (Primary Dx); [...] Description 08/26/2024 11:00 AM EDT Office Visit [facility] ADULT DENTAL [address] [place] [address] Gabriela Elliott [address] [place] [address] 09/04/2024 11:00 AM EDT Office Visit [facility] MEDICINE [address] [place] [address] Krysten Rose MD [address] [place] [address] documented as of this encounter Goals Goal Patient Goal Type Associated Problems Recent Progress Patient-Stated? Author Blood Pressure < 150/90 Blood Pressure 137/76(2024 10:34 AM EDT) No Rolly Mosley, Michelle Note: Per JNC-8 Age greater than 60 y/o without CKD or DM documented as of this encounter Visit Diagnoses Diagnosis Chronic pain of left knee- Primary Chronic pain of right knee documented in this encounter Additional Health Concerns Assessment Noted Time PHQ-9 Depression Total Score: 5 07/18/19 23 10:12 AM EDT documented as of this encounter Care Teams Brick And Block Mason Relationship Specialty Start Date End Date Krysten Rose MD [address] [place] [address] PCP - General Family Medicine 02/16/11 Rolly Mosley, PharmD [address] [place] [address] Pharmacist Internal Medicine 08/11/22 Getachew Aguayo MD [address] [place] [address] 3rd [place] [address] General Surgery 04/06/24 Tatiana Pineda MD [address] [place] [address] Hematology and Oncology 04/06/24July 11 [facility] 3rd [place] [address] Gastroenterology 04/06/24 Graham Mathews MD [address] [place] [address] Cardiology 04/06/24 documented as of this encounter
--- OUTSIDE RECORDS SUMMARY | 2024-07-31 14:19 | XMS_ITS | Clinical Summary ---
Author Organization [employer] Address [address] [facility] [address] [place] [address] Care Team Providers Care Production Technician Name Role Phone Krysten Rose MD Primary Care Provider [phone] Rolly Mosley PharmD Unavailable [phone] Getachew Aguayo MD Unavailable [phone] Tatiana Pineda MD Unavailable [phone] July Unavailable Graham Mathews MD Unavailable [...] TABLET BY MOUTH EVERY DAY 3 Active Vitamin D High Potency 25 MCG [...] per day. 90 tablet 3 5 Active rosuvastatin (Crestor) 20 MG tablet TAKE 1 TABLET BY MOUTH AT BEDTIME 90 tablet 3 5 Active Aspirin Low Dose 81 MG chewable tablet TAKE 1 TABLET BY MOUTH EVERY MORNING (CHEW) 90 tablet 3 5 Active lisinopril 10 MG tablet TAKE 1 TABLET BY MOUTH EVERY MORNING 90 tablet 3 5 Active Active Problems Problem Noted Date Diagnosed [...] 2:36 PM EST): - Pt went to [facility] recently to relieve some stress Assessment [...] this time - consider further evaluation by art specialist - recommended to discuss with her ripsaw grader for eye twitching GERD (gastroesophageal reflux disease) Assessment & Plan (11/20/2023 12:48 PM EDT): - following with [facility] GI - continue famotidine - will check [...] (10/09/2023 11:58 AM EDT): - Following with [facility] Cardiology, last seen on 08/13/23 - Nuclear [...] for cardiac cath. Pt was sent from [facility] to [facility] ED on 08/24/23 due to cardiac symptoms for consideration of cardiac cath, but was not deemed necessary at that time. Pt experiencing stress/anxiety as cardiac cath has not yet been completed, and would like assistance with scheduling. RN left message for [facility] Cards regarding timeline above, plan for them to call us back or give call directly to pt to schedule. - Strict ED precautions reviewed - Plan to continue amlodipine, lisinopril, aspirin, and pravastatin. Assessment & Plan (08/15/2023 7:12 PM EDT): - Following with [facility] Cardiology, last seen on 08/13/23 - Asymptomatic, [...] EDT): - likely rosacea - following with fuller brush worker; will obtain records Hx of cholecystectomy 05/10/2023 Assessment & Plan (05/10/2023 6:46 PM EST): Pt s/p cholecystectomy , w no complications Feeling well Abnormal EKG 05/10/2023 Assessment & Plan (08/15/2023 7:14 PM EDT): - incidental finding while undergoing pre-op for lap cholecystectomy in [facility] in April 2023 - EKG showed T-wave inversions across the precordium in [facility] in April 2023, an incidental finding while undergoing pre-op for laparoscopic cholecystectomy, which is different from prior EKG - EKG at [facility] Cardiology office in June 2023 showed sinus [...] -advised pt to f up w her aircraft systems repairer ot will need to return to clinic to repeat EKG --pt states will see her aircraft systems repairer -alarm signs and symptoms discussed Oropharyngeal dysphagia 05/10/2023 Assessment & Plan (10/09/2023 11:58 AM EDT): - Pt evaluated by [facility] in June 2023 - Plan for barium swallow proceeded by EGD. Pt reports she has not been contacted to schedule either from [facility], and having difficulties communicating with office. - RN contacted [facility] GI office and LVM to help coordinate [...] (07/31/2022 5:05 AM EDT): - Evaluated by [facility] Cardiology service in Mar 2021 and 2021 [...] was recovering from left arm fracture in 0254-6647, then restarted and discontinued in Feb 2023 [...] was recovering from left arm fracture in 0359-6890, then restarted - Oncologist, Dr. Pineda started her on RANKL inhibitor with denosumab/Prolia 60 mg every 6 month. She is on this medication since March 2023. Assessment & Plan (08/14/2023 2:41 PM EDT): - 06/23/22 DEXA -2.5 in femoral neck - alendronate since 2009, interruption while she was recovering from left arm fracture in 1471-4746, then restarted - Oncologist, Dr. Pineda will start her on RANKL inhibitor with denosumab/Prolia 60 mg every 6 month. Assessment & Plan (03/23/2023 1:03 PM EST): - 06/23/22 DEXA -2.5 in femoral neck - alendronate since 2009, interruption while she was recovering from left arm fracture in 9522-6842, then restarted - Oncologist, Dr. Pineda will start her on RANKL inhibitor [...] essential tremor with titubation. - Seen by [facility] neurologist, last visit in August 2022 - Previously tried gabapentin, but pt developed leg swelling after increasing its dose. Gabapentin was discontinued - Pt was safely discharged from neurology clinic Assessment & Plan (11/20/2023 12:36 PM EDT): - Dx Benign essential tremor with titubation. - Seen by [facility] neurologist, last visit in August 2022 - Previously tried gabapentin, but pt developed leg swelling after increasing its dose. Gabapentin was discontinued - Pt was safely discharged from neurology clinic Assessment & Plan (08/14/2023 2:41 PM EDT): - Dx Benign essential tremor with titubation. - Seen by [facility] neurologist, last visit in August 2022 - Previously tried gabapentin, but pt developed leg swelling after increasing its dose. Gabapentin was discontinued - Pt was safely discharged from neurology clinic Assessment & Plan (03/23/2023 1:07 PM EST): - Dx Benign essential tremor with titubation. - Seen by [facility] neurologist, last visit in August 2022 - Previously tried gabapentin, but pt developed leg swelling after increasing its dose. Gabapentin was discontinued - Pt was safely discharged from neurology clinic Assessment & Plan (11/28/2022 1:34 PM EDT): - Dx Benign essential tremor with titubation. - Seen by [facility] neurologist, last visit in August 2022 - Previously tried gabapentin, but pt developed leg swelling after increasing its dose. Gabapentin was discontinued - Pt was safely discharged from neurology clinic Assessment & Plan (07/31/2022 4:54 AM EDT): - Dx Benign essential tremor with titubation. - Seen by [facility] neurologist, last visit in May 2022 - Continue Gabapentin 100mg QHS Assessment & Plan (04/04/2022 6:34 AM EST): Dx Benign essential tremor with titubation. Seen by [facility] neurologist, last visit on 08/10/20 Continue Gabapentin 100mg QHS Thyroid nodule 04/04/2022 Assessment & Plan (04/04/2022 6:39 AM EST): -incidental finding on CT scan -Thyroid US on 01/12/21 showed bilateral thyroid nodules. Largest nodule on the right side was 1.4 cm. -No further follow-up is indicated per guideline Closed fracture of left elbow 04/04/2022 Overview (04/04/2022): -Injured on 10/26/20 -Followed by [facility] provider, last sen in Feb 2022 -s/p ORIF on 10/28/20, s/p hardware removal and revision of ORIF on 08/23/21 -pt is slowly recovering (interrupted PT due to her trip to [facility]) -Pt restarted PT and still receiving PT -Continue following recommendations from orthopedists Impaired fasting glucose 12/21/2016 Breast cancer 12/21/2016 Assessment & Plan (04/06/2024 12:13 PM EST): - Left breast infiltrating ductal carcinoma Dx 2017 - s/p lumpectomy and sentinel node biopsy on 08/14/16 - s/p radiation therapy in September and October 2016. - Breast surgeon: [facility], Dr. Aguayo, seen in Dec 2023. Initial surgeon was Dr. Andrade, who has retired. - Oncologist: [facility] Dr. Pineda, last seen in Feb 2024. - Radiation oncologist: Dr. Garcia - Plan was to treat with tamoxifen 2 years, followed by 5 years of aromatase inhibitor. - Tamoxifen was discontinued in 2018 because it could worsen cataract. - Completed [...] Previous breast surgeon: Dr. Andrade - Oncologist: [facility] Dr. Pineda and Dr. [...] Previous breast surgeon: Dr. Andrade - Oncologist: [facility] Dr. Pineda and Dr. [...] Previous breast surgeon: Dr. Andrade - Oncologist: [facility] Dr. Pineda and Dr. [...] Previous breast surgeon: Dr. Andrade - Oncologist: [facility] Dr. Pineda and Dr. [...] Previous breast surgeon: Dr. Andrade - Oncologist: [facility] Dr. Pineda and Dr. [...] Previous breast surgeon: Dr. Andrade - Oncologist: [facility] Dr. Pineda and Dr. [...] Continue checking home BP - Seen by aircraft systems repairer again in Mar 2022, and given reassurance. [...] Continue checking home BP - Seen by aircraft systems repairer again in Mar 2022, and given reassurance. [...] Continue checking home BP - Seen by aircraft systems repairer again in Mar 2022, and given reassurance. [...] Continue checking home BP - Seen by aircraft systems repairer again in Mar 2022, and given reassurance. [...] have a BP monitor. - Seen by aircraft systems repairer again in Mar 2022, and given reassurance [...] Encounters Date Type Department Care Team Description 07/21/2024 11:00 AM EDT Office Visit [facility] [address] [place] [address] [phone] Kevin Veloz MD Palpitations (Primary Dx); Numbness and tingling of both upper extremities 07/21/2024 Travel 06/23/2024 Telephone [facility] [address] [place] [address] [phone] Krysten Rose MD 06/17/2024 Telephone [facility] [address] [place] [address] [phone] Krysten Rose MD CHART PREP 06/11/2024 Telephone [facility] [address] [place] [address] [phone] Gabriela Elliott 06/11/2024 Telephone [facility] [address] [place], [place] [phone] Earl, Gabriela 06/10/2024 Refill [facility] [address] [place] [address] Krysten Rose MD 05/16/2024 Telephone [facility] [address] [place] [address] [phone] Kimberly Cali MD Results 05/14/2024 Orders Only [facility] [address] [place] [address] [phone] Kimberly Cali MD 05/13/2024 3:00 PM EST Office Visit [facility] [address] [place] [address] [phone] Kimberly Cali MD UTI symptoms 05/02/2024 11:00 AM EST Office Visit [facility] [address] [place] [address] [phone] Gabriela Elliott Dental calculus (Primary Dx); Periodontal disease from Last 3 Months Immunizations Name Administration [...] Sign Reading Time Taken Comments Blood Pressure 137/76 07/21/2024 10:34 AM EDT Pulse 88 07/21/2024 11:30 AM EDT Temperature 36.5 ??C (97.7 ??F) 07/21/2024 10:34 AM E DT Respiratory Rate 16 05/13/2024 3:31 PM EST Oxygen Saturation 98% 07/21/2024 11:30 AM EDT Inhaled Oxygen Concentration - - Weight 63.5 kg (140 lb) 05/13/2024 3:31 PM EST Height 158.7 cm (5' 2.47 ) 08/24/2023 9:11 AM ED T Body Mass Index 25.22 08/24/2023 9:11 AM EDT Plan of Treatment Upcoming Encounters Date Type Department Care Team (Late st Contact Info) Description 08/26/2024 11:00 AM EDT Office Visit [facility] [address] [place], [place] [phone] Cezar Elliottaris [address] [place] [phone] 09/04/2024 11:00 AM EDT Office Visit [facility] [address] [place] [address] Krysten Rose MD [address] [place] [address] Health Maintenance Due Date Last Done Comments CT Colonography 1950 FIT DNA/Cologuard 1950 FIT 1950 FOBT 1950 Sigmoidoscopy 1950 COVID-19 Vaccine ( season) 2023 02/21/2023, 01/01/2022, 01/28/2021, Additional history exists SDOH Screening 08/05/2024 08/06/2023 Dental Oral Exam 08/21/2024 02/21/2024, 08/10/2022 Dental Prophylaxis 08/21/2024 02/21/2024, 08/10/2022 Mammogram 09/06/2024 09/07/2023, 08/08, 10/02/2019, Additional history exists Depression Screening 11/23/2024 11/24/2023, 11/24/19 Dental X-Ray: Bitewings 02/21/2025 02/21/2024, 08/10 Alcohol/Substance Use Screening 04/07/2025 04/07/2024 Tobacco Screening 07/21/2025 07/21/2024 Dental X-Ray: Full Mouth 02/21/2027 02/21/2024, 0804/2020 Lipid Panel 08/13/2028 08/14/2023, 02/08, 01/17/2022, Additional [...] Procedure Name Priority Date/Time Associated Diagnosis Comments ECG 12-LEAD Routine 07/21/2024 1:07 PM EDT Palpitations URINALYSIS, COMPLETE, WITH REFLEX TO CULTURE Routine 05/14/2024 12:00 AM EST UTI symptoms CULTURE, URINE, ROUTINE Routine 05/14/2024 12:00 AM EST POCT URINALYSIS DIPSTICK Routine 05/13/2024 3:37 PM EST UTI symptoms CASE PRESENTATION, DETAILED AND EXTENSIVE TREATMENT PLANNING Routine 05/02/2024 [...] 11:00 AM EST Dental calculus Periodontal disease PROPHYLAXIS - ADULT Routine 02/21/2024 8 :00 AM EST Dental calculus Periodontal disease Gingival bleeding INTRAORAL - COMPLETE SERIES OF RADIOGRAPHIC IMAGES Routine 02/21/2024 8:00 AM EST Dental calculus Periodontal disease Gingival bleeding PERIODIC ORAL EVALUATION - ESTABLISHED PATIENT Routine 02/21/2024 8:00 AM EST BI MAMMOGRAM SCREENING TOMOSYNTHESIS BILATERAL Routine 09/07/2023 11:00 AM EDT LIPID PANEL WITH REFLEX TO DIRECT LDL Routine 08/14/2023 3:08 PM EDT Primary hypertension Abnormal EKG ZZZ HISTORICAL HEPATITIS C AB W/REFL TO HCV RNA, QN, PCR Routine 01/17/2022 8:19 AM EDT HM COLONOSCOPY Routine 05/04/2020 from Last 3 Months or Most Recently Relevant to Health Maintenance Results * (ABNORMAL) Urinalysis, Complete, with Reflex to Culture (05/14/2024 12:00 AM EST) Color Urine Yellow [facility] Appearance Urine Clear [facility] PH 6.0 5.0 - 9.0 [facility] Glucose Urine UA Negative Negative mg/dL [facility] Urine Blood Moderate (2+)(A) Negative [facility] Specific [place] - Urine <=1.005 1.005 - 1.025 [facility] Urine Protein Negative Neg-Trace mg/dL [facility] Urine Ketones Negative Negative mg/dL [facility] Nitrite Urine Negative Negative [facility] Leukocyte Esterase Urine Large (3+)(A) Negative [facility] RBC Urine 0-2 0 - 2 /HPF [facility] Urine WBC 6-10 0 - 5 /HPF [facility] Urine Squamous Epithelial Cell 0-2 0 - 2 /HPF [facility] Urine Bacteria None Seen None Seen [facility] Hyaline Casts, Urine 0-2 0 - 2 /LPF [facility] Urine 05/14/2024 05/14/2024 [facility] - 05/14/2024 11:41 AM EST Urine, Clean Catch Kimberly Cali MD LAB URINE ORDERABLES Final Result Performing Organization Address [facility] Co de Phone Number [facility] [address] [place] [phone] * Culture, Urine, Routine (05/14/2024 12:00 AM EST) Urine Urine specimen obtained by clean catch procedure / Unknown 05/14/2024 05/14/2024 Comment:[facility] - 05/16/2024 11:13 AM EST Urine Culture Report Result Urine Culture > 100,000 cfu/ml Urine Culture Mixed bacterial ila characteristic of Urine Culture urogenital contamination. Specimen Source: Urine clean catch Kimberly Cali MD LAB MICROBIOLOGY - GENERAL ORDERABLES Final Result Performing Organization Address City/[facility]/ZIP Co de Phone Number [facility] [address] [place] [phone] * (ABNORMAL) POCT urinalysis dipstick manually [...] TEST ENTER/E DIT ORDERABLES Final Result * BI Mammogram Screening Tomosynthesis Bilateral (09/07/2023 11:00 AM EDT) Anatomical Region Laterality Modality Breast Bilateral Mammography 09/07/2023 11:0 0 AM EDT Narrative 09/25/2023 1:41 PM EDT ? [facility] ? [address] ?[place] [id number] ? Mammography Report ? Signed ? Patient: Noah,Charlene M ?MR#: [id number] ?? [id number] ? : 1950 ?Acct:[id number] ? Age/Sex: 72 / F ?ADM Date: 09/07/23 ? Loc: HO.MAMMO ? Attending Dr: Krysten Rose MD ? Ordering Physician: Krysten Rose MD ?Results: 2Benign F ?? indings ? Date of Service: 09/07/23 ?Follow Up: 1 Year From Orig ?? inal Mammogram ? Procedure(s): MM tomosynthesis screening BI ?? Accession Number(s): [id number] ? cc: Krysten Rose MD ? EXAMINATION: ?? MM SCREENING DIGITAL BREAST TOMOSYNTHESIS, BILATERAL ? CLINICAL INFORMATION: ? Screening. Asymptomatic. ? The patient has a history of prior left breast cancer surgery in the ?? upper outer quadrant. ? COMPARISON: ?? Mammography: This study is compared with prior exams dating back to ?? 2018. ? TECHNIQUE: ?? Digital breast tomosynthesis is performed in both the craniocaudal and ?? mediolateral oblique views along with computer-aided detection (CAD). ?? Synthesized 2D images are generated from the tomosynthesis. ? FINDINGS: ?? The breasts are heterogeneously dense, which may obscure small masses ?? (ACR BI-RADS breast composition Category c). ? There are no significant masses, abnormal calcifications, or other ?? abnormalities. ?? There are postsurgical changes in the upper-outer quadrant of the left ?? breast. There is also some mild postsurgical change in the left axilla. ? MM/MM tomosynthesis screening BI ?? IMPRESSION: ?? No mammographic evidence of malignancy. ? ASSESSMENT: ? BI-RADS BI-RADS 2 - Benign Findings ? RECOMMENDATION: ?? Routine annual mammography screening. ? 1 year F/U ? This examination should not preclude the clinical evaluation of a ?? suspicious palpable abnormality. ? This patient's information was entered into a reminder system with a ?? target due date for their next mammogram. ? Dictated By: ?Radha Haque MD ? Signed By: ?<Electronically signed by Radha Haque MD in OV> ? 09/25/23 1338 ? DD/ 1100 ? TD/TT: ? Time Study Clerk: ? Procedure Note Donotuseinterpreter, Image - 09/25/2023 [place] [facility] [address] [place] [address] Mammography Report Signed Patient: Charlene Zamora MMR#: [id number] : 1Acct:[id number] Age/Sex: 72 / FADM Date: 09/07/23 Loc: HO.MAMMO Attending Dr: Krysten Rose MD Ordering Physician: Krysten Rose MDResults: 2Benign F indings Date of Service: 09/07/23Follow Up: 1 Year From [facility] ina Mammogram Procedure(s): MM tomosynthesis screening BI Accession Number(s): [id number] cc: Krysten Rose MD EXAMINATION: MM SCREENING DIGITAL BREAST TOMOSYNTHESIS, BILATERAL CLINICAL INFORMATION: Screening. Asymptomatic. The patient has a history of prior left breast cancer surgery in the upper outer quadrant. COMPARISON: Mammography: This study is compared with prior exams dating back to 2019. TECHNIQUE: Digital breast tomosynthesis is performed in both the craniocaudal and mediolateral oblique views along with computer-aided detection (CAD). Synthesized 2D images are generated from the tomosynthesis. FINDINGS: The breasts are heterogeneously dense, which may obscure small masses (ACR BI-RADS breast composition Category c). There are no significant masses, abnormal calcifications, or other abnormalities. There are postsurgical changes in the upper-outer quadrant of the left breast. There is also some mild postsurgical change in the left axilla. MM/MM tomosynthesis screening BI IMPRESSION: No mammographic evidence of malignancy. ASSESSMENT: BI-RADS BI-RADS 2 - Benign Findings RECOMMENDATION: Routine annual mammography screening. 1 year F/U This examination should not preclude the clinical evaluation of a suspicious palpable abnormality. This patient's information was entered into a reminder system with a target due date for their next mammogram. Dictated By: Radha Haque MD Signed By: <Electronically signed by Radha Haque MD in OV> 09/25/23 1338 DD/ 1100 TD/TT: Time Study Clerk: us Krysten Rose MD IMG BI PROCEDURES Final Result * (ABNORMAL) Lipid Panel with Reflex to Direct LDL (08/14/2023 3:08 PM EDT) Triglycerides 197(H) <150 mg/dL [facility] Comment:Desirable Triglyceri de: less than 150 mg/dLBorderline High Triglyceride 150-199 mg/dLHigh Triglyceride: 200-499 mg/dLVery High Triglyceride: greater than or equal to 5OO mg/dL Cholesterol 183 <200 mg/dL [facility] Comment:Desirable Cholestero l: less than 200 mg/dLBorderline High Cholesterol: 200-239 mg/dLHigh Cholesterol: greater than 239 mg/dL LDL Cholesterol Calculated 89 <100 mg/dL [facility] Comment:Desirable LDL: less than 100 mg/dLNear Optimal/Above Optimal LDL: 110- 129 mg/dLBorderline High LDL: 130-159 mg/dLHigh LDL: 160-189 mg/dLVery High LDL: greater than or equal to 190 mg/dL HDL Cholesterol 55 >40 mg/dL [facility] Comment:Desirable HDL: great er than 40 mg/dL Note: This HDL assay may give artificially low results in patients with liver disease. Blood 08/14/2023 3:08 PM EDT 08/14/2023 4:11 PM EDT us Krysten Rose MD LAB BLOOD ORDERABLES Final Resul t [facility] [address] [place], [place] [phone] * HEPATITIS C AB W/REFL TO [...] a test for HCV RNA (test code 91408) is suggested. ?? For additional information please refer to http://education.Enubila.VtagO/faq/KDN48w1 (This link is being provided for informational/ educational purposes only.) ?? 01/17/2022 8:19 AM EDT Krysten Rose MD HISTORICAL/NON ORDERABLE LABS Fi nal Result CONVERTED LEGACY LABS * Colonoscopy (05/04/2020) Colonoscopy Normal Normal us Allan Hong MD HEALTH MAINTENANCE Final Res ult from Last 3 Months or Most Recently Relevant to Health Maintenance Insurance [facility] OPTIONS (O D-SNP) DENTAL - [facility] Care Teams Production Technician Relationship Specialty Start Date End Date Krysten Rose MD [address] [place] [phone] PCP - General Family Medicine 02/16/11 Rolly Mosley, PharmD [address] [place] [address] [phone] Pharmacist Internal Medicine 08/11/22 Getachew Aguayo MD [address] [place] [address] [phone] General Surgery 04/06/24 Tatiana Pineda MD [address] [place] [phone] Hematology and Oncology 04/06/24July [address] [place] [address] Gastroenterology 04/06/24 Graham Mathews MD [address] [place] [phone] Cardiology 04/06/24
== END 2024-07-31 12:51 | disposition home or self-care (01) ==
LOC: HO.HCS 11:57
PROVIDERS: PCP Family Medicine; Visit Provider Internal Medicine Cardiovascular Disease
DX: I11.9 Hypertensive heart disease without heart failure (principal); I25.10 Atherosclerotic heart disease of native coronary artery without angina pectoris; R00.2 Palpitations
CPT/HCPCS: 99214; G2211

== ENCOUNTER → 2024-07-31 11:56 | Outpatient (BNVA) | payer OTHER, SELFPAY | PROVIDERS: PCP Family Medicine; Visit Provider Internal Medicine Cardiovascular Disease | DX: I11.9 Hypertensive heart disease without heart failure (principal); R00.2 Palpitations; I25.10 Atherosclerotic heart disease of native coronary artery without angina pectoris | CPT/HCPCS: 99212 ==

== ENCOUNTER 2024-08-26 13:00 | Outpatient (AMB) | payer OTHER, SELFPAY ==
--- NOTE | 2024-08-26 13:03 | MHC.OFFVIS ---
Vital Signs 08/26/24 13:06 Height 5 ft 3 in Weight 142 lb BMI 25.2 BP 122/62 Blood Pressure Location Rt brachial Position Sitting Pulse 88 Pulse Source Pulse Oximeter Pulse Oximetry (%) 98 Oxygen Delivery Method Room Air Intake Visit Reasons: discuss colo Intake Note: ESTABLISHED PATIENT for GERD + CIC mgmt. Discuss colo recall. Pt had EGD April 2024 w/ Dr. Bryant. [place] 2009 w/ Dr. Hong. CC; C.O. constipation which seems worse in the morning despite the senna she is taking, pt also reports mild GERD persistence but has noticed some improvement since starting pantoprazole. Pt denies any additional sx or concerns and is still interested in colonoscopy. As400 Administrator Required: Yes As400 Administrator Services: As400 Administrator Present Accompanied by: Self / Same As Patient Allergies No Known Allergies [No Known Allergies*] Allergy (Verified 08/26/24 13:05) HPI HPI discuss colo: Details: LAST VISIT: Blood in urine Kidney stone GERD (gastroesophageal reflux disease) Chronic RLQ pain Postprandial abdominal bloating Constipation Plan Continue pantoprazole in the morning and sucralfate at bedtime. Avoid dietary triggers and late night snacking. Patient is constipated currently it could be related to sucralfate. Patient can start taking senna to help her with bowel movements as needed. Increase fluid intake and activity to promote better bowel motility. Referral to urology per ED recommendations. Follow-up in 4-5 weeks to discuss going for colonoscopy. Last colonoscopy in March of 2010. Couple episode of blood in her stool in the past few months. Patient is agreeable to this plan and verbalizes understanding of instructions. She was given the opportunity to ask questions and all questions answered. ? Thank you for allowing me to participate in her care Orders Referrals Urology Referral N20.0, R30.0, R31.9 Medications New sennosides (Natural Senna Laxative) 17.2 mg (2 x 8.6 mg) PO BEDTIME 60 tabs 3RF constipation K59.00 TODAY'S VISIT: Patient is here today for follow-up and to discuss colon for colonoscopy. Patient reports that send her is not working for her. Patient takes it with sucralfate at night time. She still feels like she does not empty her bowels well. Patient reports epigastric pain and occasional acid reflux. Patient does not remember taking pantoprazole that was ordered back in April. Patient brought her medications with her. Call placed to pharmacy and her script stopped in July. Pharmacy never got in touch with our office for more refills. We will refill the medication. Patient denies dyspepsia, dysphagia or odynophagia. Denies melena, hematochezia, unintentional weight loss or ribbon like his. Patient denies any issues with anesthesia in the past. No history of sleep apnea. Patient is not on any anticoagulation medication [facility] Medical History Abnormal nuclear stress test Dysuria Kidney stone Blood in urine CAD (coronary artery disease) GERD (gastroesophageal reflux disease) COVID-19 History of left tennis elbow Preoperative cardiovascular examination Arm fracture, left Abnormal EKG Chronic RLQ pain Hx of echocardiogram Osteopenia Colon cancer screening Hyperlipidemia Hypertension History of breast cancer Surgical History History of esophagogastroduodenoscopy (EGD) Hx of colonoscopy Hx of bilateral cataract extraction History of hemorrhoidectomy History of hysterectomy History of lumpectomy of left breast Family History Maternal Uncle History of prostate cancer Maternal Aunt History of colon cancer Brother History of prostate cancer Social History Household Members: Family and Children Housing: House Are you a primary health care administrator to a significant other at home: No Do you presently have visiting nurse or other home services: Yes Alcohol intake: former Patient Tobacco Use Status: Never used Tobacco service: No Current occupational status: disabled Review of Systems Const Denies weight gain and Denies weight loss ENT Reports no additional complaints, Denies dysphagia and Denies odynophagia Card Reports no additional complaints Resp Reports no additional complaints GI Denies abdominal pain, Denies belching, Denies melena, Reports bloating, Denies change in bowel habits, Reports constipation, Denies dysphagia, Denies excessive flatus, Denies dyspepsia, Reports heartburn, Denies diarrhea, Denies loose stools, Denies nausea, Denies odynophagia and Denies vomiting Reports no additional complaints Musc Reports no additional complaints Neuro Reports no additional complaints Psych Reports no additional complaints Endo Reports no additional complaints Physical Exam Vital Signs: BMI result Body Mass Index 25.2 Const General: healthy appearing, no acute distress and well developed Nutritional Appearance: well nourished Orientation/consciousness: patient oriented x3 Resp Effort & Inspection: normal respiratory effort, able to speak in complete sentences, no tracheal deviation and symmetric chest movement Auscultation: clear to auscultation bilaterally Cardio Rate: regular rate GI Inspection: Yes normal to inspection and No distended Palpation (GI): Soft to palpation, not firm, nontender and No hepatosplenomegaly present Auscultation: normal bowel sounds General: Yes no CVA tenderness Back/Spine/Pelvis Back: no CVA tenderness Skin General skin exam: elasticity normal, turgor normal and dry skin Neuro General: patient oriented x3 Psych Appearance: grossly normal Mental Status: mental status grossly normal Assessment & Plan Assessment & Plan (1) GERD (gastroesophageal reflux disease): Code(s): K21.9 - Gastro-esophageal reflux disease without esophagitis Category: Medical Qualifiers: Esophagitis presence: without esophagitis Qualified Code(s): K21.9 - Gastro-esophageal reflux disease without esophagitis (2) Chronic RLQ pain: Code(s): R10.31 - Right lower quadrant pain; G89.29 - Other chronic pain Category: Medical (3) Postprandial abdominal bloating: Code(s): R14.0 - Abdominal distension (gaseous) (4) Constipation: Code(s): K59.00 - Constipation, unspecified Qualifiers: Constipation type: slow transit constipation Qualified Code(s): K59.01 - Slow transit constipation Plan Patient will stop taking senna and start Dulcolax. Increase fluid intake and activity to promote better bowel motility. Patient will continue taking pantoprazole every morning half an hour before breakfast and sucralfate at bedtime. Patient was educated not to take sucralfate together with any other medications. Was to expect before during and after procedure discussed with patient. Stressed the importance of good bowel prep and clear liquid diet day before procedure. Patient will be seen after the procedure, sooner on as needed basis. She is agreeable to this plan and verbalizes understanding of instructions. She was given the opportunity to ask questions and all questions answered. Thank you for allowing me to participate in her care Medications: New bisacodyl (Dulcolax (bisacodyl)) 10 mg (2 x 5 mg) PO BEDTIME 180 tabs 4RF polyethylene glycol 3350 (Miralax) As directed by gastroenterology department at [facility] 238 grams PO ONCE 238 grams 0RF Z12.11 - Encounter for screening for malignant neoplasm of colon Refilled pantoprazole take one tablet half an hour before breakfast 40 mg PO DAILY 90 tabs 3RF K21.9 - Gastro-esophageal reflux disease without esophagitis pantoprazole take one tablet half an hour before breakfast 40 mg PO DAILY 30 tabs 2RF K21.9 - Gastro-esophageal reflux disease without esophagitis sucralfate 10 mL PO BEDTIME 400 mL 3RF K21.9 - Gastro-esophageal reflux disease without esophagitis Discontinued sennosides (Natural Senna Laxative) Discontinued Reason: Doctor's Order 17.2 mg (2 x 8.6 mg) PO BEDTIME 60 tabs 3RF constipation K59.00 - Constipation, unspecified Coding Level of Care Code Est Pt Level 4 (30294) Complex EM visit Add On G2211 Diagnoses Gastroesophageal reflux disease without esophagitis K21.9 Esophagitis presence: without esophagitis Chronic RLQ pain R10.31; G89.29 Postprandial abdominal bloating R14.0 Slow transit constipation K59.01 Constipation type: slow transit constipation Time Spent (min) 40 Comment 25 minutes spent with patient and additional 15 minutes spent reviewing her records
[2024-08-26 13:06] VITALS: BP 122/62; PULSE 88; O2SAT 98; BMI 25.2
--- OUTSIDE RECORDS SUMMARY | 2024-08-26 14:06 | XMS_ITS | Encounter Summary ---
Author Organization [employer] Address [address] [place] [address] [address] [place] [address] Care Team Providers Care Primary Teacher Name Role Phone Krysten Rose MD Primary Care Provider Rolly Mosley PharmD Unavailable [phone] Getachew Aguayo MD Unavailable [phone] Tatiana Pineda MD Unavailable [phone] July Unavailable Graham Mathews MD Unavailable Encounter Details Date Type Department Care Team (Late st Contact Info) Description 04/04/2022 Abstract [facility] MEDICINE [address] [place], [place] [phone] Krysten Rose MD [address] [place], [place] [phone] Social History Tobacco Use Types Packs/Day Years [...] Benign essential tremor with titubation. Seen by [facility] neurologist, last visit on 08/10/20 Continue Gabapentin 100mg QHS * Assessment & Plan Note - Krysten Rose MD - 04/04/2022 6:32 AM ESTAssociated Problem(s): Breast cancer (CMS/HCC) - Current breast surgeon: Dr. Aguayo, seen on 10/22/20 - Previous breast surgeon: Dr. Andrade - Oncologist: [facility] Dr. Pineda and Dr. Ochoa, last seen [...] Care Team (Late st Contact Info) Description 09/04/2024 11:00 AM EDT Office Visit [facility] MEDICINE [address] [place] [address] Krysten Rose MD [address] [place], [place] [phone] 03/11/2025 1:00 PM EST Office Visit [facility] ADULT DENTAL [address] [place] [address] Gabriela Elliott [address] [place] [address] documented as of this encounter Visit Diagnoses Not on filedocumented in this encounter Care Teams Primary Teacher Relationship Specialty Start Date End Date Krysten Rose MD [address] [place] [address] PCP - General Family Medicine 02/16/11 Rolly Mosley, EusebioD [address] [place] [id number] Pharmacist Internal Medicine 08/11/22 Getachew Aguayo MD [address] [place] [phone] General Surgery 04/06/24 Tatiana Pineda MD [address] [place] [phone] Hematology and Oncology 04/06/[address] [place] [phone] Gastroenterology 04/06/24 Graham Mathews MD [address] [place] [phone] Cardiology 04/06/24 documented as of this encounter
--- OUTSIDE RECORDS SUMMARY | 2024-08-26 14:06 | XMS_ITS | Encounter Summary ---
Author Organization [employer] Address [address] [facility] [address] [place] [address] Care Team Providers Care Broiler Manager Name Role Phone Krysten Rose MD Primary Care Provider Rolly Mosley PharmD Unavailable [phone] Getachew Aguayo MD Unavailable [phone] Tatiana Pineda MD Unavailable [phone] July Unavailable Graham Mathews MD Unavailable Encounter Details Date Type Department Care Team (Late st Contact Info) Description 06/07/2023 Orders Only [facility] MEDICINE [address], [place] [phone] Krysten Rose MD [address] [place], [place] [phone] Abnormal EKG (Primary Dx) Social History Tobacco [...] Description 09/04/2024 11:00 AM EDT Office Visit [facility] MEDICINE [address] [place] [address] Krysten Rose MD [address] [place] [address] 03/11/2025 1:00 PM EST Office Visit [facility] ADULT DENTAL [address] [place] [address] Gabriela Elliott [address] [place] [address] Scheduled Orders Name Type Priority Associated Diagnoses [...] documented as of this encounter Care Teams Broiler Manager Relationship Specialty Start Date End Date Krysten Rose MD [address] [place] [address] PCP - General Family Medicine 02/16/11 Rolly Mosley, EusebioD [address] [place] [address] Pharmacist Internal Medicine 08/11/22 Getachew Aguayo MD [address] [place] [phone] General Surgery 04/06/24 Tatiana Pineda MD [address] [place] [phone] Hematology and Oncology 04/06/[address] [place] [phone] Gastroenterology 04/06/24 Graham Mathews MD [address] [place] [phone] Cardiology 04/06/24 documented as of this encounter
--- OUTSIDE RECORDS SUMMARY | 2024-08-26 14:06 | XMS_ITS | Clinical Summary ---
Author Organization Done In :[employer] Address [address] [facility] 7t [place] [address] Care Team Providers Care Pottery Machine Operator Name Role Phone Krysten Rose MD Primary Care Provider Rolly Mosley PharmD Unavailable [phone] Getachew Aguayo MD Unavailable [phone] Tatiana Pineda MD Unavailable [phone] July Unavailable Graham Mathews MD Unavailable [...] 30 capsule 11 4 04/07/20 25 Active Additional Information Patient not taking.Reason: Other (Pt states not taking), Reported on 08/26/2024 ipratropium (Atrovent) 0.06 % nasal spray Administer [...] 2:36 PM EST): - Pt went to [facility] recently to relieve some stress Assessment & [...] this time - consider further evaluation by electrical maintenance man - recommended to discuss with her quality assurance qa lab analyst for eye twitching GERD (gastroesophageal reflux disease) Assessment & Plan (11/20/2023 12:48 PM EDT): - following with [facility] - continue famotidine - will check [...] (10/09/2023 11:58 AM EDT): - Following with [facility], last seen on 08/13/23 - Nuclear [...] for cardiac cath. Pt was sent from [facility] to [facility] ED on 08/24/23 due to cardiac symptoms for consideration of cardiac cath, but was not deemed necessary at that time. Pt experiencing stress/anxiety as cardiac cath has not yet been completed, and would like assistance with scheduling. RN left message for [facility] regarding timeline above, plan for them to call us back or give call directly to pt to schedule. - Strict ED precautions reviewed - Plan to continue amlodipine, lisinopril, aspirin, and pravastatin. Assessment & Plan (08/15/2023 7:12 PM EDT): - Following with [facility], last seen on 08/13/23 - Asymptomatic, [...] EDT): - likely rosacea - following with transportation aid; will obtain records Hx of cholecystectomy 05/10/2023 Assessment & Plan (05/10/2023 6:46 PM EST): Pt s/p cholecystectomy , w no complications Feeling well Abnormal EKG 05/10/2023 Assessment & Plan (08/15/2023 7:14 PM EDT): - incidental finding while undergoing pre-op for lap cholecystectomy in [facility] in April 2023 - EKG showed T-wave inversions across the precordium in [facility] in April 2023, an incidental finding while undergoing pre-op for laparoscopic cholecystectomy, which is different from prior EKG - EKG at [facility] office in June 2023 showed sinus [...] -advised pt to f up w her consumer insight analyst ot will need to return to clinic to repeat EKG --pt states will see her consumer insight analyst -alarm signs and symptoms discussed Oropharyngeal dysphagia 05/10/2023 Assessment & Plan (10/09/2023 11:58 AM EDT): - Pt evaluated by [facility] in June 2023 - Plan for barium swallow proceeded by EGD. Pt reports she has not been contacted to schedule either from [facility], and having difficulties communicating with office. - RN contacted [facility] office and LVM to help coordinate [...] (07/31/2022 5:05 AM EDT): - Evaluated by [facility] service in Mar 2021 and 2021 [...] was recovering from left arm fracture in , then restarted and discontinued in Feb 2023 [...] was recovering from left arm fracture in , then restarted - Oncologist, Dr. Pineda started her on RANKL inhibitor with denosumab/Prolia 60 mg every 6 month. She is on this medication since March 2023. Assessment & Plan (08/14/2023 2:41 PM EDT): - 06/23/22 DEXA -2.5 in femoral neck - alendronate since 2009, interruption while she was recovering from left arm fracture in , then restarted - Oncologist, Dr. Pineda will start her on RANKL inhibitor with denosumab/Prolia 60 mg every 6 month. Assessment & Plan (03/23/2023 1:03 PM EST): - 06/23/22 DEXA -2.5 in femoral neck - alendronate since 2009, interruption while she was recovering from left arm fracture in , then restarted - OncologistDr. Pineda will start [...] essential tremor with titubation. - Seen by [facility] neurologist, last visit in August 2022 - Previously tried gabapentin, but pt developed leg swelling after increasing its dose. Gabapentin was discontinued - Pt was safely discharged from neurology clinic Assessment & Plan (11/20/2023 12:36 PM EDT): - Dx Benign essential tremor with titubation. - Seen by [facility] neurologist, last visit in August 2022 - Previously tried gabapentin, but pt developed leg swelling after increasing its dose. Gabapentin was discontinued - Pt was safely discharged from neurology clinic Assessment & Plan (08/14/2023 2:41 PM EDT): - Dx Benign essential tremor with titubation. - Seen by [facility] neurologist, last visit in August 2022 - Previously tried gabapentin, but pt developed leg swelling after increasing its dose. Gabapentin was discontinued - Pt was safely discharged from neurology clinic Assessment & Plan (03/23/2023 1:07 PM EST): - Dx Benign essential tremor with titubation. - Seen by [facility] neurologist, last visit in August 2022 - Previously tried gabapentin, but pt developed leg swelling after increasing its dose. Gabapentin was discontinued - Pt was safely discharged from neurology clinic Assessment & Plan (11/28/2022 1:34 PM EDT): - Dx Benign essential tremor with titubation. - Seen by [facility] neurologist, last visit in August 2022 - Previously tried gabapentin, but pt developed leg swelling after increasing its dose. Gabapentin was discontinued - Pt was safely discharged from neurology clinic Assessment & Plan (07/31/2022 4:54 AM EDT): - Dx Benign essential tremor with titubation. - Seen by [facility] neurologist, last visit in May 2022 - Continue Gabapentin 100mg QHS Assessment & Plan (04/04/2022 6:34 AM EST): Dx Benign essential tremor with titubation. Seen by [facility] neurologist, last visit on 08/10/20 Continue [...] (interrupted PT due to her trip to [facility]) -Pt restarted PT and still receiving PT -Continue following recommendations from orthopedists Impaired fasting glucose 12/21/2016 Breast cancer 12/21/2016 Assessment & Plan (04/06/2024 12:13 PM EST): - Left breast infiltrating ductal carcinoma Dx 2017 - s/p lumpectomy and sentinel node biopsy on 08/14/16 - s/p radiation therapy in September and October 2016. - Breast surgeon: [facility], Dr. Aguayo, seen in Dec 2023. Initial surgeon was Dr. Andrade, who has retired. - Oncologist: [facility] Dr. Pineda, last seen in Feb 2024. [...] Previous breast surgeon: Dr. Andrade - Oncologist: [facility] Dr. Pineda and Dr. Ochoa, last seen [...] Previous breast surgeon: Dr. Andrade - Oncologist: [facility] Dr. Pineda and Dr. Ochoa, last seen [...] Previous breast surgeon: Dr. Andrade - Oncologist: [facility] Dr. Pineda and Dr. Ochoa, last seen [...] Previous breast surgeon: Dr. Andrade - Oncologist: [facility] Dr. Pineda and Dr. Ochoa, last seen [...] Previous breast surgeon: Dr. Andrade - Oncologist: [facility] Dr. Pineda and Dr. Ochoa, last seen [...] Previous breast surgeon: Dr. Andrade - Oncologist: [facility] Dr. Pineda and Dr. Ochoa, last seen [...] Continue checking home BP - Seen by consumer insight analyst again in Mar 2022, and given reassurance. [...] Continue checking home BP - Seen by consumer insight analyst again in Mar 2022, and given reassurance. [...] Continue checking home BP - Seen by consumer insight analyst again in Mar 2022, and given reassurance. [...] Continue checking home BP - Seen by consumer insight analyst again in Mar 2022, and given reassurance. [...] have a BP monitor. - Seen by consumer insight analyst again in Mar 2022, and given reassurance [...] Encounters Date Type Department Care Team Description 08/26/2024 11:00 AM EDT Office Visit [facility] [address] [place] [address] Gabriela Elliott Periodontal disease (Primary Dx); Dental plaque 07/21/2024 11:00 AM EDT Office Visit [facility] [address] [place] [address] Kevin Veloz MD Palpitations (Primary Dx); Numbness and tingling of both upper extremities 07/21/2024 Travel 06/23/2024 Telephone [facility] [address] [place] [address] Krysten Rose MD 06/17/2024 Telephone [facility] [address] [place] [address] Krysten Rose MD CHART PREP 06/11/2024 Telephone [facility] [address] [place] [address] Earl, Gabriela 06/11/2024 Telephone [facility] [address] [facility], [place] [phone] Earl, Gabriela 06/10/2024 Refill [facility] [address] [facility], [place] [phone] Krysten Rose MD from Last 3 Months Immunizations Immunization Administration Dates Next Due Hep A, Adult [...] Description 09/04/2024 11:00 AM EDT Office Visit [facility] [address] [place] [address] Krysten Rose MD [address] [place] [address] 03/11/2025 1:00 PM EST Office Visit [facility] [address] [place] [address] Earl, Gabriela [address] [place] [address] Health Maintenance Due Date Last Done Comments CT Colonography 1950 FIT DNA/Cologuard 1950 FIT 1950 FOBT 1950 Sigmoidoscopy 1950 COVID-19 Vaccine ( season) 2023 02/21/2023, 01/01/2022, 01/28/2021, Additional history exists SDOH Screening 08/05/2024 08/06/2023 Dental Oral Exam 08/21/2024 02/21/2024, 08/10/2022 Mammogram 09/06/2024 09/07/2023, 08/08, 10/02/2019, Additional history exists Depression Screening 11/23/2024 11/24/2023, 11/24/19 Dental X-Ray: Bitewings 02/21/2025 02/21/2024, 08/10 Dental Prophylaxis 02/27/2025 08/26/2024, 1 04/22/2023, 08/10/2022 Alcohol/Substance Use Screening 04/07/2025 04/07/2024 Tobacco Screening 08/26/2025 08/26/2024 Dental X-Ray: Full Mouth 02/21/2027 02/21/2024, 08/1 04/2020 Lipid Panel 08/13/2028 08/14/2023, 02/08, 01/17/2022, Additional [...] patient's age to complete this topic Meningococcal B Vaccine Aged Out No l onger eligible based on patient's age to complete [...] Procedure Name Priority Date/Time Associated Diagnosis Comments TOPICAL APPLICATION OF FLUORIDE VARNISH Routine 08/26/2024 11:00 AM EDT Periodontal disease Dental plaque ORAL HYGIENE INSTRUCTIONS Routine 08/26/2024 11:00 AM EDT Periodontal disease Dental plaque CASE PRESENTATION, DETAILED AND EXTENSIVE TREATMENT PLANNING Routine 08/26/2024 11:00 AM EDT Periodontal disease Dental plaque PROPHYLAXIS - ADULT Routine 08/26/2024 1 1:00 AM EDT Periodontal disease Dental plaque ECG 12-LEAD Routine 07/21/2024 1:07 PM EDT Palpitations INTRAORAL - COMPLETE SERIES OF RADIOGRAPHIC IMAGES [...] Recently Relevant to Health Maintenance Results * BI Mammogram Screening Tomosynthesis Bilateral (09/07/2023 11:00 AM EDT) Anatomical Region Laterality Modality Breast Bilateral Mammography 09/07/2023 11:0 0 AM EDT Narrative 09/25/2023 1:41 PM EDT ? [facility] ? [address] ?[place] [address] ? Mammography Report ? Signed ? Patient: Zamora,Charlene M ?MR#: [id number] ?? [id number] ? : 1950 ?Acct:[id number] ? Age/Sex: 72 / F ?ADM Date: 05/31/24 ? Loc: HO.MAMMO ? Attending Dr: Krysten Rose MD ? Ordering Physician: Krysten Rose MD ?Results: 2Benign F ?? indings ? Date of Service: 09/07/23 ?Follow Up: 1 Year From Orig ?? inal Mammogram ? Procedure(s): MM tomosynthesis screening BI ?? Accession Number(s): [id number] ? cc: Krysten Rose MD ? EXAMINATION: [...] by Radha Haque MD in OV> ? 09/25/238 ? DD/ 1100 ? TD/TT: ? Microbiology Lab Technician: ? Procedure Note Donotuseinterpreter, Image - 09/25/2023 [facility] [address] [place] [address] Mammography Report Signed Patient: Charlene Zamora MMR#: [id number] : 1Acct:[id number] Age/Sex: 72 / FADM Date: 09/07/23 Loc: HO.MAMMO Attending Dr: Krysten Rose MD Ordering Physician: Krysten Rose MDResults: 2Benign F indings Date of Service: 09/07/23Follow Up: 1 Year From [facility] Mammogram Procedure(s): MM tomosynthesis screening BI Accession Number(s): [id number] cc: Krysten Rose MD EXAMINATION: MM SCREENING [...] in OV> 09/25/23 1338 DD/ 1100 TD/TT: Microbiology Lab Technician: Krysten Rose MD IMG BI PROCEDURES Final Result * (ABNORMAL) Lipid Panel with Reflex to Direct LDL (08/14/2023 3:08 PM EDT) Triglycerides 197(H) <150 mg/dL [facility] Comment:Desirable Triglyceri de: less than 150 mg/dLBorderline High Triglyceride 150-199 mg/dLHigh Triglyceride: 200-499 mg/dLVery High Triglyceride: greater than or equal to 5OO mg/dL Cholesterol 183 <200 mg/dL [facility] Comment:Desirable Cholestero l: less than 200 mg/dLBorderline High Cholesterol: 200-239 mg/dLHigh Cholesterol: greater than 239 mg/dL LDL Cholesterol Calculated 89 <100 mg/dL [facility] Comment:Desirable LDL: less than 100 mg/dLNear Optimal/Above Optimal LDL: 110- 129 mg/dLBorderline High LDL: 130-159 mg/dLHigh LDL: 160-189 mg/dLVery High LDL: greater than or equal to 190 mg/dL HDL Cholesterol 55 >40 mg/dL [facility] Comment:Desirable HDL: great er than 40 mg/dL Note: This HDL assay may give artificially low results in patients with liver disease. Blood 08/14/2023 3:08 PM EDT 08/14/2023 4:11 PM EDT Krysten Rose MD LAB BLOOD ORDERABLES Final Resul t [facility] [address] [place] [address] [phone] * HEPATITIS C AB W/REFL TO [...] a test for HCV RNA (test code 70481) is suggested. ?? For additional information please refer to http://[employer].jellyfish/faq/NSU54i1 (This link is being provided for informational/ educational purposes only.) ?? 01/17/2022 8:19 AM EDT Krysten Rose MD HISTORICAL/NON ORDERABLE LABS Fi nal Result CONVERTED LEGACY LABS * Colonoscopy (05/04/2020) Colonoscopy Normal Normal Allan Hong MD HEALTH MAINTENANCE Final Res ult from Last 3 Months or Most Recently Relevant to Health Maintenance Insurance [facility] OPTIONS (O D-SNP) [facility] OPTIONS (O D-SNP) D[facility] - [facility] Care Teams Pottery Machine Operator Relationship Specialty Start Date End Date Krysten Rose MD [address] [place], [place] PCP - General Family Medicine 02/16/11 Rolly Mosley, PharmD [address] [place] [address] Pharmacist Internal Medicine 08/11/22 Getachew Aguayo MD [address] [place] [address] [address] [place], [place] General Surgery 04/06/24 Tatiana Pineda MD [address] [place] [address] Hematology and Oncology 12/July [address] [place] [address] Gastroenterology 04/06/24 Graham Mathews MD [address] [place] [address] Drive [address] [place] [address] Cardiology 04/06/24
--- OUTSIDE RECORDS SUMMARY | 2024-08-26 14:06 | XMS_ITS | Encounter Summary ---
Author Organization [employer] Address [address] [facility] 7t [place] [address] Care Team Providers Care Concrete Mixing Plant Laborer Name Role Phone Krysten Rose MD Primary Care Provider [phone] Rolly Mosley PharmD Unavailable [phone] Getachew Aguayo MD Unavailable [phone] Ttaiana Pineda MD Unavailable [phone] July Unavailable Graham Mathews MD Unavailable Encounter Details Date Type Department Care Team (Late st Contact Info) Description 02/27/2023 Abstract [facility] MED[facility] [address] [place], [place] [phone] Krysten Rose MD [address] [place], [place] [phone] Social History Tobacco Use Types Packs/Day Years Used Date Smoking Tobacco: Never Passive Smoke Exposure: Never Smokeless Tobacco: Never Alcohol Use Standard Drinks/Week Comments Never 0 (1 standard drink = 0.6 oz pur e alcohol) Depression Answer Date Recorded Patient Health Questionnaire-9 Score 5 07/17/2022 Housing Stability Answer Date Recorded What is your housing situation today? I have erin sergio 02/01/[address] you li [...] Description 09/04/2024 11:00 AM EDT Office Visit [facility] MEDICINE [address] [place] [address] Krysten Rose MD [address] [place] [address] 03/11/2025 1:00 PM EST Office Visit [facility] ADULT DENTAL [address] [place] [address] Earl, Gabriela [address] [place] [address] documented as of this encounter Goals Goal [...] documented as of this encounter Care Teams Concrete Mixing Plant Laborer Relationship Specialty Start Date End Date Krysten Rose MD [address] [place] [address] PCP - General Family Medicine 02/16/11 Rolly Mosley, PharmD [address] [place] [address] Pharmacist Internal Medicine 08/11/22 Getachew Aguayo MD [address] [place] [address] General Surgery 04/06/24 Tatiana Pineda MD [address] [place] [address] Hematology and Oncology 04/06/24July [address] [place] [address] Gastroenterology 04/06/24 Graham Mathews MD [address] [place] [address] Cardiology 04/06/24 documented as of this encounter
--- OUTSIDE RECORDS SUMMARY | 2024-08-26 14:06 | XMS_ITS | Encounter Summary ---
Author Organization [employer] Address [address] [place] [address] [address] [place] [address] Care Team Providers Care Hoop Cutter Name Role Phone Krysten Rose MD Primary Care Provider [phone] Rolly Mosley PharmD Unavailable Getachew Aguayo MD Unavailable [phone] Tatiana Pineda MD Unavailable [phone] July Unavailable Graham Mathews MD Unavailable Encounter Details Date Type Department Care Team (Latest Contact Info) Description 12/03/2020 Abstract [facility] CONVERSIONS Dental, Provider, DDS Social History Tobacco [...] Office Visit [facility] MED[facility] [address] [place], [place] [phone] Krysten Rose MD [address] [place], [place] [phone] 03/11/2025 1:00 PM EST Office Visit [facility] ADULT DENTAL [address] [place], [place] [phone] Gabriela Elliott [address] [place] [address] documented as of this encounter Visit Diagnoses Not on filedocumented in this encounter Care Teams Hoop Cutter Relationship Specialty Start Date End Date Krysten Rose MD [address] [place] [address] PCP - General Family Medicine 02/16/11 Rolly Mosley, EusebioD [address] [place] [phone] Pharmacist Internal Medicine 08/11/22 Getachew Aguayo MD [address] [place] [address] General Surgery 04/06/24 Tatiana Pineda MD [address] [place] [address] Hematology and Oncology 04/06/24 LozadaJuly [address] [place] [address] Gastroenterology 04/06/24 Graham Mathews MD [address] [place] [address] Cardiology 04/06/24 documented as of this encounter
--- OUTSIDE RECORDS SUMMARY | 2024-08-26 14:06 | XMS_ITS | Encounter Summary ---
Author Organization [employer] Address [address] [facility] 7t [place] [address] Care Team Providers Care Studio Technician Video Operator Name Role Phone Krysten Rose MD Primary Care Provider [phone] Rolly Mosley PharmD Unavailable Getachew Aguayo MD Unavailable [phone] Tatiana Pineda MD Unavailable [phone] July Unavailable Graham Mathews MD Unavailable Reason for Visit * Reason Comments Routine Cleaning Perio chart Encounter Details Date Type Department Care Team (Late st Contact Info) Description 08/26/2024 11:00 AM EDT Office Visit [facility] ADULT DENTAL [address] [place], [place] [phone] Earl, Gabriela [address] [place] [address] Periodontal disease (Primary Dx); Dental plaque Social History Tobacco Use Types Packs/Day Years [...] is your housing situation today? I have [place] hill 08/06/[address] you [...] the past 12 months, has t he [employer], gas, oil or water [employer] threatened to shut off services in your home? No 02/01/2023 Depression Answer Date Recorded Patient Health Questionnaire-2 Score 6 11/24/2023 Comments Unknown Sex and Gender Information Value Date Recorded Sex Assigned at Female 02/06/2022 10:20 AM EDT Legal Sex Female 10:20 AM EDT Gender Identity Female 02/06/2022 10:20 AM EDT Sexual Orientation Straight 02/06/2022 10 :20 AM EDT documented as of this encounter Progress Notes * Gabriela Elliott - 08/26/2024 11:00 AM EDT Patient ID: Charlene Zamora is a 73 y.o. female. Time Out: Timeout Date: 08/26/24, Timeout Time: 1121 (Prophy) Location: [facility] Tooth: Maxilla and Mandible Procedure: Prophylaxis and Perio chart Pos- SRP Verified the above with patient, radiology physician assistant, and provider. Confirmed via patient's chart, intraorally and by radiographs. Director Title: not applicable Medical Hx: Vitals: There were no vitals taken for this visit. Medications, Med Hx reviewed with patient and updated in chart. Treatment Provided Dental procedures in this visit D1110 - PROPHYLAXIS - ADULT (Completed) Service provider: Gabriela Elliott Billguerline provider: Alec Han DDS D9450 - CASE PRESENTATION, DETAILED AND EXTENSIVE TREATMENT PLANNING (Completed) Service provider: Gabriela Elliott Billguerline provider: Alec Han DDS D1330 - ORAL HYGIENE INSTRUCTIONS (Completed) Service provider: Gabriela Elliott Billguerline provider: Alec Han DDS D1206 - TOPICAL APPLICATION OF FLUORIDE VARNISH (Completed) Service provider: Gabriela Elliott Billing provider: Alec Han DDS Instruments Used: Ultrasonic Scalers and Prophy angle Fluoride: 5% NaF varnish applied and POI given Oral Cancer Screening: asymptomatic geographic tongue Head/Neck Exam: No Lesions Calculus: Light Plaque: Light Stain: discolored Bleeding: Light Gingiva: pink [place]: Good Perio Chart: Completed Improved Oral hygiene instructions provided to patient including brushing technique and flossing. Recommendations: Rodessa two times daily, modified lobato technique, Floss daily, Electric toothbrush, Soft bristle toothbrush, Rodessa Tongue, Anti-sensitivity toothpaste, Fluoridated mouthwash OTC. Recall Frequency: 6 mo NV: 6 months for P. Exam, prophy, Perio chart, x-rays Hygienist: Gabriela Elliott RDH documented in this encounter Plan of Treatment Upcoming Encounters Date Type Department Care Team (Late st Contact Info) Description 09/04/2024 11:00 AM EDT Office Visit [facility] MEDICINE [address] [place] [address] Krysten Rose MD [address] [place] [address] 03/11/2025 1:00 PM EST Office Visit [facility] ADULT DENTAL [address] [place] [address] Gabriela Elliott [address] [place] [address] Scheduled Orders Name Type Priority Associated Diagnoses Orde r Schedule PERIODIC ORAL EVALUATION - ESTABLISHED PATIENT Dental Routine 1 Occurren agnes starting 08/26/2024 PROPHYLAXIS - ADULT Dental Routine 1 Occ urrences starting 08/26/2024 TOPICAL APPLICATION OF FLUORIDE VARNISH Dental Routine 1 Occurrences s tarting 08/26/2024 BITEWINGS - 4 RADIOGRAPHIC IMAGES Dental Routine 1 Occurrence s starting 08/26/2024 INTRAORAL - PERIAPICAL FIRST RADIOGRAPHIC IMAGE Dental Routine 1 Occur rences starting 08/26/2024 INTRAORAL - PERIAPICAL EACH ADDITIONAL RADIOGRAPHIC IMAGE Dental Routine 1 Occurrences starting 08/26/2024 INTRAORAL - PERIAPICAL EACH ADDITIONAL RADIOGRAPHIC IMAGE Dental Routine 1 Occurrences starting 08/26/2024 documented as of this encounter Goals Goal [...] 1:00 AM EDT Periodontal disease Dental plaque ORAL HYGIENE INSTRUCTIONS Routine 08/26/2024 11:00 AM EDT Periodontal disease Dental plaque CASE PRESENTATION, DETAILED AND EXTENSIVE TREATMENT PLANNING Routine 08/26/2024 11:00 AM EDT Periodontal disease Dental plaque documented in this encounter Visit Diagnoses Diagnosis Periodontal disease- Primary Unspecified gingival and periodontal disease Dental plaque Accretions on teeth documented in this encounter Additional Health Concerns Assessment Noted Time PHQ-9 Depression Total Score: 24 024 6:22 PM EDT documented as of this encounter Care Teams Studio Technician Video Operator Relationship Specialty Start Date End Date Krysten Rose MD [address] [place] [address] PCP - General Family Medicine 02/16/11 Rolly Mosley, PharmD [address] [place] [address] Pharmacist Internal Medicine 08/11/22 Getachew Aguayo MD [address] [place] [address] General Surgery 04/06/24 Tatiana Pineda MD [address] [place] [address] Hematology and Oncology 04/06/24July [address] [place] [address] Gastroenterology 04/06/24 Graham Mathews MD [address] [place] [address] Drive 3rd [place] [address] Cardiology 04/06/24 documented as of this encounter
--- OUTSIDE RECORDS SUMMARY | 2024-08-26 14:06 | XMS_ITS | Encounter Summary ---
Author Organization [employer] Address [address] [facility] 7t [place] [address] Care Team Providers Care Stator Tester Name Role Phone Krysten Rose MD Primary Care Provider Rolly Mosley PharmD Unavailable [phone] Getachew Aguayo MD Unavailable [phone] Tatiana Pineda MD Unavailable [phone] July Unavailable Graham Mathews MD Unavailable Encounter Details Date Type Department Care Team (Late st Contact Info) Description 11/30/2022 Orders Only [facility] MEDICINE [address] [place], [place] [phone] Krysten Rose MD [address] [place], [place] [phone] Chronic pain of left knee (Primary Dx); [...] Description 09/04/2024 11:00 AM EDT Office Visit [facility] MEDICINE [address] [place] [address] Krysten Rose MD [address] [place] [address] 03/11/2025 1:00 PM EST Office Visit [facility] ADULT DENTAL [address] [place] [address] Earl, Gabriela [address] [place] [address] documented as of this encounter Goals Goal [...] documented as of this encounter Care Teams Stator Tester Relationship Specialty Start Date End Date Krysten Rose MD [address] [place] [address] PCP - General Family Medicine 02/16/11 Rolly Mosley, PharmD [address] [place] [address] Pharmacist Internal Medicine 08/11/22 Getachew Aguayo MD [address] [place] [address] 3rd [place] [address] General Surgery 04/06/24 Tatiana Pineda MD [address] [place] [address] Hematology and Oncology 12[address] [place] [address] Gastroenterology 04/06/24 Graham Mathews MD [address] [place] [address] Drive [address] [place] [address] Cardiology 04/06/24 documented as of this encounter
--- OUTSIDE RECORDS SUMMARY | 2024-08-26 14:06 | XMS_ITS | Encounter Summary ---
Author Organization [employer] Address [address] [facility] 7t [place] [address] Care Team Providers Care Kiln Maintenance Name Role Phone Krysten Rose MD Primary Care Provider [phone] Rolly Mosley PharmD Unavailable Getachew Aguayo MD Unavailable [phone] Tatiana Pineda MD Unavailable [phone] July Unavailable Graham Mathews MD Unavailable Encounter Details Date Type Department Care Team (Late st Contact Info) Description 10/03/2022 Abstract [facility] ADULT DENTAL [address] [place], [place] [phone] Bruno Sam, CORRINE [address] [place], [place] [phone] Social History Tobacco Use Types Packs/Day Years [...] Description 09/04/2024 11:00 AM EDT Office Visit [facility] MEDICINE [address] [place] [address] Krysten Rose MD [address] [place] [address] 03/11/2025 1:00 PM EST Office Visit [facility] ADULT DENTAL [address] [place] [address] Cezar Elliottaris [address] [place] [address] documented as of this encounter Goals Goal [...] documented as of this encounter Care Teams Kiln Maintenance Relationship Specialty Start Date End Date Krysten Rose MD [address] [place] [address] PCP - General Family Medicine 02/16/11 Rolly Mosley, PharmD [address] [place] [address] Pharmacist Internal Medicine 08/11/22 Getachew Aguayo MD [address] [place] [address] 3rd [place] [address] General Surgery 04/06/24 Tatiana Pineda MD [address] [place] [address] Hematology and Oncology 04/06/[address] [place] [address] Gastroenterology 04/06/24 Graham Mathews MD [address] [place] [address] Cardiology 04/06/24 documented as of this encounter
== END 2024-08-26 14:01 | disposition home or self-care (01) ==
LOC: HO.HGI 13:01
PROVIDERS: PCP Family Medicine; Visit Provider Nurse Practitioner Family
DX: K21.9 Gastro-esophageal reflux disease without esophagitis (principal); R10.31 Right lower quadrant pain; G89.29 Other chronic pain; R14.0 Abdominal distension (gaseous); K59.01 Slow transit constipation
CPT/HCPCS: 99214; G2211

== ENCOUNTER → 2024-08-26 13:00 | Outpatient (BNVA) | payer OTHER, SELFPAY | PROVIDERS: PCP Family Medicine; Visit Provider Nurse Practitioner Family | DX: K21.9 Gastro-esophageal reflux disease without esophagitis (principal); K59.01 Slow transit constipation; R10.31 Right lower quadrant pain; R14.0 Abdominal distension (gaseous); G89.29 Other chronic pain | CPT/HCPCS: 99212 ==

== ENCOUNTER 2024-09-04 11:45 | Outpatient (REF) | payer OTHER, SELFPAY ==
--- OUTSIDE RECORDS SUMMARY | 2024-09-04 12:00 | XMS_ITS | Encounter Summary ---
Author Organization [employer] Address [address] [facility] 7t [place] [address] Care Team Providers Care Airport Planner Name Role Phone Krysten Rose MD Primary Care Provider Rolly Mosley PharmD Unavailable [phone] Getachew Aguayo MD Unavailable [phone] Tatiana Pineda MD Unavailable [phone] July Unavailable Graham Mathews MD Unavailable Encounter Details Date Type Department Care Team (Late st Contact Info) Description 09/04/2024 11:00 AM EDT Office Visit [facility] MEDICINE [address] [place], [place] [phone] Krysten Rose MD [address] [place], [place] [phone] Primary hypertension (Primary Dx); Dyslipidemia; Coronary artery disease involving fond [place] coronary artery of fond [place] heart without angina pectoris; Malignant neoplasm of left breast in female, estrogen receptor positive, unspecified site of breast (CMS/HCC); Long COVID; Essential tremor; Osteoporosis, unspecified osteoporosis type, unspecified pathological fracture presence; Weight loss Social History Tobacco Use Types Packs/Day Years Used Date Smoking Tobacco: Never Passive Smoke Exposure: Never Smokeless Tobacco: Never Alcohol Use Standard Drinks/Week Comments Never 0 (1 standard drink = 0.6 oz pur e alcohol) Depression Answer Date Recorded Patient Health Questionnaire-9 Score 0 09/04/2024 Patient Health Questionnaire-9 Score 0 09/04/2024 Last PHQ-9: Questionnaire Data Not on file 0 09/04/2024 Housing Stability Answer Date Recorded What is your housing situation today? I have erin hill 09/04/[address] you li ve. Do you have problems with any of the following? None of the above 09/04/2024 Food Insecurity Answer Date Recorded Within the past 12 months, y ou worried that your food would run out before you got money to buy more: Never True 09/04/2024 Within the past 12 months,th e food you bought just didn't last and you didn't have enough money to get more: Never True Transportation Answer Date Recorded In the past 12 months, has l ack of transportation kept you from medical appts, meetings, work or from getting things needed for daily living? No 09/04/2024 Utilities Answer Date Recorded In the past 12 months, has t he electric, gas, oil or water company threatened to shut off services in your home? No 09/04/2024 Depression Answer Date Recorded Patient Health Questionnaire-2 Score 0 09/04/2024 Internet Access Answer Date Recorded Internet Access Q1 Yes 09/04/2024 Internet Access Q2 Not on file 09/04/2024 Comments No Sex and Gender Information Value Date Recorded Sex Assigned at Female 02/06/2022 10:20 AM EDT Legal Sex Female 10:20 AM EDT Gender Identity Female 02/06/2022 10:20 AM EDT Sexual Orientation Straight 02/06/2022 10 :20 AM EDT documented as of this encounter Last Filed Vital Signs Vital Sign Reading Time Taken Comments Blood Pressure 118/80 09/04/2024 10:45 AM EDT Pulse 76 09/04/2024 10:45 AM EDT Temperature 36.2 ??C (97.1 ??F) 09/04/2024 10:45 AM E DT Respiratory Rate 14 09/04/2024 10:45 AM EDT Oxygen Saturation - - Inhaled Oxygen Concentration - - Weight 61 kg (134 lb 6.4 oz) 09/04/2024 10:45 AM EDT Height 157.5 cm (5' 2 ) 09/04/2024 10:45 AM EDT Body Mass Index 24.58 09/04/2024 10:45 AM EDT documented in this encounter Functional Status * Over the past 2 weeks, how often have you been bothered by any of the following problems? Question Answer Date of Assessment Author Patient Health Questionnaire -2 Score 0 09/04/2024 10:45 AM Dominik Shea MA * Little interest or pleasure in doing things Answer Date of Assessment Author Not at all 09/04/2024 10:45 AM Elena Shea MA * Feeling down, depressed, or hopeless Answer Date of Assessment Author Not at all 09/04/2024 10:45 AM Elena Shea MA * Trouble falling or staying asleep, or sleeping too much Answer Date of Assessment Author Not at all 09/04/2024 10:45 AM Elena hSea MA * Feeling tired or having little energy Answer Date of Assessment Author Not at all 09/04/2024 10:45 AM Elena Shea MA * Poor appetite or overeating Answer Date of Assessment Author Not at all 09/04/2024 10:45 AM Elena Shea MA * Feeling bad about yourself - or that you are a failure or have let yourself or your family down Answer Date of Assessment Author Not at all 09/04/2024 10:45 AM Elena Shea MA * Trouble concentrating on things, such as reading the newspaper or watching television Answer Date of Assessment Author Not at all 09/04/2024 10:45 AM Elena Shea MA * Moving or speaking so slowly that other people could have noticed? Or the opposite - being so fidgety or restless that you have been moving around a lot more than usual. Answer Date of Assessment Author Not at all 09/04/2024 10:45 AM Elena Shea MA * Thoughts that you would be better off or hurting yourself in some way Answer Date of Assessment Author Not at all 09/04/2024 10:45 AM Elena Shea MA * Patient Health Questionnaire-9 Score Answer Date of Assessment Author 0 09/04/2024 10:45 AM Elena Shea MA * Over the last 2 weeks, how often have you been bothered by any of the following problems? Question Answer Date of Assessment Author Feeling nervous, anxious, or on edge 1 09/04/2024 10:45 AM Dominik Shea MA Not being able to stop or control worrying 1 09/04/2024 10:45 AM Dominik Shea MA Worrying too much about different things 1 09/04/2024 10:45 AM Dominik Shea MA Trouble relaxing 1 09/04/2024 10:45 AM Elena Shea MA Being so restless that it is hard to sit still 1 09/04/2024 10:45 AM Dominik Shea MA Becoming easily annoyed or irritable 1 09/04/2024 10:45 AM Dominik Shea MA Feeling afraid as if somethi ng awful might happen 1 09/04/2024 10:45 AM Dominik Shea MA PAT-7 Total Score 7 09/04/2024 10:45 AM Elena Shea MA documented as of this encounter Miscellaneous Notes * Assessment & Plan Note - Arcenio Canales - 09/04/2024 11:04 AM EDTAssociated Problem(s): Essential tremor - Dx Benign essential tremor with titubation. - Seen by [facility] neurologist, last visit in August 2022 - Previously tried gabapentin, but pt developed leg swelling after increasing its dose. Gabapentin was discontinued - Pt was safely discharged from neurology clinic * Assessment & Plan Note - Arcenio Canales - 09/04/2024 11:03 AM EDTAssociated Problem(s): Long COVID - possible diagnosis - patient had atypical chest pain, cough, neurological abnormality, and loss of taste and smell - will monitor at this time - consider further evaluation by bag liner - recommended to discuss with her laboratory animal care veterinarian for eye twitching * Assessment & Plan Note - Arcenio Canales - 09/04/2024 11:03 AM EDTAssociated Problem(s): Breast cancer (CMS/HCC) - Left breast infiltrating ductal carcinoma Dx 2017 - s/p lumpectomy and sentinel node biopsy on 08/14/16 - s/p radiation therapy in September and October 2016. - Breast surgeon: [facility] [place], Dr. Aguayo, seen in Dec 2023. Initial surgeon was Dr. Andrade, who hasretired. - Oncologist: [facility] [place] Dr. Pineda, last [...] 2 - continue following recommendation per oncologist * Assessment & Plan Note - Arcenio Canales - 09/04/2024 11:03 AM EDTAssociated Problem(s): Hypertension - Goal BP < 140/90 per JNC-8, < 130/80 per ACC/AHA guideline - BP is at goal today - Continue working on lifestyle modifications. - Continue current medications: amlodipine 10 mg daily; lisinopril 10 mg daily - Continue checking home BP * Assessment & Plan Note - Arcenio Canales - 09/04/2024 11:02 AM EDTAssociated Problem(s): Dyslipidemia - last lipid profile in August 2023 - moderate intensity statin is recommended - currently on pravastatin 80 mg at bedtime - since her recent stress test was abnormal, agreed to intensify statin therapy - start rosuvastatin 20 mg at bedtime - continue lifestyle modifications - check LFT and lipid profile 4 wks after starting rosuvastatin documented in this encounter Plan of Treatment Upcoming Encounters Date Type Department Care Team (Late st Contact Info) Description 03/11/2025 1:00 PM EST Office Visit [facility] ADULT DENTAL [address] [place], [place] [phone] Gabriela Elliott [address] [place] [address] Scheduled Orders Name Type Priority Associated Diagnoses Orde r Schedule TSH with Reflex to Free T4 Lab Routine Weight loss Expected: 09/04/2024 (Approximate), Expires: 09/04/2025 Hemoglobin A1c Lab Routine Primary hypertension Expected: 09/04/2024 (Approximate), Expires: 09/04/2025 Comprehensive Metabolic Panel Lab Routine Primary hypertension Expected: 09/04/2024 (Approximate), Expires: 09/04/2025 Lipid Panel with Reflex to Direct LDL Lab Routine Dyslipidemia Expected: 09/04/2024 (Approximate), Expires: 09/04/2025 Albumin, Random Urine W/Creatinine Lab Routine Primary hypertension Expected: 09/04/2024 (Approximate), Expires: 09/04/2025 Vitamin D, 25-Hydroxy, Total, Immunoassay Lab Routine Osteoporosis, unspecified osteoporosis type, unspecified pathological fracture presence Expected: 09/04/2024 (Approximate), Expires: 09/04/2025 CBC auto differential Lab Routine Weight loss Expected: 09/04/2024 (Approximate), Expires: 09/04/2025 documented as of this encounter Goals Goal Patient Goal Type Associated Problems Recent Progress Patient-Stated? Author Blood Pressure < 150/90 Blood Pressure 118/80(2024 10:45 AM EDT) Rolly Sol, PharmD Note: Per JNC-8 Age greater than 60 y/o without CKD or DM documented as of this encounter Visit Diagnoses Diagnosis Primary hypertension- Primary Unspecified essential hypertension Dyslipidemia Other and unspecified hyperlipidemia Coronary artery disease involving fond [place] coronary artery of fond [place] heart without angina pectoris Malignant neoplasm of left breast in female, estrogen receptor positive, unspecified site of breast (CMS/HCC) Long COVID Essential tremor Osteoporosis, unspecified osteoporosis type, unspecified pathological fracture presence Weight loss Loss of weight documented in this encounter Additional Health Concerns Assessment Noted Time PHQ-9 Depression Total Score: 0 09/05/19 25 10:45 AM EDT documented as of this encounter Care Teams Airport Planner Relationship Specialty Start Date End Date Krysten Rose MD [address] [place] [address] PCP - General Family Medicine 02/16/11 Rolly Mosley, EusebioD [address] [place] [address] Pharmacist Internal Medicine 08/11/22 Getachew Aguayo MD [address] [place] [address] General Surgery 04/06/24 Tatiana Pineda MD [address] [place] [address] Hematology and Oncology 04/06/[address] [place] [address] Gastroenterology 04/06/24 Graham Mathews MD [address] [place] [address] Cardiology 04/06/24 documented as of this encounter
[2024-09-04 13:31] LABS: MANUAL DIFF FLAG NO
[2024-09-04 13:43] LABS: Basophils Absolute Auto 0.1 X10*3/uL (0.0-0.2); Basophils Percent Auto 1.2 % (0-2); Eosinophils Absolute Auto 0.1 X10*3/uL (0.0-0.4); Eosinophils Percent Auto 2.8 % (0-4); Imm Gran Abs Auto 0.01 X10*3/uL (0.00-0.03); Imm Gran Pct Auto 0.2 % (0.0-0.4); Lymphocytes Absolute Auto 1.3 X10*3/uL (1.2-4.9); Mean Corpuscular HGB Conc 33.3 g/dl (31.0-35.0); Mean Corpuscular Hemoglobin 30.8 pg (27.0-33.0); Mean Corpuscular Volume 92.3 fL (80.0-98.0); Mean Platelet Volume 10.6 fL (9.4-12.3); Monocytes Absolute Auto 0.4 X10*3/uL (0.1-1.2); Monocytes Percent Auto 8.8 % (2-11); Neutrophils Absolute Auto 3.1 x10*3/uL (2.0-8.3); Platelet Count 229 X10*3/uL (160-400); Red Blood Count 4.55 X10*6/uL (4.20-5.50)
[2024-09-04 13:59] LABS: Estimated Average Glucose 105 mg/dL; Hemoglobin A1c % 5.3 % (<6.0)
[2024-09-04 14:09] LABS: Alanine Aminotransferase 25 U/L (0-31); Albumin Level 4.5 g/dL (3.5-5.0); Alkaline Phosphatase 51 U/L (39-117); Anion Gap 12 (12-20); Aspartate Amino Transferase 24 U/L (5-31); Bilirubin Total 0.4 mg/dL (0.0-1.0); Blood Urea Nitrogen 15 mg/dL (9-16); Calcium 9.5 mg/dL (8.4-10.2); Carbon Dioxide 26 mmol/L (22-29); Chloride 109 mmol/L (96-108); Cholesterol 125 mg/dL (<200); Estimated Glomerular Filt Rate > 60; Glucose Random 81 mg/dL (60-115); HDL Cholesterol 55 mg/dL (>40); LDL Cholesterol Calculated 45 mg/dL (<100); Sodium 143 mmol/L (135-145); Total Protein 7.2 g/dL (6.5-8.0); Triglycerides 126 mg/dL (<150)
[2024-09-04 14:28] LABS: TSH reflex Free T4 1.11 uIU/mL (0.32-4.0); Vitamin D 25-OH Total 64.7 ng/mL (>30)
[2024-09-04 14:47] LABS: Reflex LDLD? No
== END 2024-09-04 11:46 | disposition home or self-care (01) ==
LOC: HO.HHCL 11:45
PROVIDERS: Visit Provider Family Medicine
DX: I10 Essential (primary) hypertension (principal); R63.4 Abnormal weight loss; E78.5 Hyperlipidemia, unspecified; M81.0 Age-related osteoporosis without current pathological fracture
CPT/HCPCS: 36415; 80053; 80061; 82306; 83036; 84443; 85025

== ENCOUNTER 2024-09-12 13:51 | Outpatient (REF) | payer OTHER, SELFPAY ==
--- NOTE | ~2024-09-12 | MM_ITS ---
EXAMINATION: MM SCREENING DIGITAL BREAST TOMOSYNTHESIS, BILATERAL CLINICAL INFORMATION: Screening. Asymptomatic. History of left breast cancer post lumpectomy. COMPARISON: Mammography: Comparison is made with available priors TECHNIQUE: Digital breast mammography with tomosynthesis is performed in both the craniocaudal and mediolateral oblique views along with computer-aided detection (CAD). FINDINGS: The breasts are heterogeneously dense, which may obscure small masses (ACR BI-RADS breast composition Category c). Postsurgical changes upper outer quadrant of the left breast are stable. There are no significant masses, abnormal calcifications, or other abnormalities. MM/MM tomosynthesis screening BI IMPRESSION: No mammographic evidence of malignancy. ASSESSMENT: BI-RADS BI-RADS 2 - Benign Findings RECOMMENDATION: Routine annual mammography screening. 1 year F/U This examination should not preclude the clinical evaluation of a suspicious palpable abnormality. This patient's information was entered into a reminder system with a target due date for their next mammogram. Electronically signed by: Arlyn Soni DO 09/19/2024 03:08 PM EDT
--- NOTE | ~2024-09-12 | MM_ITS ---
EXAMINATION: DXA BONE DENSITY AXIAL HISTORY: Z78.0 MENOPAUSAL STATE/ Assess response to treatment TECHNIQUE: Streetline Dual energy absorptiometry (DEXA) of the lumbar spine, total left hip, and femoral neck was performed. COMPARISON: Comparison is made with the prior examination dated 06/23/2022. FINDINGS: The bone mineral density of the lumbar spine is 1.040, corresponding to a T-score of -1.1, and a Z-score of 0.6. This is indicative of osteopenia. This represents a BMD change of -0.1% compared to the prior exam. This is not statistically significant. The bone mineral density of the left total hip is 0.772, corresponding to a T-score of -1.9, and a Z-score of -0.2. This is indicative of osteopenia. This represents a BMD change of 2.3% compared to the prior exam. This is not statistically significant. The bone mineral density of the left femoral neck is 0.707, corresponding to a T-score of -2.4, and a Z-score of -0.5. This is indicative of osteopenia. This represents a BMD change of 2.2% compared to the prior exam. FRACTURE RISK: The FRAX index suggests a ten year probability of major osteoporotic fracture of 23.7%, and of hip fracture 12.7%. MM/XR DEXA axial skeleton IMPRESSION: Based on bone mineral density, and according to World Health Organization (WHO) criteria, the diagnosis is consistent with osteopenia. All bone density values are in grams per centimeter squared (g/cm2). Statistically, 68% of repeat scans fall within 1 SD (+/- 0.010 g/cm2 for AP spine L1-L4) and 1 SD (+/- 0.012 g/cm2 for femur total) FRAX is a trademark of the [employer]'s [employer] [facility] Metabolic [employer] Disease, a World Health Organization (WHO) Collaborating Center. Electronically signed by: Candido Stewart MD 09/12/2024 03:18 PM EDT
--- OUTSIDE RECORDS SUMMARY | 2024-09-12 13:54 | XMS_ITS | Encounter Summary ---
Author Organization [employer] Address 75 [facility] 7t [place] [address] Care Team Providers Care Glass Worker Name Role Phone Krysten Rose MD Primary Care Provider Rolly Mosley PharmD Unavailable [phone] Getachew Aguayo MD Unavailable [phone] Tatiana Pineda MD Unavailable [phone] July Unavailable Graham Mathews MD Unavailable Encounter Details Date Type Department Care Team (Late st Contact Info) Description 11/30/2022 Orders Only [facility] MEDICINE [address] [place], [place] [phone] Krysten Rose MD [address] [place], [place] [phone] Chronic pain of left knee (Primary Dx); [...] Description 03/11/2025 1:00 PM EST Office Visit [facility] ADULT DENTAL [address] [place] [address] Gabriela Elliott [address] [place] [address] documented as of this encounter Goals Goal Patient Goal Type Associated Problems Recent Progress Patient-Stated? Author Blood Pressure < 150/90 Blood Pressure 118/80(2024 10:45 AM EDT) No Rolly Mosley, PharmFransico Note: Per JNC-8 Age greater than 60 y/o without CKD or DM documented as of this encounter Visit Diagnoses Diagnosis Chronic pain of left knee- Primary Chronic pain of right knee documented in this encounter Additional Health Concerns Assessment Noted Time PHQ-9 Depression Total Score: 5 07/18/19 23 10:12 AM EDT documented as of this encounter Care Teams Glass Worker Relationship Specialty Start Date End Date Krysten Rose MD [address] [place] [address] PCP - General Family Medicine 02/16/11 Rolly Mosley, PharmD [address] [place] [address] Pharmacist Internal Medicine 08/11/22 Getachew Aguayo MD [address] [place] [address] General Surgery 04/06/24 Tatiana Pineda MD [address] [place] [address] Hematology and Oncology 04/06/24 Neville July [address] [place] [address] Gastroenterology 04/06/24 Graham Mathews MD [address] [place] [address] Cardiology 04/06/24 documented as of this encounter
== END 2024-09-12 13:52 | disposition home or self-care (01) ==
LOC: HO.MAMMO 13:51
PROVIDERS: PCP Family Medicine; Visit Provider Internal Medicine
DX: Z12.31 Encounter for screening mammogram for malignant neoplasm of breast (principal); M81.0 Age-related osteoporosis without current pathological fracture
CPT/HCPCS: 77063; 77067; 77080

== ENCOUNTER → 2024-09-12 13:53 | Outpatient (BNV) | payer OTHER, SELFPAY | PROVIDERS: PCP Family Medicine; Visit Provider Radiology Diagnostic Radiology | DX: E28.39 Other primary ovarian failure (principal) | CPT/HCPCS: 77080 ==

== ENCOUNTER 2024-09-18 12:37 | Outpatient (REF) | payer OTHER, SELFPAY ==
[2024-09-18 16:53] LABS: Urine Cytology See Pathology rpt
== END 2024-09-18 12:38 | disposition home or self-care (01) ==
LOC: HO.LNP 12:37
PROVIDERS: PCP Family Medicine; Visit Provider Nurse Practitioner Family
DX: R31.29 Other microscopic hematuria (principal); N39.0 Urinary tract infection, site not specified; N20.0 Calculus of kidney
CPT/HCPCS: 81003; 88112; 99202

== ENCOUNTER 2024-09-18 12:37 | Outpatient (AMB) | payer OTHER, SELFPAY ==
--- NOTE | 2024-09-18 12:52 | A.OFFVIS_ITS ---
Intake Visit Reasons: history of kidney stones/hematuria Intake Note: New Patient presents for initial visit for history of kidney stones Urology Medications: none Blood Thinner: aspirin Smoker:never Industrial Controller Required: Yes Industrial Controller Services: Industrial Controller Present Industrial Controller Name: PARVEZ REYESMAGEDI Accompanied by: Self / Same As Patient Allergies No Known Allergies [No Known Allergies*] Allergy (Verified 09/18/24 13:46) Medication List - Last Reconciled 09/18/24 by ISAC Benitez amlodipine 10 mg PO BEDTIME aspirin 81 mg PO DAILY bisacodyl (Dulcolax (bisacodyl)) 10 mg (2 x 5 mg) PO BEDTIME cholecalciferol (vitamin D3) (Vitamin D3) 25 mcg PO QAM cyanocobalamin (vitamin B-12) 1,000 mcg PO DAILY fluticasone propionate 50 mcg/actuation 1 spray intranasal DAILY hydrocortisone 2.5% 2.5 appl topical DAILY ipratropium bromide 42 mcg intranasal DAILY lisinopril 10 mg PO DAILY loratadine (Claritin) 10 mg PO DAILY PRN multivitamin 1 tab PO QAM pantoprazole 40 mg PO DAILY polyethylene glycol 3350 (Miralax) 238 grams PO ONCE rosuvastatin 20 mg PO BEDTIME sucralfate 10 mL PO BEDTIME HPI Comments Details: Charlene is a very pleasant 73-year-old Liberian-speaking female patient of Dr. Rose. She has a past medical history of nephrolithiasis, dysuria, hematuria, coronary artery disease, GERD, left tennis elbow, osteopenia, hyperlipidemia, hypertension, and breast cancer. She presents to the office today as a new patient for recurrent urinary tract infections she has been experiencing. In discussion with the patient today she reports having seeked emergency room care in May for ongoing lower urinary tract symptoms she had been experiencing with incomplete bladder emptying and dysuria at which time she was diagnosed with an infection. She reports having completed antibiotic therapy as prescribed and had been doing well. She reports that in June she had went to [facility] and again started experiencing the same symptoms at which time she followed up with a provider there that diagnosed her with a urinary tract infection in it imaging was obtained and she was noted to have a renal cyst. She reports having completed antibiotic therapy as prescribed by physician in [facility]. She then reports in August she had again seeked emergency room care through [facility] and was diagnosed with another urinary tract infection and given cephalexin that she has since completed. She reports she also had a retroperitoneal ultrasound. These results were obtained and reviewed with the patient today. 08/31 bilateral kidneys are normal in thickness and echotexture. No nephrolithiasis or suspicious masses seen. Left kidney with simple cysts measuring 4.7 cm in the interpolar region. Urinary bladder is nondistended. No definite wall thickening. No bladder calculi. No hydronephrosis noted bilaterally. She currently denies any UTI like symptoms. We did discussed po tential causes of recurrent urinary tract infections as well as further treatment options and risks and benefits of these treatment options. She denies urinary urgency, urinary frequency, incontinence, nocturia, hematuria, dysuria, foul smelling urine, changes to urinary stream, flank pain, fever, and or chills. She is happy with her current voiding parameters. She does report issues with her bowels and has been following up with her PCP and has recently started Dulcolax. We discussed correlation of lower urinary tract symptoms with constipation. All questions were answered. She otherwise offers no other issues or concerns at this time. [facility] Medical History Abnormal nuclear stress test Dysuria Kidney stone Blood in urine CAD (coronary artery disease) GERD (gastroesophageal reflux disease) COVID-19 History of left tennis elbow Preoperative cardiovascular examination Arm fracture, left Abnormal EKG Chronic RLQ pain Hx of echocardiogram Osteopenia Colon cancer screening Hyperlipidemia Hypertension History of breast cancer Surgical History History of esophagogastroduodenoscopy (EGD) Hx of colonoscopy Hx of bilateral cataract extraction History of hemorrhoidectomy History of hysterectomy History of lumpectomy of left breast Family History Maternal Uncle History of prostate cancer Maternal Aunt History of colon cancer Brother History of prostate cancer Social History Household Members: Family and Children Housing: House Are you a primary health care marketing specialist to a significant other at home: No Do you presently have visiting nurse or other home services: Yes Alcohol intake: former Patient Tobacco Use Status: Never used Tobacco service: No Current occupational status: disabled Review of Systems Const All systems reviewed & are unremarkable except as noted in HPI and below Physical Exam Const General: cooperative, healthy appearing, comfortable, no acute distress, well developed, alert and awake Orientation/consciousness: patient oriented x3 Limitations: language barrier HEENT Head: Yes normal to inspection, Yes normocephalic and Yes atraumatic Ears: hearing grossly normal bilaterally Eyes General: appearance normal, both eyes and all related structures Neck Neck: Yes normal visual inspection and Yes trachea midline Chest Chest palpation & inspection: normal inspection of the chest Resp Effort & Inspection: normal respiratory effort and able to speak in complete sentences Cardio Rate: regular rate GI Inspection: Yes normal to inspection General: Yes no CVA tenderness Back/Spine/Pelvis Back: no CVA tenderness Skin General skin exam: no rashes or lesions noted Neuro General: patient oriented x3 Extrem General: Yes normal to inspection Psych Appearance: grossly normal and well kempt Mental Status: mental status grossly normal Speech and movement: Normal speech and movement present and Clear speech present Affect: normal affect Attitude: cooperative Thought process: Normal thought process present Thought content: Normal thought content present Insight: Fair insight present (Psych) Judgement: Fair judgement present (Psych) Results AMB Urinalysis, Automated UA Leukoctes 15 Reilly/uL Last Edit by Shirin Hwang MA on 09/18/24 13:20 UA Nitrite Negative Last Edit by Shirin Hwang MA on 09/18/24 13:20 UA Urobilinogen 0.2 mg/dL Last Edit by Shirin Hwang MA on 09/18/24 13:20 UA Protein 30 mg/dL Last Edit by Shirin Hwang MA on 09/18/24 13:20 UA pH 6.0 Last Edit by Shirin Hwang MA on 09/18/24 13:20 UA Blood 10 Arturo/uL Last Edit by Shirin Hwang MA on 09/18/24 13:20 UA Specific Martin 1.025 Last Edit by Shirin Hwang VIVI on 09/18/24 13:20 UA Ketone Positive Last Edit by Shirin Hwang VIVI on 09/18/24 13:20 UA Bilirubin 2 mg/dL Last Edit by Shirin Hwang VIVI on 09/18/24 13:20 UA Glucose 0 mg/dL Last Edit by Shirin Hwang VIVI on 09/18/24 13:20 Results Reviewed Results Reviewed: Laboratory Last Values Urine pH (Auto) 6.0 09/18/24 13:05 Specific Martin (Auto) 1.025 09/18/24 13:05 Urine Protein (Auto) 30 mg/dL 09/18/24 13:05 Glucose (UA)(Auto) 0 mg/dL 09/18/24 13:05 Urine Ketones (Auto) Positive 09/18/24 13:05 Urine Blood (Auto) 10 Arturo/uL 09/18/24 13:05 Urine Nitrite (Auto) Negative 09/18/24 13:05 Urine Bilirubin (Auto) 2 mg/dL 09/18/24 13:05 Urine Urobilinogen (Auto) 0.2 mg/dL 09/18/24 13:05 Leukocyte Esterase (Auto) 15 Reilly/uL 09/18/24 13:05 Assessment & Plan Assessment & Plan (1) Microhematuria: Code(s): R31.29 - Other microscopic hematuria Category: Medical (2) Recurrent urinary tract infection: Code(s): N39.0 - Urinary tract infection, site not specified Category: Medical Plan In office urinalysis results reviewed with the patient today; as noted above; will send for urine cytology. We discussed potential causes of recurrent urinary tract infections as well as further treatment options and risks and benefits of these treatment options. Recent retroperitoneal ultrasound results reviewed with the patient today; as noted above. Start Estrace cream as discussed and prescribed. She currently denies any bothersome urinary issues or concerns. She reports be happy with current voiding parameters. Discussed UTI prevention with D mannose supplement, vitamin-C, increasing fluid intake, behavioral therapy with timed voiding, perineal hygiene and postcoital voiding, and management of constipation with stool softeners and increased fiber intake. Follow-up in 2-3 months with [facility]; or sooner with any issues, concerns, and or questions. Orders: Orders Urine Cytology 09/18/24 R31.9 - Hematuria, unspecified AMB Urinalysis Automated 09/18/24 Z13.9 - Encounter for screening, unspecified Medications: New estradiol 0.01%(0.1mg/gram) (Estrace) Apply a pea-sized amount to urethra daily x1 month and then 3 times per week thereafter 1 g vaginal 3XW 90 days 42.5 grams 3RF Patient Instructions: The patient had an opportunity to ask questions regarding the treatment plan. All questions were answered. Physical exam, labs, and imaging were discussed and reviewed in detail. As well as risks, benefits, and discussion of treatment choices. No major barriers to understanding were identified. The patient expressed understanding and agreement with the above treatment plan. The patient was made aware they should contact our office by phone for worsening of their current condition, the appearance of new symptoms, or with any questions or concerns. Compliance is encouraged with any medications and follow up testing that is ordered. It is a privilege to be allowed the opportunity to participate in? your urological care.? Again, if you have any questions or concerns If you have any questions or concerns please do not hesitate to contact me. The office is [phone]. This note is constructed using voice recognition software. While every effort has been made to ensure accuracy teller supervisor errors may have been included. Yours sincerely, VIKAS Benitez Coding Level of Care Code New Pt Level 4 (66215) Diagnoses Microhematuria R31.29 Recurrent urinary tract infection N39.0
--- OUTSIDE RECORDS SUMMARY | 2024-09-18 14:31 | XMS_ITS | Encounter Summary ---
Author Organization [employer] Address [address] [place] [address] Care Team Providers Care Tent Assembler Name Role Phone Krysten Rose MD Primary Care Provider Rolly Mosley PharmD Unavailable [phone] Getachew Aguayo MD Unavailable Tatiana Pineda MD Unavailable [phone] July Unavailable Graham Mathews MD Unavailable Encounter Details Date Type Department Care Team (Late st Contact Info) Description 11/30/2022 Orders Only [facility] [address] [place], [place] [phone] Krysten Rose MD [address], [place] [phone] Chronic pain of left knee (Primary Dx); [...] Description 03/11/2025 1:00 PM EST Office Visit [facility]ULT [facility] [address] [place] [address] Gabriela Elliott [address] [place] [address] documented as of this encounter Goals Goal [...] documented as of this encounter Care Teams Tent Assembler Relationship Specialty Start Date End Date Krysten Rose MD [address] [place] [address] PCP - General Family Medicine 02/16/11 Rolly Mosley, PharmD [address] [place] [phone] Pharmacist Internal Medicine 08/11/22 Getachew Aguayo MD [address] [place] [id number] General Surgery 04/06/24 Tatiana Pineda MD [address] [place] [address] Hematology and Oncology 04/06/24 Neville July [address] [place] [id number] Gastroenterology 04/06/24 Graham Mathews MD [address] [place] [phone] Cardiology 04/06/24 documented as of this encounter
== END 2024-09-18 13:48 | disposition home or self-care (01) ==
LOC: HO.HUSH 12:38
PROVIDERS: PCP Family Medicine; Visit Provider Nurse Practitioner Family
DX: Z13.9 Encounter for screening, unspecified (principal)

== ENCOUNTER 2024-11-18 07:28 | Day surgery (SDC) | payer OTHER, SELFPAY ==
--- OUTSIDE RECORDS SUMMARY | 2024-10-29 13:17 | XMS_ITS | Encounter Summary ---
Author Organization [employer] Address [address] [place] [address] Care Team Providers Care Psych Rn Name Role Phone Krysten Rose MD Primary Care Provider Rolly Mosley PharmD Unavailable Getachew Aguayo MD Unavailable [phone] Tatiana Pineda MD Unavailable [phone] July Unavailable Graham Mathews MD Unavailable Reason for Visit * Reason Comments Med Refill Encounter Details Date Type Department Care Team (Late st Contact Info) Description 10/08/2024 Refill [facility] [address], [place] [phone] Krysten Rose MD [address] [place], [place] [phone] Social History Tobacco Use Types Packs/Day Years [...] the past 12 months, has t he [employer], gas, oil or water [email or web address] threatened to shut off services in your [...] Care Team (Late st Contact Info) Description 12/10/2024 10:15 AM EDT Office Visit [facility] [address] [place] [phone] Krysten Rose MD [address] [place] [address] 03/11/2025 1:00 PM EST Office Visit [facility] ADULT DENT[facility] [address] [place] [address] Gabriela Elliott [address] [place] [address] documented as of this encounter Goals Goal Patient Goal Type Associated Problems Recent Progress Patient-Stated? Author Blood Pressure < 150/90 Blood Pressure 118/80(2024 10:45 AM EDT) No Rolly Mosley, PharmD Note: Per JNC-8 Age greater than 60 y/o without CKD or DM documented as of this encounter Visit Diagnoses Not on filedocumented in this encounter Additional Health Concerns Assessment Noted Time PHQ-9 Depression Total Score: 0 09/05/19 25 10:45 AM EDT documented as of this encounter Care Teams Psych Rn Relationship Specialty Start Date End Date Krysten Rose MD [address] [place] [address] PCP - General Family Medicine 02/16/11 Rolly Mosley, EusebioD [address] [place] [phone] Pharmacist Internal Medicine 08/11/22 Getachew Aguayo MD [address] [place] [id number] General Surgery 04/06/24 Tatiana Pineda MD [address] [place] [address] Hematology and Oncology 04/06/[address] [place] [phone] Gastroenterology 04/06/24 Graham Mathews MD [address] [place] [address] Cardiology 04/06/24 documented as of this encounter
--- NOTE | 2024-11-17 09:56 | HO.ANESPROP2 ---
Documented by User: Lluvia Lake NP 11/17/24 10:05 HPI - Anesthesia Eval Consult details Narrative: 74yo F for Colonoscopy [place] [facility] [place] for: mild, nonobstructive CAD by cath, palps - no etiology despite extensive w/u, htn. Stable at 07/2024 office eval with 1 year f/u [facility] Active Problems Active Problems: All Active Problems Recurrent urinary tract infection (Acute) Microhematuria (Acute) CAD (coronary artery disease) (Acute) Dysuria (Acute) Kidney stone (Acute) Blood in urine (Acute) GERD (gastroesophageal reflux disease) (Acute) Oropharyngeal dysphagia (Acute) Chronic pain of left knee (Acute) Osteoporosis (Acute) Essential tremor (Acute) Impaired fasting glucose (Acute) Right bundle branch block (Acute) Hypertensive heart disease (Acute) Palpitations (Acute) Exertional dyspnea (Acute) Breast cancer, left (Chronic) Cataracts, bilateral (Acute) Chronic RLQ pain (Acute) Hyperlipidemia (Acute) Hypertension (Acute) Past Medical History Medical History Abnormal nuclear stress test Dysuria Kidney stone Blood in urine CAD (coronary artery disease) GERD (gastroesophageal reflux disease) COVID-19 History of left tennis elbow Preoperative cardiovascular examination Arm fracture, left Abnormal EKG Chronic RLQ pain Hx of echocardiogram Osteopenia Colon cancer screening Hyperlipidemia Hypertension History of breast cancer Family History Family History Maternal Uncle History of prostate cancer Maternal Aunt History of colon cancer Brother History of prostate cancer Family history of problems with anesthesia: No Surgical History Surgical History History of esophagogastroduodenoscopy (EGD) Hx of colonoscopy Hx of bilateral cataract extraction History of hemorrhoidectomy History of hysterectomy History of lumpectomy of left breast History of Problems with Anesthesia: No Social History Social History Household Members: Family and Children Housing: House Are you a primary health care / medical job titles to a significant other at home: No Do you presently have visiting nurse or other home services: Yes Alcohol intake: former Patient Tobacco Use Status: Never used Tobacco Use of substances other than those prescribed or required for medical reasons: No Have you been hit, kicked, punched, or otherwise hurt by someone within the past year? If so, by whom?: No Are you DNR?: No Advance Directives: No Advance Directives Information Provided: Yes Poor oral hygiene: Yes service: No Current occupational status: disabled Meds Allergies Allergy/AdvReac Type Severity Reaction Status Date / Time No Known Allergies (No Known Allergy Verified 11/18/24 07:44 Allergies*) Home Medications ?Medication ?Instructions ?Recorded ?Confirmed ?Last Taken ?Type lisinopril 10 mg tablet 10 mg PO DAILY 02/18/20 11/18/24 11/14/24 History aspirin 81 mg chewable tablet 81 mg PO DAILY 03/22/22 11/18/24 11/14/24 History cyanocobalamin (vitamin B-12) 1,000 mcg PO DAILY 06/22/23 11/18/24 Unknown History 1,000 mcg tablet hydrocortisone 2.5 % topical cream 2.5 appl topical DAILY 11/29/23 11/18/24 Unknown History rosuvastatin 20 mg tablet 20 mg PO BEDTIME 11/29/23 11/18/24 Unknown History cholecalciferol (vitamin D3) 25 25 mcg PO QAM 05/02/24 11/18/24 Unknown History mcg (1,000 unit) capsule (Vitamin D3) ipratropium bromide 42 mcg (0.06 42 mcg intranasal DAILY 05/02/24 11/18/24 Unknown History %) nasal spray multivitamin 1 tab PO QAM 05/02/24 11/18/24 Unknown History Exam Pertinent Lab Results Pertinent Lab Results: Laboratory Tests 09/04/24 11:48 WBC 5.0 Hgb 14.0 Hct 42.0 Plt Count 229 Sodium 143 Potassium 4.0 Chloride 109 H Carbon Dioxide 26 BUN 15 Creatinine 0.70 Narrative Narrative: EKG 02/2024 NSR @ 78 LAD Incomplete RBBB Mod criteria for LVH Possible lateral infarct Coronary CT 2023 IMPRESSION: No evidence of hemodynamically significant coronary artery disease. Left Main: Normal. Left Anterior Descending: There are scattered mild calcifications within the proximal segment causing minimal less than 25% stenosis. Left Circumflex Artery: No significant plaque or stenosis. Right Coronary Artery: No significant plaque or stenosis. RCA dominant. NM cardiolite stress test 2023 (deemed false positive by CTA) Impression: 1. Myocardial perfusion imaging study shows mild intensity moderate-sized defect in the mid to distal anterior, anterolateral and apical wall suggestive of ischemia in LAD territory. 2. Gated LVEF is 70% 3. Transient ischemic dilatation not present ECHO Conclusions: - Normal left ventricular size and systolic function. There is mildly increased left ventricular wall thickness. The visually estimated ejection fraction is between 55-60%. - Normal right ventricular cavity size and systolic function. - There is mild to moderate aortic valve regurgitation. Assessment and Plan Assessment Anesthesia Assessment: Chart Reviewed Final Anesthetic Review Family History of Problems with Anesthesia: No History of Problems with Anesthesia: No Documented by User: Roldan Gonzalez MD 11/18/24 08:19 [facility] Past Medical History Medical History Abnormal nuclear stress test Dysuria Kidney stone Blood in urine CAD (coronary artery disease) GERD (gastroesophageal reflux disease) COVID-19 History of left tennis elbow Preoperative cardiovascular examination Arm fracture, left Abnormal EKG Chronic RLQ pain Hx of echocardiogram Osteopenia Colon cancer screening Hyperlipidemia Hypertension History of breast cancer Family History Family History Maternal Uncle History of prostate cancer Maternal Aunt History of colon cancer Brother History of prostate cancer Surgical History Surgical History History of esophagogastroduodenoscopy (EGD) Hx of colonoscopy Hx of bilateral cataract extraction History of hemorrhoidectomy History of hysterectomy History of lumpectomy of left breast Social History Social History Household Members: Family and Children Housing: House Are you a primary health care / medical job titles to a significant other at home: No Do you presently have visiting nurse or other home services: Yes Alcohol intake: former Patient Tobacco Use Status: Never used Tobacco Use of substances other than those prescribed or required for medical reasons: No Have you been hit, kicked, punched, or otherwise hurt by someone within the past year? If so, by whom?: No Are you DNR?: No Advance Directives: No Advance Directives Information Provided: Yes Poor oral hygiene: Yes service: No Current occupational status: disabled Meds Allergies Allergy/AdvReac Type Severity Reaction Status Date / Time No Known Allergies (No Known Allergy Verified 11/18/24 07:44 Allergies*) Home Medications ?Medication ?Instructions ?Recorded ?Confirmed ?Last Taken ?Type lisinopril 10 mg tablet 10 mg PO DAILY 02/18/20 11/18/24 11/14/24 History aspirin 81 mg chewable tablet 81 mg PO DAILY 03/22/22 11/18/24 11/14/24 History cyanocobalamin (vitamin B-12) 1,000 mcg PO DAILY 06/22/23 11/18/24 Unknown History 1,000 mcg tablet hydrocortisone 2.5 % topical cream 2.5 appl topical DAILY 11/29/23 11/18/24 Unknown History rosuvastatin 20 mg tablet 20 mg PO BEDTIME 11/29/23 11/18/24 Unknown History cholecalciferol (vitamin D3) 25 25 mcg PO QAM 05/02/24 11/18/24 Unknown History mcg (1,000 unit) capsule (Vitamin D3) ipratropium bromide 42 mcg (0.06 42 mcg intranasal DAILY 05/02/24 11/18/24 Unknown History %) nasal spray multivitamin 1 tab PO QAM 05/02/24 11/18/24 Unknown History Exam Airway Mallampati Class: III TM Dist: >3cm Neck ROM: Full Loose/Missing/Broken Teeth: Yes (missing front lower teeth) Heart: rrr Lungs: cta Assessment and Plan Final Anesthetic Review NPO: Yes ASA Class: III Final Preanesthetic Review: No Changes in Pt Med Stat, Meds/Allgs Chart Reviewed, Consent Obtained/Reviewed and Anes Risks/Benef Reviewed Patient Risk: Intermediate Procedure Risk: Low Anesthetic Plan Anesthetic Plan: MAC: Disposition: Standard PACU
--- NOTE | 2024-11-18 07:43 | MHC.SHP ---
Pre-Procedural Eval Section A - 24 Hr Update-Section A only Date of Service: 11/18/24 Section B - Complete if H&P > 30 days Chief Complaint: screening Details of Present Illness: Abnormal nuclear stress test Dysuria Kidney stone Blood in urine CAD (coronary artery disease) GERD (gastroesophageal reflux disease) COVID-19 History of left tennis elbow Preoperative cardiovascular examination Arm fracture, left Abnormal EKG Chronic RLQ pain Hx of echocardiogram Osteopenia Colon cancer screening Hyperlipidemia Hypertension History of breast cancer Surgical History History of esophagogastroduodenoscopy (EGD) Hx of colonoscopy Hx of bilateral cataract extraction History of hemorrhoidectomy History of hysterectomy History of lumpectomy of left breast Present Medications: see Short Stay Collaborative assessment Allergies: Allergies Allergy/AdvReac Type Severity Reaction Status Date / Time No Known Allergies (No Known Allergy Verified 09/18/24 13:46 Allergies*) Review of Systems Review of Systems Comment: Ten point ROS negative Exam Exam Comment: Gen appear: No acute distress HEENT: no icterus Chest: No overt resp distress Abd: soft, nontender, nondistended Psych: Stable affect, answering questions appropriately Neuro: A/Ox3 noted to move all extremities spontaneously Ext: no peripheral edema Plan Diagnosis/Plan: Unchanged I have reviewed the history and physical and performed a pertinent physical examination on my patient. No changes have occurred unless specified. Time Spent With Patient Time: Total time managing care of this patient today ____ minutes.
[2024-11-18 07:46] VITALS: BP 139/63; PULSE 94; RESP 14; TEMP 36.9; O2SAT 99; BMI 22.8
[2024-11-18] MEDS: Lactated Ringers 1,000 ML 100 ML IVCONT (07:50)
--- NOTE | 2024-11-18 09:10 | P.OPN-COLO_ITS ---
Colonoscopy Operative Note Operative Note Date of Service: 11/18/24 Narrative: Procedure: Colonoscopy Indication: Screening Endoscopist: Elizabeth Galicia MD Anesthesia Provider: Dr Gonzalez Anesthesia type: MAC Instrument: Olympus [id number]-[id number] Consent: Indication, risks vs benefits, and alternatives were discussed with the patient who gave written informed consent to proceed. An radio operator ground was utilized to assist with the consent. EKG, pulse, pulse oximetry and blood pressure were monitored throughout the procedure. Please see anesthesia flowsheet. Procedure: That abdominal binder was affixed to the lower abdomen. The patient was brought to the procedure room and placed in the left lateral decubitus position. IV medications were administered by the anesthesia provider in attendance. A digital rectal exam was performed which was abnormal due to finding of external hemorrhoids. A distal attachment cap was affixed to the tip of the colonoscope which was then inserted through the anus and advanced through the colon to the cecum at 75 cm, and terminal ileum. Appendiceal orifice and ileocecal valve were identified. Mucosa was carefully examined under high definition white light as the instrument was slowly withdrawn in a retrograde panoramic fashion. Retroflexion was performed in rectum. The procedure was not difficult. There were no immediate obvious complications. The quality of the prep was BBPS: 2+3+2 = adequate Withdrawal time 20 minutes. Limitations: No limitations. Findings: Mucosa: Normal to cecum and terminal ileum. Protruding lesions: * A 2 cm subepithelial nodule was noted in descending colon. This was unroofed revealing a combination of fatty and muscular tissue. Cold forceps biopsies were taken for histology. * 5 sessile polyp of size 2-6 mm in transverse colon. Cold snare polypectomy was performed. The polyp was completely removed and retrieved. * 1 sessile polyp of size 2 mm in descending colon. Cold forceps polypectomy was performed. The polyp was completely removed and retrieved. * Large internal hemorrhoids without stigmata of recent bleeding. Impression: 1. Normal colon mucosa 2. Descending colon nodule 2. Total of 6 polyps removed 3. Externaland internal hemorrhoids Recommendations: - Follow path results. - Repeat colonoscopy in 3 years if all the polyps are adenoma. - May need CT abdomen and pelvis with contrast depending on the results of the nodule histology.
[2024-11-18 09:12] VITALS: BP 83/38; PULSE 50; RESP 16; TEMP 36.6; O2SAT 98
[2024-11-18 09:17] VITALS: BP 98/40
[2024-11-18 09:27] VITALS: BP 90/47; PULSE 60; RESP 18; TEMP 36.6; O2SAT 98
[2024-11-18 09:42] VITALS: BP 111/50; PULSE 60; RESP 18; TEMP 36.6; O2SAT 97
== END 2024-11-18 10:16 | disposition home or self-care (01) ==
PROVIDERS: PCP Family Medicine; Visit Provider Internal Medicine
PROC: 0DJD8ZZ Inspection of Lower Intestinal Tract, Via Natural or Artificial Opening Endoscopic (ICD-10-PCS; CPT 45378; principal; 2024-11-18 08:10)
DX: Z12.11 Encounter for screening for malignant neoplasm of colon (principal); D12.3 Benign neoplasm of transverse colon; D12.4 Benign neoplasm of descending colon; K64.8 Other hemorrhoids; K64.4 Residual hemorrhoidal skin tags; I10 Essential (primary) hypertension; E78.5 Hyperlipidemia, unspecified; Z85.3 Personal history of malignant neoplasm of breast
CPT/HCPCS: 45385; 45380; 88305; J2003; J2704; J3010

== ENCOUNTER → 2024-11-18 07:28 | Outpatient (BNV) | payer OTHER, SELFPAY | PROVIDERS: PCP Family Medicine; Visit Provider Internal Medicine | DX: Z12.11 Encounter for screening for malignant neoplasm of colon (principal); D12.4 Benign neoplasm of descending colon; K63.89 Other specified diseases of intestine; K64.8 Other hemorrhoids; D12.3 Benign neoplasm of transverse colon | CPT/HCPCS: 45380; 45385 ==

== ENCOUNTER 2024-12-12 09:33 | Outpatient (AMB) | payer OTHER, SELFPAY ==
--- OUTSIDE RECORDS SUMMARY | 2024-12-10 10:15 | XMS_ITS | Encounter Summary ---
Author Organization [employer] Address 75 [facility] 7t [place] [address] Care Team Providers Care District Wire Chief Name Role Phone Krysten Rose MD Primary Care Provider Rolly Mosley PharmD Unavailable Getachew Aguayo MD Unavailable Tatiana Pineda MD Unavailable [phone] July Unavailable Graham Mathews MD Unavailable Reason for Visit * Reason Comments Follow-up Encounter Details Date Type Department Care Team (Late st Contact Info) Description 12/10/2024 10:15 AM EDT Office Visit [facility] MED[facility]INE [address] [place], [place] [phone] Krysten Rose MD [address] [place], [place] [phone] Primary hypertension (Primary Dx); Osteoporosis, unspecified osteoporosis type, unspecified pathological fracture presence; Dyslipidemia Social History Tobacco Use Types Packs/Day Years [...] Sign Reading Time Taken Comments Blood Pressure 110/72 12/10/2024 10:06 AM EDT Pulse 97 12/10/2024 10:06 AM EDT Temperature 37.2 C (98.9 F) 12/10/2024 10:06 AM EDT Respiratory Rate 18 12/10/2024 10:0 6 AM EDT Oxygen Saturation 98% 12/10/2024 10: 06 AM EDT Inhaled Oxygen Concentration - - Weight 60.2 kg (132 lb 12.8 oz) 025 10:06 AM EDT Height 157.5 cm (5' 2 ) 12/10/2024 10:0 6 AM EDT Body Mass Index 24.29 12/10/2024 10:06 AM EDT documented in this encounter Miscellaneous Notes * Assessment & Plan Note - Krysten Rose MD - 12/10/2024 10:23 AM EDTAssociated Problem(s): Dyslipidemia - last lipid profile in 09/04/24 TRIG 126; CHOL 125; LDL 45; HDL 55 - moderate intensity statin is recommended - since her recent stress test was abnormal, agreed to intensify statin therapy - continue rosuvastatin 20 mg at bedtime - changed pravastatin to rosuvastatin in August 2024 - continue lifestyle modifications - check LFT and lipid profile 4 wks after starting rosuvastatin * Assessment & Plan Note - Krysten Rose MD - 12/10/2024 10:23 AM EDTAssociated Problem(s): Hypertension - Goal BP< 130/80 per ACC/AHA guideline - BP is at goal today - Continue working on lifestyle modifications. - Continue current medications: amlodipine 10 mg daily; lisinopril 10 mg daily - Continue checking home BP * Assessment & Plan Note - Krysten Rose MD - 12/10/2024 6:41 AM EDTAssociated Problem(s): Osteoporosis - 06/23/22 DEXA -2.5 in femoral neck - alendronate since 2009, interruption while she was recovering from left arm fracture in 6087-7535, then restarted and discontinued in Feb 2023 due to no improvement in T-score on DEXA in 2022 - Oncologist, Dr. Pineda started her on RANKL inhibitor with denosumab (Prolia) 60 mg every 6 month. She has on this medication since March 2023. Last administration on 09/03/2024. documented in this encounter Plan of Treatment Upcoming Encounters Date Type Department Care Team (Late st Contact Info) Description 03/11/2025 1:00 PM EST Office Visit [facility] ADULT DENTAL [address] [place] [address] Gabriela Elliott [address] [place] [address] documented as of this encounter Goals Goal Patient Goal Type Associated Problems Recent Progress Patient-Stated? Author Blood Pressure < 150/90 Blood Pressure 110/72(2024 10:06 AM EDT) No Rolly Mosley, PharmFransico Note: Per JNC-8 Age greater than 60 y/o without CKD or DM documented as of this encounter Visit Diagnoses Diagnosis Primary hypertension- Primary Unspecified essential hypertension Osteoporosis, unspecified osteoporosis type, unspecified pathological fracture presence Dyslipidemia Other and unspecified hyperlipidemia documented in this encounter Additional Health Concerns Assessment Noted Time PHQ-9 Depression Total Score: 0 09/05/19 25 10:45 AM EDT documented as of this encounter Care Teams District Wire Chief Relationship Specialty Start Date End Date Krysten Rose MD [address] [place] [address] PCP - General Family Medicine 02/16/11 Rolly Mosley, PharmD [address] [place] [address] Pharmacist Internal Medicine 08/11/22 Getachew Aguayo MD [address] [place] [address] General Surgery 04/06/24 Tatiana Pineda MD [address] [place] [address] Hematology and Oncology 04/06/24LozadaJuly [address] [place] [address] Gastroenterology 04/06/24 Graham Mathews MD [address] [place] [address] Cardiology 04/06/24 documented as of this encounter
--- NOTE | 2024-12-12 09:52 | A.OFFVIS_ITS ---
Vital Signs 3 12/12/24 09:59 Height 5 ft 3 in Weight 132 lb BMI 23.4 BP 137/63 Blood Pressure Location Lt brachial Position Sitting Pulse 79 Intake Visit Reasons: yearly breast exam Intake Note: Patient is seen in office for yearly breast exam. Patient c/o: denies any concerns or changes since last visit mm: 09/12/24 Railroad Cook Required: Yes Railroad Cook Language: Crime Investigator Special Agent Services: Railroad Cook Present Railroad Cook Name: Jane MOORE Information Interpreted: non-clinical & clinical Doughnut Icer: Doughnut Icer Present Accompanied by: Self / Same As Patient Allergies No Known Allergies (No Known Allergies*) Allergy (Verified 12/12/24 09:53) HPI Comments Details: Charlene Zamora is a 74-year-old female patient of Dr. Augustin, and previous patient of Dr. Sanchez, noted to have a spiculated mass measuring 1 cm in the posterior upper outer quadrant left breast noted on a screening digital mammogram on 07/11/16. She underwent a core biopsy, followed by a left partial mastectomy with left sentinel node biopsy on 08/14/16. 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 Margins were clear of invasive carcinoma as well as DCIS. Lymphovascular invasion was not identified. 2 sentinel nodes were benign. Patient completed adjuvant radiation therapy between 09/27/16-10/26/16 (Dr. Ko, [facility]). Patient was [place] on tam[place] [facility] [place] She reports the tamoxifen led to worsening cataracts, therefore she was switched to letrozole. She subsequently underwent bilateral cataract surgery. She denies any new symptoms. She reports problems with high blood pressure. Her last mammogram on 09/12/2024 revealed no mammographic evidence of malignancy, (BI-RADS 2). She denies any new breast symptoms or new concerns. She is planning on returning to [facility] within the next year. [facility] Medical History Abnormal nuclear stress test Dysuria Kidney stone Blood in urine CAD (coronary artery disease) GERD (gastroesophageal reflux disease) COVID-19 History of left tennis elbow Preoperative cardiovascular examination Arm fracture, left Abnormal EKG Chronic RLQ pain Hx of echocardiogram Osteopenia Colon cancer screening Hyperlipidemia Hypertension History of breast cancer Surgical History History of esophagogastroduodenoscopy (EGD) Hx of colonoscopy Hx of bilateral cataract extraction History of hemorrhoidectomy History of hysterectomy History of lumpectomy of left breast Family History Maternal Uncle History of prostate cancer Maternal Aunt History of colon cancer Brother History of prostate cancer Social History Household Members: Family and Children Housing: House Are you a primary care center manager to a significant other at home: No Do you presently have visiting nurse or other home services: Yes Alcohol intake: former Patient Tobacco Use Status: Never used Tobacco service: No Current occupational status: disabled Review of Systems Const All systems reviewed & are unremarkable except as noted in HPI and below Physical Exam Vital Signs: Last Vital Signs Pulse 79 12/12/24 09:59 BP 137/63 12/12/24 09:59 BMI result Body Mass Index 23.4 Const General: cooperative, healthy appearing, comfortable and no acute distress HEENT Head: Yes normocephalic and Yes atraumatic Ears: hearing grossly normal bilaterally Neck Neck: Yes normal visual inspection and Yes no JVD Chest Other: Well-healed incision in the upper outer quadrant of the left breast with no palpable mass, skin change, nipple discharge, nipple retraction, enlarged lymph node, or tenderness. Right breast reveals soft breast tissue with no skin change, nipple discharge, palpable mass, or enlarged lymph nodes. Resp Effort & Inspection: normal respiratory effort Skin Other: Warm and dry, no rash Extrem General: Yes no clubbing, cyanosis or edema Assessment & Plan Assessment & Plan (1) Breast cancer, left: Code(s): C50.912 - Malignant neoplasm of unspecified site of left female breast Category: Medical Qualifiers: Breast location: upper outer quadrant of breast Patient sex: female E strogen receptor status: positive Qualified Code(s): C50.412 - Malignant neoplasm of upper-outer quadrant of left female breast; Z17.0 - Estrogen receptor positive status [ER+] Plan: Patient returns for follow-up examination following left breast invasive ductal carcinoma nearly 5 years post treatment. Patient is doing well with no evidence of recurrence disease. Her most recent mammogram dated 09/12/2024 revealed no mammographic evidence of malignancy (BI-RADS 2: Benign). Routine annual mammography was recommended. Patient may return in 1 year for follow-up examination if she desires to continue surgical follow-up if she does not returned to [facility] in the meantime. Coding Level of Care Code Est Pt Level 3 (66597) Complex EM visit Add On G2211 Diagnoses Malignant neoplasm of upper-outer quadrant of left breast in female, estrogen receptor positive C50.412; Z17.0 Breast location: upper outer quadrant of breast Patient sex: female Estrogen receptor status: positive
[2024-12-12 09:59] VITALS: BP 137/63; PULSE 79; BMI 23.4
--- OUTSIDE RECORDS SUMMARY | 2024-12-12 10:15 | XMS_ITS | Encounter Summary ---
Author Organization [employer] Address 75 [facility] 7t [place] [address] Care Team Providers Care Commutator Inspector Name Role Phone Krysten Rose MD Primary Care Provider [phone] Rolly Mosley PharmD Unavailable [phone] Getachew Aguayo MD Unavailable [phone] Tatiana Pineda MD Unavailable [phone] July Unavailable Graham Mathews MD Unavailable Encounter Details Date Type Department Care Team (Late st Contact Info) Description 02/27/2023 Abstract [facility] [address] [place], [place] [phone] Krysten Rose MD [address] [place], [place] [phone] Social History Tobacco Use Types Packs/Day Years [...] Description 03/11/2025 1:00 PM EST Office Visit [facility]ULT D[facility] [address] [place] [address] Earl, Gabriela [address] [place] [address] documented as of this encounter Goals Goal Patient Goal Type Associated Problems Recent Progress Patient-Stated? Author Blood Pressure < 150/90 Blood Pressure 110/72(2024 10:06 AM EDT) Rolly Sol, EusebioD Note: Per JNC-8 Age greater than 60 [...] documented as of this encounter Care Teams Commutator Inspector Relationship Specialty Start Date End Date Krysten Rose MD [address] [place] [address] PCP - General Family Medicine 02/16/11 Rolly Mosley, PharmD [address] [place] [address] Pharmacist Internal Medicine 08/11/22 Getachew Aguayo MD [address] [place] [address] General Surgery 04/06/24 Tatiana Pineda MD [address] [place] [address] Hematology and Oncology 04/06/24 Neville Dipika [address] [place] [address] Gastroenterology 04/06/24 Graham Mathews MD [address] [place] [address] Cardiology 04/06/24 documented as of this encounter
--- OUTSIDE RECORDS SUMMARY | 2024-12-12 10:15 | XMS_ITS | Encounter Summary ---
Author Organization [employer] Address 75 [facility] 7t [place] [address] Care Team Providers Care Environmental Remediation Specialist Name Role Phone Krysten Rose MD Primary Care Provider Rolly Mosley PharmD Unavailable Getachew Aguayo MD Unavailable [phone] Tatiana Pineda MD Unavailable [phone] July Unavailable Graham Mathews MD Unavailable Reason for Visit * Reason Comments Med Refill Encounter Details Date Type Department Care Team (Late st Contact Info) Description 10/08/2024 Refill [facility] MEDICINE [address] [place], [place] [phone] Krysten Rose MD [address] [place], [place] [phone] Social History Tobacco Use Types Packs/Day Years [...] the past 12 months, has t he [employer], gas, oil or water company threatened to [...] Description 03/11/2025 1:00 PM EST Office Visit [facility] ADULT DENTAL [address] [place] [address] Earl, Gabriela [address] [place] [address] documented as of this encounter Goals Goal Patient Goal Type Associated Problems Recent Progress Patient-Stated? Author Blood Pressure < 150/90 Blood Pressure 110/72(2024 10:06 AM EDT) No Rolly Mosley, PharmD Note: Per JNC-8 Age greater than 60 y/o without CKD or DM documented as of this encounter Visit Diagnoses Not on filedocumented in this encounter Additional Health Concerns Assessment Noted Time PHQ-9 Depression Total Score: 0 09/05/19 25 10:45 AM EDT documented as of this encounter Care Teams Environmental Remediation Specialist Relationship Specialty Start Date End Date Krysten Rose MD [address] [place] [address] PCP - General Family Medicine 02/16/11 Rolly Mosley, PharmD [address] [place] [address] Pharmacist Internal Medicine 08/11/22 Getachew Aguayo MD [address] [place] [address] General Surgery 04/06/24 Tatiana Pineda MD [address] [place] [address] Hematology and Oncology 04/06/[address] [place] [address] Gastroenterology 04/06/24 Graham Mathews MD [address] [place] [address] Cardiology 04/06/24 documented as of this encounter
--- OUTSIDE RECORDS SUMMARY | 2024-12-12 10:15 | XMS_ITS | Encounter Summary ---
Author Organization [employer] Address 75 [facility] 7t [place] [address] Care Team Providers Care Binder Coverstitch Name Role Phone Krysten Rose MD Primary Care Provider [phone] Rolly Mosley PharmD Unavailable Getachew Aguayo MD Unavailable [phone] Tatiana Pineda MD Unavailable [phone] July Unavailable Graham Mathews MD Unavailable Reason for Visit * Reason Onset Date Comments CHART PREP 12/09/2024 Encounter Details Date Type Department Care Team (Late st Contact Info) Description 12/09/2024 Telephone [facility] MEDICINE [address] [place], [place] [phone] Krysten Rose MD [address] [place], [place] [phone] CHART PREP Social History Tobacco Use Types Packs/Day Years [...] encounter Miscellaneous Notes * Telephone Encounter - Rocio Maxwell MA - 12/09/2024 12:17 PM EDT Chart Prep Labs: done from 09/04/24 Images: done mammo 09/12/24 Referrals: not applicable Vaccines due: Covid and Flu Screenings: not applicable Overdue care gaps: Oral health screening documented in this encounter Plan of Treatment Upcoming Encounters Date Type Department Care Team (Late st Contact Info) Description 03/11/2025 1:00 PM EST Office Visit [facility] ADULT DENTAL [address] [place] [address] Gabriela Elliott [address] [place] [address] documented as of this encounter Goals Goal Patient Goal Type Associated Problems Recent Progress Patient-Stated? Author Blood Pressure < 150/90 Blood Pressure 110/72(2024 10:06 AM EDT) Rolly Sol, PharmD Note: Per JNC-8 Age greater than 60 y/o without CKD or DM documented as of this encounter Visit Diagnoses Not on filedocumented in this encounter Additional Health Concerns Assessment Noted Time PHQ-9 Depression Total Score: 0 09/05/19 25 10:45 AM EDT documented as of this encounter Care Teams Binder Coverstitch Relationship Specialty Start Date End Date Krysten Rose MD [address] [place] [address] PCP - General Family Medicine 02/16/11 Rolly Mosley, PharmD [address] [place] [address] Pharmacist Internal Medicine 08/11/22 Getachew Aguayo MD [address] [place] [address] General Surgery 04/06/24 Tatiana Pineda MD [address] [place] [address] Hematology and Oncology 04/06/[address] [place] [address] Gastroenterology 04/06/24 Graham Mathews MD [address] [place] [address] Cardiology 04/06/24 documented as of this encounter
--- OUTSIDE RECORDS SUMMARY | 2024-12-12 10:15 | XMS_ITS | Encounter Summary ---
Author Organization [employer] Address [address] [place] [address] 7t [place] [address] Care Team Providers Care Neurosurgical Nurse Name Role Phone Krysten Rose MD Primary Care Provider Rolly Mosley PharmD Unavailable [phone] Getachew Aguayo MD Unavailable [phone] Tatiana Pineda MD Unavailable [phone] July Unavailable Graham Mathews MD Unavailable Encounter Details Date Type Department Care Team (Late st Contact Info) Description 04/04/2022 Abstract [facility] MEDICINE [address] [place], [place] [phone] Krysten Rose MD [address] [place], [place] [phone] Social History Tobacco Use Types Packs/Day Years [...] Benign essential tremor with titubation. Seen by [facility] neurologist, last visit on 08/10/20 Continue Gabapentin 100mg QHS * Assessment & Plan Note - Krysten Rose MD - 04/04/2022 6:32 AM ESTAssociated Problem(s): Breast cancer (CMS/HCC) - Current breast surgeon: Dr. Aguayo, seen on 10/22/20 - Previous breast surgeon: Dr. Andrade - [place] [facility] [place] Pineda and Dr. Ochoa, last [...] Description 03/11/2025 1:00 PM EST Office Visit [facility] ADULT DENTAL [address] [place] [address] Earl, Gabriela [address] [place] [address] documented as of this encounter Visit Diagnoses Not on filedocumented in this encounter Care Teams Neurosurgical Nurse Relationship Specialty Start Date End Date Krysten Rose MD [address] [place] [address] PCP - General Family Medicine 02/16/11 Rolly Mosley, Michelle [address] [place] [address] Pharmacist Internal Medicine 08/11/22 Getachew Aguayo MD [address] [place] [address] General Surgery 04/06/24 Tatiana Pineda MD [address] [place] [address] Hematology and Oncology 04/06/24 Neville Dipika [address] [place] [address] Gastroenterology 04/06/24 Graham Mathews MD [address] [place] [address] Cardiology 04/06/24 documented as of this encounter
--- OUTSIDE RECORDS SUMMARY | 2024-12-12 10:15 | XMS_ITS | Encounter Summary ---
Author Organization [employer] Address 75 [facility] 7t [place] [address] Care Team Providers Care Cop Breaker Name Role Phone Krysten Rose MD Primary Care Provider [phone] Rolly Mosley PharmD Unavailable Getachew Aguayo MD Unavailable [phone] Tatiana Pineda MD Unavailable [phone] July Unavailable Graham Mathews MD Unavailable Encounter Details Date Type Department Care Team (Late st Contact Info) Description 06/07/2023 Orders Only [facility] [address] [place], [place] [phone] Krysten Rose MD [address] [place], [place] [phone] Abnormal EKG (Primary Dx) Social History Tobacco [...] Description 03/11/2025 1:00 PM EST Office Visit [facility]ULT [facility] [address] [place], [place] [phone] Earl, Gabriela [address] [place] [address] Scheduled Orders Name Type Priority Associated Diagnoses [...] documented as of this encounter Care Teams Cop Breaker Relationship Specialty Start Date End Date Krysten Rose MD [address] [place] [address] PCP - General Family Medicine 02/16/11 Rolly Mosley, PharmD [address] [place] [address] Pharmacist Internal Medicine 08/11/22 Getachew Aguayo MD [address] [address] General Surgery 04/06/24 Tatiana Pineda MD [address] [place] [address] Hematology and Oncology 04/06/[address] [place] [address] Gastroenterology 04/06/24 Graham Mathews MD [address] [address] Cardiology 04/06/24 documented as of this encounter
--- OUTSIDE RECORDS SUMMARY | 2024-12-12 10:15 | XMS_ITS | Encounter Summary ---
Author Organization [employer] Address 75 [facility] 7t [place] [address] Care Team Providers Care Ferry Hand Name Role Phone Krysten Rose MD Primary Care Provider [phone] Rolly Mosley PharmD Unavailable [phone] Getachew Aguayo MD Unavailable [phone] Tatiana Pineda MD Unavailable [phone] July Unavailable Graham Mathews MD Unavailable Encounter Details Date Type Department Care Team (Latest Contact Info) Description 12/10/2024 Travel Social History Tobacco Use Types Packs/Day Years [...] Description 03/11/2025 1:00 PM EST Office Visit [facility] ADULT [facility] [address] [place] [address] Cezar Elliottaris [address] [place] [address] documented as of this encounter Goals Goal Patient Goal Type Associated Problems Recent Progress Patient-Stated? Author Blood Pressure < 150/90 Blood Pressure 110/72(2024 10:06 AM EDT) No Rolly Mosley, Michelle Note: Per JNC-8 Age greater than 60 y/o without CKD or DM documented as of this encounter Visit Diagnoses Not on filedocumented in this encounter Additional Health Concerns Assessment Noted Time PHQ-9 Depression Total Score: 0 09/05/19 25 10:45 AM EDT documented as of this encounter Care Teams Ferry Hand Relationship Specialty Start Date End Date Krysten Rose MD [address] [place] [address] PCP - General Family Medicine 02/16/11 Rolly Mosley, EusebioD [address] [place] [address] Pharmacist Internal Medicine 08/11/22 Getachew Aguayo MD [address] [place] [address] General Surgery 04/06/24 Tatiana Pineda MD [address] [place] [address] Hematology and Oncology 04/06/24 Neville Dipika [address] [place] [address] Gastroenterology 04/06/24 Graham Mathews MD [address] [place] [address] Cardiology 04/06/24 documented as of this encounter
--- OUTSIDE RECORDS SUMMARY | 2024-12-12 10:15 | XMS_ITS | Encounter Summary ---
Author Organization [employer] Address 75 [facility] 7t [place] [address] Care Team Providers Care Manufacturing Analyst Name Role Phone Krysten Rose MD Primary Care Provider Rolly Mosley PharmD Unavailable [phone] Getachew Aguayo MD Unavailable [phone] Tatiana Pineda MD Unavailable [phone] July Unavailable Graham Mathews MD Unavailable Encounter Details Date Type Department Care Team (Late st Contact Info) Description 11/21/2024 Results Follow-Up [facility] [address] [place], [place] [phone] Krysten Rose MD [address] [place], [place] [phone] Hematoxylin and Eosin Stain Social History Tobacco Use Types Packs/Day Years [...] the past 12 months, has t he [employer], gas, oil or water company threatened to [...] Description 03/11/2025 1:00 PM EST Office Visit [facility] ADULT DENTAL [address] [place] [address] Earl, Gabriela [address] [place] [address] documented as of this encounter Goals Goal Patient Goal Type Associated Problems Recent Progress Patient-Stated? Author Blood Pressure < 150/90 Blood Pressure 110/72(2024 10:06 AM EDT) No Rolly Mosley, EusebioD Note: Per JNC-8 Age greater than 60 y/o without CKD or DM documented as of this encounter Visit Diagnoses Not on filedocumented in this encounter Additional Health Concerns Assessment Noted Time PHQ-9 Depression Total Score: 0 09/05/19 25 10:45 AM EDT documented as of this encounter Care Teams Manufacturing Analyst Relationship Specialty Start Date End Date Krysten Rose MD [address] [place] [address] PCP - General Family Medicine 02/16/11 Rolly Mosley, EusebioD [address] [place] [address] Pharmacist Internal Medicine 08/11/22 Getachew Aguayo MD [address] [place] [address] General Surgery 04/06/24 Tatiana Pineda MD [address] [place] [address] Hematology and Oncology 04/06/24 Neville Dipika [address] [place] [address] Gastroenterology 04/06/24 Graham Mathews MD [address] [place] [address] Cardiology 04/06/24 documented as of this encounter
--- OUTSIDE RECORDS SUMMARY | 2024-12-12 10:15 | XMS_ITS | Encounter Summary ---
Author Organization [employer] Address 75 [facility] 7t [place] [address] Care Team Providers Care Juvenile Correctional Officer Name Role Phone Krysten Rose MD Primary Care Provider Rolly Mosley PharmD Unavailable [phone] Getachew Aguayo MD Unavailable [phone] Tatiana Pineda MD Unavailable [phone] July Unavailable Graham Mathews MD Unavailable Encounter Details Date Type Department Care Team (Late st Contact Info) Description 11/30/2022 Orders Only [facility] [address] [place], [place] [phone] Krysten Rose MD [address] [place], [place] [phone] Chronic pain of left knee (Primary Dx); [...] Description 03/11/2025 1:00 PM EST Office Visit [facility] ADULT D[facility] [address] [place] [address] Gabriela Elliott [address] [place] [address] documented as of this encounter Goals Goal [...] documented as of this encounter Care Teams Juvenile Correctional Officer Relationship Specialty Start Date End Date Krysten Rose MD [address] [place] [address] PCP - General Family Medicine 02/16/11 Rolly Mosley, PharmD [address] [place] [address] Pharmacist Internal Medicine 08/11/22 Getachew Aguayo MD [address] [place] [address] General Surgery 04/06/24 Tatiana Pineda MD [address] [place] [address] Hematology and Oncology 04/06/[address] [place] [address] Gastroenterology 04/06/24 Graham Mathews MD [address] [place] [address] Cardiology 04/06/24 documented as of this encounter
--- OUTSIDE RECORDS SUMMARY | 2024-12-12 10:15 | XMS_ITS | Encounter Summary ---
Author Organization [employer] Address 75 [facility] 7t [place] [address] Care Team Providers Care Utility Manager Name Role Phone Krysten Rose MD Primary Care Provider Rolly Mosley PharmD Unavailable [phone] Getachew Aguayo MD Unavailable [phone] Tatiana Pineda MD Unavailable [phone] July Unavailable Graham Mathews MD Unavailable Encounter Details Date Type Department Care Team (Late st Contact Info) Description 10/03/2022 Abstract [facility] ADULT DENTAL [address] [place], [place] [phone] Bruno Sam DMD [address] [place], [place] [phone] Social History Tobacco Use Types Packs/Day Years [...] 03/11/2025 1:00 PM EST Office Visit [facility] ADULT DENTAL [address] [place] [address] Gabriela Elliott [address] [place] [address] documented as of this encounter Goals Goal [...] documented as of this encounter Care Teams Utility Manager Relationship Specialty Start Date End Date Krysten Rose MD [address] [place] [address] PCP - General Family Medicine 02/16/11 Rolly Mosley, PharmD [address] [place] [address] Pharmacist Internal Medicine 08/11/22 Getachew Aguayo MD [address] [place] [address] General Surgery 04/06/24 Tatiana Pineda MD [address] [place] [address] Hematology and Oncology 04/06/24 Neville July [address] [place] [address] Gastroenterology 04/06/24 Graham Mathews MD [address]rd [place] [address] Cardiology 04/06/24 documented as of this encounter
--- OUTSIDE RECORDS SUMMARY | 2024-12-12 10:15 | XMS_ITS | Clinical Summary ---
Author Organization [employer] Address [address] [facility] [address] [place] [address] Care Team Providers Care Home Fire Alarm Installer Name Role Phone Krysten Rose MD Primary Care Provider Rolly Mosley PharmD Unavailable [phone] Getachew Aguayo MD Unavailable [phone] Tatiana Pineda MD Unavailable [phone] July Unavailable Graham Mathews MD Unavailable [...] TABLET BY MOUTH EVERY DAY 3 Active azelaic acid (Finacea) 15 % gel [...] EVERY MORNING 90 tablet 3 5 Active D3-1000 25 MCG (1000 UT) capsule TAKE 1 CAPSULE BY MOUTH EVERY MORNING 90 capsule 3 5 Active docusate sodium (Colace) 100 MG capsule Take 1 capsule (100 mg) by mouth 2 times daily. 180 capsule 2 5 Active Active Problems Problem Noted Date Diagnosed Date Constipation 09/04/2024 Assessment & Plan (09/04/2024 12:37 PM EDT): - Pt is prescribed laxative by GI and is now developing diarrhea - Pt was advised to use Senna, and reduce dulcolax use - Pt is scheduled for colonoscopy UTI symptoms 05/13/2024 Assessment & Plan (09/04/2024 12:35 PM EDT): - Treated for presumptive UTI three times in last three months - No urine culture growing bacteria - Pt has upcoming appointment with urologist for further evaluation of hematuria Assessment & Plan (05/13/2024 3:46 PM EST): [...] 2:36 PM EST): - Pt went to [facility] recently to relieve some stress Assessment & Plan (11/20/2023 12:42 PM EDT): - GAD7: 21 - patient states that she has therapist, patient was advised to continue - patient is not interested in medication at this time Long COVID 11/20/2023 Assessment & Plan (09/04/2024 11:03 AM EDT): - possible diagnosis - patient had atypical chest pain, cough, neurological abnormality, and loss of taste and smell - will monitor at this time - consider further evaluation by scalp specialist - recommended to discuss with her rn pool for eye twitching Assessment & Plan (11/20/2023 1:14 PM EDT): - possible diagnosis - patient had atypical chest pain, cough, neurological abnormality, and loss of taste and smell - will monitor at this time - consider further evaluation by scalp specialist - recommended to discuss with her rn pool for eye twitching GERD (gastroesophageal reflux disease) Assessment & Plan (11/20/2023 12:48 PM EDT): - following with [facility] - continue famotidine - will check with GI for next appt Weight loss 11/20/2023 Assessment & Plan (09/14/2024 11:02 PM EDT): - encouraged to increase caloric intake - Patient will benefit from having nutritional supplement such as boost or Ensure Assessment & Plan (04/07/2024 2:33 PM EST): [...] (10/09/2023 11:58 AM EDT): - Following with [facility], last seen on [...] for cardiac cath. Pt was sent from [facility] to [facility] ED on 08/24/23 due to cardiac symptoms for consideration of cardiac cath, but was not deemed necessary at that time. Pt experiencing stress/anxiety as cardiac cath has not yet been completed, and would like assistance with scheduling. RN left message for [facility] regarding timeline above, plan for them to call us back or give call directly to pt to schedule. - Strict ED precautions reviewed - Plan to continue amlodipine, lisinopril, aspirin, and pravastatin. Assessment & Plan (08/15/2023 7:12 PM EDT): - Following with [facility], last seen on [...] EDT): - likely rosacea - following with personnel recruiter; will obtain records Hx of cholecystectomy 05/10/2023 Assessment & Plan (05/10/2023 6:46 PM EST): Pt s/p cholecystectomy , w no complications Feeling well Abnormal EKG 05/10/2023 Assessment & Plan (08/15/2023 7:14 PM EDT): - incidental finding while undergoing pre-op for lap cholecystectomy in [place] in April 2023 - EKG showed T-wave inversions across the precordium [facility] in April 2023, an incidental finding while undergoing pre-op for laparoscopic cholecystectomy, which is different from prior EKG - EKG at [facility] office in June [...] -advised pt to f up w her adult probation officer ot will need to return to clinic to repeat EKG --pt states will see her adult probation officer -alarm signs and symptoms discussed Oropharyngeal dysphagia 05/10/2023 Assessment & Plan (10/09/2023 11:58 AM EDT): - Pt evaluated by [facility] in June 2023 - Plan for barium swallow proceeded by EGD. Pt reports she has not been contacted to schedule either from [facility], and having difficulties communicating with office. - RN contacted [facility] and LVM [...] (07/31/2022 5:05 AM EDT): - Evaluated by [facility] service in Mar 2021 and 2021 -[facility]TER in 2014 showed occasional PAC -EKG showed intraventricular conduction delay / RBBB in the past -Normal TTE and stress test in July 2021 -Given reassurance -ASA was discontinued -lifestyle modifications -optimize risk factor management Osteoporosis 07/17/2022 Assessment & Plan (12/10/2024 6:41 AM EDT): - 06/23/22 DEXA -2.5 in femoral neck - alendronate since 2009, interruption while she was recovering from left arm fracture in 0065-3125, then restarted and discontinued in Feb 2023 due to no improvement in T-score on DEXA in 2022 - OncologistDr. Pineda started her on RANKL inhibitor with denosumab (Prolia) 60 mg every 6 month. She has on this medication since March 2023. Last administration on 09/03/2024. Assessment & Plan (09/14/2024 11:03 PM EDT): - 06/23/22 DEXA -2.5 in femoral neck - alendronate since 2009, interruption while she was recovering from left arm fracture in 3349-6793, then restarted and discontinued in Feb 2023 due to no improvement in T-score on DEXA in 2022 - OncologistDr. Pineda started her on RANKL inhibitor with denosumab (Prolia) 60 mg every 6 month. She has on this medication since March 2023. Last administration on 09/03/2024. Assessment & Plan (04/06/2024 12:15 PM EST): - 06/23/22 DEXA -2.5 in femoral neck - alendronate since 2009, interruption while she was recovering from left arm fracture in 8175-3391, then restarted and discontinued in Feb 2023 due to no improvement in T-score on DEXA in 2022 - OncologistDr. Pineda started her on RANKL inhibitor with denosumab (Prolia) 60 mg every 6 month. She has on this medication since March 2023. Last administration on 03/05/24 Assessment & Plan (11/20/2023 12:40 PM EDT): - 06/23/22 DEXA -2.5 in femoral neck - alendronate since 2009, interruption while she was recovering from left arm fracture in , then restarted - OncologistDr. Pineda started her on RANKL inhibitor with [...] was recovering from left arm fracture in 7140-8201, then restarted - OncologistDr. Pineda will start [...] medication Essential tremor 04/04/2022 Assessment & Plan (09/04/2024 11:04 AM EDT): - Dx Benign essential tremor with titubation. - Seen by [facility] neurologist, last visit in August 2022 - Previously tried gabapentin, but pt developed leg swelling after increasing its dose. Gabapentin was discontinued - Pt was safely discharged from neurology clinic Assessment & Plan (04/07/2024 2:32 PM EST): - Dx Benign essential tremor with titubation. - Seen by [facility] neurologist, last visit in August 2022 - Previously tried gabapentin, but pt developed leg swelling after increasing its dose. Gabapentin was discontinued - Pt was safely discharged from neurology clinic Assessment & Plan (11/20/2023 12:36 PM EDT): - Dx Benign essential tremor with titubation. - Seen by [facility] neurologist, last visit in August 2022 - Previously tried gabapentin, but pt developed leg swelling after increasing its dose. Gabapentin was discontinued - Pt was safely discharged from neurology clinic Assessment & Plan (08/14/2023 2:41 PM EDT): - Dx Benign essential tremor with titubation. - Seen by [facility] neurologist, last visit in August 2022 - Previously tried gabapentin, but pt developed leg swelling after increasing its dose. Gabapentin was discontinued - Pt was safely discharged from neurology clinic Assessment & Plan (03/23/2023 1:07 PM EST): - Dx Benign essential tremor with titubation. - Seen by [facility] neurologist, last visit in August 2022 - Previously tried gabapentin, but pt developed leg swelling after increasing its dose. Gabapentin was discontinued - Pt was safely discharged from neurology clinic Assessment & Plan (11/28/2022 1:34 PM EDT): - Dx Benign essential tremor with titubation. - Seen by [facility] neurologist, last visit in August 2022 - Previously tried gabapentin, but pt developed leg swelling after increasing its dose. Gabapentin was discontinued - Pt was safely discharged from neurology clinic Assessment & Plan (07/31/2022 4:54 AM EDT): - Dx Benign essential tremor with titubation. - Seen by [facility] neurologist, last visit in May 2022 - Continue Gabapentin 100mg QHS Assessment & Plan (04/04/2022 6:34 AM EST): Dx Benign essential tremor with titubation. Seen by [facility] neurologist, last visit on 08/10/20 [...] (interrupted PT due to her trip to [facility]) -Pt restarted PT and still receiving PT -Continue following recommendations from orthopedists Impaired fasting glucose 12/21/2016 Breast cancer 12/21/2016 Assessment & Plan (09/14/2024 11:04 PM EDT): - Left breast infiltrating ductal carcinoma Dx 2017 - s/p lumpectomy and sentinel node biopsy on 08/14/16 - s/p radiation therapy in September and October 2016. - Breast surgeon: [facility], Dr. Aguayo, seen in Dec 2023. Initial surgeon was Dr. Andrade, who has retired. - Oncologist: [facility] [place]. Pineda, last seen in August 2024. - Radiation oncologist: Dr. Garcia - [...] following recommendation per oncologist Assessment & Plan (04/06/2024 12:13 PM EST): - Left breast infiltrating ductal carcinoma Dx 2017 - s/p lumpectomy and sentinel node biopsy on 08/14/16 - s/p radiation therapy in September and October 2016. - Breast surgeon: [facility], Dr. Aguayo, seen in Dec 2023. Initial surgeon was Dr. Andrade, who has retired. - Oncologist: [facility] [place]. Pineda, last seen [...] Previous breast surgeon: Dr. Andrade - Oncologist: [facility] [place]. Pineda and Dr. [...] Previous breast surgeon: Dr. Andrade - Oncologist: [facility] [place]. Pineda and Dr. [...] - Left breast infiltrating ductal carcinoma Dx 2016 - s/p lumpectomy and sentinel node biopsy on 08/14/16 - s/p radiation therapy in September and October 2016. - Current breast surgeon: Dr. Aguayo, seen in Nov 2022 - Previous breast surgeon: Dr. Andrade - Oncologist: [facility] [place]. Pineda and Dr. [...] Previous breast surgeon: Dr. Andrade - Oncologist: [facility] [place]. Pineda and Dr. [...] Previous breast surgeon: Dr. Andrade - Oncologist: [facility] [place]. Pineda and Dr. [...] Previous breast surgeon: Dr. Andrade - Oncologist: [facility] [place]. Pineda and Dr. [...] block 08/07/2016 Dyslipidemia 03/29/2015 Assessment & Plan (12/11/2024 10:45 PM EDT): - last lipid profile in 09/04/24 TRIG [...] wks after starting rosuvastatin Assessment & Plan (09/04/2024 11:02 AM EDT): - last lipid profile in August 2023 - moderate intensity statin is recommended - currently on pravastatin 80 mg at bedtime - since her recent stress test was abnormal, agreed to intensify statin therapy - start rosuvastatin 20 mg at bedtime - continue lifestyle modifications - check LFT and lipid profile 4 wks after starting rosuvastatin Assessment & Plan (08/15/2023 6:38 PM EDT): [...] with LFT Hypertension 03/29/2015 Assessment & Plan (12/10/2024 10:23 AM EDT): - Goal BP< 130/80 per ACC/AHA guideline - BP is at goal today - Continue working on lifestyle modifications. - Continue current medications: amlodipine 10 mg daily; lisinopril 10 mg daily - Continue checking home BP Assessment & Plan (09/04/2024 11:03 AM EDT): - Goal BP < 140/90 per JNC-8, < 130/80 per ACC/AHA guideline - BP is at goal today - Continue working on lifestyle modifications. - Continue current medications: amlodipine 10 mg daily; lisinopril 10 mg daily - Continue checking home BP Assessment & Plan (04/07/2024 2:33 PM EST): [...] Continue checking home BP - Seen by adult probation officer again in Mar 2022, and given reassurance. [...] Continue checking home BP - Seen by adult probation officer again in Mar 2022, and given reassurance. [...] Continue checking home BP - Seen by adult probation officer again in Mar 2022, and given reassurance. [...] Continue checking home BP - Seen by adult probation officer again in Mar 2022, and given reassurance. [...] have a BP monitor. - Seen by adult probation officer again in Mar 2022, and given reassurance [...] Encounters Date Type Department Care Team Description 12/10/2024 10:15 AM EDT Office Visit [facility] [address] [place] [address] Krysten Rose MD Primary hypertension (Primary Dx); Osteoporosis, unspecified osteoporosis type, unspecified pathological fracture presence; Dyslipidemia 12/10/2024 Travel 12/09/2024 Telephone [facility] [address] [place] [address] Krysten Rose MD CHART PREP 11/21/2024 Results Follow-Up [facility] [address] [place] [address] Krysten Rose MD Hematoxylin and Eosin Stain 11/18/2024 Orders Only GENERIC EXTERNAL DATA DEPARTMENT Provider, Generic External Data 10/08/2024 Refill [facility] [address] [place] [address] Krysten Rose MD 09/18/2024 Orders Only GENERIC EXTERNAL DATA DEPARTMENT Provider, Generic External Data 09/17/2024 Refill [facility] [address] [place] [address] Krysten Rose MD 09/12/2024 Orders Only [facility] External Provider, [facility] from Last 3 Months Immunizations Immunization Administration [...] Mass Index 24.29 12/10/2024 10:06 AM EDT Plan of Treatment Upcoming Encounters Date Type Department Care Team (Late st Contact Info) Description 03/11/2025 1:00 PM EST Office Visit [facility] AD[facility]ENT[facility] [address] [place] [address] Earl, Gabriela [address] [place] [address] Health Maintenance Due Date Last Done Comments CT Colonography 1950 FIT DNA/Cologuard 1950 FIT 1950 FOBT 1950 Sigmoidoscopy 1950 Dental Oral Exam 08/21/2024 02/21/2024, 08/10/2022 COVID-19 Vaccine ( season) 2024 02/21/2023, 01/01/2022, 01/28/2021, Additional history exists Influenza Vaccine (#1) 2024 , 02/21/2023, 01/12/2022, Additional history exists Dental X-Ray: Bitewings 02/21/2025 02/21/2024, 08/10 Dental Prophylaxis 02/27/2025 08/26/2024, 1 04/22/2023, 08/10/2022 Alcohol/Substance Use Screening 04/07/2025 04/07/2024 Depression Screening 09/04/2025 09/04/2024, 09/05/19 SDOH Screening 09/04/2025 09/04/2024 Mammogram 09/12/2025 09/12/2024, 05/3 04/2023, 08/31/2022, Additional history exists Tobacco Screening 12/10/2025 12/10/2024 Dental X-Ray: Full Mouth 02/21/2027 02/21/2024, 0804/2020 Lipid Panel 09/04/2029 09/04/2024, 05/0 10/2023, 03/07/2023, Additional history exists Colonoscopy 05/04/2030 05/04/2020 Colorectal [...] Hepatitis B Vaccines Completed 04/07/2024, 01/06/2019, 01/31/2018 HIB Vaccines Aged Out No longer eligi [...] Diagnosis Comments HEMATOXYLIN AND EOSIN STAIN Routine 11/18/2024 8:50 AM EDT CYTOPATH-CELL ENHANCED Routine 4:51 PM EDT BI MAMMOGRAM SCREENING TOMOSYNTHESIS BILATERAL Routine 09/12/2024 2:00 PM EDT BD DEXA AXIAL Routine 09/12/2024 1:55 PM EDT LIPID PANEL WITH REFLEX TO DIRECT LDL Routine 09/04/2024 11:48 AM EDT Dyslipidemia PROPHYLAXIS - ADULT Routine 08/26/2024 1 1:00 AM EDT Periodontal disease Dental plaque INTRAORAL - COMPLETE SERIES OF RADIOGRAPHIC IMAGES Routine 02/21/2024 8:00 AM EST Dental calculus Periodontal disease Gingival bleeding PERIODIC ORAL EVALUATION - ESTABLISHED PATIENT Routine 02/21/2024 8:00 AM EST ZZZ HISTORICAL HEPATITIS C AB W/REFL TO HCV RNA, QN, PCR Routine 01/17/2022 8:19 AM EDT HM COLONOSCOPY Routine 05/04/2020 from Last 3 Months or Most Recently Relevant to Health Maintenance Results * Hematoxylin and Eosin Stain (11/18/2024 8:50 AM EDT) 11/18/2024 8:50 AM EDT 11/18/2024 10:31 AM EDT [facility] - 11/20/2024 4:46 PM EDT ----- ------- Name: Charlene Zamora Age/Sex: 74/F : 1950 Unit#: [id number] Attend Dr: Elizabeth Galicia MD Re11/18/24 Status: [facility] Location: [facility] Disch: ----- ------- SPEC : [id number] RECD: 11/18/24-1030 STATUS: SAMY TEIXEIRA NUM: [id number] MAN: 11/18/[address] [facility] [address]: Elizabeth Galicia MD ENTERED: 11/18/24-1041 SP TYPE: Surgical OTHR DR: Krysten Rose MD ORDERED: HE Stain/9, Gross Micro L4/3 Diagnosis A. Colon, transverse, polyps: Tubular adenomas (multiple pieces); negative for high- grade dysplasia and carcinoma. B. Colon, descending, nodule, biopsy: Fibrovascular tissue only; no mucosa present for evaluation. C. Colon, descending, polyp: Hyperplastic polyp. Clinical History Pre-Op Dx: Screening Post-Op Dx: External hemorrhoids, colon polyps, descending colon nodule Microscopic Description Microscopic sections reviewed. Multiple levels through the entire block are examined on B and no mucosa is present to evaluate. Material Received A. Transverse colon polyps B. Descending nodule bx's C. Descending colon polyp Gross Description Received in three parts. Part A: Received in formalin labeled transverse colon polyps are multiple irregular, rectangular and papular, ko and ko-pink tissue fragments ranging from 0.25-0.5 cm, submitted in toto in a cassette labeled A. Part B: Received in formalin labeled descending nodule bx's are two thin and delicate, ruiz-white shards of tissue versus mucus and blood measuring 0.15 and 0.45 cm, submitted in toto in a cassette labeled B. Part C: Received in formalin labeled descending colon polyp is a 0.3 cm ko rectangular- papular tissue fragment, submitted in toto in a cassette labeled C. CEDS CONTINUED ON NEXT PAGE ----- ------- Name: Charlene Zamora Age/Sex: 74/F : 1950 Unit#: [id number] Attend Dr: Elizabeth Galicia MD Re11/18/24 Status: [facility] Location: [facility] Disch: ----- ------- SPEC : [id number] RECD: 11/18/24 STATUS: SAMY TEIXEIRA NUM: [id number] MAN: 11/18/[address] [facility] [address]: Elizabeth Galicia MD ENTERED: 11/18/24 SP TYPE: Surgical OTHR DR: Krysten Rose MD ORDERED: HE Stain/9, Gross Micro L4/3 IHC S/NG Disclaimer NOTE: Unless otherwise stated, all tissue is formalin-fixed and paraffin-embedded. Some or all of the immunohistochemical tests reported herein may have been developed and their performance characteristics determined by [facility]. They have not been cleared or approved by the U.S. Food and Drug Administration (FDA). However, the FDA has determined that such clearance or approval is not necessary. This laboratory is certified under the Clinical Laboratory Improvement Amendments of 1988 (CLIA) as qualified to perform high complexity clinical laboratory testing. Copies To: Krysten Rose MD [address] [id number] Elizabeth Galicia MD [facility] [address] [place] [id number] [email or web address] ----- ------- Signed (signature on file) Ju Otway 11/20/24 1646 ----- ------- END OF REPORT us Generic External Data Provider LAB BLOOD ORDERAB LES Final Result [facility] [address] [place] [address] [phone] * Cytopath-cell enhanced (09/18/2024 4:51 PM EDT) 09/18/2024 4:51 PM EDT 09/19/2024 11:30 AM EDT Narrative [facility] - 09/22/2024 11:10 AM EDT ----- ------- Name: Charlene Zamora Age/Sex: 73/F : 1950 Unit#: [id number] Attend Dr: Kira Johnson [facility] Re09/18/24 Status: [facility] REF Location: [facility] Disch: ----- ------- SPEC : [id number] RECD: 09/19/24-1129 STATUS: SAMY TEIXEIRA NUM: [id number] MAN: 09/18/[address] [facility] [address]: Kira Johnson [facility] ENTERED: 09/19/24-134 SP TYPE: Cytology OT DR: Krysten Rose MD ORDERED: Cyto-enhanced Diagnosis Urine, voided: Negative for high-grade urothelial malignancy. Comment: The cytology prep is mildly to moderately cellular with squamous cells and rare benign urothelial cells. There is no evidence of high-grade urothelial malignancy. Clinical History Hematuria, unspecified Material Received Urine Gross Description Received is 28 cc of cloudy orange fluid from which a ThinPrep slide is prepared. IHC S/NG Disclaimer NOTE: Unless otherwise stated, all tissue is formalin-fixed and paraffin-embedded. Some or all of the immunohistochemical tests reported herein may have been developed and their performance characteristics determined by [facility]. They have not been cleared or approved by the U.S. Food and Drug Administration (FDA). However, the FDA has determined that such clearance or approval is not necessary. This laboratory is certified under the Clinical Laboratory Improvement Amendments of 1988 (CLIA) as qualified to perform high complexity clinical laboratory testing. Copies To: Kira Johnson [facility] Urology Services [address] [place] [address] Dr. Hoffmann [address] [place] [address] [email or web address] Krysten Rose MD [address] [phone] CONTINUED ON NEXT PAGE ----- ------- Name: Charlene Zamora Age/Sex: 73/F : 1950 Unit#: [id number] Attend Dr: Kira Johnson [facility] Re09/18/24 Status: DEP REF Location: [facility] Disch: ----- ------- SPEC : [id number] RECD: 09/19/24 STATUS: SAMY TEIXEIRA NUM: [id number] MAN: 09/18/[address] [facility] [address]: Kira Johnson [facility] ENTERED: 09/19/24-994 SP TYPE: Cytology OTHR DR: Krysten Rose MD ORDERED: Cyto-enhanced ----- ------- Signed (signature on file) Higinio Moore MD 09/22/24 1110 ----- ------- END OF REPORT us Generic External Data Provider LAB CYTOLOGY ORDE JOHN Final Result [facility] [address] [place] [phone] * BI Mammogram Screening Tomosynthesis Bilateral (09/12/2024 2:00 PM EDT) Anatomical Region Laterality Modality Breast Bilateral Mammography 09/12/2024 2:00 PM EDT Narrative 09/19/2024 3:10 PM EDT [facility] [address] [place] [address] Mammography Report Signed Patient: Charlene Zamora MR#: [id number] : 1950 Acct:[id number] Age/Sex: 73 / F ADM Date: 09/12/24 Loc: HO.MAMMO Attending Dr: Tatiana Pineda MD Ordering Physician: Tatiana Pineda MD Results: 2Benign Findings Date of Service: 09/12/24 Follow Up: 1 Year From Orig inal Mammogram Procedure(s): MM tomosynthesis screening BI Accession Number(s): [id number] cc: Tatiana Pineda MD; Krysten Rose MD EXAMINATION: MM SCREENING DIGITAL BREAST TOMOSYNTHESIS, BILATERAL CLINICAL INFORMATION: Screening. Asymptomatic. History of left breast cancer post lumpectomy. COMPARISON: Mammography: Comparison is made with available priors TECHNIQUE: Digital breast mammography with tomosynthesis is performed in both the craniocaudal and mediolateral oblique views along with computer-aided detection (CAD). FINDINGS: The breasts are heterogeneously dense, which may obscure small masses (ACR BI-RADS breast composition Category c). Postsurgical changes upper outer quadrant of the left breast are stable. There are no significant masses, abnormal calcifications, or other abnormalities. MM/MM tomosynthesis screening BI IMPRESSION: No mammographic evidence of malignancy. ASSESSMENT: BI-RADS BI-RADS 2 - Benign Findings RECOMMENDATION: Routine annual mammography screening. 1 year F/U This examination should not preclude the clinical evaluation of a suspicious palpable abnormality. This patient's information was entered into a reminder system with a target due date for their next mammogram. Electronically signed by: Arlyn Soni DO 09/19/2024 03:08 PM EDT RP Dictated By: Arlyn Soni DO Signed By: <Electronically signed by Arlyn Soni DO in OV> 09/19/24 1508 DD/ 1400 TD/TT: 09/12/24 1421 Parachute Cushion Installer: Procedure Note Donotuseinterpreter, Image - 09/19/2024 [facility] [address] [place], [place] [address] Mammography Report Signed Patient: Charlene Zamora MMR#: [id number] : 1950cct:[id number] Age/Sex: 73 / FADM Date: 09/12/24 Loc: ISSAC.MAMMO Attending Dr: Tatiana Pineda MD Ordering Physician: Tatiana Pineda MDResults: 2Benign Findings Date of Service: 09/12/24Follow Up: 1 Year From Orig inal Mammogram Procedure(s): MM tomosynthesis screening BI Accession Number(s): [id number] cc: Tatiana Pineda MD; Krysten Rose MD EXAMINATION: MM SCREENING DIGITAL BREAST TOMOSYNTHESIS, BILATERAL CLINICAL INFORMATION: Screening. Asymptomatic. History of left breast cancer post lumpectomy. COMPARISON: Mammography: Comparison is made with available priors TECHNIQUE: Digital breast mammography with tomosynthesis is performed in both the craniocaudal and mediolateral oblique views along with computer-aided detection (CAD). FINDINGS: The breasts are heterogeneously dense, which may obscure small masses (ACR BI-RADS breast composition Category c). Postsurgical changes upper outer quadrant of the left breast are stable. There are no significant masses, abnormal calcifications, or other abnormalities. MM/MM tomosynthesis screening BI IMPRESSION: No mammographic evidence of malignancy. ASSESSMENT: BI-RADS BI-RADS 2 - Benign Findings RECOMMENDATION: Routine annual mammography screening. 1 year F/U This examination should not preclude the clinical evaluation of a suspicious palpable abnormality. This patient's information was entered into a reminder system with a target due date for their next mammogram. Electronically signed by: Arlyn Soni DO 09/19/2024 03:08 PM EDT Dictated By: Arlyn Soni DO Signed By: <Electronically signed by Arlyn Soni DO in OV> 09/19/24 1508 DD/ 1400 TD/TT: 09/12/24 1421 Parachute Cushion Installer: [facility] External Provider IMG BI PROCEDURES Final Result * BD DEXA Axial (09/12/2024 1:55 PM EDT) Anatomical Region Laterality Modality Body Radiographic Agnieszka ging 09/12/2024 1:55 PM EDT Narrative 09/12/2024 3:21 PM EDT [facility]'s [address] [place] [address] Mammography Report Signed Patient: Charlene Zamora MR#: [id number] : 1950 Acct:[id number] Age/Sex: 73 / F ADM Date: 09/12/24 Loc: HO.MAMMO Attending Dr: Tatiana Pineda MD Ordering Physician: Tatiana Pineda MD Results: Date of Service: 09/12/24 Follow Up: Procedure(s): XR DEXA axial skeleton Accession Number(s): [id number] cc: Tatiana Pineda MD; Krysten Rose MD EXAMINATION: DXA BONE DENSITY AXIAL HISTORY: Z78.0 MENOPAUSAL STATE/ Assess response to treatment TECHNIQUE: [employer] Dual energy absorptiometry (DEXA) of the lumbar spine, total left hip, and femoral neck was performed. COMPARISON: Comparison is made with the prior examination dated 06/23/2022. FINDINGS: The bone mineral density of the lumbar spine is 1.040, corresponding to a T-score of -1.1, and a Z-score of 0.6. This is indicative of osteopenia. This represents a BMD change of -0.1% compared to the prior exam. This is not statistically significant. The bone mineral density of the left total hip is 0.772, corresponding to a T-score of -1.9, and a Z-score of -0.2. This is indicative of osteopenia. This represents a BMD change of 2.3% compared to the prior exam. This is not statistically significant. The bone mineral density of the left femoral neck is 0.707, corresponding to a T-score of -2.4, and a Z-score of -0.5. This is indicative of osteopenia. This represents a BMD change of 2.2% compared to the prior exam. FRACTURE RISK: The FRAX index suggests a ten year probability of major osteoporotic fracture of 23.7%, and of hip fracture 12.7%. MM/XR DEXA axial skeleton IMPRESSION: Based on bone mineral density, and according to World Health Organization (WHO) criteria, the diagnosis is consistent with osteopenia. All bone density values are in grams per centimeter squared (g/cm2). Statistically, 68% of repeat scans fall within 1 SD (+/- 0.010 g/cm2 for AP spine L1-L4) and 1 SD (+/- 0.012 g/cm2 for femur total) FRAX is a trademark of the [employer] Met[employer] Disease, a World Health Organization (WHO) Collaborating Center. Electronically signed by: Candido Stewart MD 09/12/2024 03:18 PM EDT Dictated By: Candido Stewart MD Signed By: <Electronically signed by Candido Stewart MD in OV> 09/12/24 1518 DD/ 1355 TD/TT: 09/12/24 1500 Parachute Cushion Installer: Procedure Note Donotuseinterpreter, Image - 09/12/20[facility] [address] [place] [address] Mammography Report Signed Patient: Charlene Zamora MMR#: [id number] : 1950cct:[id number] Age/Sex: 73 / FADM Date: 09/12/24 Loc: OTONIEL Attending Dr: Tatiana Pineda MD Ordering Physician: Tatiana Pinedaults: Date of Service: 09/12/24Follow Up: Procedure(s): XR DEXA axial skeleton Accession Number(s): [id number] cc: Tatiana Pineda MD; Krysten Rose MD EXAMINATION: DXA BONE DENSITY AXIAL HISTORY: Z78.0 MENOPAUSAL STATE/ Assess response to treatment TECHNIQUE: [employer] Dual energy absorptiometry (DEXA) of the lumbar spine, total left hip, and femoral neck was performed. COMPARISON: Comparison is made with the prior examination dated 06/23/2022. FINDINGS: The bone mineral density of the lumbar spine is 1.040, corresponding to a T-score of -1.1, and a Z-score of 0.6. This is indicative of osteopenia. This represents a BMD change of -0.1% compared to the prior exam. This is not statistically significant. The bone mineral density of the left total hip is 0.772, corresponding to a T-score of -1.9, and a Z-score of -0.2. This is indicative of osteopenia. This represents a BMD change of 2.3% compared to the prior exam. This is not statistically significant. The bone mineral density of the left femoral neck is 0.707, corresponding to a T-score of -2.4, and a Z-score of -0.5. This is indicative of osteopenia. This represents a BMD change of 2.2% compared to the prior exam. FRACTURE RISK: The FRAX index suggests a ten year probability of major osteoporotic fracture of 23.7%, and of hip fracture 12.7%. MM/XR DEXA axial skeleton IMPRESSION: Based on bone mineral density, and according to World Health Organization (WHO) criteria, the diagnosis is consistent with osteopenia. All bone density values are in grams per centimeter squared (g/cm2). Statistically, 68% of repeat scans fall within 1 SD (+/- 0.010 g/cm2 for AP spine L1-L4) and 1 SD (+/- 0.012 g/cm2 for femur total) FRAX is a trademark of the [employer], a World Health Organization (WHO) Collaborating Center. Electronically signed by: Candido Stewart MD 09/12/2024 03:18 PM EDT RP Dictated By: Candido Stewart MD Signed By: <Electronically signed by Candido Stewart MD in OV> 09/12/24 1518 DD/ 1355 TD/TT: 09/12/24 1500 Parachute Cushion Installer: [facility] External Provider IMG DXA PROCEDURES Final Result * Lipid Panel with Reflex to Direct LDL (09/04/2024 11:48 AM EDT) Triglycerides 126 <150 mg/dL [facility] Comment:Desirable Triglyceri de: less than 150 mg/dLBorderline High Triglyceride 150-199 mg/dLHigh Triglyceride: 200-499 mg/dLVery High Triglyceride: greater than or equal to 5OO mg/dL Cholesterol 125 <200 mg/dL [facility] Comment:Desirable Cholestero l: less than 200 mg/dLBorderline High Cholesterol: 200-239 mg/dLHigh Cholesterol: greater than 239 mg/dL LDL Cholesterol Calculated 45 <100 mg/dL [facility] Comment:Desirable LDL: less than 100 mg/dLNear Optimal/Above Optimal LDL: 110- 129 mg/dLBorderline High LDL: 130-159 mg/dLHigh LDL: 160-189 mg/dLVery High LDL: greater than or equal to 190 mg/dL HDL Cholesterol 55 >40 mg/dL [facility] Comment:Desirable HDL: great er than 40 mg/dL Note: This HDL assay may give artificially low results in patients with liver disease. Blood 09/04/2024 11:4 8 AM EDT 09/04/2024 1:26 PM EDT Krysten Rose MD LAB BLOOD ORDERABLES Final Resul t [facility] [address] [place] [address] [phone] * HEPATITIS C AB W/REFL TO HCV RNA, QN, PCR (01/17/2022 8:19 AM EDT) HEPATITIS C ANTIBODY NON-REACTI VE NON-REACT PEGGY [facility] INDEX 0.07 <1.00 [facility] Comment: HCV antibody was non-reactive. There is no laboratory evidence of HCV infection. In most cases, no further action is required. However, if recent HCV exposure is suspected, a test for HCV RNA (test code 92616) is suggested. For additional information please refer to http://education.TYFFON/faq/XUD59p3 (This link is being provided for informational/ educational purposes only.) 01/17/2022 8:19 AM EDT Krysten Rose MD HISTORICAL/NON ORDERABLE LABS Fi nal Result CONVERTED LEGACY LABS * Hm Colonoscopy (05/04/2020) Colonoscopy Normal Normal Allan Hong MD HEALTH MAINTENANCE Final Res ult from Last 3 Months or Most Recently Relevant to Health Maintenance Insurance [facility] [employer]F-WAY OPTIONS (HMO D-SNP) DENTAL [facility] Care Teams Home Fire Alarm Installer Relationship Specialty Start Date End Date Krysten Rose MD [address] [place] [address] PCP - General Family Medicine 02/16/11 Rolly Mosley, PharmD [address] [place] [address] Pharmacist Internal Medicine 08/11/22 Getachew Aguayo MD [address] [place] [address] General Surgery 04/06/24 Tatiana Pineda MD [address] [place] [address] Hematology and Oncology 04/06/[address] [place] [address] Gastroenterology 04/06/24 Graham Mathews MD [address] [place] [address] Cardiology 04/06/24
--- OUTSIDE RECORDS SUMMARY | 2024-12-12 10:15 | XMS_ITS | Encounter Summary ---
Author Organization [employer] Address [address] [place] [address] [address] [place] [address] Care Team Providers Care X Ray Equipment Mechanic Name Role Phone Krysten Rose MD Primary Care Provider [phone] Rolly Mosley PharmD Unavailable Getachew Aguayo MD Unavailable [phone] Tatiana Pineda MD Unavailable [phone] July Unavailable Graham Mathews MD Unavailable Encounter Details Date Type Department Care Team (Latest Contact Info) Description 12/03/[address] [facility] CONVERSIONS Dental, Provider, DDS Social History Tobacco [...] PM EST Office Visit [facility] ADULT DENTAL [address] [place], [place] [phone] Earl, Gabriela [address] [place], [place] [phone] documented as of this encounter Visit Diagnoses Not on filedocumented in this encounter Care Teams X Ray Equipment Mechanic Relationship Specialty Start Date End Date Krysten Rose MD [address] [place] [address] PCP - General Family Medicine 02/16/11 Rolly Mosley, EusebioD [address] [place] [address] Pharmacist Internal Medicine 08/11/22 Getachew Aguayo MD [address] [place] [phone] General Surgery 04/06/24 Tatiana Pineda MD [address] [place] [address] Hematology and Oncology 04/06/[address] [place] [address] Gastroenterology 04/06/24 Graham Mathews MD [address] [place] [address] Cardiology 04/06/24 documented as of this encounter
== END 2024-12-12 10:09 | disposition home or self-care (01) ==
LOC: HO.HGS 09:33
PROVIDERS: PCP Family Medicine; Visit Provider Surgery
DX: C50.412 Malignant neoplasm of upper-outer quadrant of left female breast (principal); Z17.0 Estrogen receptor positive status [ER+]
CPT/HCPCS: 99213; G2211

== ENCOUNTER → 2024-12-12 09:33 | Outpatient (BNVA) | payer OTHER, SELFPAY | PROVIDERS: PCP Family Medicine; Visit Provider Surgery | DX: Z85.3 Personal history of malignant neoplasm of breast (principal); Z17.0 Estrogen receptor positive status [ER+] | CPT/HCPCS: 99212 ==

== ENCOUNTER 2024-12-16 13:18 | Outpatient (AMB) | payer OTHER, SELFPAY ==
--- OUTSIDE RECORDS SUMMARY | 2024-12-10 10:15 | XMS_ITS | Encounter Summary ---
Author Organization [employer] Address 75 [facility] 7t [place] [address] Care Team Providers Care Weaver Tire Cord Name Role Phone Krysten Rose MD Primary Care Provider Rolly Mosley PharmD Unavailable [phone] Getachew Aguayo MD Unavailable [phone] Tatiana Pineda MD Unavailable [phone] July Unavailable Graham Mathews MD Unavailable Reason for Visit * Reason Comments Follow-up Encounter Details Date Type Department Care Team (Late st Contact Info) Description 12/10/2024 10:15 AM EDT Office Visit [facility] MEDICINE [address] [place], [place] [phone] Krysten Rose MD [address] [place], [place] [phone] Primary hypertension (Primary Dx); Osteoporosis, unspecified osteoporosis [...] was recovering from left arm fracture in [id number], then restarted and discontinued in Feb 2023 [...] Description 03/11/2025 1:00 PM EST Office Visit [facility] ADULT DENTAL [address] [place] [address] Gabriela Elliott [address] [place] [address] documented as of this encounter Goals Goal [...] documented as of this encounter Care Teams Weaver Tire Cord Relationship Specialty Start Date End Date Krysten Rose MD [address] [place] [address] PCP - General Family Medicine 02/16/11 Rolly Mosley, PharmD [address] [place] [address] Pharmacist Internal Medicine 08/11/22 Getachew Aguayo MD [address] [place] [address] General Surgery 04/06/24 Tatiana Pineda MD [address] [place] [address] Hematology and Oncology 04/06/24LozadaJuly [address] [place] [address] Gastroenterology 04/06/24 Graham Mathews MD [address] [place] [address] Cardiology 04/06/24 documented as of this encounter
--- NOTE | 2024-12-16 13:33 | MHC.OFFVIS ---
Intake Visit Reasons: 3M/PVR Intake Note: Patient is present for 3M/PVR Urology Medication:VITAMIN B12 Antibiotic Allergy:NONE Blood Thinner:ASPIRIN Todays PVR:0ML'S Schedule Announcer Required: No Schedule Announcer Services: Schedule Announcer Present Schedule Announcer Name: cecilia Rodriguez Allergies No Known Allergies (No Known Allergies*) Allergy (Verified 12/16/24 14:20) Medication List - Last Reconciled 12/16/24 by LONG Benitez- amlodipine 10 mg PO BEDTIME aspirin 81 mg PO DAILY cholecalciferol (vitamin D3) (Vitamin D3) 25 mcg PO QAM cyanocobalamin (vitamin B-12) 1,000 mcg PO DAILY hydrocortisone 2.5% 2.5 appl topical DAILY ipratropium bromide 42 mcg intranasal DAILY lisinopril 10 mg PO DAILY loratadine (Claritin) 10 mg PO DAILY PRN multivitamin 1 tab PO QAM pantoprazole 40 mg PO DAILY rosuvastatin 20 mg PO BEDTIME sucralfate 10 mL PO BEDTIME HPI Comments Details: Charlene is a very pleasant 73-year-old [place]er-speaking female patient of Dr. Rose. She has a past medical history of nephrolithiasis, dysuria, hematuria, coronary artery disease, GERD, left tennis elbow, osteopenia, hyperlipidemia, hypertension, and breast cancer. She presents to the office today for follow-up. Of note, patient was seen approximately 3 months ago as a new patient for recurrent urinary tract infections she had been experiencing at which time discussion regarding potential causes and further treatment options of recurrent urinary tract infections were discussed. She was started on Estrace cream. Since her last office visit here she reports compliance with Estrace cream as prescribed. She denies having had any bothersome urinary issues or concerns. She denies having had any UTI like symptoms. She is however moving back to [facility]. Previous workup has included a retroperitoneal ultrasound 08/31 bilateral kidneys are normal in thickness and echotexture. No nephrolithiasis or suspicious masses seen. Left kidney with simple cysts measuring 4.7 cm in the interpolar region. Urinary bladder is nondistended. No definite wall thickening. No bladder calculi. No hydronephrosis noted bilaterally. We did discussed potential causes of recurrent urinary tract infections as well as further treatment options and risks and benefits of these treatment options. She denies urinary urgency, urinary frequency, incontinence, nocturia, hematuria, dysuria, foul smelling urine, changes to urinary stream, flank pain, fever, and or chills. She is happy with her current voiding parameters. She does report issues with her bowels and has been following up with her PCP and has recently started Dulcolax. We discussed correlation of lower urinary tract symptoms with constipation. All questions were answered. She otherwise offers no other issues or concerns at this time. [facility] Medical History Abnormal nuclear stress test Dysuria Kidney stone Blood in urine CAD (coronary artery disease) GERD (gastroesophageal reflux disease) COVID-19 History of left tennis elbow Preoperative cardiovascular examination Arm fracture, left Abnormal EKG Chronic RLQ pain Hx of echocardiogram Osteopenia Colon cancer screening Hyperlipidemia Hypertension History of breast cancer Surgical History History of esophagogastroduodenoscopy (EGD) Hx of colonoscopy Hx of bilateral cataract extraction History of hemorrhoidectomy History of hysterectomy History of lumpectomy of left breast Family History Maternal Uncle History of prostate cancer Maternal Aunt History of colon cancer Brother History of prostate cancer Social History Household Members: Family and Children Housing: House Are you a primary career technical counselor to a significant other at home: No Do you presently have visiting nurse or other home services: Yes Alcohol intake: former Patient Tobacco Use Status: Never used Tobacco service: No Current occupational status: disabled Review of Systems Const All systems reviewed & are unremarkable except as noted in HPI and below Physical Exam Const General: cooperative, healthy appearing, comfortable, no acute distress, well developed, alert and awake Orientation/consciousness: patient oriented x3 Limitations: language barrier HEENT Head: Yes normal to inspection, Yes normocephalic and Yes atraumatic Ears: hearing grossly normal bilaterally Eyes General: appearance normal, both eyes and all related structures Neck Neck: Yes normal visual inspection and Yes trachea midline Chest Chest palpation & inspection: normal inspection of the chest Resp Effort & Inspection: normal respiratory effort and able to speak in complete sentences Cardio Rate: regular rate GI Inspection: Yes normal to inspection General: Yes no CVA tenderness Back/Spine/Pelvis Back: no CVA tenderness Skin General skin exam: no rashes or lesions noted Neuro General: patient oriented x3 Extrem General: Yes normal to inspection Psych Appearance: grossly normal and well kempt Mental Status: mental status grossly normal Speech and movement: Normal speech and movement present and Clear speech present Affect: normal affect Attitude: cooperative Thought process: Normal thought process present Thought content: Normal thought content present Insight: Fair insight present (Psych) Judgement: Fair judgement present (Psych) Office Procedures Post Void Residual Post Residual Void Post Void Residual (PVR): 0 [id number]-Paaa Void Residual by ultrasound Assessment & Plan Assessment & Plan (1) Blood in urine: Code(s): R31.9 - Hematuria, unspecified Category: Medical Qualifiers: Hematuria type: unspecified type Qualified Code(s): R31.9 - Hematuria, unspecified (2) Recurrent urinary tract infection: Code(s): N39.0 - Urinary tract infection, site not specified Category: Medical Plan In office urinalysis results reviewed with the patient today; as noted above. PVR 0 mL. She currently denies any bothersome urinary issues or concerns. She reports be happy with current voiding parameters. Continue Estrace cream as discussed and prescribed. We discussed follow-up in 6 months however patient will be moving back to [facility]. Follow-up PRN Orders: Orders AMB Urinalysis Automated Today Z13.9 - Encounter for screening, unspecified Medications: Refilled estradiol 0.01%(0.1mg/gram) (Estrace) Apply a pea-sized amount to urethra daily x1 month and then 3 times per week thereafter 1 g vaginal 3XW 42.5 grams 3RF 90 days Patient Instructions: The patient had an opportunity to ask questions regarding the treatment plan. All questions were answered. Physical exam, labs, and imaging were discussed and reviewed in detail. As well as risks, benefits, and discussion of treatment choices. No major barriers to understanding were identified. The patient expressed understanding and agreement with the above treatment plan. The patient was made aware they should contact our office by phone for worsening of their current condition, the appearance of new symptoms, or with any questions or concerns. Compliance is encouraged with any medications and follow up testing that is ordered. It is a privilege to be allowed the opportunity to participate in? your urological care.? Again, if you have any questions or concerns If you have any questions or concerns please do not hesitate to contact me. The office is [phone]. This note is constructed using voice recognition software. While every effort has been made to ensure accuracy grape crusher errors may have been included. Yours sincerely, VIKAS Benitez Coding Level of Care Code Est Pt Level 3 (89780) Complex EM visit Add On G2211 Diagnoses Hematuria, unspecified type R31.9 Hematuria type: unspecified type Recurrent urinary tract infection N39.0 CPT Codes Post Residual Void - PVR CPT Code: 61987-Yqoz Void Residual by ultrasound ([id number])
--- OUTSIDE RECORDS SUMMARY | 2024-12-16 15:42 | XMS_ITS | Encounter Summary ---
Author Organization [employer] Address [address] [facility] [address] [place] [address] Care Team Providers Care Painting Supervisor Name Role Phone Krysten Rose MD Primary Care Provider [phone] Rolly oMsley PharmD Unavailable Getachew Aguayo MD Unavailable [phone] Tatiana Pineda MD Unavailable [phone] July Unavailable Graham Mathews MD Unavailable Encounter Details Date Type Department Care Team (Late st Contact Info) Description 06/07/2023 Orders Only [facility] [address] [place], [place] [phone] Krysten Rose MD [address] [place], [place] [phone] Abnormal EKG (Primary Dx) Social History Tobacco [...] Description 03/11/2025 1:00 PM EST Office Visit [facility] ADULT DENTAL [address] [place], [place] [phone] Earl, Gabriela [address] [place] [address] Scheduled Orders Name Type Priority Associated Diagnoses [...] documented as of this encounter Care Teams Painting Supervisor Relationship Specialty Start Date End Date Krysten Rose MD [address] [place] [address] PCP - General Family Medicine 02/16/11 Rolly Mos[place], PharmD [address] [place] [address] Pharmacist Internal Medicine 08/11/22 Getachew Aguayo MD [address] [address] General Surgery 04/06/24 Tatiana Pineda MD [address] [place] [address] Hematology and Oncology 04/06/[address] [place] [address] Gastroenterology 04/06/24 Graham Mathews MD [address] [address] Cardiology 04/06/24 documented as of this encounter
--- OUTSIDE RECORDS SUMMARY | 2024-12-16 15:42 | XMS_ITS | Encounter Summary ---
Author Organization [employer] Address [address] [facility] 7t [place] [address] Care Team Providers Care Warhead Maintenance Specialist Name Role Phone Krysten Rose MD Primary Care Provider Rolly Mosley PharmD Unavailable Getachew Aguayo MD Unavailable [phone] Tatiana Pineda MD Unavailable [phone] July Unavailable Graham Mathews MD Unavailable Reason for Visit * Reason Comments Med Refill Encounter Details Date Type Department Care Team (Late st Contact Info) Description 10/08/2024 Refill [facility] [address] [place], [place] [phone] Krysten Rose MD [address] [place], [place] [phone] Social History Tobacco Use Types Packs/Day Years [...] the past 12 months, has t he [employer], gas, oil or water company threatened to [...] Visit [facility] ADULT DENTAL [address] [place] [address] Earl, Gabriela [address] [place] [address] documented as of this encounter Goals Goal [...] documented as of this encounter Care Teams Warhead Maintenance Specialist Relationship Specialty Start Date End Date Krysten Rose MD [address] [place] [address] PCP - General Family Medicine 02/16/11 Rolly Mos[place], PharmD [address] [place] [address] Pharmacist Internal Medicine 08/11/22 Getachew Aguayo MD [address] [place] [address] General Surgery 04/06/24 Tatiana Pineda MD [address] [place] [address] Hematology and Oncology 04/06/[address] [place] [address] Gastroenterology 04/06/24 Graham Mathews MD [address] [place] [address] Cardiology 04/06/24 documented as of this encounter
--- OUTSIDE RECORDS SUMMARY | 2024-12-16 15:42 | XMS_ITS | Encounter Summary ---
Author Organization [employer] Address [address] [facility] 7t [place] [address] Care Team Providers Care Supervisor Gelatin Plant Name Role Phone Krysten Rose MD Primary Care Provider Rolly Mosley PharmD Unavailable Getachew Aguayo MD Unavailable [phone] Tatiana Pineda MD Unavailable [phone] July Unavailable Graham Mathews MD Unavailable Encounter Details Date Type Department Care Team (Late st Contact Info) Description 10/03/2022 Abstract [facility] ADULT DENTAL [address] [place], [place] [phone] Bruno Sam DMD [address] [place], [place] [phone] Social History Tobacco Use Types Packs/Day Years [...] Description 03/11/2025 1:00 PM EST Office Visit [facility] ADULT DENTAL [address] [place] [address] Gabriela Elliott [address] [place] [address] documented as of this encounter Goals Goal [...] documented as of this encounter Care Teams Supervisor Gelatin Plant Relationship Specialty Start Date End Date Krysten Rose MD [address] [place] [address] PCP - General Family Medicine 02/16/11 Rolly Mosley, PharmD [address] [place] [address] Pharmacist Internal Medicine 08/11/22 Getachew Aguayo MD [address] [place] [address] General Surgery 04/06/24 Tatiana Pineda MD [address] [place] [address] Hematology and Oncology 04/06/24 Neville July [address] [place] [address] Gastroenterology 04/06/24 Graham Mathews MD [address] 3rd [place] [address] Cardiology 04/06/24 documented as of this encounter
--- OUTSIDE RECORDS SUMMARY | 2024-12-16 15:42 | XMS_ITS | Encounter Summary ---
Author Organization [employer] Address [address] [place] [address] 7t [place] [address] Care Team Providers Care Mig Welder Name Role Phone Krysten Rose MD Primary Care Provider Rolly Mosley PharmD Unavailable [phone] Getachew Aguayo MD Unavailable [phone] Tatiana Pineda MD Unavailable [phone] July Unavailable Graham Mathews MD Unavailable Encounter Details Date Type Department Care Team (Late st Contact Info) Description 04/04/2022 Abstract [facility] MED[facility] [address] [place], [place] [phone] Krysten Rose MD [address] [place], [place] [phone] Social History Tobacco Use Types Packs/Day Years [...] Benign essential tremor with titubation. Seen by [facility] neurologist, last visit on 08/10/20 Continue Gabapentin 100mg QHS * Assessment & Plan Note - Krysten Rose MD - 04/04/2022 6:32 AM ESTAssociated Problem(s): Breast cancer (CMS/HCC) - Current breast surgeon: Dr. Aguayo, seen on 10/22/20 - Previous breast surgeon: Dr. Andrade - [place]cologist[place] [facility] [place]. Pineda and Dr. Ochoa, last seen [...] 1:00 PM EST Office Visit [facility] ADULT DENTAL [address] [place] [address] Earl, Gabriela [address] [place] [address] documented as of this encounter Visit Diagnoses Not on filedocumented in this encounter Care Teams Mig Welder Relationship Specialty Start Date End Date Krysten Rose MD [address] [place] [address] PCP - General Family Medicine 02/16/11 Rolly Mosley, Michelle [address] [place] [address] Pharmacist Internal Medicine 08/11/22 Getachew Aguayo MD [address] [place] [address] General Surgery 04/06/24 Tatiana Pineda MD [address] [place] [address] Hematology and Oncology 04/06/24 Neville Dipika [address] [place] [address] Gastroenterology 04/06/24 Graham Mathews MD [address] [place] [address] Cardiology 04/06/24 documented as of this encounter
--- OUTSIDE RECORDS SUMMARY | 2024-12-16 15:42 | XMS_ITS | Clinical Summary ---
Author Organization [employer] Address [address] [facility] 7t [place] [address] Care Team Providers Care Network Intern Name Role Phone Krysten Rose MD Primary Care Provider [phone] Rolly Mosley PharmD Unavailable Getachew Aguayo MD Unavailable [phone] Tatiana Pineda MD Unavailable [phone] July Unavailable Graham Mathews MD Unavailable [...] EST): - Pt went to [facility] recently to relieve some stress Assessment [...] this time - consider further evaluation by golf club facer - recommended to discuss with her carver and checkerer specials for eye twitching Assessment & Plan (11/20/2023 1:14 PM EDT): - possible diagnosis - patient had atypical chest pain, cough, neurological abnormality, and loss of taste and smell - will monitor at this time - consider further evaluation by golf club facer - recommended to discuss with her carver and checkerer specials for eye twitching GERD (gastroesophageal reflux disease) Assessment & Plan (11/20/2023 12:48 PM EDT): - following with [facility] GI - continue [...] (10/09/2023 11:58 AM EDT): - Following with [facility] Cardiology, last seen [...] for cardiac cath. Pt was sent from [facility] to [facility] ED on 08/24/23 due to cardiac symptoms for consideration of cardiac cath, but was not deemed necessary at that time. Pt experiencing stress/anxiety as cardiac cath has not yet been completed, and would like assistance with scheduling. RN left message for [facility] Cards regarding timeline above, plan for them to call us back or give call directly to pt to schedule. - Strict ED precautions reviewed - Plan to continue amlodipine, lisinopril, aspirin, and pravastatin. Assessment & Plan (08/15/2023 7:12 PM EDT): - Following with [facility] Cardiology, last seen [...] EDT): - likely rosacea - following with inventory control coordinator; will obtain records Hx of cholecystectomy 05/10/2023 Assessment & Plan (05/10/2023 6:46 PM EST): Pt s/p cholecystectomy , w no complications Feeling well Abnormal EKG 05/10/2023 Assessment & Plan (08/15/2023 7:14 PM EDT): - incidental finding while undergoing pre-op for lap cholecystectomy in [place] in April 2023 - [facility], an incidental finding while undergoing pre-op for laparoscopic cholecystectomy, which is different from prior EKG - EKG at [facility] Cardiology office in [...] -advised pt to f up w her statistics professor ot will need to return to clinic to repeat EKG --pt states will see her statistics professor -alarm signs and symptoms discussed Oropharyngeal dysphagia 05/10/2023 Assessment & Plan (10/09/2023 11:58 AM EDT): - Pt evaluated by [facility] in June 2023 - Plan for barium swallow proceeded by EGD. Pt reports she has not been contacted to schedule either from [facility], and having difficulties communicating with office. - RN contacted [facility] GI office and [...] (07/31/2022 5:05 AM EDT): - Evaluated by [facility] Cardiology service in [...] was recovering from left arm fracture in 0486-7506, then restarted and discontinued in Feb 2023 [...] was recovering from left arm fracture in 6142-8644, then restarted and discontinued in Feb 2023 [...] was recovering from left arm fracture in 0595-9217, then restarted and discontinued in Feb 2023 [...] was recovering from left arm fracture in 4437-4517, then restarted - OncologistDr. Pineda will start [...] essential tremor with titubation. - Seen by [facility] neurologist, last visit in August 2022 - Previously tried gabapentin, but pt developed leg swelling after increasing its dose. Gabapentin was discontinued - Pt was safely discharged from neurology clinic Assessment & Plan (04/07/2024 2:32 PM EST): - Dx Benign essential tremor with titubation. - Seen by [facility] neurologist, last visit in August 2022 - Previously tried gabapentin, but pt developed leg swelling after increasing its dose. Gabapentin was discontinued - Pt was safely discharged from neurology clinic Assessment & Plan (11/20/2023 12:36 PM EDT): - Dx Benign essential tremor with titubation. - Seen by [facility] neurologist, last visit in August 2022 - Previously tried gabapentin, but pt developed leg swelling after increasing its dose. Gabapentin was discontinued - Pt was safely discharged from neurology clinic Assessment & Plan (08/14/2023 2:41 PM EDT): - Dx Benign essential tremor with titubation. - Seen by [facility] neurologist, last visit in August 2022 - Previously tried gabapentin, but pt developed leg swelling after increasing its dose. Gabapentin was discontinued - Pt was safely discharged from neurology clinic Assessment & Plan (03/23/2023 1:07 PM EST): - Dx Benign essential tremor with titubation. - Seen by [facility] neurologist, last visit in August 2022 - Previously tried gabapentin, but pt developed leg swelling after increasing its dose. Gabapentin was discontinued - Pt was safely discharged from neurology clinic Assessment & Plan (11/28/2022 1:34 PM EDT): - Dx Benign essential tremor with titubation. - Seen by [facility] neurologist, last visit in August 2022 - Previously tried gabapentin, but pt developed leg swelling after increasing its dose. Gabapentin was discontinued - Pt was safely discharged from neurology clinic Assessment & Plan (07/31/2022 4:54 AM EDT): - Dx Benign essential tremor with titubation. - Seen by [facility] neurologist, last visit in May 2022 - Continue Gabapentin 100mg QHS Assessment & Plan (04/04/2022 6:34 AM EST): Dx Benign essential tremor with titubation. Seen by [facility] neurologist, last visit on 08/10/20 Continue [...] due to her trip to [facility]) -Pt restarted PT and still receiving PT -Continue following recommendations from orthopedists Impaired fasting glucose 12/21/2016 Breast cancer 12/21/2016 Assessment & Plan (09/14/2024 11:04 PM EDT): - Left breast infiltrating ductal carcinoma Dx 2017 - s/p lumpectomy and sentinel node biopsy on 08/14/16 - s/p radiation therapy in September and October 2016. - Breast surgeon: [facility], Dr. Aguayo, seen in Dec 2023. Initial surgeon was Dr. Andrade, who has retired. - Oncologist: [facility] Dr. Pineda, last [...] September and October 2016. - Breast surgeon: [facility], Dr. Aguayo, seen in Dec 2023. Initial surgeon was Dr. Andrade, who has retired. - Oncologist: [facility] Dr. Pineda, last [...] Previous breast surgeon: Dr. Andrade - Oncologist: [facility] Dr. Pineda and [...] Previous breast surgeon: Dr. Andrade - Oncologist: [facility] Dr. Pineda and [...] Previous breast surgeon: Dr. Andrade - Oncologist: [facility] Dr. Pineda and [...] Previous breast surgeon: Dr. Andrade - Oncologist: [facility] Dr. Pineda and [...] Previous breast surgeon: Dr. Andrade - Oncologist: [facility] Dr. Pineda and [...] Previous breast surgeon: Dr. Andrade - Oncologist: [facility] Dr. Pineda and [...] Continue checking home BP - Seen by statistics professor again in Mar 2022, and given reassurance. [...] Continue checking home BP - Seen by statistics professor again in Mar 2022, and given reassurance. [...] Continue checking home BP - Seen by statistics professor again in Mar 2022, and given reassurance. [...] Continue checking home BP - Seen by statistics professor again in Mar 2022, and given reassurance. [...] have a BP monitor. - Seen by statistics professor again in Mar 2022, and given reassurance [...] Description 12/10/2024 10:15 AM EDT Office Visit [facility] MEDICINE [address] [place] [address] Krysten Rose MD Primary hypertension (Primary Dx); Osteoporosis, unspecified osteoporosis type, unspecified pathological fracture presence; Dyslipidemia 12/10/2024 Travel 12/09/2024 Telephone [facility] [place] [address] Krysten Rose MD CHART PREP 11/21/2024 Results Follow-Up [facility] [address] [facility] [place] [address] Krysten Rose MD Hematoxylin and Eosin Stain 11/18/2024 Orders Only GENERIC EXTERNAL DATA DEPARTMENT Provider, Generic External Data 10/08/2024 Refill [facility] [address] [facility] [place] [address] Krysten Rose MD 09/18/2024 Orders Only GENERIC EXTERNAL DATA DEPARTMENT Provider, Generic External Data 09/17/2024 Refill [facility] [address] [facility] [place] [address] Krysten Rose MD from Last 3 Months [...] 12+ 06/08/2020 Pfizer Covid-19 Vaccine 12+ 02/21/2023, 1 Pneumococcal Conjugate PCV 13 12/27/2015 Pneumococcal Polysaccharide [...] Office Visit [facility] ADULT DENTAL [address] [place] [address] Earl, Gabriela [address] [place] [address] Health Maintenance Due Date Last Done Comments [...] SDOH Screening 09/04/2025 09/04/2024 Mammogram 09/12/2025 09/12/2024, 053 04/2023, 08/31/2022, Additional history exists Tobacco Screening 12/10/2025 12/10/2024 Dental X-Ray: Full Mouth 02/21/2027 02/21/2024, 11/07 Lipid Panel 09/04/2029 09/04/2024, 05/0 10/2023, 03/07/2023, [...] TOMOSYNTHESIS BILATERAL Routine 09/12/2024 2:00 PM EDT LIPID PANEL WITH REFLEX TO [...] 8:50 AM EDT 11/18/2024 10:31 AM EDT [facility] - 11/20/2024 4:46 PM EDT ----- ------- Name: Charlene Zamora Age/Sex: 74/F : 1950 [facility]#: [id number] Unit#: [id number] Attend Dr: Elizabeth Galicia MD Re11/18/24 Status: [facility] Location: [facility] Disch: ----- ------- SPEC : [id number] RECD: 11/18/24-1031 STATUS: SAMY TEIXEIRA NUM: [id number] MAN: 11/18/24-[address] [facility] [address]: Elizabeth Galicia MD ENTERED: 11/18/24-1042 SP TYPE: Surgical OTHR DR: Krysten Rose [...] Charlene Zamora Age/Sex: 74/F : 1950 Unit#: [id number] Attend Dr: Elizabeth Galicia MD Re11/18/24 Status: [facility] Location: [facility] Disch: ----- ------- SPEC : [id number] RECD: 11/18/24-1030 STATUS: SAMY TEIXEIRA NUM: [id number] MAN: 11/18/[address] [facility] [address]: Elizabeth Galicia MD ENTERED: 11/18/24-1041 SP TYPE: Surgical OTHR DR: Krysten Rose MD ORDERED: HE Stain/9, Gross Micro L4/3 IHC S/NG Disclaimer NOTE: Unless otherwise stated, all tissue is formalin-fixed and paraffin-embedded. Some or all of the immunohistochemical tests reported herein may have been developed and their performance characteristics determined by [facility]. They have not been cleared or approved by the U.S. Food and Drug Administration (FDA). However, the FDA has determined that such clearance or approval is not necessary. This laboratory is certified under the Clinical Laboratory Improvement Amendments of 1988 (CLIA) as qualified to perform high complexity clinical laboratory testing. Copies To: Krysten Rose MD [address] [phone] Elizabeth Galicia MD [facility] [address] [place] [address] [phone] [email or web address] ----- ------- Signed (signature on file) Ju Garcia 11/20/24 1646 ----- ------- END OF REPORT Generic External Data Provider LAB BLOOD ORDERAB LES Final Result [facility] [address] [place] [address] [phone] * Cytopath-cell enhanced (09/18/2024 4:51 PM EDT) 09/18/2024 4:51 PM EDT 09/19/2024 11:30 AM EDT Blake [facility] - 09/22/2024 11:10 AM EDT ----- ------- Name: Charlene Zamora Age/Sex: 73/F : 1950 Unit#: [id number] Attend Dr: Kira Johnson [facility]- Re09/18/24 Status: [facility] Location: [facility] Disch: ----- ------- SPEC : [id number] RECD: 09/19/24-1130 STATUS: SAMY TEIXEIRA NUM: [id number] MAN: 09/18/24-[address] [facility] [address]: Kira Johnson [facility]- ENTERED: 09/19/24-1346 SP TYPE: Cytology OT DR: Krysten Rose [...] developed and their performance characteristics determined by [facility]. They have not been cleared or approved by the U.S. Food and Drug Administration (FDA). However, the FDA has determined that such clearance or approval is not necessary. This laboratory is certified under the Clinical Laboratory Improvement Amendments of 1988 (CLIA) as qualified to perform high complexity clinical laboratory testing. Copies To: Kira Johnson [facility] U[facility] [address] [place] [address] Dr. Hoffmann [address] [place] [phone] [email or web address] Krysten Rose MD [address] [address] CONTINUED ON NEXT PAGE ----- ------- Name: Charlene Zamora Age/Sex: 73/F : 1950 Unit#: [id number] Attend Dr: Kira Johnson [facility] Re09/18/24 Status: DEP REF Location: [facility] Disch: ----- ------- SPEC : [id number] RECD: 09/19/24-113 STATUS: SAMY TEIXEIRA NUM: [id number] MAN: 09/18/[address] [facility] [address]: Kira Johnson [facility] ENTERED: 09/19/24-811 SP TYPE: Cytology OTHR DR: Krysten Rose MD ORDERED: Cyto-enhanced ----- ------- Signed (signature on file) Higinio Moore MD 09/22/24 1110 ----- ------- END OF REPORT us Generic External Data Provider LAB CYTOLOGY ORDE JOHN Final Result [facility] [address] [place] [phone] * BI Mammogram Screening Tomosynthesis Bilateral (09/12/2024 2:00 PM EDT) Anatomical Region Laterality Modality Breast Bilateral Mammography 09/12/2024 2:00 PM EDT Narrative 09/19/2024 3:10 PM EDT [facility] [address] [place] [address] Mammography Report Signed Patient: Charlene Zamora MR#: [id number] : 1950 Acct:[id number] Age/Sex: 73 / F ADM Date: 09/12/24 Loc: HO.MAMMO Attending Dr: Tatiana Pineda MD Ordering Physician: Tatiana Pineda MD Results: 2Benign Findings Date of Service: 09/12/24 Follow Up: 1 Year From [facility] Mammogram Procedure(s): MM tomosynthesis screening BI Accession Number(s): [id number] cc: Tatiana Pineda MD; Krysten Rose MD [...] 09/19/24 1508 DD/ 1400 TD/TT: 09/12/24 1421 Painter Touch Up: Procedure Note Donotuseinterpreter, Image - 09/19/2024 [facility] [address] [place] [address] Mammography Report Signed Patient: Charlene Zamora MMR#: [id number] : 1950cct:[id number] Age/Sex: 73 / FADM Date: 09/12/24 Loc: HO.MAMMO Attending Dr: Tatiana Pineda MD Ordering Physician: Tatiana Pineda MDResults: 2Benign Findings Date of Service: 09/12/24Follow Up: 1 Year From [facility] Mammogram Procedure(s): MM tomosynthesis screening BI Accession Number(s): [id number] cc: Tatiana Pineda MD; Krysten Rose MD [...] 09/19/24 1508 DD/ 1400 TD/TT: 09/12/24 1421 Painter Touch Up: [facility] External Provider IMG BI PROCEDURES Final Result * Lipid Panel with Reflex to Direct LDL (09/04/2024 11:48 AM EDT) Triglycerides 126 <150 mg/dL [facility] Comment:Desirable Triglyceri de: less than 150 mg/dLBorderline High Triglyceride 150-199 mg/dLHigh Triglyceride: 200-499 mg/dLVery High Triglyceride: greater than or equal to 5OO mg/dL Cholesterol 125 <200 mg/dL [facility] Comment:Desirable Cholestero l: less than 200 mg/dLBorderline High Cholesterol: 200-239 mg/dLHigh Cholesterol: greater than 239 mg/dL LDL Cholesterol Calculated 45 <100 mg/dL [facility] Comment:Desirable LDL: less than 100 mg/dLNear Optimal/Above Optimal LDL: 110- 129 mg/dLBorderline High LDL: 130-159 mg/dLHigh LDL: 160-189 mg/dLVery High LDL: greater than or equal to 190 mg/dL HDL Cholesterol 55 >40 mg/dL [facility] Comment:Desirable HDL: great er than 40 mg/dL Note: This HDL assay may give artificially low results in patients with liver disease. Blood 09/04/2024 11:4 8 AM EDT 09/04/2024 1:26 PM EDT Krysten Rose MD LAB BLOOD ORDERABLES Final Resul t Performing Organization Address City/[facility]/ZIP Co de Phone Number [facility] [address] [place] [address] [phone] * HEPATITIS C AB W/REFL TO [...] a test for HCV RNA (test code 94417) is suggested. For additional information please refer to http://education.TheraVid/faq/WGX89i6 (This link is being provided for informational/ educational purposes only.) 01/17/2022 8:19 AM EDT Krysten Rose MD HISTORICAL/NON ORDERABLE LABS Fi nal Result Performing Organization Address City/[facility] de Phone Number CONVERTED LEGACY LABS * Colonoscopy (05/04/2020) Colonoscopy Normal Normal Allan Hong MD HEALTH MAINTENANCE Final Res ult from Last 3 Months or Most Recently Relevant to Health Maintenance Insurance [facility] OPTIONS (O D-SNP) Care Teams Network Intern Relationship Specialty Start Date End Date Krysten Rose MD [address] [place] [address] PCP - General Family Medicine 02/16/11 Rolly Mosley, PharmD [address] [place] [address] Pharmacist Internal Medicine 08/11/22 Getachew Aguayo MD [address] [place] [address] [address] [place] [address] General Surgery 04/06/24 Tatiana Pineda MD [address] [place] [address] Hematology and Oncology 04/06/[address] [place] [address] Gastroenterology 04/06/24 Graham Mathews MD [address] [place] [address] Cardiology 04/06/24
--- OUTSIDE RECORDS SUMMARY | 2024-12-16 15:42 | XMS_ITS | Encounter Summary ---
Author Organization [employer] Address [address] [place] [address] 7t [place] [address] Care Team Providers Care Creative Writing Teacher Name Role Phone Krysten Rose MD Primary Care Provider [phone] Rolly Mosley PharmD Unavailable Getachew Aguayo MD Unavailable [phone] Tatiana Pineda MD Unavailable [phone] July Unavailable Graham Mathews MD Unavailable Encounter Details Date Type Department Care Team (Latest Contact Info) Description 12/03/2020 Abstract [facility] CONVERSIONS Dental, Provider, DDS Social [...] Description 03/11/2025 1:00 PM EST Office Visit [facility] ADULT DENTAL [address] [place], [place] [phone] Earl, Gabriela [address] [place], [place] [phone] documented as of this encounter Visit Diagnoses Not on filedocumented in this encounter Care Teams Creative Writing Teacher Relationship Specialty Start Date End Date Krysten Rose MD [address] [place] [address] PCP - General Family Medicine 02/16/11 Rolly Mosley, EusebioD [address] [place] [address] Pharmacist Internal Medicine 08/11/22 Getachew Aguayo MD [address] [place] [address] General Surgery 04/06/24 Tatiana Pineda MD [address] [place] [address] Hematology and Oncology 04/06/[address] [place] [address] Gastroenterology 04/06/24 Graham Mathews MD [address] [place] [address] Cardiology 04/06/24 documented as of this encounter
--- OUTSIDE RECORDS SUMMARY | 2024-12-16 15:42 | XMS_ITS | Encounter Summary ---
Author Organization [employer] Address [address] [facility] 7t [place] [address] Care Team Providers Care Floor Manager Name Role Phone Krysten Rose MD Primary Care Provider Rolly Mosley PharmD Unavailable [phone] Getachew Aguayo MD Unavailable [phone] Tatiana Pineda MD Unavailable [phone] July Unavailable Graham Mathews MD Unavailable Encounter Details Date Type Department Care Team (Late st Contact Info) Description 02/27/2023 Abstract [facility] MEDICINE [address] [place], [place] [phone] Krysten Rose MD [address] [place], [place] [phone] Social History Tobacco Use Types Packs/Day Years [...] Description 03/11/2025 1:00 PM EST Office Visit [facility] ADULT DENTAL [address] [place] [address] Earl, Gabriela [address] [place] [address] documented as of this encounter Goals Goal [...] documented as of this encounter Care Teams Floor Manager Relationship Specialty Start Date End Date Krysten Rose MD [address] [place] [address] PCP - General Family Medicine 02/16/11 Rolly Mosley, PharmD [address] [place] [address] Pharmacist Internal Medicine 08/11/22 Getachew Aguayo MD [address] [place] [phone] General Surgery 04/06/24 Tatiana Pineda MD [address] [place] [address] Hematology and Oncology 04/06/24 Neville Dipika [address] [place] [address] Gastroenterology 04/06/24 Graham Mathews MD [address] [place] [address] Cardiology 04/06/24 documented as of this encounter
--- OUTSIDE RECORDS SUMMARY | 2024-12-16 15:42 | XMS_ITS | Encounter Summary ---
Author Organization [employer] Address [address] [facility] 7t [place] [address] Care Team Providers Care Laser Beam Color Scanner Operator Name Role Phone Krysten Rose MD Primary Care Provider [phone] Rolly Mosley PharmD Unavailable Getachew Aguayo MD Unavailable [phone] Tatiana Pineda MD Unavailable [phone] July Unavailable Graham Mathews MD Unavailable Encounter Details Date Type Department Care Team (Late st Contact Info) Description 11/21/2024 Results Follow-Up [facility] MEDICINE [address] [place], [place] [phone] Krysten Rose MD [address] [place], [place] [phone] Hematoxylin and Eosin Stain Social History Tobacco [...] is your housing situation today? I have rein hill 09/04/[address] you [...] the past 12 months, has t he [employer], gas, oil or water company threatened to [...] Description 03/11/2025 1:00 PM EST Office Visit [facility] ADULT DENTAL [address] [place] [address] Earl, Gabriela [address] [place] [address] documented as of this encounter Goals Goal [...] documented as of this encounter Care Teams Laser Beam Color Scanner Operator Relationship Specialty Start Date End Date Krysten Rose MD [address] [place] [address] PCP - General Family Medicine 02/16/11 Rolly Mosley, EusebioD [address] [place] [address] Pharmacist Internal Medicine 08/11/22 Getachew Aguayo MD [address] [place] [address] General Surgery 04/06/24 Tatiana Pineda MD [address] [place] [address] Hematology and Oncology 04/06/24 Neville Dipika [address] [place] [address] Gastroenterology 04/06/24 Graham Mathews MD [address] [place] [address] Cardiology 04/06/24 documented as of this encounter
--- OUTSIDE RECORDS SUMMARY | 2024-12-16 15:42 | XMS_ITS | Encounter Summary ---
Author Organization [employer] Address [address] [facility] 7[address] [place] [address] Care Team Providers Care Pattern Clerk Name Role Phone Krysten Rose MD Primary Care Provider Rolly Mosley PharmD Unavailable [phone] Getachew Aguayo MD Unavailable [phone] Tatiana Pineda MD Unavailable [phone] July Unavailable Graham Mathews MD Unavailable Encounter Details Date Type Department Care Team (Late st Contact Info) Description 11/30/2022 Orders Only [facility] MEDICINE [address] [place], [place] [phone] Krysten Rose MD [address] [place], [place] [phone] Chronic pain of left knee (Primary Dx); [...] Description 03/11/2025 1:00 PM EST Office Visit [facility] ADULT DENTAL [address] [place] [address] Gabriela Elilott [address] [place] [address] documented as of this encounter Goals Goal [...] documented as of this encounter Care Teams Pattern Clerk Relationship Specialty Start Date End Date Krysten Rose MD [address] [place] [address] PCP - General Family Medicine 02/16/11 Rolly Mosley, PharmD [address] [place] [address] Pharmacist Internal Medicine 08/11/22 Getachew Aguayo MD [address] [place] [address] General Surgery 04/06/24 Tatiana Pineda MD [address] [place] [address] Hematology and Oncology 04/06/[address] [place] [address] Gastroenterology 04/06/24 Graham Mathews MD [address] [place] [phone] Cardiology 04/06/24 documented as of this encounter
== END 2024-12-16 14:21 | disposition home or self-care (01) ==
LOC: HO.HUSH 13:18
PROVIDERS: PCP Family Medicine; Visit Provider Nurse Practitioner Family
DX: R31.9 Hematuria, unspecified (principal); N39.0 Urinary tract infection, site not specified; Z13.9 Encounter for screening, unspecified
CPT/HCPCS: 99213; G2211

== ENCOUNTER → 2024-12-16 13:18 | Outpatient (BNVA) | payer OTHER, SELFPAY | PROVIDERS: PCP Family Medicine; Visit Provider Nurse Practitioner Family | DX: N39.0 Urinary tract infection, site not specified (principal); R31.9 Hematuria, unspecified; Z13.9 Encounter for screening, unspecified | CPT/HCPCS: 51798; 81003; 99212 ==